=== PATIENT | male | born 1955 ===

== ENCOUNTER 2018-09-04 13:27 | Inpatient (IN) | payer BC ==
[~2018-09-04] VITALS: Ht 177.8 cm; Wt 99.2 kg
--- NOTE | 2018-09-04 14:15 | NUR ---
Silvio Nash admitted to room 222-1, with an admitting diagnosis of Debility status post CVA, on 09/04/18 from [facility] via wheelchair van, accompanied by staff. SILVIO NASH introduced to surroundings, call light, bed controls, phone, TV, temperature control, lights, meal times, smoking policy, visitor policy, side rail policy, bathrooms and showers. Patient Rights given to patient in the handbook.SILVIO NASH verbalizes understanding that [facility] is not responsible for the loss or damage to any personal effects or valuables that are kept in the patients possession during their hospitalization. The following Patient Care Plans were discussed with the Patient: Discharge Planning, Altered Cerebral Tissue Perfusion, Unilateral Neglect, Impaired Mobility, Self Care Deficit, and Knowledge deficit. SILVIO NASH verbalizes understanding of Interdisciplinary Patient Education. Patient received Patient Rights Booklet, which includes Privacy Act Statement and Data Collection Information Summary.
[2018-09-04 14:20] VITALS: BP 159/75
[2018-09-04] MEDS ORDERED: PYRI50TA10 PO (14:39)
[2018-09-04] MEDS ORDERED: METF500T8 PO (14:39)
[2018-09-04] MEDS ORDERED: CHOL10007 PO (14:39)
[2018-09-04] MEDS ORDERED: CARV25TA PO (14:39)
[2018-09-04] MEDS ORDERED: CYAN500T2 PO (14:39)
[2018-09-04] MEDS ORDERED: AMLO10TA7 PO (14:39)
[2018-09-04] MEDS ORDERED: ZINC220T PO (14:39)
[2018-09-04] MEDS ORDERED: FEXO180T84 PO (14:39)
[2018-09-04] MEDS ORDERED: INSU300I SQ (14:39)
--- NOTE | 2018-09-04 14:46 | NUR ---
UPDATED MED REC TO THE LIST OF MEDICATIONS THE PATIENT WAS TAKING UPON ADMISSION TO USING THE DISCHARGE ORDERS FROM . NOTE THE FOLLOWING CHANGES WERE MADE WHEN THE PATIENT DISCHARGED TO [facility] THAT ARE NOT CURRENTLY REFLECTED ON THE HOME MED REC. START TAKING: ASPIRIN 325MG DAILY LIPITOR 40MG DAILY PROZAC 20MG DAILY HYDROCODONE 5-325MG 1-2 TABS Q4H PRN XARELTO 20MG DAILY WITH LUNCH SENOKOT S BID PRN WHILE TAKING PAIN MEDICATION CHANGE HOW YOU TAKE: AMLODIPINE 10MG DAILY (DO NOT RESUME UNTIL SEEN BY PRIMARY CARE PHYSICIAN) COREG 25MG BID (DO NOT RESUME UNTIL SEEN BY PRIMARY CARE PHYSICIAN) THE FOLLOWING MEDICATIONS WERE REMOVED FROM THE PATIENTS LIST AT ; IT INCLUDES MEDICATION DISCONTINUED THIS STAY AND THOSE REMOVED FROM PRIOR MED LIST IN THEIR SYSTEM: CIPRO 500 (NOT INCLUDED ON MED REC) MAG 400 SAW PALMETTO 500MG SELENIUM 100MCG
[2018-09-04] MEDS ORDERED: MAGN400T39 PO (14:53)
[2018-09-04] MEDS ORDERED: SELE100T PO (14:53)
[2018-09-04] MEDS ORDERED: SAW500CA10 PO (14:53)
[2018-09-04] MEDS ORDERED: POLYETHYLENE GLYCOL 17 GM (MIRALAX) PACK PO NR (15:00)
[2018-09-04] MEDS ORDERED: SENNA W/DOCUSATE (SENOKOT S) TABLET PO NR (15:00)
[2018-09-04] MEDS ORDERED: LACTULOSE SYRUP 10GM/15ML (ENULOSE) 30ML UDC PO NR (15:00)
--- NOTE | 2018-09-04 16:01 | Physical Therapy Evaluation ---
PT Evaluation-General Medical Diagnosis Admission Date Sep 04, 2018 at 14:18 Medical Diagnosis: CVA Onset Date: Sep 04, 2018 Therapy Diagnosis Therapy Diagnosis: impaired mobility, strength, endurance Height/Weight Height (Feet): 5 Height (Inches): 10.00 Weight (Pounds): 211 Weight (Ounces): 8.0 Precautions Precautions/Isolations: Standard Precautions Referral Physician: Meron Meier DO Reason for Referral: Evaluation/Treatment Medical History Pertinent Medical History: CVA, DM, HTN Social History Home: Single Level Current Living Status: Spouse Entry Into Home: Level Entry Prior/Core FIM Prior Level of Function Therapy Code Descriptions/Definitions Functional Nicholas Measure: 0=Not Assessed/NA 4=Minimal Assistance 1=Total Assistance 5=Supervision or Setup 2=Maximal Assistance 6=Modified Nicholas 3=Moderate Assistance 7=Complete Nicholas Therapy Quality Codes: 6 Independent with activity with or without an assistive device 5 Patient requires set up or clean up by helper. Patient completes activity by themselves 4 Supervision or touching assist (CGA). [place] provide cues , steadying assist 3 The helper provides less than half the effort to complete the activity 2 The helper provides more than half the effort to complete the activity 1 Dependent. The helper does all the effort to complete an activity 7 Patient refused to complete or attempt activity 9 The patient did not perform the activity before the current illness or injury 88 Not attempted due to Medical conditions or safety concerns Functional Abilities and Goals: Independent: Patient completed the activities by him/herself, with or without an assistive device, with no assistance from a helper. Needed Some Help: Patient needed partial assistance from another person to complete activities. Dependent: A helper completed the activities for the patient. Unknown: Not Applicable: Bed Mobility: 7 Transfers (B,C,W/C) (FIM): 7 Gait: 7 Stairs: 7 Indoor Mobility (Ambulation): Independent Stairs: Independent PT Evaluation-Current Subjective Patient in bed pre tx, agrees to PT, will be co-treating with OT due to poor patient mobility, balance, and endurance. Pt/Family Goals to be independent at home Objective Patient Orientation: Person, Place ROM/Strength ROM Lower Extremities WNL Strenght Lower Extremities right lower extremity 5/5 gross, LLE (hip flexion 1/5, knee flexion 0/5, knee extension 1/5, dorsiflexion 1/5) Neuromuscular (Tone, Coordination, Reflexes) slightly increased extensor tone in the left leg, seemed to have slightly decreased peripheral vision on the left side, fair tracking on both sides, no complaints of hearing changes Sensory Hearing: Functional Sensation Right Lower Extremit: Intact Sensation Left Lower Extremity: Intact Transfers Therapy Code Descriptions/Definitions Functional Nicholas Measure: 0=Not Assessed/NA 4=Minimal Assistance 1=Total Assistance 5=Supervision or Setup 2=Maximal Assistance 6=Modified Nicholas 3=Moderate Assistance 7=Complete Nicholas Therapy Quality Codes: 6 Independent with activity with or without an assistive device 5 Patient requires set up or clean up by helper. Patient completes activity by themselves 4 Supervision or touching assist (CGA). [place] provide cues , steadying assist 3 The helper provides less than half the effort to complete the activity 2 The helper provides more than half the effort to complete the activity 1 Dependent. The helper does all the effort to complete an activity 7 Patient refused to complete or attempt activity 9 The patient did not perform the activity before the current illness or injury 88 Not attempted due to Medical conditions or safety concerns Transfers (B, C, W/C) (FIM): 2 Scootin Rollin Roll Left to Right (QC): 3 Supine to/from Sit: 3 Sit to/from Stand: 3 bed t/f WC(FIM only if WC use): 3 Sit to Lying (QC): 3 Lying to Sitting/Side of Bed(Q: 2 Sit to Stand (QC): 2 Chair/Ihn-uc-Vydoe Xfer(QC): 2 Car Transfer (QC): 2 Patient performs bed mobility with min assist, supine to sit with mod assist, sit to supine with min assist, sit to stand with mod assist, stand pivot transfer with mod assist, car transfer with max assist. Patient needs guarding of left leg, cues for positioning, leans heavily to the left. Gait Does the Patient Walk?: Yes Mode of Locomotion: Both Anticipated Mode of Locomotion: Walk Gait (FIM): 1 Distance: 8' Gait Level of Assist: 2 Gait Persons Needed: 1 Gait Assistive Device: Parallel Bars Comments/Gait Description Patient ambulated 8' in the parallel bars with max assist. He needs assist advancing his left leg and it tends to adduct, leans heavily to the left side, he can bear some weight through his left leg. Wheelchair Training Does the Pt Use a Wheelchair?: Yes Wheelchair (FIM): 1 Distance: 25' Wheelchair Level of Assist: 4 Type of Wheelchair: Manual Patient can propel a manual wheelchair 25' with min assist. He uses his right arm and leg to propel. Stairs If not tested on admit;explain Patient is not safe to perform stairs at this time, he is only ambulating in the parallel bars at this time. Balance Sitting Static: Fair Sitting Dynamic: Poor Standing Static: Poor Standing Dynamic: Poor Treatment sitting balance activities with cones and reaching and leaning in 4 directions, standing with mirror in front, dressing, grooming. PT worked on bed mobility, transfers, ambulation, balance activities, and positioning and balance during dressing and grooming. OT worked on dressing, grooming, UE exercises and balance activities. OT performed eval from [id number] for 20'. PT performed eval from [id number] for 10 min. Then co-treated for the next 75 min from 1440- 1555. Assessment/Needs Patient has impaired mobility, strength, endurance, balance. He is a high fall risk. He leans heavily to the left side. Rehab Potential: Fair PT Short Term Goals Short Term Goals Time Frame: Sep 11, 2018 Transfers (B,C,W/C) (FIM): 3 Gait (FIM): 1 Gait Distance Comment: 20' Gait Level of Assist: 3 Gait Assistive Device: Walker Ba PT Exterior Door Installer Goals Exterior Door Installer Goals PT Fdc Goals Time Frame: Sep 25, 2018 Transfers (B,C,W/C) (FIM): 4 Sit to Lying (QC): 4 Lying-Sitting on Side/Bed(QC): 4 Sit to Stand (QC): 4 Rollin Roll Left to Right (QC): 4 Chair/Uqa-wb-Lvdwe Xfer(QC): 4 Car Transfer (QC): 4 Gait (FIM): 2 Distance: 50' Walk 10 feet (QC): 3 Walk 10ft-Uneven Surface(QC): 3 Walk 50ft with 2 Turns (QC): 3 Gait Level of Assist: 4 Gait Assistive Device: Cane Large Base Quad Wheelchair (FIM): 5 Distance: 150' Wheelchair Level of Assist: 5 Wheel 50 feet with 2 turns (QC: 4 PT Plan Problem List Problem List: Activity Tolerance, Functional Strength, Safety, Balance, Gait, Transfer, Bed Mobility, ROM Treatment/Plan Treatment Plan: Continue Plan of Care Treatment Plan: Bed Mobility, Concurrent Therapy, Education, Functional Activity Reena, Functional Strength, Group Therapy, Gait, Safety, Therapeutic Exercise, Transfers Treatment Duration: Sep 25, 2018 Frequency: At least 5 of 7 days/Wk (IRF) Estimated Hrs Per Day: 1.5 hours per day Patient and/or Family Agrees t: Yes Safety Risks/Education Patient Education: Gait Training, Transfer Techniques, Correct Positioning, W/ C Management, Safety Issues Teaching Recipient: Patient Teaching Methods: Demonstration, Discussion Response to Teaching: Reinforcement Needed Discharge Recommendations Plan Patient will perform bed mobility and transfer training, balance and endurance training, functional strengthening, stair training, gait training, and education , to improve functional mobility and independence at home. Therapy D/C Recommendations: Home w/ Family Support Time/GCodes Time In: 1430 Time Out: 1555 Total Billed Treatment Time: 85 Total Billed Treatment 1 visit EVM 10' FA 45' NM 30' CASTILLO PHIPPS PT Sep 04, 2018 16:01
--- NOTE | 2018-09-04 16:09 | Occupational Therapy Eval ---
OT Evaluation-General/PLF Medical Diagnosis Admission Date Sep 04, 2018 at 14:18 Medical Diagnosis: CVA Onset Date: Sep 04, 2018 Therapy Diagnosis Therapy Diagnosis: WEAKNESS Height/Weight Height (Feet): 5 Height (Inches): 10.00 Weight (Pounds): 211 Weight (Ounces): 8.0 Precautions Precautions/Isolations: Fall Prevention, Standard Precautions Weight Bear Status Weight Bearing Restriction: Full Weight Bearing Location Restriction: LE Bilateral Medical History Pertinent Medical History: CVA, DM, HTN Additional Medical History PMHx HTN, HLD, DM, Chr. UTI Current History Pt lives at home with his & was Independent in all ADL's , IADL.s & mobility Reviewed History: Yes Social History Home: Single Level Current Living Status: Spouse Entry Into Home: Level Entry ADL-Prior Level of Function Therapy Code Descriptions/Definitions Functional [place] Measure: 0=Not Assessed/NA 4=Minimal Assistance 1=Total Assistance 5=Supervision or Setup 2=Maximal Assistance 6=Modified [place] 3=Moderate Assistance 7=Complete [place] Therapy Quality Codes: 6 Independent with activity with or without an assistive device 5 Patient requires set up or clean up by helper. Patient completes activity by themselves 4 Supervision or touching assist (CGA). [place]on provide cues , steadying assist 3 The helper provides less than half the effort to complete the activity 2 The helper provides more than half the effort to complete the activity 1 Dependent. The helper does all the effort to complete an activity 7 Patient refused to complete or attempt activity 9 The patient did not perform the activity before the current illness or injury 88 Not attempted due to Medical conditions or safety concerns Functional Abilities and Goals: Independent: Patient completed the activities by him/herself, with or without an assistive device, with no assistance from a helper. Needed Some Help: Patient needed partial assistance from another person to complete activities. Dependent: A helper completed the activities for the patient. Unknown: Not Applicable: OT Current Status Subjective Patient was in bed , Stated, " I am fine ." Agrees for Occupational Therapy due to marked weakness on Left side of body due to stroke & marked decline in all ADL's. Pain Location: No Pain Reported Mental Status/Objective Patient Orientation: Person, Place, Time, Eyes Open, Situation Current Glasses/Contacts: No Hearing Aids: No Dentures/Partials: No Upper Extremity ROM BUE ROM WFL Upper Extremity Coordination Intact Upper Extremity Sensation Intact Upper Extremity Strength MS in Rt UE 4+/5 & Lf UE 0/10 No Edema ADL-Treatment ADL-Current Pt dependent in UB , LB Dressing / Undressing , Bathing, bed mobility, transfers , Modified Indepedent in self feeding & Supervision with set up in grooming. Eating (FIM): 6 Eating (QC): 5 Grooming (FIM): 5 Oral Hygiene (QC): 5 Bathing (FIM): 2 Bathing Location: L Arm, L Upper Leg, L Lower Leg (including foot), Chest, Abdomen, Buttocks, Perineal Area Shower/Bathe Self (QC): 2 Upper Body Dressing (FIM): 2 Upper Body Dressing (QC): 2 Lower Body Dressing (FIM): 2 Lower Body Dressing (QC): 2 On/Off Footwear (QC): 2 Toileting (FIM): 2 Toileting Hygiene (QC): 2 Transfers (B, C, W/C) (FIM): 2 Toilet/Commode Transfer (FIM): 2 Toilet Transfer (QC): 2 Shower Transfer (FIM): 2 Education OT Patient Education: Correct positioning, Exercise program, Instructions to caregiver, Safety issues, Transfer techniques Teaching Recipient: Patient, Family Teaching Methods: Demonstration, Discussion Response to Teaching: Verbalize Understanding, Return Demonstration Pt has tendency to increase flexion contractures deformity in Left hand & thus planning to provide Resting Hand splint & Ba sling to prevent pulling & dislocation of Lf shoulder joint & ligaments . OT Short Term Goals Short Term Goals Time Frame: Sep 19, 2018 Eating(FIM): 7 Grooming(FIM): 7 Bathing(FIM): 3 Bathing Location: L Arm, L Lower Leg (including foot), Chest, Abdomen Upper Body Dressing(FIM): 3 Lower Body Dressing(FIM): 2 Toileting(FIM): 3 Transfers (B,C,W/C) (FIM): 3 Toilet/Commode Transfer(FIM): 3 Shower Transfer(FIM): 3 Additional Short Term Goals: 1-Demonstrate ADL Tasks, 2-Verbalize Understanding , 3-ImproveStrength/Reena 1=Demonstrate adherence to instructed precautions during ADL tasks. 2=Patient will verbalize/demonstrate understanding of assistive devices/ modifications for ADL. 3=Patient will improve strength/tolerance for activity to enable patient to perform ADL's. OT Manufacturing Engineering Director Goals Usp Goals Time Frame: Oct 03, 2018 Eating (FIM): 7 Eating (QC): 7 Groomin Oral Hygiene (QC): 7 Bathing(FIM): 3 Bathing Location: L Arm, R Arm, L Lower Leg (including foot), R Lower Leg ( including foot), Chest, Abdomen Shower/Bathe Self (QC): 3 Upper Body Dressing(FIM): 4 Upper Body Dressing (QC): 4 Lower Body Dressing(FIM): 3 Lower Body Dressing (QC): 3 On/Off Footwear (QC): 3 Toileting(FIM): 3 Toileting Hygiene (QC): 3 Transfers (B,C,W/C) (FIM): 3 Toilet/Commode Transfer(FIM): 3 Toilet/Commode Transfer (QC): 3 Shower Transfer(FIM): 3 Comprehension(FIM): 3 Additional Goals: 1-Demonstrate ADL Tasks, 2-Verbalize Understanding, 3- ImproveStrength/Reena 1=Demonstrate adherence to instructed precautions during ADL tasks. 2=Patient will verbalize/demonstrate understanding of assistive devices/ modifications for ADL. 3=Patient will improve strength/tolerance for activity to enable patient to perform ADL's. OT Education/Plan Problem List/Assessment Assessment: Decreased Activ Tolerance, Decreased Safety Aware, Decreased UE Strength, Dependent Transfers, Impaired Bed Mobility, Impaired Funct Balance, Impaired Self-Care Skills Discharge Recommendations Plan/Recommendations: Continue POC Therapy D/C Recommendations: Home w/ Family Support, Occupational Therapy Home Care Equpiment Recommendations-D/C: Extended Bath Bench, Rails on Tub/Shower, Toilet Riser with Rails, Extended Shower Sprayer, Box Sorter, Velcro Shoes, Sock Aide, Dressing Stick, Long Shoe Horn Barriers to Progress CVA with Left sided weakness in Lf UE & Lf LE & Pt will have to educate 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 Patient stated he has Fibromyelgia with exaggerated pain in Lf Shoulder. Patient/Family Goals To return home Independently with spouse . Treatment Plan/Plan of Care Treatment,Training & Education: Yes Patient would benefit from OT for education, treatment and training to promote independence in ADL's, mobility, safety and/or upper extremity function for ADL' s. Plan of Care: ADL Retraining, Caregiver Training, Functional Mobility, Group Exercise/Act as Ind, UE Funct Exercise/Act Treatment Duration: Oct 03, 2018 Frequency: At least 5 of 7 days/Wk (IRF) Estimated Hrs Per Day: 1.5 hours per day Agreement: Yes Rehab Potential: Fair Time/GCodes Start Time: 14:10 Stop Time: 15:55 Total Time Billed (hr/min): 90 Billed Treatment Time 1 Visit, EVH 20 min, ADL 45 Min, Ex 30 min Eval [id number] , CO-Tx with PT [id number] GUTIERREZ GOLDEN OT Sep 04, 2018 16:09
--- NOTE | 2018-09-04 16:49 | History & Physical ---
History of Present Illness History of Present Illness Reason for visit/HPI CC: CVA with left sided weakness HPI: This is a 63-year-old white male who presents to the inpatient rehab unit due to severe deficit on the left side following a stroke on 08/16/18. He presented to [facility] with facial droop was found to have evidence of thrombus in the right MCA region so he was sent to [facility] for interventional radiology thrombectomy but patient refused at that time so he was monitored in the neurosurgery ICU with close monitoring. Patient underwent right endarterectomy due to carotid ultrasound showing severe critical stenosis and he did undergo that procedure but that did not result in any improvement in the left-sided weakness. He has a history of chronic UTI of which he does not have any symptoms of but having severe constipation of which we will start an aggressive regimen to resolve that issue. He intends to return home with his and he is agreeable for intensive rehab sessions in order to improve upon deficit on the left arm and left leg in order to return home. Date of Admission Sep 04, 2018 at 14:18 Date Seen by a Provider: Sep 04, 2018 Time Seen by a Provider: 14:30 I consulted on this patient on 09/04/18 16:48 Attending Physician Meron Meier DO Admitting Physician No,Local Physician Consult Allergies and Home Medications Allergies Coded Allergies: No Known Drug Allergies (Unverified , 09/04/18) Home Medications Amlodipine Besylate 10 Mg Tablet, 10 MG PO DAILY, (Reported) Carvedilol 25 Mg Tablet, 25 MG PO BID, (Reported) Cholecalciferol (Vitamin D3) 1,000 Unit Capsule, 1,000 UNIT PO DAILY, (Reported) Cyanocobalamin (Vitamin B-12) 500 Mcg Tablet, 500 MCG PO DAILY, (Reported) Fexofenadine HCl 180 Mg Tablet, 180 MG PO DAILY, (Reported) Insulin Glargine,Hum.rec.anlog 300 Unit/1 Ml Insuln.pen, 42 UNIT SQ HS, ( Reported) Magnesium Oxide 400 Mg Tablet, 400 MG PO DAILY, (Reported) Metformin HCl 500 Mg Tab.er.24h, 1,000 MG PO BID, (Reported) Pyridoxine HCl 50 Mg Tablet, 50 MG PO DAILY, (Reported) Saw Anderson 500 Mg Capsule, 500 MG PO DAILY, (Reported) Selenium 100 Mcg Tablet, 100 MCG PO DAILY, (Reported) Zinc Sulfate 220 Mg Tablet, 220 MG PO DAILY, (Reported) Patient Home Medication List Home Medication List Reviewed: Yes Past Bikfyzz-Axapsm-Swconc Hx Past Med/Social Hx: Reviewed Nursing Past Med/Soc Hx, Reviewed and Corrections made Patient Social History Marrital Status: 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) Alcohol Use: Denies Use Recreational Drug Use: No Smoking Status: Former Smoker Type Used: Smokeless Tobacco Physical Abuse Screen: No Sexual Abuse: No Recent Foreign Travel: No Contact w/other who traveled: No Recent Hopitalizations: Yes (Transfer from [facility]) Recent Infectious Disease Expo: No Immunizations Up To Date Pediatric: No Seasonal Allergies Seasonal Allergies: Yes (Takes Alyssa for allergies) Past Medical History Surgeries: Vascular Surgery Cardiac: High Cholesterol, Hypertension Neurological: Stroke (08/16/18) Genitourinary: Prostate Problems Musculoskeletal: Fibromyalgia, Back Injury, Chronic Back Pain, Gout Are Your Blood Sugars Over 250: No History of Blood Disorders: No Adverse Reaction to Blood Jay: No Family History Abdominal aortic aneurysm 19 FATHER, Onset:60 years & older Alcoholism G8 BROTHER, Onset:20's - 25 Arthritis 19 MOTHER, Onset:50's - 60 G8 SISTER, Onset:50's - 60 Cardiovascular disease 19 FATHER, Onset:50's - 60 Cataracts 19 MOTHER, Onset:60 years & older Completed stroke 19 MOTHER, Onset:50's - 60 G8 SISTER, Onset:50's - 60 Drug abuse G8 BROTHER, Onset:30's - 40 G8 SISTER Hypertension 19 FATHER 19 MOTHER G8 BROTHER G8 SISTER Myocardial infarction 19 FATHER Review of Systems Constitutional: see HPI, weakness EENTM: no symptoms reported Respiratory: no symptoms reported Cardiovascular: no symptoms reported Gastrointestinal: constipation Genitourinary: no symptoms reported Musculoskeletal: back pain Skin: no symptoms reported Psychiatric/Neurological: Weakness All Other Systems Reviewed Negative Unless Noted: Yes Physical Exam Vital Signs Vital Signs - First Documented 09/04/18 14:20 Temp 96.3 Pulse 55 Resp 18 B/P (MAP) 159/75 (103) Pulse Ox 94 O2 Delivery Room Air Capillary Refill : Height, Weight, BMI Height: 5'10.00" Weight: 211lbs. 8.0oz. 95.366486ph; 30.4 BMI Method: General Appearance: No Apparent Distress, WD/WN, Chronically ill Eyes: Bilateral Eye Normal Inspection, Bilateral Eye PERRL, Bilateral Eye EOMI HEENT: PERRL/EOMI, Normal ENT Inspection, Pharynx Normal Neck: Full Range of Motion, Normal Inspection, Non Tender, Supple, Carotid Bruit Respiratory: Chest Non Tender, Lungs Clear, Normal Breath Sounds, No Accessory Muscle Use, No Respiratory Distress Cardiovascular: Regular Rate, Rhythm, No Edema, No Gallop, No JVD, No Murmur, Normal Peripheral Pulses Gastrointestinal: Normal Bowel Sounds, No Organomegaly, No Pulsatile Mass, Non Tender, Soft Back: Normal Inspection, No CVA Tenderness, No Vertebral Tenderness Extremity: Normal Capillary Refill, Normal Inspection, Non Tender, No Calf Tenderness, No Pedal Edema Neurologic/Psychiatric: Alert, Oriented x3, Abnormal Gait, Depressed Affect, Motor Weakness (left arm and left leg flaccid but appears to have spontaneous movement left foot the longer he was tested) Skin: Normal Color, Warm/Dry Lymphatic: No Adenopathy Assessment/Plan Assessment and Plan Assessment Subacute CVA 08/16/18 with left sided weakness Severe carotid stenosis right s/p endarterectomy but no resolution of deficit DM Chronic UTI HTN HLP Plan: Monitor BP Maintain all new meds per [facility] including asa and anticoagulation Therapies as ordered for intensive rehab Admission Diagnosis Admission Status: Inpatient Order (span 2 midnights) Reason for Inpatient Admission: CVA will require 14 days of intense rehab Clinical Quality Measures DVT/VTE Risk/Contraindication: Risk Factor Score Per Nursin RFS Level Per Nursing on Admit: 4+=Very High Diagnosis/Problems Diagnosis/Problems (1) Cerebrovascular accident (CVA) with left hemiparesis Status: Acute (2) Diabetes mellitus Status: Chronic (3) Hypertension Status: Chronic (4) Hyperlipidemia Status: Chronic (5) Chronic UTI Status: Chronic Problem Qualifiers (1) Diabetes mellitus: Diabetes mellitus type: type 2 Diabetes mellitus terminal superintendent insulin use: with jail use Diabetes mellitus complication status: with circulatory complication Diabetes mellitus complication detail: with other circulatory complications Qualified Codes: E11.59 - Type 2 diabetes mellitus with other circulatory complications; Z79.4 - 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 (current) use of insulin (2) Hypertension: Hypertension type: essential hypertension Qualified Codes: I10 - Essential ( primary) hypertension (3) Hyperlipidemia: Hyperlipidemia type: mixed hyperlipidemia Qualified Codes: E78.2 - Mixed hyperlipidemia MERON MEIER DO Sep 04, 2018 16:49
[2018-09-04] MEDS ORDERED: IBUPROFEN TABLET 200 MG TAB PO PRN (17:00)
[2018-09-04] MEDS ORDERED: diphenhydrAMINE 25 MG TAB (BENADRYL) PO PRN (17:00)
[2018-09-04] MEDS ORDERED: DOCUSATE SODIUM 100 MG (COLACE) CAP PO PRN (17:00)
[2018-09-04] MEDS ORDERED: CALCIUM CARBONATE 500 MG (TUMS) TAB.CHEW PO PRN (17:00)
[2018-09-04] MEDS ORDERED: HYDROcodone/APAP 5 MG/325 MG (LORTAB) TAB PO PRN (18:15)
[2018-09-04 18:25] VITALS: BP 146/79
[2018-09-04] MEDS: metFORMIN XR 500 MG (GLUCOPHAGE XR) TAB PO SCH (18:27)
--- NOTE | 2018-09-04 19:24 | NUR ---
bedside report received from ELSA MIX, assume care of pt
--- NOTE | 2018-09-04 20:29 | NUR ---
NIH stroke scale completed scored 10 has noted facial droop lt side lt arm flaccid lt leg severe weakness speech slightly garbled but understandable, fsbs 227 novalog 3 units & levemir 42 units given pt able to take meds without difficulty
[2018-09-04 20:30] VITALS: BP 171/92
[2018-09-04] MEDS: inSUlin ASPART (NovoLOG) 1 UNIT/0.01 ML (CHARGE PER UNIT) SC SCH (20:32)
[2018-09-04] MEDS: inSUlin DETERMIR 1 UNIT/0.01 ML (LEVEMIR) CHARGE PER UNIT SQ SCH (20:32)
[2018-09-04] MEDS: ATORVASTATIN 40 MG (LIPITOR) TABLET PO SCH (20:39)
[2018-09-04] MEDS: SENNA W/DOCUSATE (SENOKOT S) TABLET PO SCH (20:39)
[2018-09-04] MEDS: CARVEDILOL 12.5 MG (COREG) TABLET PO SCH (20:39)
[2018-09-04] MEDS: BISACODYL 10 MG SUPP (DULCOLAX) PR SCH (20:39)
[2018-09-04] MEDS: MELATONIN 3 MG TABLET PO PRN (20:45)
[2018-09-04] MEDS ORDERED: INSULIN GLARGINE HUM REC ANLOG 42 UNIT SQ SCH (21:00)
[2018-09-04] MEDS ORDERED: [UNRECOGNIZED DRUG - OTHER] SQ SCH (21:00)
[2018-09-04] MEDS ORDERED: NON-FORMULARY MEDICATION 1 EA EA (Carvedilol 25 MG) PO SCH (21:00)
--- NOTE | 2018-09-04 21:00 | NUR ---
assessments & interventions completed, see assessments & interventions
--- NOTE | 2018-09-04 22:05 | NUR ---
up to commode with 2 people assist to have BM
--- NOTE | 2018-09-04 22:20 | NUR ---
had medium soft reddish brown stool, states had red jello today
[2018-09-05 05:14] VITALS: BP 149/78
[2018-09-05] MEDS: inSUlin ASPART (NovoLOG) 1 UNIT/0.01 ML (CHARGE PER UNIT) SC SCH ×4 (06:00→21:00)
[2018-09-05 06:22] LABS: BASOPHILS % (AUTO) 0 % (0-10); EOSINOPHILS # (AUTO) 0.2 10^3/uL (0.0-0.3); EOSINOPHILS % (AUTO) 3 % (0-10); HEMATOCRIT 38 % (40-54); HEMOGLOBIN 12.7 G/DL (13.3-17.7); LYMPHOCYTES % (AUTO) 24 % (12-44); MEAN CORPUSCULAR HEMOGLOBIN 31 PG (25-34); MEAN CORPUSCULAR HGB CONC 33 G/DL (32-36); MEAN CORPUSCULAR VOLUME 94 FL (80-99); MEAN PLATELET VOLUME 10.5 FL (7.4-10.4); MONOCYTES # (AUTO) 0.7 X 10^3 (0.0-1.0); MONOCYTES % (AUTO) 8 % (0-12); NEUTROPHILS # (AUTO) 5.3 X 10^3 (1.8-7.8); NEUTROPHILS % (AUTO) 65 % (42-75); PLATELET COUNT 240 10^3/uL (130-400); RED CELL DISTRIBUTION WIDTH 13.2 % (10.0-14.5); WHITE BLOOD COUNT 8.2 10^3/uL (4.3-11.0)
[2018-09-05 06:43] LABS: ALANINE AMINOTRANSFERASE 79 U/L (0-55); ALBUMIN 3.4 GM/DL (3.2-4.5); ALKALINE PHOSPHATASE 95 U/L (40-136); BILIRUBIN,TOTAL 0.6 MG/DL (0.1-1.0); BUN/CREATININE RATIO 21; CARBON DIOXIDE 25 MMOL/L (21-32); CHLORIDE 106 MMOL/L (98-107); GFR ESTIMATED > 60; GLUCOSE 98 MG/DL (70-105); SODIUM 142 MMOL/L (135-145); TOTAL PROTEIN 6.4 GM/DL (6.4-8.2)
[2018-09-05] MEDS: metFORMIN XR 500 MG (GLUCOPHAGE XR) TAB PO SCH ×2 (06:46→17:38)
[2018-09-05] MEDS: CYANOCOBALAMIN 1,000 MCG (VITAMIN B-12) TABLET PO SCH (06:48)
--- NOTE | 2018-09-05 07:17 | NUR ---
bedside report given to RAJESH MIX
[2018-09-05] MEDS ORDERED: FLU QUADRIvalent (5+ YOA) 2018-2019 (AFLURIA) 0.5 ML IM ONE (07:30)
--- NOTE | 2018-09-05 08:30 | PM&R Post Admission Assessment ---
Post Admission Physician Asses Date seen by provider: Sep 05, 2018 Time seen by provider: 08:00 Admisison Dx: (1) Cerebrovascular accident (CVA) with left hemiparesis Status: Acute (2) Diabetes mellitus Status: Chronic (3) Hypertension Status: Chronic (4) Hyperlipidemia Status: Chronic (5) Chronic UTI Status: Chronic The preadmission screen agrees with the post admission assessment that the patient is a good candidate for inpatient rehabilitation. The patient will have a comprehensive program of inpatient rehabilitation with a goal of maximizing level of functional independence prior to discharge home with [family]. The patient will have PT/OT ninety minutes per day, each discipline, five days a week for gait, strengthening, conditioning, balance, ADLs, any patient/family/caregiver training as necessary. Speech therapy to do cognitive assessment and treat as indicated. Rehabilitation nursing to assist with bowel, bladder, skin, wound care, medication administration, pain management. Bullet Slugs Inspector to assist with discharge planning, community reentry. SCD's for DVT prophylaxis. He appears to be well motivated to participate in three hours of therapy a day. He should be able to tolerate three hours of therapy a day from a medical standpoint. He should benefit from the three hours of therapy a day. He has a reasonable discharge plan, reasonable discharge rehabilitation goals and a supportive family. He has various comorbidities that need to be closely monitored with medications and treatments adjusted on a daily basis as needed. These include: see above Barriers to discharge for this patient who had been independent prior to this are for him to be modified independent to supervision for ADLs and mobility skills prior to discharge home with [family], so as to lessen the burden of the caregivers. Risks for this patient include: 1. Fall 2. Fracture 3. DVT 4. Pulmonary embolism 5. Wound infection 6. Skin breakdown 7. Contractures 8. Poorly controlled pain 9. Urinary retention 10. UTI 11. Respiratory infection 12. Aspiration [] Estimated Length of Stay: [14]days Prognosis: Rehab prognosis appears good for goal of discharge home with family modified independent to supervision for ADLs and mobility skills. Date Identified: Sep 05, 2018 Time Identified: 07:00 Action Plan to Resolve CSMI: Hematochezia noted this morning after multiple BM regimen was given to resolve severe constipation prior to DC at [facility] but since he is on chronic anticaogulation we will check hemoccult stools and may need to consult surgery for scope since he has never had a colonoscopy General: Alert, Oriented X3, Cooperative, No Acute Distress HEENT: Atraumatic, PERRLA, EOMI, Mucous Memb Moist/[place] Neck: Supple, No JVD, No Thyromegaly, Other (right CEA jona in place) Lungs: Clear to Auscultation, Normal Air Movement Heart: Regular Rate, Normal S1, Normal S2 Abdomen: Normal Bowel Sounds, Soft, No Tenderness, No Hepatosplenomegaly, No Masses Extremities: No Clubbing, No Cyanosis Skin: No Rashes, No Breakdown Neuro: Normal Speech, Other (left sided HP 1/5 left foot flaccid left arm and hand) Psych/Mental Status: Mental Status NL, Mood NL DARELL CIFUENTES DO Sep 05, 2018 08:30
--- NOTE | 2018-09-05 08:34 | PM&R Progress Note ---
Subjective HPI/CC On Admission Date Seen by Provider: Sep 05, 2018 Time Seen by Provider: 08:00 Subjective/Events-last exam Patient had a pretty good night He reports he slept well Had a bowel movement this morning that may have been red with blood but the patient reports he was eating a lot of red Jell-O Did get severe constipation resolved because he was really forcing to have a bowel movement before he left [facility] since he had not had one for many days Due to the fact that he is on aspirin and anticoagulation we will go ahead and Hemoccult stools if that continues and may need EGD and colonoscopy if there is a concern for a GI bleed but hemoglobin is noted to be stable at 12.7. Working on transfers with physical therapy currently Monitoring blood sugar considering his levels are high at 200 so will need to maximize insulin regimen after noting trend for the next couple of days and adjust as necessary to facilitate better sugar control and better outcome No h/o colonoscopy before or GIB Review of Systems General: Fatigue Gastrointestinal: Constipation, Melena Neurological: Weakness Objective Exam Vital Signs Vital Signs Date Time Temp Pulse Resp B/P (MAP) Pulse Ox O2 Delivery O2 Flow Rate FiO2 09/05/18 18:29 97.2 52 18 151/74 (99) 96 Room Air Capillary Refill : General Appearance: No Apparent Distress, WD/WN, Chronically ill Respiratory: Chest Non Tender, Lungs Clear, Normal Breath Sounds, No Accessory Muscle Use, No Respiratory Distress Cardiovascular: Regular Rate, Rhythm, No Edema, No Gallop, No JVD, No Murmur, Normal Peripheral Pulses Neurologic/Psychiatric: Alert, Oriented x3, Depressed Affect, Motor Weakness ( left arm and leg) Skin: Normal Color, Warm/Dry Lymphatic: No Adenopathy Results/Procedures Lab Laboratory Tests 09/05/18 05:24 Patient resulted labs reviewed. Assessment/Plan Assessment and Plan Assess & Plan/Chief Complaint Assessment Subacute CVA 08/16/18 with left sided weakness Severe carotid stenosis right s/p endarterectomy but no resolution of deficit DM Chronic UTI HTN HLP Constipation but rapidly resolving Possible hematochezia episode Plan: Monitor for any GIB since on ASA and anticoagulation Monitor sugar control and adjust insulin prn Evaluate urinary issues since h/o chronic UTI. 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 insulin use: with machine rug cleaner use Diabetes mellitus complication status: with circulatory complication Diabetes mellitus complication detail: with other circulatory complications Qualified Codes: E11.59 - Type 2 diabetes mellitus with other circulatory complications; Z79.4 - sample paster (current) use of insulin (3) Hypertension Status: Chronic Qualifiers: Hypertension type: essential hypertension Qualified Codes: I10 - Essential (primary) hypertension (4) Hyperlipidemia Status: Chronic Qualifiers: Hyperlipidemia type: mixed hyperlipidemia Qualified Codes: E78.2 - Mixed hyperlipidemia (5) Chronic UTI Status: Chronic (6) Bright red blood per rectum Status: Acute (7) Constipation Status: Acute Qualifiers: Constipation type: slow transit constipation Qualified Codes: K59.01 - Slow transit constipation Clinical Quality Measures Admission Status Admission Dx Assessment Subacute CVA 08/16/18 with left sided weakness Severe carotid stenosis right s/p endarterectomy but no resolution of deficit DM Chronic UTI HTN HLP Plan: Monitor BP Maintain all new meds per [facility] including asa and anticoagulation Therapies as ordered for intensive rehab DVT/VTE Risk/Contraindication: Risk Factor Score Per Nursin RFS Level Per Nursing on Admit: 4+=Very High DARELL CIFUENTES DO Sep 05, 2018 08:34
[2018-09-05 08:58] VITALS: BP 128/75
--- NOTE | 2018-09-05 08:58 | Physical Therapy Daily Note ---
PT Daily Note-Current Subjective Patient in bed pre tx, agrees to PT, has no complaints of pain at rest. Appearance Patient in recliner post tx with nurse call, phone, tray, all needs met. in room. Mental Status Patient Orientation: Person, Place, Situation Transfers Therapy Code Descriptions/Definitions Functional [place] Measure: 0=Not Assessed/NA 4=Minimal Assistance 1=Total Assistance 5=Supervision or Setup 2=Maximal Assistance 6=Modified [place] 3=Moderate Assistance 7=Complete [place] Therapy Quality Codes: 6 Independent with activity with or without an assistive device 5 Patient requires set up or clean up by helper. Patient completes activity by themselves 4 Supervision or touching assist (CGA). [place] provide cues , steadying assist 3 The helper provides less than half the effort to complete the activity 2 The helper provides more than half the effort to complete the activity 1 Dependent. The helper does all the effort to complete an activity 7 Patient refused to complete or attempt activity 9 The patient did not perform the activity before the current illness or injury 88 Not attempted due to Medical conditions or safety concerns Transfers (B, C, W/C) (FIM): 3 Scootin Rollin Supine to/from Sit: 3 Sit to/from Stand: 3 Bed to/from Chair: 3 With proper positioning, patient can perform a stand pivot transfer with min assist to the right side but needs mod assist when going to the left. Also practiced stand pivot transfers 4 times to the right and 4 times to the left. Gait Training Gait (FIM): 1 Distance: 8'x3 Gait Level of Assist: 2 Gait Persons Needed: 1 Gait Assistive Device: Parallel Bars Patient ambulated forward and back in the parallel bars x3 with max assist. He leans heavily to the left side. Needs less assistance to advance his left leg than yesterday and less scissoring. Wheelchair Training Does the Pt Use a Wheelchair?: Yes Wheelchair (FIM): 2 Distance: 50' Wheelchair Level of Assist: 4 Type of Wheelchair: Manual Treatments bed mobility and transfer training, ambulation, wheelchair mobility, patient needed to have a BM during treatment, took him to his bathroom, performed the transfer and dependent for pants down, patient had a BM, dependent for cleaning (nurse did this and assisted getting pants up) Assessment Current Status: Fair Progress improved transfers, patient had some pain in left hip, states that this has been an issue previously PT Short Term Goals Short Term Goals Time Frame: Sep 11, 2018 Transfers (B,C,W/C) (FIM): 3 Gait (FIM): 1 Gait Distance Comment: 20' Gait Level of Assist: 3 Gait Assistive Device: Walker Ba Wheelchair Distance: 25' PT Ticket Speculator Goals Ticket Speculator Goals PT [facility] Goals Time Frame: Sep 25, 2018 Transfers (B,C,W/C) (FIM): 4 Sit to Lying (QC): 4 Lying-Sitting on Side/Bed(QC): 4 Sit to Stand (QC): 4 Rollin Roll Left to Right (QC): 4 Chair/Vca-rk-Visnq Xfer(QC): 4 Car Transfer (QC): 4 Gait (FIM): 2 Distance: 50' Walk 10 feet (QC): 3 Walk 10ft-Uneven Surface(QC): 3 Walk 50ft with 2 Turns (QC): 3 Gait Level of Assist: 4 Gait Assistive Device: Cane Large Base Quad Wheelchair (FIM): 5 Distance: 150' Wheelchair Level of Assist: 5 Wheel 50 feet with 2 turns (QC: 4 PT Plan Problem List Problem List: Activity Tolerance, Functional Strength, Safety, Balance, Gait, Transfer, Bed Mobility, ROM Treatment/Plan Treatment Plan: Continue Plan of Care Treatment Plan: Bed Mobility, Concurrent Therapy, Education, Functional Activity Reena, Functional Strength, Group Therapy, Gait, Safety, Therapeutic Exercise, Transfers Treatment Duration: Sep 25, 2018 Frequency: At least 5 of 7 days/Wk (IRF) Estimated Hrs Per Day: 1.5 hours per day Patient and/or Family Agrees t: Yes Safety Risks/Education Patient Education: Gait Training, Transfer Techniques, Correct Positioning, W/ C Management, Safety Issues Teaching Recipient: Patient Teaching Methods: Demonstration, Discussion Response to Teaching: Reinforcement Needed Time/GCodes Time In: 0800 Time Out: 0900 Total Billed Treatment Time: 60 Total Billed Treatment 1 visit GT 20' FA 40' CASTILLO PHIPPS PT Sep 05, 2018 08:58
[2018-09-05] MEDS ORDERED: NON-FORMULARY MEDICATION 1 EA EA (Cholecalciferol (Vitamin D3) (Vitamin D3) 1,000 UNIT) PO SCH (09:00)
[2018-09-05] MEDS: SENNA W/DOCUSATE (SENOKOT S) TABLET PO SCH ×2 (09:00→21:00)
[2018-09-05] MEDS ORDERED: NON-FORMULARY MEDICATION 1 EA EA (Fexofenadine HCl (Allegra Allergy) 180 MG) PO SCH (09:00)
[2018-09-05] MEDS: FLUoxetine HCL 20 MG (PROzac) CAP PO SCH (09:00)
[2018-09-05] MEDS ORDERED: NON-FORMULARY MEDICATION 1 EA EA (Magnesium Oxide (Magnesium) 400 MG) PO SCH (09:00)
[2018-09-05] MEDS ORDERED: SELENIUM 100 MCG PO SCH (09:00)
[2018-09-05] MEDS ORDERED: SAW PALMETTO 500 MG PO SCH (09:00)
[2018-09-05] MEDS ORDERED: ZINC SULFATE 220 MG PO SCH (09:00)
[2018-09-05] MEDS ORDERED: NON-FORMULARY MEDICATION 1 EA EA (Amlodipine Besylate 10 MG) PO SCH (09:00)
[2018-09-05] MEDS ORDERED: PYRIDOXINE HCL 50 MG PO SCH (09:00)
[2018-09-05] MEDS: VITAMIN D3 1,000 UNITS (CHOLECALCIFEROL) TABLET PO SCH (09:00)
[2018-09-05] MEDS ORDERED: NON-FORMULARY MEDICATION 1 EA EA (Cyanocobalamin (Vitamin B-12) (Vitamin B-12) 500 MCG) PO SCH (09:00)
[2018-09-05] MEDS: ZINC SULFATE 220 MG CAPSULE PO SCH (09:00)
[2018-09-05] MEDS: ASPIRIN 325 MG (5 GR) TABLET PO SCH (09:01)
[2018-09-05] MEDS: amLODIPine 10 MG (NORVASC) TAB PO SCH (09:01)
[2018-09-05] MEDS: LORATADINE (CLARITIN) 10 MG TAB PO SCH (09:01)
[2018-09-05] MEDS: MAGNESIUM OXIDE (MAG-OX)400 MG TAB PO SCH (09:01)
[2018-09-05] MEDS: CARVEDILOL 12.5 MG (COREG) TABLET PO SCH ×2 (09:01→21:14)
[2018-09-05] MEDS: PYRIDOXINE (VITAMIN B-6) 50 MG TABLET PO SCH (09:01)
[2018-09-05] MEDS: BISACODYL 10 MG SUPP (DULCOLAX) PR SCH ×2 (09:13→21:00)
--- NOTE | 2018-09-05 10:30 | ST Cognitive Linguistic Eval ---
Speech Evaluation-General Medical Diagnosis CVA Onset Date: Sep 04, 2018 Therapy Diagnosis Therapy Diagnosis: Aphasia, Dysarthria Precautions Precautions/Isolations: Fall Prevention, Standard Precautions Medical History Pertinent Medical History: CVA, DM, HTN Reviewed History: Yes Social History Current Living Status: Spouse Speech PLF-Current Status Prior Level of Function Patient lived with his and was independent for his daily needs prior to the CVA. Objective Cognitive Domain Attention: WNL Memory: Mild Problem Solving: Mild Executive Functions: Mild Objective Formal/Standardized Tests [facility] Cognitive/Communication Results Memory: Immediate; 3/3, Delayed with cues /3, Orientation: /5, Problem Solving : Simple; 5/5, Complex; 2/5, Auditory Processin/5 Oral Motor/Speech Production Patient has left sided weakness and facial droop. Patient's speech is intelligible at 75% with some mild slurring noted. Impression Patient is a pleasant 63 year old male who has been admitted to the ARU secondary to the CVA on 08/16/18. Patient was attentive during the evaluation process, however he was noted to depend on his for some of his answers. His would redirect him to answer questions without her assistance which he did. Patient has left sided weakness which affects his speech as well. Patient is not having any difficulty with swallowing at this time. Patient does have mild cognitive deficits as well as dysarthria. Communication/Social Cognition Comprehension: 5 Expression: 5 Social Interaction: 5 Problem Solvin Memory: 4 Speech Patient Assess Expression of Ideas/Wants: Exhibits (3) Understanding Verbal Content: Usually Understands (3) Brief Interview-Mental Status: Yes Repetition of Three Words: Three (3) Temporal Orientation: Year: Correct (3) Temporal Orientation: Month: Accurate within 5 days(2) Recall : Wear to say "Sock": Yes,after cueing (1) Recall : Color: Yes, after cueing (1) Recall : Bed: Yes,after cueing (1) Memory/Recall Ability: Current season, That he or she is in a hsp/hsp unit Speech Short Term Goals Short Term Goals Short Term Goals 1) Patient will increase speech intelligibility at the highest functional verbal expression level to 90% or greater. 2) Patient will complete memory tasks with 90% or greater. 3) Patient will complete problem solving tasks with 90% or greater. Speech Half-Way Goals Half-Way Goals Patient will improve memory, problem solving and speech skills to better communicate with familiar and unfamiliar listeners. Speech-Plan Patient/Family Goals Patient/Family Goals: Patient plans to return home with his post rehab. Treatment Plan Speech Therapy Treatment Plan: Continue Plan of Care Patient is recommended for skilled ST services. Treatment Duration: Sep 13, 2018 Frequency: 5 times per week Estimated Hrs Per Day: .5 hour per day Rehab Potential: Fair Barriers to Learning: Patient has mild cognitive deficits. Pt/Family Agrees to Plan: Yes Safety Risks/Education Teaching Recipient: Patient, Significant Other Teaching Methods: Discussion Response to Teaching: Verbalize Understanding Education Topics Provided: Safety within his room. Time Speech Therapy Time In: 10:00 Speech Therapy Time Out: 10:15 Total Billed Time: 15 Billed Treatment Time 1, LEIF Neri Sep 05, 2018 10:30
--- NOTE | 2018-09-05 11:05 | NUR ---
Pastoral Care Visit.
--- NOTE | 2018-09-05 11:57 | Occupational Ther Daily Note ---
OT Current Status-Daily Note Subjective Patient sitting with his in his room. Stated that I am fine. On asking do you need shower , pt says No , " I want sponge bath here in chair. " Pain Numeric Pain Scale: 4 Location: Left Location Body Site: Shoulder Pain Description: Sharp, Cramping Mental Status/Objective Patient Orientation: Person, Place, Time Therapy Code Descriptions/Definitions Functional [place] Measure: 0=Not Assessed/NA 4=Minimal Assistance 1=Total Assistance 5=Supervision or Setup 2=Maximal Assistance 6=Modified [place] 3=Moderate Assistance 7=Complete [place] Attachments: IV ADL-Treatment Therapist work on spongebath with Readybath bathing cloth in chair at bedside . Pt been educated on one handed compensatory technique to use Rt hand to wipe Left arm, chest, face , both legs & back with min A in trunk balancing . Pt has unstable trunk balance with sitting upright without support. Needs max A in UB & LB dressing / undressing cloths, supervision with set up in brushing hairs. Participated in strengthening Ex to Left UE & Rt UE using yellow theraband & 1 lb wts 30 reps each with Rt forearm & shoulder flexion / ext.. PNF tech to Left arm to facilitate stimulus to Right part of brain. Pt needs max A to pivot transfers from chair to bed . & mod A in supine to sit in bed. Eating (FIM): 6 Grooming (FIM): 6 Bathing (FIM): 2 (Bathing at bed side chair with sanitary bath- washrags with max A) Bathing Location: L Arm, R Arm, L Upper Leg, R Upper Leg, L Lower Leg ( including foot), R Lower Leg (including foot), Chest, Abdomen Upper Body (FIM): 2 Lower Body Dressing (FIM): 2 Toileting (FIM): 2 Transfers (B, C, W/C) (FIM): 2 Toilet/Commode Transfer (FIM): 2 Education OT Patient Education: Correct positioning, Instructions to caregiver, Safety issues, Transfer techniques Teaching Recipient: Patient, Family Teaching Methods: Demonstration, Discussion Response to Teaching: Verbalize Understanding, Return Demonstration OT Short Term Goals Short Term Goals Time Frame: Sep 19, 2018 Eating(FIM): 7 Grooming(FIM): 7 Bathing(FIM): 3 Bathing Location: L Arm, L Lower Leg (including foot), Chest, Abdomen Upper Body Dressing(FIM): 3 Lower Body Dressing(FIM): 2 Toileting(FIM): 3 Transfers (B,C,W/C) (FIM): 3 Toilet/Commode Transfer(FIM): 3 Shower Transfer(FIM): 3 Additional Short Term Goals: 1-Demonstrate ADL Tasks, 2-Verbalize Understanding , 3-ImproveStrength/Reena 1=Demonstrate adherence to instructed precautions during ADL tasks. 2=Patient will verbalize/demonstrate understanding of assistive devices/ modifications for ADL. 3=Patient will improve strength/tolerance for activity to enable patient to perform ADL's. OT Residential Goals Cardiovascular Operating Room Nurse Goals Time Frame: Oct 03, 2018 Eating (FIM): 7 Grooming(FIM): 7 Bathing(FIM): 3 Bathing Location: L Arm, R Arm, L Lower Leg (including foot), R Lower Leg ( including foot), Chest, Abdomen Upper Body Dressing(FIM): 4 Lower Body Dressing(FIM): 3 Toileting(FIM): 3 Transfers (B,C,W/C) (FIM): 3 Toilet/Commode Transfer(FIM): 3 Shower Transfer(FIM): 3 Comprehension(FIM): 3 1=Demonstrate adherence to instructed precautions during ADL tasks. 2=Patient will verbalize/demonstrate understanding of assistive devices/ modifications for ADL. 3=Patient will improve strength/tolerance for activity to enable patient to perform ADL's. OT Education/Plan Problem List/Assessment Assessment: Decreased Activ Tolerance, Decreased Safety Aware, Decreased UE Strength, Impaired Bed Mobility, Impaired Coordination, Impaired Funct Balance, Impaired Self-Care Skills Discharge Recommendations Plan/Recommendations: Continue POC Therapy D/C Recommendations: Home w/ Family Support, Occupational Therapy Home Care Equpiment Recommendations-D/C: Extended Bath Bench, Rails on Tub/Shower, Toilet Riser with Rails, Bath Chair, Extended Shower Sprayer, Automation Qa Tester, Sock Aide , Dressing Stick, [place] Barriers to Progress Motor perceptual disorder & 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 Patient/Family Goals To return home with Independently. Treatment Plan/Plan of Care Patient would benefit from OT for education, treatment and training to promote independence in ADL's, mobility, safety and/or upper extremity function for ADL' s. Plan of Care: ADL Retraining, Caregiver Training, Functional Mobility, Group Exercise/Act as Ind, UE Funct Exercise/Act Treatment Duration: Oct 03, 2018 Frequency: At least 5 of 7 days/Wk (IRF) Estimated Hrs Per Day: 1.5 hours per day Agreement: Yes Rehab Potential: Fair Time/GCodes Start Time: 10:15 Stop Time: 14:00 Total Time Billed (hr/min): 90 (1015-11:15= 60 min & 1330 - 14:00 = 30 min Total 90 minutes.) Billed Treatment Time 90 minutes 1015 am - 1115 am =60 min & 1330- 1400=30 min. Total 90 minutes GUTIERREZ GOLDEN OT Sep 05, 2018 11:56
[2018-09-05] MEDS: RIVAROXABAN 20 MG TABLET (XARELTO) PO SCH (12:27)
--- NOTE | 2018-09-05 14:14 | Physical Therapy Daily Note ---
PT Daily Note-Current Subjective Agreeable toPT. Reports he is tired this afternoon but wants to work. Transfers Therapy Code Descriptions/Definitions Functional [place] Measure: 0=Not Assessed/NA 4=Minimal Assistance 1=Total Assistance 5=Supervision or Setup 2=Maximal Assistance 6=Modified [place] 3=Moderate Assistance 7=Complete [place] Therapy Quality Codes: 6 Independent with activity with or without an assistive device 5 Patient requires set up or clean up by helper. Patient completes activity by themselves 4 Supervision or touching assist (CGA). [place] provide cues , steadying assist 3 The helper provides less than half the effort to complete the activity 2 The helper provides more than half the effort to complete the activity 1 Dependent. The helper does all the effort to complete an activity 7 Patient refused to complete or attempt activity 9 The patient did not perform the activity before the current illness or injury 88 Not attempted due to Medical conditions or safety concerns Treatments Sit to stand x 3 reps to observe buttock area. While standing, cleansed buttock and applied cream as he reported it was sore from sitting. Pt able to transisition to stand with mod assist withskilled cues and tactile cues for left foot and UE placement with mod assist to come to a stand; once standing, required CGA for balance as he held a FWW with his R UE for balance. SPT x 2 to the right with mod assist including verbal and tactile cues for left foot placement. Gait in // bars 3x8 ft with mod assist followed by wheelchair. Min to mod assist at the gait belt and assist to advance the left LE and knee extension support provided. Pt able to propel himself in the wheelchair 50 ft x 2 with min assist and using right U/LE. Pt in chair with needs met post treatmeht. Assessment Current Status: Good Progress PT Short Term Goals Short Term Goals Time Frame: Sep 11, 2018 Transfers (B,C,W/C) (FIM): 3 Gait (FIM): 1 Gait Distance Comment: 20' Gait Level of Assist: 3 Gait Assistive Device: Walker Ba Wheelchair Distance: 50' PT Long-Term Goals Long-Term Goals PT Long-Term Goals Time Frame: Sep 25, 2018 Transfers (B,C,W/C) (FIM): 4 Sit to Lying (QC): 4 Lying-Sitting on Side/Bed(QC): 4 Sit to Stand (QC): 4 Rollin Roll Left to Right (QC): 4 Chair/Gdn-ym-Gofui Xfer(QC): 4 Car Transfer (QC): 4 Gait (FIM): 2 Distance: 50' Walk 10 feet (QC): 3 Walk 10ft-Uneven Surface(QC): 3 Walk 50ft with 2 Turns (QC): 3 Gait Level of Assist: 4 Gait Assistive Device: Cane Large Base Quad Wheelchair (FIM): 5 Distance: 150' Wheelchair Level of Assist: 5 Wheel 50 feet with 2 turns (QC: 4 PT Plan Problem List Problem List: Activity Tolerance, Functional Strength, Safety, Balance, Gait, Transfer, Bed Mobility Treatment/Plan Treatment Plan: Continue Plan of Care Treatment Plan: Bed Mobility, Concurrent Therapy, Education, Functional Activity Reena, Functional Strength, Group Therapy, Gait, Safety, Therapeutic Exercise, Transfers Treatment Duration: Sep 25, 2018 Frequency: At least 5 of 7 days/Wk (IRF) Estimated Hrs Per Day: 1.5 hours per day Patient and/or Family Agrees t: Yes Safety Risks/Education Patient Education: Transfer Techniques, Safety Issues Teaching Recipient: Patient Teaching Methods: Discussion Response to Teaching: Reinforcement Needed Time/GCodes Time In: 1300 Time Out: 1330 Total Billed Treatment Time: 30 Total Billed Treatment vsiit FA 30 SHANNON ANTUNEZ PT Sep 05, 2018 14:14
[2018-09-05 18:29] VITALS: BP 151/74
[2018-09-05] MEDS: ATORVASTATIN 40 MG (LIPITOR) TABLET PO SCH (21:14)
[2018-09-05] MEDS: MELATONIN 3 MG TABLET PO PRN (21:14)
[2018-09-05] MEDS: inSUlin DETERMIR 1 UNIT/0.01 ML (LEVEMIR) CHARGE PER UNIT SQ SCH (21:15)
[2018-09-06 05:08] VITALS: BP 131/72
[2018-09-06] MEDS: inSUlin ASPART (NovoLOG) 1 UNIT/0.01 ML (CHARGE PER UNIT) SC SCH ×4 (06:39→21:30)
[2018-09-06] MEDS: metFORMIN XR 500 MG (GLUCOPHAGE XR) TAB PO SCH ×2 (06:39→17:56)
[2018-09-06] MEDS: CYANOCOBALAMIN 1,000 MCG (VITAMIN B-12) TABLET PO SCH (06:45)
[2018-09-06] MEDS: SENNA W/DOCUSATE (SENOKOT S) TABLET PO SCH ×2 (09:00→21:29)
[2018-09-06] MEDS: ASPIRIN 325 MG (5 GR) TABLET PO SCH (09:00)
[2018-09-06] MEDS: BISACODYL 10 MG SUPP (DULCOLAX) PR SCH ×2 (09:00→21:30)
--- NOTE | 2018-09-06 09:05 | Physical Therapy Daily Note ---
PT Daily Note-Current Subjective Patient in bed pre tx, agrees to PT, no complaints of pain. Appearance Patient in recliner post tx with nurse call, phone, tray, all needs met. in room. Mental Status Patient Orientation: Person, Place, Situation Transfers Therapy Code Descriptions/Definitions Functional [place] Measure: 0=Not Assessed/NA 4=Minimal Assistance 1=Total Assistance 5=Supervision or Setup 2=Maximal Assistance 6=Modified [place] 3=Moderate Assistance 7=Complete [place] Therapy Quality Codes: 6 Independent with activity with or without an assistive device 5 Patient requires set up or clean up by helper. Patient completes activity by themselves 4 Supervision or touching assist (CGA). [place] provide cues , steadying assist 3 The helper provides less than half the effort to complete the activity 2 The helper provides more than half the effort to complete the activity 1 Dependent. The helper does all the effort to complete an activity 7 Patient refused to complete or attempt activity 9 The patient did not perform the activity before the current illness or injury 88 Not attempted due to Medical conditions or safety concerns Transfers (B, C, W/C) (FIM): 3 Scootin Rollin Supine to/from Sit: 3 Sit to/from Stand: 3 Bed to/from Chair: 3 Gait Training Gait (FIM): 1 Distance: 20'x3 Gait Level of Assist: 3 Gait Persons Needed: 1 Gait Assistive Device: Walker Ba Wheelchair follow. Patient needs an AFO but he does not have tennis shoes yet. Patient needs assist with weight shifting, leans heavily to the left side, needs assist sometimes to advance his left leg. Wheelchair Training Does the Pt Use a Wheelchair?: Yes Wheelchair (FIM): 2 Distance: 100'x2 Wheelchair Level of Assist: 5 Type of Wheelchair: Manual Exercises NuStep Minutes: 10 NuStep Workload: 4 Treatments bed mobility and transfers, ambulation, functional strengthening, patient was also toileted once for BM and urination, needed mod assist for transfers Assessment Current Status: Fair Progress improvement with ambulation PT Short Term Goals Short Term Goals Time Frame: Sep 11, 2018 Transfers (B,C,W/C) (FIM): 3 Gait (FIM): 1 Gait Distance Comment: 20' Gait Level of Assist: 3 Gait Assistive Device: Walker Ba Wheelchair Distance: 50' PT Fpc Goals Fpc Goals PT Fpc Goals Time Frame: Sep 25, 2018 Transfers (B,C,W/C) (FIM): 4 Sit to Lying (QC): 4 Lying-Sitting on Side/Bed(QC): 4 Sit to Stand (QC): 4 Rollin Roll Left to Right (QC): 4 Chair/Rfn-da-Pgrfa Xfer(QC): 4 Car Transfer (QC): 4 Gait (FIM): 2 Distance: 50' Walk 10 feet (QC): 3 Walk 10ft-Uneven Surface(QC): 3 Walk 50ft with 2 Turns (QC): 3 Gait Level of Assist: 4 Gait Assistive Device: Cane Large Base Quad Wheelchair (FIM): 5 Distance: 150' Wheelchair Level of Assist: 5 Wheel 50 feet with 2 turns (QC: 4 PT Plan Problem List Problem List: Activity Tolerance, Functional Strength, Safety, Balance, Gait, Transfer, Bed Mobility, ROM Treatment/Plan Treatment Plan: Continue Plan of Care Treatment Plan: Bed Mobility, Concurrent Therapy, Education, Functional Activity Reena, Functional Strength, Group Therapy, Gait, Safety, Therapeutic Exercise, Transfers Treatment Duration: Sep 25, 2018 Frequency: At least 5 of 7 days/Wk (IRF) Estimated Hrs Per Day: 1.5 hours per day Patient and/or Family Agrees t: Yes Safety Risks/Education Patient Education: Gait Training, Transfer Techniques, Correct Positioning, W/ C Management, Safety Issues Teaching Recipient: Patient Teaching Methods: Demonstration, Discussion Response to Teaching: Reinforcement Needed Time/GCodes Time In: 0800 Time Out: 0900 Total Billed Treatment Time: 60 Total Billed Treatment 1 visit FA 20' GT 30' EX 10' CASTILLO PHIPPS PT Sep 06, 2018 09:05
[2018-09-06 09:42] VITALS: BP 155/72
[2018-09-06 09:42] LABS: BILIRUBIN,URINE NEGATIVE (NEGATIVE); CLARITY,URINE CLEAR; COLOR,URINE YELLOW; GLUCOSE, URINE (UA) NEGATIVE (NEGATIVE); KETONES,URINE NEGATIVE (NEGATIVE); LEUKOCYTE ESTERASE ,URINE 1+ (NEGATIVE); NITRITE,URINE NEGATIVE (NEGATIVE); PH,URINE 5 (5-9); PROTEIN,URINE 3+ (NEGATIVE); UROBILINOGEN,URINE NORMAL (NORMAL)
[2018-09-06] MEDS: PYRIDOXINE (VITAMIN B-6) 50 MG TABLET PO SCH (09:44)
[2018-09-06] MEDS: ZINC SULFATE 220 MG CAPSULE PO SCH (09:44)
[2018-09-06] MEDS: amLODIPine 10 MG (NORVASC) TAB PO SCH (09:44)
[2018-09-06] MEDS: LORATADINE (CLARITIN) 10 MG TAB PO SCH (09:44)
[2018-09-06] MEDS: FLUoxetine HCL 20 MG (PROzac) CAP PO SCH (09:44)
[2018-09-06] MEDS: MAGNESIUM OXIDE (MAG-OX)400 MG TAB PO SCH (09:44)
[2018-09-06] MEDS: CARVEDILOL 12.5 MG (COREG) TABLET PO SCH ×2 (09:44→21:37)
[2018-09-06] MEDS: VITAMIN D3 1,000 UNITS (CHOLECALCIFEROL) TABLET PO SCH (09:44)
--- NOTE | 2018-09-06 09:48 | Speech Therapy Daily Note ---
Speech Daily Progress Note Subjective Date Seen by Provider: Sep 06, 2018 Time Seen by Provider: 00:30 Patient was resting in his recliner following PT when I arrived. Objective Patient completed sequencing tasks with 75% accuracy given min to mod verbal cues. Assessment Assessment Current Status: Good Progress Treatment Plan Continue Plan of Care Communication Comprehension: 5 Expression: 5 Social Cognition Social Interaction: 5 Problem Solvin Memory: 4 Speech Short Term Goals Short Term Goals Short Term Goals 1) Patient will increase speech intelligibility at the highest functional verbal expression level to 90% or greater. 2) Patient will complete memory tasks with 90% or greater. 3) Patient will complete problem solving tasks with 90% or greater. Speech Rigging Up Worker Goals Rigging Up Worker Goals Patient will improve memory, problem solving and speech skills to better communicate with familiar and unfamiliar listeners. Comprehension: 3 Speech-Plan Patient/Family Goals Patient/Family Goals: Patient plans to return home with his post rehab. Treatment Plan Speech Therapy Treatment Plan: Continue Plan of Care Patient becomes emotional at times secondary to his CVA. Treatment Duration: Sep 13, 2018 Frequency: 5 times per week Estimated Hrs Per Day: .5 hour per day Rehab Potential: Fair Barriers to Learning: Patient is weak, left side Pt/Family Agrees to Plan: Yes Time Speech Therapy Time In: 09:00 Speech Therapy Time Out: 09:30 Total Billed Time: 30 Billed Treatment Time EILEEN Zhang [facility] Sep 06, 2018 09:48
[2018-09-06 09:59] LABS: BACTERIA,URINE NEGATIVE /HPF; HYALINE CASTS, URINE 0-2 /LPF; SQUAMOUS EPITHELIAL CELL,UR 0-2 /HPF; WBC,URINE 0-2 /HPF
--- NOTE | 2018-09-06 11:05 | PM&R Progress Note ---
Subjective This was a face to face visit with the patient. Date Seen by Provider: Sep 06, 2018 Time Seen by Provider: 08:15 Subjective/Events-last exam Patient was seen in the gym while he was using the recumbent bike Having more blood in the stools so Dr. Waggoner will perform EGD/colonoscopy tomorrow Tolerating bowel prep currently UA was obtained showing no evidence of any type of infection and he had never seen a urologist so urology was consulted post void residual was only 67 so cystoscopy was performed revealing no bladder lesion just BPH so placed on Flomax Appreciate urology consultation along with general surgery consultation Slept well Denies any pain Date Identified: Sep 06, 2018 Time Identified: 08:30 Medication Intervention: Blood in stool will have EGD and colonoscopy tomorrow Chronic UTI with no significant residual will consult urology Review of Systems General: Fatigue Gastrointestinal: Melena Neurological: Weakness Objective Physician Exam Last Set of Vital Signs Vital Signs Date Time Temp Pulse Resp B/P (MAP) Pulse Ox O2 Delivery O2 Flow Rate FiO2 09/06/18 09:42 52 18 155/72 (99) 94 09/06/18 05:08 97.0 Room Air Capillary Refill : I&O Intake and Output 09/06/18 00:00 Intake Total 1075 ml Balance 1075 ml Intake Oral 1075 ml # Voids 4 # Bowel Movements 2 General: Alert, Oriented X3, Cooperative, No Acute Distress HEENT: Atraumatic, PERRLA, EOMI, Mucous Memb Moist/[place] Neck: Supple, No JVD, No Thyromegaly, Other (right CEA jona in place) Lungs: Clear to Auscultation, Normal Air Movement Heart: Regular Rate, Normal S1, Normal S2 Abdomen: Normal Bowel Sounds, Soft, No Tenderness, No Hepatosplenomegaly, No Masses Extremities: No Clubbing, No Cyanosis Skin: No Rashes, No Breakdown Neuro: Normal Speech, Other (left sided HP 1/5 left foot flaccid left arm and hand) Psych/Mental Status: Mental Status NL, Mood NL Results Lab Data Laboratory Tests 09/04/18 16:44: Glucometer 207H 09/04/18 20:26: Glucometer 227H 09/05/18 05:23: Glucometer 101 09/05/18 05:24: White Blood Count 8.2, Red Blood Count 4.05L, Hemoglobin 12.7L, Hematocrit 38L, Mean Corpuscular Volume 94, Mean Corpuscular Hemoglobin 31, Mean Corpuscular Hemoglobin Concent 33, Red Cell Distribution Width 13.2, Platelet Count 240, Mean Platelet Volume 10.5H, Neutrophils (%) (Auto) 65, Lymphocytes (%) (Auto) 24 , Monocytes (%) (Auto) 8, Eosinophils (%) (Auto) 3, Basophils (%) (Auto) 0, Neutrophils # (Auto) 5.3, Lymphocytes # (Auto) 2.0, Monocytes # (Auto) 0.7, Eosinophils # (Auto) 0.2, Basophils # (Auto) 0.0, Sodium Level 142, Potassium Level 4.0, Chloride Level 106, Carbon Dioxide Level 25, Anion Gap 11, Blood Urea Nitrogen 21H, Creatinine 1.00, Estimat Glomerular Filtration Rate > 60, BUN /Creatinine Ratio 21, Glucose Level 98, Calcium Level 9.0, Corrected Calcium 9.5 , Total Bilirubin 0.6, Aspartate Amino Transf (AST/SGOT) 39H, Alanine Aminotransferase (ALT/SGPT) 79H, Alkaline Phosphatase 95, Total Protein 6.4, Albumin 3.4 09/05/18 11:09: Glucometer 135H 09/05/18 16:58: Glucometer 90 09/05/18 21:00: Stool Occult Blood Immunoassay POSITIVEH 09/05/18 21:03: Glucometer 137H 09/06/18 04:47: Glucometer 94 09/06/18 08:50: Urine Color YELLOW, Urine Clarity CLEAR, Urine pH 5, Urine Specific [place] 1.025H, Urine Protein 3+H, Urine Glucose (UA) NEGATIVE, Urine Ketones NEGATIVE, Urine Nitrite NEGATIVE, Urine Bilirubin NEGATIVE, Urine Urobilinogen NORMAL, Urine Leukocyte Esterase 1+H, Urine RBC (Auto) NEGATIVE, Urine RBC NONE, Urine WBC 0-2, Urine Squamous Epithelial Cells 0-2, Urine Crystals NONE, Urine Bacteria NEGATIVE, Urine Casts PRESENT, Urine Hyaline Casts 0-2H, Urine Mucus MODERATEH, Urine Culture Indicated NO Current Funtional Status Assessment: CVA with left-sided weakness Melena on anticoagulation for stroke prophylaxis receiving EGD and colonoscopy tomorrow Chronic UTI with cystoscopy normal placed on Flomax Plan: Flomax EGD and colonoscopy tomorrow Continue therapies Monitor closely Assessment/Plan Assessment and Plan Assessment: Stroke with left-sided hemiparesis BPH with history of chronic UTI status post normal cystoscopy by urology today Melena in stool maintain on anticoagulation for recurrent stroke prophylaxis in need of EGD and colonoscopy to identify for any type of bleeding source Hypertension Diabetes mellitus Hyperlipidemia Plan: EGD and colonoscopy Flomax (1) Cerebrovascular accident (CVA) with left hemiparesis Status: Acute (2) Diabetes mellitus Qualifiers: Qualified Codes: E11.59 - Type 2 diabetes mellitus with other circulatory complications; 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 Status: Chronic (3) Hypertension Qualifiers: Qualified Codes: I10 - Essential (primary) hypertension Status: Chronic (4) Hyperlipidemia Qualifiers: Qualified Codes: E78.2 - Mixed hyperlipidemia Status: Chronic (5) Chronic UTI Status: Chronic (6) Bright red blood per rectum Status: Acute (7) Constipation Qualifiers: Qualified Codes: K59.01 - Slow transit constipation Status: Acute (8) Anticoagulant long-term use Status: Chronic (9) BPH (benign prostatic hyperplasia) Qualifiers: Qualified Codes: N40.1 - Benign prostatic hyperplasia with lower urinary tract symptoms; R35.0 - Frequency of micturition Status: Chronic Co-Morbidities that are continuing to impact the rehab process: (include details ) DARELL CIFUENTES DO Sep 06, 2018 11:05
--- NOTE | 2018-09-06 11:25 | Occupational Ther Daily Note ---
OT Current Status-Daily Note Subjective Pt was seated in chair.Pt stated , " I am not feeling good today. " Pt's was sitting near him. she said he did'nt even eat breakfast , feeling depressed. Pain Numeric Pain Scale: 0-No Pain Mental Status/Objective Patient Orientation: Person, Place, Time, Situation Therapy Code Descriptions/Definitions Functional [place] Measure: 0=Not Assessed/NA 4=Minimal Assistance 1=Total Assistance 5=Supervision or Setup 2=Maximal Assistance 6=Modified [place] 3=Moderate Assistance 7=Complete [place] ADL-Treatment Eating (FIM): 6 Grooming (FIM): 5 Bathing (FIM): 4 (Pt had bedside sponge bath , needs min A in wiping back . Max A in wiping Rt arm & perineal part.) Bathing Location: L Arm, R Arm, L Upper Leg, R Upper Leg, L Lower Leg ( including foot), R Lower Leg (including foot), Chest, Abdomen, Buttocks, Perineal Area Upper Body (FIM): 2 Lower Body Dressing (FIM): 1 Transfers (B, C, W/C) (FIM): 4 Pt participated in bedside sponge bath, dressing / undressing UB & LB , grooming , & strengthening ex BUE . Pt needs min A in pivot func transfer from chair to bed using gait belt. Min A in bed mobility to push up in bed, MS in Rt UE 4/5 & Lf UE 0/5 Education OT Patient Education: Correct positioning, Exercise program, Instructions to caregiver, Safety issues Teaching Recipient: Patient, Family Teaching Methods: Demonstration, Discussion Response to Teaching: Verbalize Understanding, Return Demonstration OT Short Term Goals Short Term Goals Time Frame: Sep 19, 2018 Eating(FIM): 7 Grooming(FIM): 7 Bathing(FIM): 3 Bathing Location: L Arm, L Lower Leg (including foot), Chest, Abdomen Upper Body Dressing(FIM): 3 Lower Body Dressing(FIM): 2 Toileting(FIM): 3 Transfers (B,C,W/C) (FIM): 3 Toilet/Commode Transfer(FIM): 3 Shower Transfer(FIM): 3 Additional Short Term Goals: 1-Demonstrate ADL Tasks, 2-Verbalize Understanding , 3-ImproveStrength/Reena 1=Demonstrate adherence to instructed precautions during ADL tasks. 2=Patient will verbalize/demonstrate understanding of assistive devices/ modifications for ADL. 3=Patient will improve strength/tolerance for activity to enable patient to perform ADL's. OT Half-Way Goals Half-Way Goals Time Frame: Oct 03, 2018 Eating (FIM): 7 Grooming(FIM): 7 Bathing(FIM): 3 Bathing Location: L Arm, R Arm, L Lower Leg (including foot), R Lower Leg ( including foot), Chest, Abdomen Upper Body Dressing(FIM): 4 Lower Body Dressing(FIM): 3 Toileting(FIM): 3 Transfers (B,C,W/C) (FIM): 3 Toilet/Commode Transfer(FIM): 3 Shower Transfer(FIM): 3 Comprehension(FIM): 3 1=Demonstrate adherence to instructed precautions during ADL tasks. 2=Patient will verbalize/demonstrate understanding of assistive devices/ modifications for ADL. 3=Patient will improve strength/tolerance for activity to enable patient to perform ADL's. OT Education/Plan Problem List/Assessment Assessment: Decreased Activ Tolerance, Decreased Safety Aware, Decreased UE Strength, Dependent Transfers, Impaired Bed Mobility, Impaired Funct Balance, Impaired Self-Care Skills Discharge Recommendations Plan/Recommendations: Continue POC Therapy D/C Recommendations: Home w/ Family Support, Occupational Therapy Home Care Equpiment Recommendations-D/C: Extended Bath Bench, Rails on Tub/Shower, Extended Shower Sprayer, Bow Maker Production, Sock Aide, Dressing Stick, [place] Barriers to Progress Left Hemiplegia , poor trunk balance, high risk of fall. Patient/Family Goals To return home with Independently. Treatment Plan/Plan of Care Patient would benefit from OT for education, treatment and training to promote independence in ADL's, mobility, safety and/or upper extremity function for ADL' s. Plan of Care: ADL Retraining, Caregiver Training, Functional Mobility, Group Exercise/Act as Ind, UE Funct Exercise/Act Treatment Duration: Oct 03, 2018 Frequency: At least 5 of 7 days/Wk (IRF) Estimated Hrs Per Day: 1.5 hours per day Agreement: Yes Rehab Potential: Fair Time/GCodes Start Time: 10:15 Stop Time: 11:30 Total Time Billed (hr/min): 75 Billed Treatment Time 1 Visit, ADL's 45, Ex 30 GUTIERREZ GOLDEN OT Sep 06, 2018 11:25
[2018-09-06] MEDS ORDERED: LIDOCAINE UROJET 2% GEL 10 ML PKG ONE (12:00)
[2018-09-06] MEDS: RIVAROXABAN 20 MG TABLET (XARELTO) PO SCH (12:00)
--- NOTE | 2018-09-06 12:10 | CONSULTATION REPORT ---
DATE OF SERVICE: 09/06/2018 ATTENDING PHYSICIAN: Dr. Meier. SUMMARY: A 63-year-old white man, who sustained a left CVA around [place] time prior to a carotid endarterectomy on the right side. He has left hemiplegia. He is also known to have a history of UTIs and enlargement of the prostate with symptomatology. He was put by his physician on Cialis daily 5 mg, which he discontinued because of cost. He has not tried any other medication for his prostate. He does have problem with it. We did a bladder scan postvoid residual, it was only 67 mL. IMPRESSION: 1. History of UTIs. 2. BPH with prostatism. PLAN: Cystoscopy flexible with local this afternoon and examine him at the same time. This was fully explained to him and his . Job ID: [id number] DocumentID: [id number] Dictated Date: 09/06/2018 09:22:45 Wind Up Worker Date: 09/06/2018 12:09:50 Dictated By: NARENDRA BALDWIN MD
--- NOTE | 2018-09-06 12:13 | Consultation ---
History of Present Illness History of Present Illness Patient Consulted On(delvin/time) 09/06/18 12:08 Time Seen by Provider: 11:54 History of Present Illness Surgery asked to consult regarding GI bleed, pt on blood thinner and has never had a colonosocpy. HPI per IM: HPI: This is a 63-year-old white male who presents to the inpatient rehab unit due to severe deficit on the left side following a stroke on 08/16/18. He presented to [facility] with facial droop was found to have evidence of thrombus in the right MCA region so he was sent to [facility] for interventional radiology thrombectomy but patient refused at that time so he was monitored in the neurosurgery ICU with close monitoring. Patient underwent right endarterectomy due to carotid ultrasound showing severe critical stenosis and he did undergo that procedure but that did not result in any improvement in the left-sided weakness. He has a history of chronic UTI of which he does not have any symptoms of but having severe constipation of which we will start an aggressive regimen to resolve that issue. He intends to return home with his and he is agreeable for intensive rehab sessions in order to improve upon deficit on the left arm and left leg in order to return home. When I spoke to pt today he denies abdominal pain, nausea or vomiting. He states he has never had bleeding before; not sure if they saw any today, but apparently nurse saw some early yesterday morning. Hemoccult +. Pt denies any heartburn or GERD symptoms (although he has remote hx of "acid reflux"), but has been in hospital for basically 3 weeks without much movement because of the stroke. Hx of constipation but the nurse states he has been having liquid stools the past couple of days. Allergies and Home Medications Allergies Coded Allergies: No Known Drug Allergies (Unverified , 09/04/18) Home Medications Amlodipine Besylate 10 Mg Tablet, 10 MG PO DAILY, (Reported) Carvedilol 25 Mg Tablet, 25 MG PO BID, (Reported) Cholecalciferol (Vitamin D3) 1,000 Unit Capsule, 1,000 UNIT PO DAILY, (Reported) Cyanocobalamin (Vitamin B-12) 500 Mcg Tablet, 500 MCG PO DAILY, (Reported) Fexofenadine HCl 180 Mg Tablet, 180 MG PO DAILY, (Reported) Insulin Glargine,Hum.rec.anlog 300 Unit/1 Ml Insuln.pen, 42 UNIT SQ HS, ( Reported) Magnesium Oxide 400 Mg Tablet, 400 MG PO DAILY, (Reported) Metformin HCl 500 Mg Tab.er.24h, 1,000 MG PO BID, (Reported) Pyridoxine HCl 50 Mg Tablet, 50 MG PO DAILY, (Reported) Saw Valliant 500 Mg Capsule, 500 MG PO DAILY, (Reported) Selenium 100 Mcg Tablet, 100 MCG PO DAILY, (Reported) Zinc Sulfate 220 Mg Tablet, 220 MG PO DAILY, (Reported) Patient Home Medication List Home Medication List Reviewed: Yes Past Qhctopx-Caseft-Tmhecf Hx Patient Social History Alcohol Use: Denies Use Recreational Drug Use: No Smoking Status: Former Smoker Type Used: Smokeless Tobacco Recent Foreign Travel: No Contact w/Someone Who Travel: No Recent Infectious Disease Expo: No Recent Hopitalizations: Yes (Transfer from [facility]) Physical Abuse Screen: No Sexual Abuse: No Immunizations Up To Date PED Vaccines UTD: No Seasonal Allergies Seasonal Allergies: Yes (Takes Alyssa for allergies) Surgeries History of Surgeries: Yes Surgeries: Vascular Surgery Respiratory History of Respiratory Disorde: No Cardiovascular History of Cardiac Disorders: Yes Cardiac Disorders: High Cholesterol, Hypertension Neurological History of Neurological Disord: Yes Neurological Disorders: Stroke (08/16/18) Genitourinary History of Genitourinary Disor: Yes Genitourinary Disorders: Prostate Problems Gastrointestinal History of Gastrointestinal Di: Yes (Acid Reflux) Musculoskeletal History of Musculoskeletal Dis: Yes Musculoskeletal Disorders: Fibromyalgia, Back Injury, Chronic Back Pain, Gout Endocrine History of Endocrine Disorders: Yes HEENT History of HEENT Disorders: No Cancer History of Cancer: No Psychosocial History of Psychiatric Problem: No Integumentary History of Skin or Integumenta: No Blood Transfusions History of Blood Disorders: No Adverse Reaction to a Blood Tr: No Family Medical History Significant Family History: CAD Under 55 Years Old, Hypertension, Stroke, Vascular Disease Family Medial History: Abdominal aortic aneurysm 19 FATHER, Onset:60 years & older Alcoholism G8 BROTHER, Onset:20's - 25 Arthritis 19 MOTHER, Onset:50's - 60 G8 SISTER, Onset:50's - 60 Cardiovascular disease 19 FATHER, Onset:50's - 60 Cataracts 19 MOTHER, Onset:60 years & older Completed stroke 19 MOTHER, Onset:50's - 60 G8 SISTER, Onset:50's - 60 Drug abuse G8 BROTHER, Onset:30's - 40 G8 SISTER Hypertension 19 FATHER 19 MOTHER G8 BROTHER G8 SISTER Myocardial infarction 19 FATHER Review of Systems-General Constitutional: No chills, No diaphoresis EENTM: No blurred vision, No double vision, No mouth pain, No mouth swelling, No epistaxis Respiratory: No cough, No dyspnea on exertion, No hemoptysis Cardiovascular: No chest pain, No edema; Hx of Intervention; No palpitations Gastrointestinal: No abdominal pain; constipation, diarrhea, melena; No nausea , No vomiting Genitourinary: No dysuria; frequency; No hematuria; hesitancy Musculoskeletal: back pain, gout, joint pain, joint swelling, muscle pain, muscle stiffness, muscle weakness Skin: No change in color, No change in hair/nails Psychiatric/Neurological: Denies Anxiety, Denies Depressed; Pre-Existing Deficit, Weakness Other pt denies history of abnormal bleeding or bruising, but is on Xarelto. No hx of heat or cold intolerance Physical Exam-General Problems Physical Exam Vital Signs Vital Signs - First Documented 09/04/18 14:20 Temp 96.3 Pulse 55 Resp 18 B/P (MAP) 159/75 (103) Pulse Ox 94 O2 Delivery Room Air Capillary Refill : General Appearance: WD/WN, no apparent distress Eyes: Bilateral Eye PERRL HEENT: pharynx normal; No scleral icterus (R), No scleral icterus (L), No pale conjunctivae (R), No pale conjunctivae (L) Neck: carotid bruit, other (incision over right carotid, with scab, no signs of infection) Respiratory: chest non-tender, lungs clear, normal breath sounds, no respiratory distress, no accessory muscle use Cardiovascular: regular rate, rhythm, no edema, no murmur Gastrointestinal: normal bowel sounds, non tender, soft, no organomegaly, no pulsatile mass Back: no CVA tenderness, no vertebral tenderness Extremities: no pedal edema, no calf tenderness, normal capillary refill, other (unable to move left side of his body) Neurologic/Psychiatric: alert, normal mood/affect, oriented x 3 Skin: normal color, warm/dry Lymphatic: no adenopathy (neck, axilla or groin) Data Review Labs Laboratory Tests 09/05/18 16:58: Glucometer 90 09/05/18 21:00: Stool Occult Blood Immunoassay POSITIVEH 09/05/18 21:03: Glucometer 137H 09/06/18 04:47: Glucometer 94 09/06/18 08:50: Urine Color YELLOW, Urine Clarity CLEAR, Urine pH 5, Urine Specific [place] 1.025H, Urine Protein 3+H, Urine Glucose (UA) NEGATIVE, Urine Ketones NEGATIVE, Urine Nitrite NEGATIVE, Urine Bilirubin NEGATIVE, Urine Urobilinogen NORMAL, Urine Leukocyte Esterase 1+H, Urine RBC (Auto) NEGATIVE, Urine RBC NONE, Urine WBC 0-2, Urine Squamous Epithelial Cells 0-2, Urine Crystals NONE, Urine Bacteria NEGATIVE, Urine Casts PRESENT, Urine Hyaline Casts 0-2H, Urine Mucus MODERATEH, Urine Culture Indicated NO 09/06/18 11:46: Glucometer 102 Assessment/Plan Assessment/Plan Assessment/Plan GI Bleed CVA with left sided paralysis HTN Arthritis Hx of Prostate problems and Chronic UTI Pt has some GI bleed (blood seen in stool and hemoccult +) and needs to be on Xarelto for his recent CVA. Will do an EGD and colonoscopy to try and find cause for the recent bleeding and positive test. Discussed the risks and complications with pt and his ; including but not limited to pain, bleeding, infection and even intestinal or esophageal perforation. My main concern is bleeding since he already has blood thinner in his system. All questions answered to his satisfaction. Clinical Quality Measures DVT/VTE Risk/Contraindication: Risk Factor Score Per Nursin RFS Level Per Nursing on Admit: 4+=Very High RANGEL DICKERSON DO Sep 06, 2018 12:13
--- NOTE | 2018-09-06 12:28 | Progress Note-Pre Operative ---
Pre-Operative Progress Note H&P Reviewed The H&P was reviewed, patient examined and no changes noted. Date Seen by Provider: Sep 06, 2018 Time Seen by Provider: 12:28 Date H&P Reviewed: Sep 06, 2018 Time H&P Reviewed: 12:28 Pre-Operative Diagnosis: BOH AND UTIS NARENDRA BALDWIN MD Sep 06, 2018 12:28
--- NOTE | 2018-09-06 12:29 | Progress Note-Post Operative ---
Post-Operative Progess Note Surgeon (s)/Math Tutor (s) Surgeon NARENDRA BALDWIN MD Math Tutor: NONE Pre-Operative Diagnosis BPH AND UTIS Post-Operative Diagnosis SAME Procedure & Operative Findings Date of Procedure 09/06/18 Procedure Performed/Findings CYSTOSCOPY Anesthesia Type LOCAL Estimated Blood Loss Estimated blood loss (mL): NONE Specimens/Packing Specimens Removed NONE Packing: NONE NARENDRA BALDWIN MD Sep 06, 2018 12:29
--- NOTE | 2018-09-06 13:25 | Physical Therapy Daily Note ---
PT Daily Note-Current Subjective Patient in bed pre tx, agrees to PT but would like to do bed exercises because he is tired and irritated from some procedures done today. Patient has no complaints of pain. Appearance Patient in bed post tx with nurse call, phone, tray, all needs met. in room. Mental Status Patient Orientation: Person, Place, Situation Transfers Therapy Code Descriptions/Definitions Functional [place] Measure: 0=Not Assessed/NA 4=Minimal Assistance 1=Total Assistance 5=Supervision or Setup 2=Maximal Assistance 6=Modified [place] 3=Moderate Assistance 7=Complete [place] Therapy Quality Codes: 6 Independent with activity with or without an assistive device 5 Patient requires set up or clean up by helper. Patient completes activity by themselves 4 Supervision or touching assist (CGA). [place] provide cues , steadying assist 3 The helper provides less than half the effort to complete the activity 2 The helper provides more than half the effort to complete the activity 1 Dependent. The helper does all the effort to complete an activity 7 Patient refused to complete or attempt activity 9 The patient did not perform the activity before the current illness or injury 88 Not attempted due to Medical conditions or safety concerns Exercises Supine Ex: Ankle pumps, Quad Set, Glut sets, Heel Slides, Short Arc Quads, Straight leg raise, Hip abd/add Supine Reps: 15 AAROM on the left side. Treatments LE exercises Assessment Current Status: Fair Progress Patient was able to assist with hip and knee exercises but didn't have AROM at all with hamstrings and dorsiflexion PT Short Term Goals Short Term Goals Time Frame: Sep 11, 2018 Transfers (B,C,W/C) (FIM): 3 Gait (FIM): 1 Gait Distance Comment: 20' Gait Level of Assist: 3 Gait Assistive Device: Walker Ba Wheelchair Distance: 100'x2 PT Registered Nurse Midwife Goals Registered Nurse Midwife Goals PT Residential Goals Time Frame: Sep 25, 2018 Transfers (B,C,W/C) (FIM): 4 Sit to Lying (QC): 4 Lying-Sitting on Side/Bed(QC): 4 Sit to Stand (QC): 4 Rollin Roll Left to Right (QC): 4 Chair/Icx-zk-Awaaf Xfer(QC): 4 Car Transfer (QC): 4 Gait (FIM): 2 Distance: 50' Walk 10 feet (QC): 3 Walk 10ft-Uneven Surface(QC): 3 Walk 50ft with 2 Turns (QC): 3 Gait Level of Assist: 4 Gait Assistive Device: Cane Large Base Quad Wheelchair (FIM): 5 Distance: 150' Wheelchair Level of Assist: 5 Wheel 50 feet with 2 turns (QC: 4 PT Plan Problem List Problem List: Activity Tolerance, Functional Strength, Safety, Balance, Gait, Transfer, Bed Mobility, ROM Treatment/Plan Treatment Plan: Continue Plan of Care Treatment Plan: Bed Mobility, Concurrent Therapy, Education, Functional Activity Reena, Functional Strength, Group Therapy, Gait, Safety, Therapeutic Exercise, Transfers Treatment Duration: Sep 25, 2018 Frequency: At least 5 of 7 days/Wk (IRF) Estimated Hrs Per Day: 1.5 hours per day Patient and/or Family Agrees t: Yes Safety Risks/Education Patient Education: Correct Positioning, Safety Issues Teaching Recipient: Patient Teaching Methods: Demonstration, Discussion Response to Teaching: Reinforcement Needed Time/GCodes Time In: 1300 Time Out: 1320 Total Billed Treatment Time: 20 Total Billed Treatment 1 visit EX 20' CASTILLO PHIPPS PT Sep 06, 2018 13:25
--- NOTE | 2018-09-06 14:32 | NUR ---
Dr. Waggoner to see patient today. Will be perfoming EGD and Colonoscopy on patient on 09/07/18. Bowel Prep instructions given and sent to pharmacy for entry. Addendum: 09/06/18 at 1439 by RAJESH MILLS RN Dr. Waggoner gave order to hold Natali and Miguel.
[2018-09-06] MEDS ORDERED: BISACODYL 5 MG (DULCOLAX) TABLET PO SCH ×2 (14:45→15:45)
[2018-09-06 16:09] VITALS: BP 138/77
[2018-09-06] MEDS: TAMSULOSIN 0.4 MG (FLOMAX) CAP PO SCH (17:55)
[2018-09-06] MEDS ORDERED: POLYETHYLENE GLYCOL 17 GM (MIRALAX) PACK PO SCH (18:00)
[2018-09-06] MEDS: ATORVASTATIN 40 MG (LIPITOR) TABLET PO SCH (21:30)
[2018-09-06] MEDS: inSUlin DETERMIR 1 UNIT/0.01 ML (LEVEMIR) CHARGE PER UNIT SQ SCH (21:30)
[2018-09-06 21:36] VITALS: BP 131/70
[2018-09-07] MEDS: inSUlin ASPART (NovoLOG) 1 UNIT/0.01 ML (CHARGE PER UNIT) SC SCH ×4 (05:06→21:11)
[2018-09-07 05:27] VITALS: BP 91/57
[2018-09-07] MEDS: CYANOCOBALAMIN 1,000 MCG (VITAMIN B-12) TABLET PO SCH (05:58)
[2018-09-07] MEDS: metFORMIN XR 500 MG (GLUCOPHAGE XR) TAB PO SCH ×2 (05:58→17:06)
--- NOTE | 2018-09-07 08:45 | OPERATIVE REPORT ---
DATE OF SERVICE: 09/06/2018 PREOPERATIVE DIAGNOSIS: Benign prostatic hypertrophy and history of urinary tract infections. POSTOPERATIVE DIAGNOSES: Benign prostatic hypertrophy and history of urinary tract infections. OPERATION PERFORMED: Cystoscopy. SURGEON: Steven Baldwin MD ANESTHESIA: Local. COMPLICATIONS: None. DESCRIPTION OF PROCEDURE: With the patient supine in his bed, the genitalia were prepped and draped in usual sterile fashion. The urethra was infiltrated with 2% lidocaine jelly. Penile clamp was applied. This was then removed and a flexible cystoscope was introduced under vision. The anterior urethra was normal. The prostate was somewhat enlarged with bladder neck obstruction and some trabeculations. No foreign body, bladder tumor or stones visualized. Ureteral orifices normal. Cystoscopy was confirmed in antegrade fashion and the cystoscope was removed. The patient tolerated the procedure and anesthesia well, remained in his bed in stable condition. Phallus was circumcised with adequate meatus. Testes down the scrotum. Rectal exam; flat, benign, nontender, elastic prostate. PLAN: 1. Start Flomax 0.4 mg daily. 2. Plain Bactrim tablet 1 each day at bedtime. Job ID: [id number] DocumentID: [id number] Dictated Date: 09/06/2018 12:33:30 Radio Division Lieutenant Date: 09/06/2018 22:03:34 Dictated By: STEVEN BALDWIN MD
--- NOTE | 2018-09-07 10:23 | NUR ---
PATIENT LEFT FLOOR VIA BED WITH PATRICK MCINTOSH RN FOR PROCEDURE.
[2018-09-07] MEDS ORDERED: PROPOFOL INJECTION 50 ML IV ONE (10:24)
[2018-09-07] MEDS ORDERED: MIDAZOLAM 2 MG/2 ML (VERSED) VIAL ONE (10:24)
--- NOTE | 2018-09-07 10:35 | Physical Therapy Progress Note ---
Therapy Progress Note Pt refused treatment today as he is waiting to go have a scope. DARRIAN SCHERER PT Sep 07, 2018 10:35
[2018-09-07] MEDS ORDERED: HURRICAINE EXT TUBE (BENZOCAINE) XX ONE (11:00)
[2018-09-07] MEDS ORDERED: LACTATED RINGERS 1,000 ML IV ONE (11:00)
--- NOTE | 2018-09-07 11:05 | NUR ---
HYGIENE CARE TO BE COMPLETED AFTER PATIENT'S PROCEDURE.
--- NOTE | 2018-09-07 11:25 | Progress Note-Post Operative ---
Post-Operative Progess Note Surgeon (s)/Cash Analyst (s) Surgeon RANGEL DICKERSON DO Cash Analyst: NONE Pre-Operative Diagnosis GI bleed Post-Operative Diagnosis Gastritis and Gastric Ulcers Small Hiatal Hernia Colon Polyps Int hemorrhoids Procedure & Operative Findings Date of Procedure 09/07/18 Procedure Performed/Findings EGD with bx Colon with snare Anesthesia Type IV sedation by DISPLAY DESIGNER OUTSIDE Estimated Blood Loss Estimated blood loss (mL): scant Specimens/Packing Specimens Removed antral bx Colon polyps - Transverse, Descending and Sigmoid RANGEL DICKERSON DO Sep 07, 2018 11:25
--- NOTE | 2018-09-07 11:43 | NUR ---
back from EGD/COLONOSCOPY awake & alert
--- NOTE | 2018-09-07 11:55 | NUR ---
bedside report vreceived from BRYAN MIX, assume care of pt
[2018-09-07 12:15] VITALS: BP 133/73
--- NOTE | 2018-09-07 12:15 | NUR ---
V/S 96.4-51-18-94%-133/73 pt has active gag reflux & able to follow simple commands, at bedside
--- NOTE | 2018-09-07 12:22 | NUR ---
called to see if pt free to order & eat lunch, orders received for 60 cho heart healthy diet
--- NOTE | 2018-09-07 12:38 | NUR ---
called regarding meds aspirin & Xarelto to be given, orders received to hold x 2h hours
[2018-09-07] MEDS: BISACODYL 10 MG SUPP (DULCOLAX) PR SCH ×2 (12:43→21:12)
[2018-09-07] MEDS: PYRIDOXINE (VITAMIN B-6) 50 MG TABLET PO SCH (12:43)
[2018-09-07] MEDS: SENNA W/DOCUSATE (SENOKOT S) TABLET PO SCH ×2 (12:43→21:12)
[2018-09-07] MEDS: amLODIPine 10 MG (NORVASC) TAB PO SCH (12:52)
[2018-09-07] MEDS: FLUoxetine HCL 20 MG (PROzac) CAP PO SCH (12:52)
[2018-09-07] MEDS: CARVEDILOL 12.5 MG (COREG) TABLET PO SCH ×2 (12:52→21:11)
[2018-09-07] MEDS: ZINC SULFATE 220 MG CAPSULE PO SCH (12:52)
--- NOTE | 2018-09-07 12:52 | NUR ---
pt refused Senokot & Dulcolax supp
--- NOTE | 2018-09-07 12:52 | Individualized Plan of Care ---
Individualized Plan of Care Rehab Nursing IPOC Order Admission Date Sep 04, 2018 at 14:18 Current Orders Orders Admission Arrival Bed Request (09/04/18 14:13) Lactulose Oral Solution (Enulose Oral So (09/04/18 15:00) Polyethylene Glycol Powder Pkt (Miralax (09/04/18 15:00) Senna S Tablet (Senokot S Tablet) (09/04/18 15:00) Lifting Restrictions (09/04/18 14:58) Nursing Communication (Order) (09/04/18 14:58) Follow-Up Appointment (09/04/18 14:58) Metformin Xr Tablet (Glucophage Xr Table (09/04/18 17:00) (Nf) Amlodipine Besylate (09/05/18 09:00) (Nf) Carvedilol (09/04/18 21:00) (Nf) Cholecalciferol (Vitamin D3) (Vitam (09/05/18 09:00) (Nf) Cyanocobalamin (Vitamin B-12) (Leonora (09/05/18 09:00) (Nf) Fexofenadine Hcl (Alyssa Allergy) (09/05/18 09:00) (Nf) Insulin Glargine,Hum.Rec.Anlog (Tyler (09/04/18 21:00) (Nf) Magnesium Oxide (Magnesium) (09/05/18 09:00) (Nf) Pyridoxine Hcl (Vitamin B-6) (09/05/18 09:00) (Nf) [place] (09/05/18 09:00) (Nf) Selenium (09/05/18 09:00) (Nf) Zinc Sulfate (09/05/18 09:00) Cbc With Automated Diff (09/05/18 06:00) Comprehensive Metabolic Panel (09/05/18 06:00) Admission-Acute Rehab Unit (09/04/18 16:50) Acetaminophen Tablet (Tylenol Tablet) (09/04/18 17:00) Ibuprofen Tablet (Motrin Tablet) (09/04/18 17:00) Alprazolam Tablet (Xanax Tablet) (09/04/18 17:00) Calcium Carbonate Chew Tablet (Antacid C (09/04/18 17:00) Diphenhydramine Tablet (Benadryl Tablet) (09/04/18 17:00) Bisacodyl Suppository (Dulcolax Supposit (09/04/18 21:00) Docusate Sodium Capsule (Colace Capsule) (09/04/18 17:00) Hydrocodone/Apap 5/325 Tablet (Lortab 5 (09/04/18 17:00) Ondansetron Oral Dissolve Tab (Zofran (09/04/18 17:00) Senna S Tablet (Senokot S Tablet) (09/04/18 21:00) Melatonin Tablet (Melatonin Tablet) (09/04/18 17:00) Lactulose Oral Solution (Enulose Oral So (09/04/18 17:00) Accucheck Achs ACHS (09/04/18 16:56) Insulin Aspart (Novolog) (Novolog (Charg (09/04/18 21:00) Amlodipine Tablet (Norvasc Tablet) (09/05/18 09:00) Carvedilol Tablet (Coreg Tablet) (09/04/18 21:00) Cholecalciferol Capsule/Tablet (Vitamin (09/05/18 09:00) Cyanocobalamin Tablet (Vitamin B-12 Tabl (09/05/18 07:00) Loratadine Tablet (Claritin Tablet) (09/05/18 09:00) Insulin Determir (Per Unit) (Levemir (Pe (09/04/18 21:00) Pyridoxine Tablet (Vitamin B-6 Tablet) (09/05/18 09:00) Magnesium Oxide Tablet (Mag Ox Tablet) (09/05/18 08:00) Cho 60g/M 3snack (16-2000 Nas) (09/04/18 Dinner) Zinc Sulfate Capsule (Zinc 50 Mg Capsule (09/05/18 09:00) Aspirin Tablet (Aspirin Tablet) (09/05/18 09:00) Atorvastatin Tablet (Lipitor) (09/04/18 21:00) Fluoxetine Capsule (Prozac Capsule) (09/05/18 09:00) Rivaroxaban Tablet (Xarelto Tablet) (09/05/18 12:00) Hydrocodone/Apap 5/325 Tablet (Lortab 5 (09/04/18 18:15) Influenza Quad (5+Yoa) 2017- (Afluria (09/05/18 07:30) Patient Visit (09/04/18 ) Pt Eval Moderate Complexity (09/04/18 ) Functional Activities, Ea 15 (09/04/18 ) Ex Neuromuscular, Ea 15 Min (09/04/18 ) Patient Visit (09/05/18 ) Functional Activities, Ea 15 (09/05/18 ) Gait Training, Ea 15 Min (09/05/18 ) Pt Evaluate/Treat Request (09/05/18 11:53) Request Ot Evaluate & Treat (09/05/18 11:53) Request For Cognitive Services (09/05/18 11:53) Patient Visit (09/05/18 ) Speech Sound Lang Comp (09/05/18 ) Patient Visit (09/05/18 ) Functional Activities, Ea 15 (09/05/18 ) Exercise Therap, Ea 15 Min (09/05/18 ) Occult Blood Stool (09/05/18 21:00) Consult Physician (09/06/18 07:17) Consult Physician (09/06/18 07:17) Ua Culture If Indicated (09/06/18 08:50) Consent-Obtain Consent For (09/06/18 09:17) Preop Checklist (09/06/18 09:17) Mrsa Screen (Icu,Preop,Cath) (09/06/18 09:17) Patient Visit (09/06/18 ) Treat. Speech/Lang/Voice (09/06/18 ) Lidocaine 2% (Urojet) (Xylocaine Urojet) (09/06/18 12:00) Consent-Obtain Consent For (09/06/18 12:06) Preop Checklist (09/06/18 12:06) Npo After Midnight (Nursing Or (09/06/18 12:06) Nothing By Mouth (09/07/18 Breakfast) Tamsulosin Capsule (Flomax Capsule) (09/06/18 18:00) Nursing Communication (Order) (09/06/18 12:30) Polyethylene Glycol Powder Pkt (Miralax (09/06/18 18:00) Bisacodyl Tablet (Dulcolax Tablet) (09/06/18 14:45) Bisacodyl Tablet (Dulcolax Tablet) (09/06/18 15:45) Patient Visit (09/06/18 ) Functional Activities, Ea 15 (09/06/18 ) Exercise Therap, Ea 15 Min (09/06/18 ) Gait Training, Ea 15 Min (09/06/18 ) Propofol Injection (Diprivan Injection) (09/07/18 10:24) Midazolam Injection (Versed Injection) (09/07/18 10:24) Benzocaine Extension Tube (Hurricaine Ex (09/07/18 11:00) Lactated Ringers (Lr 1000 Ml Iv Solution (09/07/18 11:00) Iv Heplock-Insert (Order) (09/07/18 10:51) Cho 60g/M 1snack (16-2000 Nas) (09/07/18 Lunch) Iv Discontinue (Order) (09/07/18 12:36) Rehab Nursing Orders: Ongoing Assess. of Function Status, Bladder Management, Bowel Management, Disease Management & Educaiton, Fall Prevention, Fluid/ Electrolyte/Nutrition Mgmt, Management of Skin Intergrity, Nutrition Management , Patient/Family Support Intensity of Therapy to be met Patient to be seen: Min.3h per day/5 of 7d PT IPOC Problem List: Activity Tolerance, Functional Strength, Safety, Balance, Gait, Transfer, Bed Mobility, ROM Treatment Plan: Continue Plan of Care Bed Mobility, Concurrent Therapy, Education, Functional Activity Reena, Functional Strength, Group Therapy, Gait, Safety, Therapeutic Exercise, Transfers Treatment Duration: Sep 25, 2018 Frequency: At least 5 of 7 days/Wk (IRF) Estimated Hrs Per Day: 1.5 hours per day OT IPOC Problems: Decreased Activ Tolerance, Decreased Safety Aware, Decreased UE Strength, Dependent Transfers, Impaired Bed Mobility, Impaired Funct Balance, Impaired Self-Care Skills OT Treatment, Training and Edu: Yes Plan of Care: ADL Retraining, Caregiver Training, Functional Mobility, Group Exercise/Act as Ind, UE Funct Exercise/Act Treatment Duration: Oct 03, 2018 Frequency: At least 5 of 7 days/Wk (IRF) Estimated Hrs Per Day: 1.[address] IPOC Speech Therapy Treatment Plan: Continue Plan of Care Treatment Duration: Sep 13, 2018 Frequency: 5 times per week Estimated Hrs Per Day: .5 hour per day Dietitian/Azure Developer Dietitian/Azure Developer to monitor nutritional status and make changes and/or recommendations as needed and work with speech pathology on dietary upgrades as the occur. Physician IPOC Medical Issues being managed closely and that require the 24 hour availability of a physician: History of melena requiring EGD and colonoscopy but will be placed back on anticoagulation along with proton pump inhibitor for gastritis and close monitoring Diabetes mellitus insulin requiring requires close monitoring of hyperglycemia to facilitate stroke recovery History of chronic UTI with evidence of BPH on cystoscopy placed on Flomax will monitor closely for any urinary retention following stroke Appears to be high risk for severe situational depression Monitor blood pressure closely following severe stroke with left-sided weakness Medical Issues: Bowel/Bladder Function, Falls Precautions, Fluid/Electrolyte/ Nutrition Balance Brief Synthesis of Preadmission Screen, Post-Admission Evaluation, and Therapy Evaluations: Physical therapy will work on left-sided weakness and work on transfers OT will work on ADL participation with assistive devices Medical Prognosis: Good Anticipated Length of Stay: 14 days DARELL CIFUENTES DO Sep 07, 2018 12:51
[2018-09-07] MEDS: VITAMIN D3 1,000 UNITS (CHOLECALCIFEROL) TABLET PO SCH (12:53)
[2018-09-07] MEDS: MAGNESIUM OXIDE (MAG-OX)400 MG TAB PO SCH (12:53)
--- NOTE | 2018-09-07 12:53 | PM&R Progress Note ---
Subjective HPI/CC On Admission Date Seen by Provider: Sep 07, 2018 Time Seen by Provider: 12:30 Subjective/Events-last exam Patient had EGD and colonoscopy completed by Dr. Waggoner so I saw him after he returned back to his room I introduced myself to his Patient wants to go home as soon as possible Dr. Waggoner told me he saw gastritis and some polyps nothing that appeared to be pathological and no active bleeding to explain the Hemoccult positive stools and melena Protonix was placed on medication profile and he will restart his aspirin and anticoagulation tomorrow Patient denies any pain NIH score had no changes Blood sugar noted within satisfactory results suspicious since he was n.p.o. and I held his long-term insulin last night Participating in physical therapy and occupational therapy as required Review of Systems Neurological: Weakness, Incoordination Objective Exam Vital Signs Vital Signs Date Time Temp Pulse Resp B/P (MAP) Pulse Ox O2 Delivery O2 Flow Rate FiO2 09/07/18 12:15 96.4 51 18 133/73 (93) 94 Room Air Capillary Refill : General Appearance: No Apparent Distress, WD/WN, Chronically ill Respiratory: Chest Non Tender, Lungs Clear, Normal Breath Sounds, No Accessory Muscle Use, No Respiratory Distress Cardiovascular: Regular Rate, Rhythm, No Edema, No Gallop, No JVD, No Murmur, Normal Peripheral Pulses Neurologic/Psychiatric: Alert, Oriented x3, Normal Mood/Affect, Motor Weakness (left sided hemiparesis) Skin: Normal Color, Warm/Dry, Other (resolving CEA incision right) Results/Procedures Lab Patient resulted labs reviewed. Assessment/Plan Assessment and Plan Assess & Plan/Chief Complaint Assessment Subacute CVA 08/16/18 with left sided weakness Severe carotid stenosis right s/p endarterectomy but no resolution of deficit DM on insulin Chronic UTI but normal cystoscopy 09/06/18 but BPH noted and placed on Flomax from Urology HTN HLP Constipation resolved since admit Hematochezia episode with Heme + stools but gastritis and colon polyps noted on EGD/Colonoscopy today 09/07/[address] Waggoner Plan: Restart ASA and anticoagulation tomorrow since polyps removed Monitor sugar control and adjust insulin prn Evaluate urinary issues since h/o chronic UTI and maintain on Flomax per Urology PPI Diagnosis/Problems Diagnosis/Problems (1) Cerebrovascular accident (CVA) with left hemiparesis Status: Acute (2) Diabetes mellitus Status: Chronic Qualifiers: Diabetes mellitus type: type 2 Diabetes mellitus usp insulin use: with termite helper use Diabetes mellitus complication status: with circulatory complication Diabetes mellitus complication detail: with other circulatory complications Qualified Codes: E11.59 - Type 2 diabetes mellitus with other circulatory complications; Z79.4 - watermaster (current) use of insulin (3) Hypertension Status: Chronic Qualifiers: Hypertension type: essential hypertension Qualified Codes: I10 - Essential (primary) hypertension (4) Hyperlipidemia Status: Chronic Qualifiers: Hyperlipidemia type: mixed hyperlipidemia Qualified Codes: E78.2 - Mixed hyperlipidemia (5) Chronic UTI Status: Chronic (6) Bright red blood per rectum Status: Resolved Resolution Date/Time: 09/07/18 @ 15:48 (7) Constipation Status: Resolved Qualifiers: Constipation type: slow transit constipation Qualified Codes: K59.01 - Slow transit constipation Resolution Date/Time: 09/07/18 @ 15:48 (8) Anticoagulant long-term use Status: Chronic (9) BPH (benign prostatic hyperplasia) Status: Chronic Qualifiers: Lower urinary tract symptom presence: symptoms present Lower urinary tract symptom detail: urinary frequency Qualified Codes: N40.1 - Benign prostatic hyperplasia with lower urinary tract symptoms; R35.0 - Frequency of micturition (10) Abnormal findings on esophagogastroduodenoscopy (EGD) Status: Acute (11) Abnormal colonoscopy Status: Acute (12) Gastritis Qualifiers: Gastritis type: unspecified gastritis Chronicity: acute Gastritis bleeding: without bleeding Qualified Codes: K29.00 - Acute gastritis without bleeding (13) Colon polyps Status: Acute Qualifiers: Colon polyp type: unspecified Colon location: unspecified part of colon Qualified Codes: K63.5 - Polyp of colon Clinical Quality Measures Admission Status Admission Dx Assessment Subacute CVA 08/16/18 with left sided weakness Severe carotid stenosis right s/p endarterectomy but no resolution of deficit DM Chronic UTI HTN HLP Plan: Monitor BP Maintain all new meds per [facility] including asa and anticoagulation Therapies as ordered for intensive rehab DVT/VTE Risk/Contraindication: Risk Factor Score Per Nursin RFS Level Per Nursing on Admit: 4+=Very High DARELL CIFUENTES DO Sep 07, 2018 12:53
[2018-09-07] MEDS: LORATADINE (CLARITIN) 10 MG TAB PO SCH (12:58)
[2018-09-07 16:00] VITALS: BP 152/78
[2018-09-07 17:53] VITALS: BP 152/78
[2018-09-07] MEDS: TAMSULOSIN 0.4 MG (FLOMAX) CAP PO SCH (17:58)
--- NOTE | 2018-09-07 19:05 | NUR ---
bedside report given to MOLLY jones
[2018-09-07] MEDS: inSUlin DETERMIR 1 UNIT/0.01 ML (LEVEMIR) CHARGE PER UNIT SQ SCH (21:11)
[2018-09-07] MEDS: ATORVASTATIN 40 MG (LIPITOR) TABLET PO SCH (21:11)
[2018-09-08 05:00] VITALS: BP 113/71
[2018-09-08] MEDS: inSUlin ASPART (NovoLOG) 1 UNIT/0.01 ML (CHARGE PER UNIT) SC SCH ×4 (05:10→21:00)
[2018-09-08] MEDS: metFORMIN XR 500 MG (GLUCOPHAGE XR) TAB PO SCH ×2 (06:04→17:06)
[2018-09-08] MEDS: CYANOCOBALAMIN 1,000 MCG (VITAMIN B-12) TABLET PO SCH (06:07)
--- NOTE | 2018-09-08 06:10 | PM&R Progress Note ---
Subjective HPI/CC On Admission Date Seen by Provider: Sep 08, 2018 Time Seen by Provider: 06:00 Subjective/Events-last exam Patient doing well Still having difficulty with transfers He denies any pain Maintained on meds for EGD findings yesterday No more melena is reported Awaiting colon polyps pathology Back on anticoagulation and aspirin therapy due to prior stroke stayed the night and slept in the temporary bed next to him Review of Systems General: Fatigue Neurological: Weakness Objective Exam Vital Signs Vital Signs Date Time Temp Pulse Resp B/P (MAP) Pulse Ox O2 Delivery O2 Flow Rate FiO2 09/08/18 09:00 Room Air 09/08/18 05:00 98.1 53 16 113/71 (85) 95 Capillary Refill : General Appearance: No Apparent Distress, WD/WN Respiratory: Chest Non Tender, Lungs Clear, Normal Breath Sounds, No Accessory Muscle Use, No Respiratory Distress Cardiovascular: Regular Rate, Rhythm, No Edema, No Gallop, No JVD, No Murmur, Normal Peripheral Pulses Neurologic/Psychiatric: Alert, Oriented x3, Normal Mood/Affect, Motor Weakness (left sided weakness) Skin: Normal Color, Warm/Dry Results/Procedures Lab Patient resulted labs reviewed. Assessment/Plan Assessment and Plan Assess & Plan/Chief Complaint Assessment Subacute CVA 08/16/18 with left sided weakness Severe carotid stenosis right s/p endarterectomy but no resolution of deficit DM on insulin Chronic UTI but normal cystoscopy 09/06/18 but BPH noted and placed on Flomax from Urology HTN HLP Constipation resolved since admit Hematochezia episode with Heme + stools but gastritis and colon polyps noted on EGD/Colonoscopy today 09/07/[address] Waggoner Plan: Restart ASA and anticoagulation today Follow up on polyp pathology Monitor sugar control and adjust insulin prn Evaluate urinary issues since h/o chronic UTI and maintain on Flomax per Urology PPI Diagnosis/Problems Diagnosis/Problems (1) Cerebrovascular accident (CVA) with left hemiparesis Status: Acute (2) Diabetes mellitus Status: Chronic Qualifiers: Diabetes mellitus type: type 2 Diabetes mellitus detention insulin use: with detention use Diabetes mellitus complication status: with circulatory complication Diabetes mellitus complication detail: with other circulatory complications Qualified Codes: E11.59 - Type 2 diabetes mellitus with other circulatory complications; Z79.4 - snf (current) use of insulin (3) Hypertension Status: Chronic Qualifiers: Hypertension type: essential hypertension Qualified Codes: I10 - Essential (primary) hypertension (4) Hyperlipidemia Status: Chronic Qualifiers: Hyperlipidemia type: mixed hyperlipidemia Qualified Codes: E78.2 - Mixed hyperlipidemia (5) Chronic UTI Status: Chronic (6) Bright red blood per rectum Status: Resolved Resolution Date/Time: 09/07/18 @ 15:48 (7) Constipation Status: Resolved Qualifiers: Constipation type: slow transit constipation Qualified Codes: K59.01 - Slow transit constipation Resolution Date/Time: 09/07/18 @ 15:48 (8) Anticoagulant long-term use Status: Chronic (9) BPH (benign prostatic hyperplasia) Status: Chronic Qualifiers: Lower urinary tract symptom presence: symptoms present Lower urinary tract symptom detail: urinary frequency Qualified Codes: N40.1 - Benign prostatic hyperplasia with lower urinary tract symptoms; R35.0 - Frequency of micturition (10) Abnormal findings on esophagogastroduodenoscopy (EGD) Status: Acute (11) Abnormal colonoscopy Status: Acute (12) Gastritis Qualifiers: Gastritis type: unspecified gastritis Chronicity: acute Gastritis bleeding: without bleeding Qualified Codes: K29.00 - Acute gastritis without bleeding (13) Colon polyps Status: Acute Qualifiers: Colon polyp type: unspecified Colon location: unspecified part of colon Qualified Codes: K63.5 - Polyp of colon Clinical Quality Measures Admission Status Admission Dx Assessment Subacute CVA 08/16/18 with left sided weakness Severe carotid stenosis right s/p endarterectomy but no resolution of deficit DM Chronic UTI HTN HLP Plan: Monitor BP Maintain all new meds per [facility] including asa and anticoagulation Therapies as ordered for intensive rehab DVT/VTE Risk/Contraindication: Risk Factor Score Per Nursin RFS Level Per Nursing on Admit: 4+=Very High DARELL CIFUENTES DO Sep 08, 2018 06:10
[2018-09-08 08:30] VITALS: BP 138/76
[2018-09-08] MEDS: FLUoxetine HCL 20 MG (PROzac) CAP PO SCH (08:32)
[2018-09-08] MEDS: ZINC SULFATE 220 MG CAPSULE PO SCH (08:32)
[2018-09-08] MEDS: PYRIDOXINE (VITAMIN B-6) 50 MG TABLET PO SCH (08:32)
[2018-09-08] MEDS: MAGNESIUM OXIDE (MAG-OX)400 MG TAB PO SCH (08:32)
[2018-09-08] MEDS: VITAMIN D3 1,000 UNITS (CHOLECALCIFEROL) TABLET PO SCH (08:32)
[2018-09-08] MEDS: LORATADINE (CLARITIN) 10 MG TAB PO SCH (08:33)
[2018-09-08] MEDS: SENNA W/DOCUSATE (SENOKOT S) TABLET PO SCH ×2 (08:36→21:00)
[2018-09-08] MEDS: BISACODYL 10 MG SUPP (DULCOLAX) PR SCH ×2 (08:37→21:00)
[2018-09-08] MEDS: amLODIPine 10 MG (NORVASC) TAB PO SCH (08:38)
[2018-09-08] MEDS: ASPIRIN 325 MG (5 GR) TABLET PO SCH (09:00)
--- NOTE | 2018-09-08 09:00 | NUR ---
NONADMINISTERED ASA FROM YESTERDAY. ORDER TO HOLD IT, BUT WAS NOT DOCUMENTED ON OCT.
[2018-09-08 10:00] VITALS: BP 122/74
--- NOTE | 2018-09-08 10:39 | Progress Note-Urology ---
Progress Note-Urology Progress Notes/Assess & Plan Progress/Assessment & Plan VOIDING WELL ON OWN. TOLERATES FLOMAX AND BACTRIM WELL. NO A.E Final Diagnosis RECURRENT UTIS AND RETENTION NARENDRA BALDWIN MD Sep 08, 2018 10:39
--- NOTE | 2018-09-08 11:00 | NUR ---
EATING POORLY TODAY. STATES HE IS DEPRESSED.
[2018-09-08] MEDS: CARVEDILOL 12.5 MG (COREG) TABLET PO SCH ×2 (11:10→21:12)
[2018-09-08] MEDS: RIVAROXABAN 20 MG TABLET (XARELTO) PO SCH ×2 (12:05→12:07)
--- NOTE | 2018-09-08 12:05 | NUR ---
NONADMINISTERED XARELTO FROM 1200 YESTERDAY. ORDER TO HOLD IT, BUT WAS NOT DOCUMENTED ON OCT.
--- NOTE | 2018-09-08 14:50 | Progress Note ---
Subjective Time Seen by a Provider: 14:32 Subjective/Events-last exam Pt seen and examined, denies abdominal pain and no new complaints. Review of Systems General: No Chills, No Night Sweats Pulmonary: No Dyspnea, No Cough Cardiovascular: No: Chest Pain, Palpitations Gastrointestinal: No: Nausea, Vomiting Objective Exam Vital Signs Date Time Temp Pulse Resp B/P (MAP) Pulse Ox O2 Delivery O2 Flow Rate FiO2 09/08/18 09:00 Room Air 09/08/18 05:00 98.1 53 16 113/71 (85) 95 Room Air 09/07/18 21:17 Room Air 09/07/18 17:53 96.9 54 16 152/78 (102) 95 Room Air I & O 09/08/18 07:00 Intake Total 1110 ml Output Total 800 ml Balance 310 ml Capillary Refill : General Appearance: No Apparent Distress, WD/WN HEENT: PERRL/EOMI, Pharynx Normal Respiratory: Chest Non Tender, Lungs Clear, Normal Breath Sounds, No Accessory Muscle Use, No Respiratory Distress Cardiovascular: Regular Rate, Rhythm, No Edema, No Gallop, No JVD, No Murmur, Normal Peripheral Pulses Gastrointestinal: normal bowel sounds, non tender, soft, no organomegaly, no pulsatile mass Extremity: Normal Capillary Refill, Normal Inspection, Non Tender, No Calf Tenderness, No Pedal Edema Neurologic/Psychiatric: Alert, Oriented x3, Normal Mood/Affect, Motor Weakness (left sided hemiparesis) Skin: Normal Color, Warm/Dry, Other (resolving CEA incision right) Results Lab Laboratory Tests 09/07/18 16:06: Glucometer 139H 09/07/18 20:13: Glucometer 127H 09/08/18 04:24: Glucometer 118H 09/08/18 11:33: Glucometer 142H Assessment/Plan Assessment/Plan Assessment/Plan GI Bleed CVA with left sided paralysis HTN Arthritis Hx of Prostate problems and Chronic UTI EGD and Colonoscopy done yesterday; pt had some Gastritis and questionable ulcers in stomach and had polyps in Colon. Would hold off on ASA, but he has to be on Xarelto so he can start that. Pt can follow up in my office to go over results of pathology. He and his had no questions. Clinical Quality Measures DVT/VTE Risk/Contraindication: Risk Factor Score Per Nursin RFS Level Per Nursing on Admit: 4+=Very High RANGEL DICKERSON DO Sep 08, 2018 14:50
[2018-09-08] MEDS: TAMSULOSIN 0.4 MG (FLOMAX) CAP PO SCH (17:06)
[2018-09-08 17:52] VITALS: BP 129/70
--- NOTE | 2018-09-08 18:00 | NUR ---
APPEARS HAPPIER THIS AFTERNOON AND EATING BETTER.
--- NOTE | 2018-09-08 19:00 | NUR ---
ENCOURAGED TO TRY TO VOID. HAS ONLY VOIDED X 1 TODAY WITH 350 CC. TRIED TO USE URINAL, BUT STATED DID NOT NEED TO VOID. BLADDER SCAN SHOWS 202 CC.
--- NOTE | 2018-09-08 19:10 | NUR ---
bedside report received from MERRICK MIX, assume care of pt
--- NOTE | 2018-09-08 21:00 | NUR ---
assessments & interventions completed, see assessments & interventions, refused Senokot 2 tabs & Dulcolax supp, scored 9 on NIH STROKE SCALE
[2018-09-08 21:08] VITALS: BP 142/72
[2018-09-08] MEDS: MELATONIN 3 MG TABLET PO PRN (21:12)
[2018-09-08] MEDS: ATORVASTATIN 40 MG (LIPITOR) TABLET PO SCH (21:12)
[2018-09-08] MEDS: inSUlin DETERMIR 1 UNIT/0.01 ML (LEVEMIR) CHARGE PER UNIT SQ SCH (21:14)
--- NOTE | 2018-09-09 02:20 | NUR ---
had voided 300ml at 2230 last night, pt tried to void but could not, bladder scan showed 0000 in bladder
[2018-09-09 05:20] VITALS: BP 136/69
[2018-09-09] MEDS: inSUlin ASPART (NovoLOG) 1 UNIT/0.01 ML (CHARGE PER UNIT) SC SCH ×4 (06:00→20:55)
[2018-09-09] MEDS: CYANOCOBALAMIN 1,000 MCG (VITAMIN B-12) TABLET PO SCH (07:01)
[2018-09-09] MEDS: metFORMIN XR 500 MG (GLUCOPHAGE XR) TAB PO SCH ×2 (07:01→17:57)
--- NOTE | 2018-09-09 07:12 | NUR ---
bedside report given to MERRICK MIX
[2018-09-09] MEDS: ONDANSETRON 4 MG (ZOFRAN) ORAL DISSOLVE TAB PO PRN (07:16)
--- NOTE | 2018-09-09 07:16 | NUR ---
c/o nausea zofran 4mg po given
--- NOTE | 2018-09-09 08:30 | PM&R Progress Note ---
Subjective This was a face to face visit with the patient. Date Seen by Provider: Sep 09, 2018 Time Seen by Provider: 08:00 Subjective/Events-last exam Patient was seen in his room. at bedside. Blood sugars reviewed. Nauseated at times. Zofran ordered. Patient does have chronic nausea at home. No more bloody bowel movements. Urinary retention continues In and out catheters performed as needed Flomax given Depression is an issue. Date Identified: Sep 09, 2018 Time Identified: 08:00 Medication Intervention: UTI symptoms placed on in/out catheter Review of Systems Genitourinary: Retention Neurological: Weakness (left side), Other (depression) Objective Physician Exam Last Set of Vital Signs Vital Signs Date Time Temp Pulse Resp B/P (MAP) Pulse Ox O2 Delivery O2 Flow Rate FiO2 09/09/18 05:20 96.8 53 18 136/69 (91) 93 Room Air Capillary Refill : I&O Intake and Output 09/09/18 00:00 Intake Total 970 ml Output Total 1150 ml Balance -180 ml Intake Oral 970 ml Output Urine Total 1150 ml Bladder Scan Volume Amount 0 ml General: Alert, Oriented X3, Cooperative, No Acute Distress HEENT: Atraumatic, PERRLA, EOMI, Mucous Memb Moist/[place] Neck: Supple, No JVD, No Thyromegaly, Other (right CEA jona in place) Lungs: Clear to Auscultation, Normal Air Movement Heart: Regular Rate, Normal S1, Normal S2 Abdomen: Normal Bowel Sounds, Soft, No Tenderness, No Hepatosplenomegaly, No Masses Extremities: No Clubbing, No Cyanosis Skin: No Rashes, No Breakdown Neuro: Normal Speech, Other (left sided HP 1/5 left foot flaccid left arm and hand) Psych/Mental Status: Mental Status NL, Other (depressed) Results Lab Data Laboratory Tests 09/06/18 08:50: Urine Color YELLOW, Urine Clarity CLEAR, Urine pH 5, Urine Specific [place] 1.025H, Urine Protein 3+H, Urine Glucose (UA) NEGATIVE, Urine Ketones NEGATIVE, Urine Nitrite NEGATIVE, Urine Bilirubin NEGATIVE, Urine Urobilinogen NORMAL, Urine Leukocyte Esterase 1+H, Urine RBC (Auto) NEGATIVE, Urine RBC NONE, Urine WBC 0-2, Urine Squamous Epithelial Cells 0-2, Urine Crystals NONE, Urine Bacteria NEGATIVE, Urine Casts PRESENT, Urine Hyaline Casts 0-2H, Urine Mucus MODERATEH, Urine Culture Indicated NO 09/06/18 11:46: Glucometer 102 09/06/18 16:07: Glucometer 143H 09/06/18 20:37: Glucometer 119H 09/07/18 04:39: Glucometer 138H 09/07/18 12:04: Glucometer 117H 09/07/18 16:06: Glucometer 139H 09/07/18 20:13: Glucometer 127H 09/08/18 04:24: Glucometer 118H 09/08/18 11:33: Glucometer 142H 09/08/18 15:47: Glucometer 115H 09/08/18 21:06: Glucometer 139H 09/09/18 05:45: Glucometer 133H Current Funtional Status Continue urinary management per Dr Conway his help is appreciated In/Out catheter prn Bactrim on board Nausea treatment but this is chronic he states Assessment/Plan Assessment and Plan (1) Cerebrovascular accident (CVA) with left hemiparesis Status: Acute (2) Diabetes mellitus Qualifiers: Qualified Codes: E11.59 - Type 2 diabetes mellitus with other circulatory complications; Z79.4 - ocean transportation intermediary (current) use of insulin Status: Chronic (3) Hypertension Qualifiers: Qualified Codes: I10 - Essential (primary) hypertension Status: Chronic (4) Hyperlipidemia Qualifiers: Qualified Codes: E78.2 - Mixed hyperlipidemia Status: Chronic (5) Chronic UTI Status: Chronic (6) Bright red blood per rectum Status: Resolved (7) Constipation Qualifiers: Qualified Codes: K59.01 - Slow transit constipation Status: Resolved (8) Anticoagulant long-term use Status: Chronic (9) BPH (benign prostatic hyperplasia) Qualifiers: Qualified Codes: N40.1 - Benign prostatic hyperplasia with lower urinary tract symptoms; R35.0 - Frequency of micturition Status: Chronic (10) Abnormal findings on esophagogastroduodenoscopy (EGD) Status: Acute (11) Abnormal colonoscopy Status: Acute (12) Gastritis Qualifiers: Qualified Codes: K29.00 - Acute gastritis without bleeding (13) Colon polyps Qualifiers: Qualified Codes: K63.5 - Polyp of colon Status: Acute (14) Nausea Status: Chronic Co-Morbidities that are continuing to impact the rehab process: (include details ) DARELL CIFUENTES DO Sep 09, 2018 08:30
--- NOTE | 2018-09-09 08:30 | NUR ---
NAUSEA GONE NOW, BUT REFUSES BREAKFAST. HAS NOT VOIDED SINCE 2229 LAST NIGHT. STATES "JUST DOES NOT NEED TO GO". ATTEMPTED TO USE URINAL, BUT NO SUCCESS. BLADDER SCAN SHOWS 253 CC.
--- NOTE | 2018-09-09 09:01 | Physical Therapy Daily Note ---
PT Daily Note-Current Subjective Patient in bed pre tx, agrees to PT reluctantly, no complaints of pain. Patient seems depressed. Appearance Patient in wheelchair at bedside post tx, has nurse call, phone, tray, all needs met. Has ST right after PT. Mental Status Patient Orientation: Person, Place, Situation Transfers Therapy Code Descriptions/Definitions Functional [place] Measure: 0=Not Assessed/NA 4=Minimal Assistance 1=Total Assistance 5=Supervision or Setup 2=Maximal Assistance 6=Modified [place] 3=Moderate Assistance 7=Complete [place] Therapy Quality Codes: 6 Independent with activity with or without an assistive device 5 Patient requires set up or clean up by helper. Patient completes activity by themselves 4 Supervision or touching assist (CGA). [place] provide cues , steadying assist 3 The helper provides less than half the effort to complete the activity 2 The helper provides more than half the effort to complete the activity 1 Dependent. The helper does all the effort to complete an activity 7 Patient refused to complete or attempt activity 9 The patient did not perform the activity before the current illness or injury 88 Not attempted due to Medical conditions or safety concerns Transfers (B, C, W/C) (FIM): 3 Scootin Rollin Supine to/from Sit: 4 Bed to/from Chair: 3 Patient needs cues for hand placement and positioning. Leans heavily to the left side. Gait Training Gait (FIM): 1 Distance: 10'x2 Gait Level of Assist: 3 Gait Persons Needed: 1 Gait Assistive Device: Walker Ba Needs assist with weight shifting, is barely able to advance his left leg with weight shifting, he tends to resist the weight shift, leans heavily to the left side. Wheelchair Training Does the Pt Use a Wheelchair?: Yes Wheelchair (FIM): 2 Distance: 50'x2 Wheelchair Level of Assist: 4 Type of Wheelchair: Manual Exercises Supine Ex: Quad Set, Glut sets, Heel Slides, Short Arc Quads, Straight leg raise, Hip abd/add Supine Reps: 15 sit to stand 2 sets of 5 Neuromuscular Practiced standing and weight shifting from side to side. Treatments bed mobility and transfers, ambulation, functional strengthening, balance training Assessment Current Status: Poor Progress Patient seemed depressed today, leaned more heavily to the left side, worse ambulation. PT Short Term Goals Short Term Goals Time Frame: Sep 11, 2018 Transfers (B,C,W/C) (FIM): 3 Gait (FIM): 1 Gait Distance Comment: 20' Gait Level of Assist: 3 Gait Assistive Device: Walker Ba Wheelchair Distance: 100'x2 PT Sap Bw Developer Goals Chcf Goals PT Sap Bw Developer Goals Time Frame: Sep 25, 2018 Transfers (B,C,W/C) (FIM): 4 Sit to Lying (QC): 4 Lying-Sitting on Side/Bed(QC): 4 Sit to Stand (QC): 4 Rollin Roll Left to Right (QC): 4 Chair/[id number]-Zsbsq Xfer(QC): 4 Car Transfer (QC): 4 Gait (FIM): 2 Distance: 50' Walk 10 feet (QC): 3 Walk 10ft-Uneven Surface(QC): 3 Walk 50ft with 2 Turns (QC): 3 Gait Level of Assist: 4 Gait Assistive Device: Cane Large Base Quad Wheelchair (FIM): 5 Distance: 150' Wheelchair Level of Assist: 5 Wheel 50 feet with 2 turns (QC: 4 PT Plan Problem List Problem List: Activity Tolerance, Functional Strength, Safety, Balance, Gait, Transfer, Bed Mobility, ROM Treatment/Plan Treatment Plan: Continue Plan of Care Treatment Plan: Bed Mobility, Concurrent Therapy, Education, Functional Activity Reena, Functional Strength, Group Therapy, Gait, Safety, Therapeutic Exercise, Transfers Treatment Duration: Sep 25, 2018 Frequency: At least 5 of 7 days/Wk (IRF) Estimated Hrs Per Day: 1.5 hours per day Patient and/or Family Agrees t: Yes Safety Risks/Education Patient Education: Gait Training, Transfer Techniques, Correct Positioning, W/ C Management, Safety Issues Teaching Recipient: Patient Teaching Methods: Demonstration, Discussion Response to Teaching: Reinforcement Needed Time/GCodes Time In: 0810 Time Out: 0900 Total Billed Treatment Time: 50 Total Billed Treatment 1 visit GT 15' EX 15' NM 20' CASTILLO PHIPPS PT Sep 09, 2018 09:01
[2018-09-09 09:30] VITALS: BP 125/68
[2018-09-09] MEDS: MAGNESIUM OXIDE (MAG-OX)400 MG TAB PO SCH (09:32)
[2018-09-09] MEDS: VITAMIN D3 1,000 UNITS (CHOLECALCIFEROL) TABLET PO SCH (09:32)
[2018-09-09] MEDS: amLODIPine 10 MG (NORVASC) TAB PO SCH (09:33)
[2018-09-09] MEDS: PYRIDOXINE (VITAMIN B-6) 50 MG TABLET PO SCH (09:33)
[2018-09-09] MEDS: FLUoxetine HCL 20 MG (PROzac) CAP PO SCH (09:33)
[2018-09-09] MEDS: LORATADINE (CLARITIN) 10 MG TAB PO SCH (09:33)
[2018-09-09] MEDS: SENNA W/DOCUSATE (SENOKOT S) TABLET PO SCH ×2 (09:37→20:55)
[2018-09-09] MEDS: BISACODYL 10 MG SUPP (DULCOLAX) PR SCH ×2 (09:37→20:55)
[2018-09-09] MEDS: ZINC SULFATE 220 MG CAPSULE PO SCH (09:39)
[2018-09-09 11:00] VITALS: BP 124/64
--- NOTE | 2018-09-09 11:00 | NUR ---
INFORMED DR. CIFUENTES THAT HR IS STAYING 47-48 THIS AM AND UNSURE WHETHER TO GIVE COREG. DR. CHAMORRO CONSULTED.
--- NOTE | 2018-09-09 11:06 | NUR ---
BOILERMAKER'S ASSISTANT met with patient to complete initial assessment. Patient appeared alert and oriented and agreeable to assessment. Patient admitted to ARU with debility and rectal bleeding. Prior to hospitalization patient resided with spouse, Fartun in [place], [place]. Patient reports the home as one level with no steps at the entrance. 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 Patient and spouse recently moved to the area and identifies no local support. Patient identifies spouse, Fartun as primary contact at [phone]. Fartun is retired and available to physically assist, as needed. Patient identifies Dr. Sheets of [place] as PCP. Insurance verified as [employer] [facility] with prescription coverage and preferred pharmacy as medicine [facility]. BOILERMAKER'S ASSISTANT sent clinical updates to insurance provider today requesting continued stay. BOILERMAKER'S ASSISTANT reviewed insurance authorization process as well as ARU typical length of stay; however patient repeatedly request discharge plans as soon as possible. BOILERMAKER'S ASSISTANT reviewed current therapy progress and patient continues to require mod assist for most activities. BOILERMAKER'S ASSISTANT will discuss patient's progress in team conference on Sunday to determine recommendations.
--- NOTE | 2018-09-09 11:15 | NUR ---
COREG BEING HELD UNTIL DR. CHAMORRO SEES PATIENT.
--- NOTE | 2018-09-09 11:22 | Occupational Ther Daily Note ---
OT Current Status-Daily Note Subjective Pt stated that , " I am fine today & I am going home today. " Pain Numeric Pain Scale: 3 Location: Left Location Body Site: Shoulder Pain Description: Ache Mental Status/Objective Patient Orientation: Person, Place, Time, Eyes Open Therapy Code Descriptions/Definitions Functional [place] Measure: 0=Not Assessed/NA 4=Minimal Assistance 1=Total Assistance 5=Supervision or Setup 2=Maximal Assistance 6=Modified [place] 3=Moderate Assistance 7=Complete [place] ADL-Treatment Therapist today worked on Shower, func transfers from bed to w/c with mod A,, bed mobility supine to sit in bed with mod-min A, Dressing , undressing UB & LB in shower. Pt aware of holding grab bar in shower to pivot transfer on shower bench, Needs mod A in putting on soap & rinsing Left part of body . Needs min A in holding trunk to prevent fall. Pt wash hairs, chest , Rt LE , perineal part with Min A , Needs max A in UB & LB dressing & donning socks. Pt dry his body with min A . [place] his hairs with Set up.. Pt very cooperative. Eating (FIM): 7 Grooming (FIM): 5 Bathing (FIM): 3 Upper Body (FIM): 2 Lower Body Dressing (FIM): 2 Toileting (FIM): 2 Transfers (B, C, W/C) (FIM): 3 Shower Transfer(FIM): 3 Education OT Patient Education: Correct positioning, Safety issues, Transfer techniques Teaching Recipient: Patient Teaching Methods: Demonstration, Discussion Response to Teaching: Verbalize Understanding, Return Demonstration OT Short Term Goals Short Term Goals Time Frame: Sep 19, 2018 Eating(FIM): 7 Grooming(FIM): 7 Bathing(FIM): 3 Bathing Location: L Arm, L Lower Leg (including foot), Chest, Abdomen Upper Body Dressing(FIM): 3 Lower Body Dressing(FIM): 2 Toileting(FIM): 3 Transfers (B,C,W/C) (FIM): 3 Toilet/Commode Transfer(FIM): 3 Shower Transfer(FIM): 3 Additional Short Term Goals: 1-Demonstrate ADL Tasks, 2-Verbalize Understanding , 3-ImproveStrength/Reena 1=Demonstrate adherence to instructed precautions during ADL tasks. 2=Patient will verbalize/demonstrate understanding of assistive devices/ modifications for ADL. 3=Patient will improve strength/tolerance for activity to enable patient to perform ADL's. OT Detention Goals Crime Victim Specialist Goals Time Frame: Oct 03, 2018 Eating (FIM): 7 Grooming(FIM): 7 Bathing(FIM): 3 Bathing Location: L Arm, R Arm, L Lower Leg (including foot), R Lower Leg ( including foot), Chest, Abdomen Upper Body Dressing(FIM): 4 Lower Body Dressing(FIM): 3 Toileting(FIM): 3 Transfers (B,C,W/C) (FIM): 3 Toilet/Commode Transfer(FIM): 3 Shower Transfer(FIM): 3 Comprehension(FIM): 3 Additional Goals: 1-Demonstrate ADL Tasks, 2-Verbalize Understanding, 3- ImproveStrength/Reena 1=Demonstrate adherence to instructed precautions during ADL tasks. 2=Patient will verbalize/demonstrate understanding of assistive devices/ modifications for ADL. 3=Patient will improve strength/tolerance for activity to enable patient to perform ADL's. OT Education/Plan Problem List/Assessment Assessment: Decreased Activ Tolerance, Decreased Safety Aware, Decreased UE Strength, Dependent Transfers, Impaired Bed Mobility, Impaired Funct Balance, Impaired Self-Care Skills Discharge Recommendations Plan/Recommendations: Continue POC Therapy D/C Recommendations: Home w/ Family Support, Occupational Therapy Home Care Equpiment Recommendations-D/C: Extended Shower Sprayer, Candy Vendor, Sock Aide, Dressing Stick Barriers to Progress Left Hemiplegia, -fair sitting trunk balance , MS in Lf UE & LE 0/5 Patient/Family Goals To return home with Independently. Treatment Plan/Plan of Care Treatment,Training & Education: Yes Patient would benefit from OT for education, treatment and training to promote independence in ADL's, mobility, safety and/or upper extremity function for ADL' s. Plan of Care: ADL Retraining, Caregiver Training, Functional Mobility, Group Exercise/Act as Ind, UE Funct Exercise/Act Treatment Duration: Oct 03, 2018 Frequency: At least 5 of 7 days/Wk (IRF) Estimated Hrs Per Day: 1.5 hours per day Agreement: Yes Rehab Potential: Fair Time/GCodes Start Time: 10:00 Stop Time: 11:00 Total Time Billed (hr/min): 60 Billed Treatment Time 1, ADL 45, Ex 15 total time 60 . GUTIERREZ GOLDEN OT Sep 09, 2018 11:22
[2018-09-09] MEDS: RIVAROXABAN 20 MG TABLET (XARELTO) PO SCH (11:40)
--- NOTE | 2018-09-09 13:51 | Speech Therapy Daily Note ---
Speech Daily Progress Note Subjective Date Seen by Provider: Sep 09, 2018 Time Seen by Provider: 00:30 Patient was sitting up in his wheelchair resting. He stated he just finished his exercises. (PT) Objective Patient completed speech production tasks with 60% accuracy given moderate verbal and/or visual cues. Communication Comprehension: 5 Expression: 5 Social Cognition Social Interaction: 5 Problem Solvin Memory: 4 Speech Short Term Goals Short Term Goals Short Term Goals 1) Patient will increase speech intelligibility at the highest functional verbal expression level to 90% or greater. 2) Patient will complete memory tasks with 90% or greater. 3) Patient will complete problem solving tasks with 90% or greater. Speech Gaming Surveillance Observer Goals Gaming Surveillance Observer Goals Patient will improve memory, problem solving and speech skills to better communicate with familiar and unfamiliar listeners. Comprehension: 3 Speech-Plan Patient/Family Goals Patient/Family Goals: Patient will be returning home with his post rehab. Treatment Plan Speech Therapy Treatment Plan: Continue Plan of Care Patient's speech has slightly improved with decreased right side droop noted. Treatment Duration: Sep 13, 2018 Frequency: 5 times per week Estimated Hrs Per Day: .5 hour per day Rehab Potential: Fair Barriers to Learning: Patient gets emotional at times during his therapy sessions. Pt/Family Agrees to Plan: Yes Safety Risks/Education Teaching Recipient: Patient Teaching Methods: Discussion Response to Teaching: Verbalize Understanding Education Topics Provided: Oral motor exercises for daily use. Time Speech Therapy Time In: 09:00 Speech Therapy Time Out: 09:30 Total Billed Time: 30 Billed Treatment Time 1[address] Sep 09, 2018 13:51
--- NOTE | 2018-09-09 15:12 | Therapy Group Daily Note ---
Therapy Daily Group Note Patient Education Topic Exercises, Other List Below Exercises LE Seated Exercise, UE Exercise Other/Notes Pt participated in group therapy with 4:1 ratio. Goals of therapy are understanding ARU description/expectations and understanding the benefits of sleep. Pt transported to group via w/c. Group consisted of introductions (name , place living, why are you here), socialization, UE/LE seated exercises, education for ARU description/expectations and understanding the benefits of sleep. Pt was able to introduce self appropriately and accurately state reason for being at ARU. Pt actively listened to peers throughout session. Pt was able to acknowledge understanding of goals by giving verbal example and raise hand for acknowledgement. Pt tolerated UE/LE seated exercises and completed with min assist and instruction to assist LUE with RUE.. Pt will benefit from topics discussed by increasing time slept and being able to fully engage in therapies. Pt transported back to room via w/c and was assisted bed. Call light/phone in reach. Safety measures in place. Start Time: 13:00 Stop Time: 14:30 Total Billed Treatment Time: 90 Total Billed Treatment GRP 1 PRATIBHA MILLIGAN GUNSTOCK REPAIRER Sep 09, 2018 15:12
[2018-09-09 15:39] VITALS: BP 129/73
--- NOTE | 2018-09-09 15:39 | Consultation-Cardiology ---
HPI-Cardiology Cardiology Consultation: Date of Consultation 09/09/18 Time Seen by a Provider: 15:30 Date of Admission 09-04-18 Attending Physician Meron Meier DO Admitting Physician Michelle,Local Physician Consulting Physician Sarkis Acuna MD HPI: Chief Complaint: Bradycardia Mr. Kuhn is a 69 year old male IRU 222 who was admitted on 09-04-18 from [facility] after being treated for ischemic CVA. He was found to have severe stenosis of the right carotid and underwent R CEA on 08-23-18. We have been consulted for medication management d/t sinus bradycardia. He denies any c/o dizziness, syncope or near syncope. He denies any c/o CP, palpitations. No c/o LE edema. His spouse is at the bedside. Review of Systems-Cardiology Review of Systems Constitutional: No chills, No fever Eyes: No vision change Ears/Nose/Throat: No epistaxis, No recent hearing loss Respiratory: As described under HPI Cardiovascular: As described under HPI Gastrointestinal: No constipation, No diarrhea, No nausea, No vomiting Genitourinary: No hematuria; other (urinary retention; frequent UTI's) Musculoskeletal: no symptoms reported Skin: No rash, No ulcerations Psychiatric/Neurological: other (left side hemiparesis; left side facial droop) Hematologic: No bleeding abnormalities All Other Systems Reviewed Negative Unless Noted: Yes CXW-Jcghor-Thujen Hx Patient Social History Marrital Status: 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 Family Medical History Family Medical History: Reports father, mother and sister have had strokes. Reports father had CAD with CABG and AAA. Brother, mother, father, sister with HTN. Family History: Abdominal aortic aneurysm 19 FATHER, Onset:60 years & older Alcoholism G8 BROTHER, Onset:20's - 25 Arthritis 19 MOTHER, Onset:50's - 60 G8 SISTER, Onset:50's - 60 Cardiovascular disease 19 FATHER, Onset:50's - 60 Cataracts 19 MOTHER, Onset:60 years & older Completed stroke 19 MOTHER, Onset:50's - 60 G8 SISTER, Onset:50's - 60 Drug abuse G8 BROTHER, Onset:30's - 40 G8 SISTER Hypertension 19 FATHER 19 MOTHER G8 BROTHER G8 SISTER Myocardial infarction 19 FATHER Allergies and Home Medications Allergies Coded Allergies: No Known Drug Allergies (Unverified , 09/04/18) Home Medications Amlodipine Besylate 10 Mg Tablet, 10 MG PO DAILY, (Reported) Carvedilol 25 Mg Tablet, 25 MG PO BID, (Reported) Cholecalciferol (Vitamin D3) 1,000 Unit Capsule, 1,000 UNIT PO DAILY, (Reported) Cyanocobalamin (Vitamin B-12) 500 Mcg Tablet, 500 MCG PO DAILY, (Reported) Fexofenadine HCl 180 Mg Tablet, 180 MG PO DAILY, (Reported) Insulin Glargine,Hum.rec.anlog 300 Unit/1 Ml Insuln.pen, 42 UNIT SQ HS, ( Reported) Magnesium Oxide 400 Mg Tablet, 400 MG PO DAILY, (Reported) Metformin HCl 500 Mg Tab.er.24h, 1,000 MG PO BID, (Reported) Pyridoxine HCl 50 Mg Tablet, 50 MG PO DAILY, (Reported) Saw [place] 500 Mg Capsule, 500 MG PO DAILY, (Reported) Selenium 100 Mcg Tablet, 100 MCG PO DAILY, (Reported) Zinc Sulfate 220 Mg Tablet, 220 MG PO DAILY, (Reported) Patient Home Medication List Home Medication List Reviewed: Yes Physical Exam-Cardiology Physical Exam Vital Signs/I&O 09/12/18 09/13/18 20:10 05:05 Temp 98.6 Pulse 50 Resp 20 B/P (MAP) 105/55 (72) Pulse Ox 92 O2 Delivery Room Air Room Air 09/13/18 00:00 Intake Total 600 ml Output Total 925 ml Balance -325 ml Capillary Refill : Constitutional: AAO x 3, well-developed, well-nourished HEENT: PERRL, hearing is well preserved, oral hygience is good Neck: carotid bruit (left), other (healing surgical site to right neck (post R CEA); no s/s of infection, inflammation or drainage) Respiratory: No accessory muscle use, No respiratory distress; chest expansion is symmetric, chest is bilaterally symmetric, lungs clear to auscultation Cardiovascular: regular rate-rhythm; No JVD; S1 and S2 Gastrointestinal: No tender; soft, round Rectal: deferred Extremities: no lower extremity edema bilateral Neurologic/Psychiatric: oriented x 3, other (left side facial droop, left side hemiparesis) Skin: No rash, No ulcerations Lymphatic: no adenopathy (neck, axilla or groin) Data Review Labs Laboratory Tests 09/12/18 10:36: Glucometer 115H 09/12/18 15:28: Glucometer 137H 09/12/18 20:05: Glucometer 174H 09/13/18 06:43: Glucometer 113H A/P-Cardiology Assessment/Admission Diagnosis Sinus bradycardia - asymptomatic H/O ischemic CVA - R MCA stroke with left sided hemiparesis - tx at [facility] S/P mechanical thrombectomy for acute stroke right M1 with Penumbra aspiration and solitaire stent retriever x [address] Valente at [facility] ( 7 days after initial CVA) OAC with Xarelto Echocardiogram of 08-17-18 at [facility] showed LVEF 65%. No significant valvular abnormalities. PASP approx 30 mmHg HTN DM HLD S/P R CEA on 08-23-18 at [facility] by Dr. Arriola CTA of the neck at [facility] showed on 08-20-18 showed severe stenosis of the right internal carotid (subsequent R CEA on 08-23-18) approx 60% stenosis of the prox left internal carotid artery with superimposed penetrating ulcer. Mod stenosis at the left vertebral artery origin. GI bleed - Gastritis with gastric ulcers; small hiatal hernia; colon polyps; Int hemorrhoids per EGD/colo on 09-07-[address] Waggoner (ASA dc'd) BPH with urinary retention - management per Dr. Conway Discussion and Recomendations Records from [facility] reviewed Sinus bradycardia - albeit asymptomatic - nevertheless we will reduce Coreg to 12.5mg BID and monitor Management of stroke is with medical services We would like to thank medical services for this consult Clinical Quality Measures DVT/VTE Risk/Contraindication: Risk Factor Score Per Nursin RFS Level Per Nursing on Admit: 4+=Very High TESS FREITAS Sep 09, 2018 15:39
--- NOTE | 2018-09-09 16:00 | NUR ---
Queenie FREITAS HERE TO SEE PATIENT. COREG DOSE DECREASED.
--- NOTE | 2018-09-09 17:34 | Progress Note-Urology ---
Progress Note-Urology Progress Notes/Assess & Plan Progress/Assessment & Plan CONTINUES WELL MCCLOUD. PVR 225CC. KEEP SAME PLAN Final Diagnosis RECURRENT UTIS NARENDRA BALDWIN MD Sep 09, 2018 17:34
--- NOTE | 2018-09-09 17:38 | Consultation-Cardiology ---
HPI-Cardiology Cardiology Consultation: Date of Consultation 09/09/18 Time Seen by a Provider: 17:15 Date of Admission Attending Physician Meron Meier DO Admitting Physician No,Local Physician Consulting Physician ABDOUL CHAMORRO MD, MA, FACP, FAC, [facility], [facility] Physician requesting consult: Dr Meier HPI: Chief Complaint: Reason for consultation: Bradycardia HPI: Mr. Kuhn is a 69 year old male IRU 222 who was admitted on 09-04-18 from [facility] after being treated for ischemic CVA. He was found to have severe stenosis of the right carotid and underwent R CEA on 08-23-18. We have been consulted for medication management d/t sinus bradycardia. He denies any c/o dizziness, syncope or near syncope. He denies any c/o CP, palpitations. No c/o LE edema. His spouse is at the bedside. Review of Systems-Cardiology Review of Systems Constitutional: No chills, No fever Eyes: No vision change Ears/Nose/Throat: No epistaxis, No recent hearing loss Respiratory: As described under HPI Cardiovascular: As described under HPI Gastrointestinal: No constipation, No diarrhea, No nausea, No vomiting Genitourinary: No hematuria; other (urinary retention; frequent UTI's) Musculoskeletal: no symptoms reported Skin: No rash, No ulcerations Psychiatric/Neurological: other (left side hemiparesis; left side facial droop) Hematologic: No bleeding abnormalities All Other Systems Reviewed Negative Unless Noted: Yes [id number]-Crvsma Hx Patient Social History Marrital Status: 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 Family Medical History Family Medical History: Reports father, mother and sister have had strokes. Reports father had CAD with CABG and AAA. Brother, mother, father, sister with HTN. Family History: Abdominal aortic aneurysm 19 FATHER, Onset:60 years & older Alcoholism G8 BROTHER, Onset:20's - 25 Arthritis 19 MOTHER, Onset:50's - 60 G8 SISTER, Onset:50's - 60 Cardiovascular disease 19 FATHER, Onset:50's - 60 Cataracts 19 MOTHER, Onset:60 years & older Completed stroke 19 MOTHER, Onset:50's - 60 G8 SISTER, Onset:50's - 60 Drug abuse G8 BROTHER, Onset:30's - 40 G8 SISTER Hypertension 19 FATHER 19 MOTHER G8 BROTHER G8 SISTER Myocardial infarction 19 FATHER Allergies and Home Medications Allergies Coded Allergies: No Known Drug Allergies (Unverified , 09/04/18) Home Medications Amlodipine Besylate 10 Mg Tablet, 10 MG PO DAILY, (Reported) Carvedilol 25 Mg Tablet, 25 MG PO BID, (Reported) Cholecalciferol (Vitamin D3) 1,000 Unit Capsule, 1,000 UNIT PO DAILY, (Reported) Cyanocobalamin (Vitamin B-12) 500 Mcg Tablet, 500 MCG PO DAILY, (Reported) Fexofenadine HCl 180 Mg Tablet, 180 MG PO DAILY, (Reported) Insulin Glargine,Hum.rec.anlog 300 Unit/1 Ml Insuln.pen, 42 UNIT SQ HS, ( Reported) Magnesium Oxide 400 Mg Tablet, 400 MG PO DAILY, (Reported) Metformin HCl 500 Mg Tab.er.24h, 1,000 MG PO BID, (Reported) Pyridoxine HCl 50 Mg Tablet, 50 MG PO DAILY, (Reported) Saw [place] 500 Mg Capsule, 500 MG PO DAILY, (Reported) Selenium 100 Mcg Tablet, 100 MCG PO DAILY, (Reported) Zinc Sulfate 220 Mg Tablet, 220 MG PO DAILY, (Reported) Patient Home Medication List Home Medication List Reviewed: Yes Physical Exam-Cardiology Physical Exam Vital Signs/I&O 09/09/18 09/09/18 09/09/18 09/09/18 09:00 09:30 11:00 15:39 Temp 96.5 Pulse 48 47 50 Resp 14 B/P (MAP) 125/68 (87) 124/64 (84) 129/73 (91) Pulse Ox 92 O2 Delivery Room Air Room Air 09/09/18 00:00 Intake Total 450 ml Output Total 350 ml Balance 100 ml Capillary Refill : Constitutional: AAO x 3, well-developed, well-nourished HEENT: PERRL, hearing is well preserved, oral hygience is good Neck: carotid bruit (left), other (healing surgical site to right neck (post R CEA); no s/s of infection, inflammation or drainage) Respiratory: No accessory muscle use, No respiratory distress; chest expansion is symmetric, chest is bilaterally symmetric, lungs clear to auscultation Cardiovascular: regular rate-rhythm; No JVD; S1 and S2 Gastrointestinal: No tender; soft, round Rectal: deferred Extremities: no lower extremity edema bilateral Neurologic/Psychiatric: oriented x 3, other (left side facial droop, left side hemiparesis) Skin: No rash, No ulcerations Lymphatic: no adenopathy (neck, axilla or groin) Data Review Labs Laboratory Tests 09/08/18 21:06: Glucometer 139H 09/09/18 05:45: Glucometer 133H 09/09/18 10:53: Glucometer 126H 09/09/18 15:35: Glucometer 140H A/P-Cardiology Assessment/Admission Diagnosis Sinus bradycardia - asymptomatic H/O ischemic CVA - R MCA stroke with left sided hemiparesis - tx at [facility] S/P mechanical thrombectomy for acute stroke right M1 with penumbra aspiration and solitaire stent retriever x [address] Valente at [facility] ( 7 days after initial CVA) OAC with Xarelto Echocardiogram of 08-17-18 at [facility] showed LVEF 65%. No significant valvular abnormalities. PASP approx 30 mmHg HTN DM HLD S/P R CEA on 08-23-18 at [facility] by Dr. Arriola CTA of the neck at [facility] showed on 08-20-18 showed severe stenosis of the right internal carotid (subsequent R CEA on 08-23-18) approx 60% stenosis of the prox left internal carotid artery with superimposed penetrating ulcer. Mod stenosis at the left vertebral artery origin. GI bleed - Gastritis with gastric ulcers; small hiatal hernia; colon polyps; Int hemorrhoids per EGD/colo on 09-07-[address] Waggoner (ASA dc'd) BPH with urinary retention - management per Dr. Conway Discussion and Recomendations Records from [facility] reviewed Sinus bradycardia - albeit asymptomatic - nevertheless we will reduce Coreg to 12.5mg BID and monitor Management of stroke is with the Med Svce We would like to thank the Med [facility] for this consult Clinical Quality Measures DVT/VTE Risk/Contraindication: Risk Factor Score Per Nursin RFS Level Per Nursing on Admit: 4+=Very High ABDOUL CHAMORRO MD FACP FAC CCDS Sep 09, 2018 17:37
[2018-09-09] MEDS: TAMSULOSIN 0.4 MG (FLOMAX) CAP PO SCH (17:57)
--- NOTE | 2018-09-09 19:06 | NUR ---
bedside report received from MERRICK MIX, assume care of pt
[2018-09-09 20:40] VITALS: BP 142/72
[2018-09-09 20:42] VITALS: BP 142/75
[2018-09-09] MEDS: ATORVASTATIN 40 MG (LIPITOR) TABLET PO SCH (20:46)
[2018-09-09] MEDS: MELATONIN 3 MG TABLET PO PRN (20:46)
[2018-09-09] MEDS: CARVEDILOL 12.5 MG (COREG) TABLET PO SCH (20:47)
--- NOTE | 2018-09-09 20:47 | NUR ---
refused Senokot s 2 tabs & Dulcolax supp, fsbs 156
[2018-09-09] MEDS: inSUlin DETERMIR 1 UNIT/0.01 ML (LEVEMIR) CHARGE PER UNIT SQ SCH (20:50)
--- NOTE | 2018-09-09 21:00 | NUR ---
assessments & interventions completed, see assessments & interventions, at bedside
--- NOTE | 2018-09-09 22:30 | NUR ---
bladder scan showed 74ml
--- NOTE | 2018-09-10 03:35 | NUR ---
bladder scan shows 361 ml
--- NOTE | 2018-09-10 03:50 | NUR ---
straight cath & received 325ml deandra colored urine
[2018-09-10] MEDS: inSUlin ASPART (NovoLOG) 1 UNIT/0.01 ML (CHARGE PER UNIT) SC SCH ×4 (06:00→20:47)
[2018-09-10 06:10] VITALS: BP 133/73
[2018-09-10] MEDS: CYANOCOBALAMIN 1,000 MCG (VITAMIN B-12) TABLET PO SCH (06:55)
[2018-09-10] MEDS: metFORMIN XR 500 MG (GLUCOPHAGE XR) TAB PO SCH ×2 (06:55→17:41)
--- NOTE | 2018-09-10 07:08 | NUR ---
bedside report given to RAJESH MIX
--- NOTE | 2018-09-10 08:39 | Progress Note-Urology ---
Progress Note-Urology Progress Notes/Assess & Plan Progress/Assessment & Plan WILLING TO LEARN STRAIGHT CATH TO DO AT HOME ONCE A DAY AND PRN. WE CAN ALSO HAVE [facility] NURSE VISIT ONCE A DAY TO SUPERVISE. KEEP ON FLOMAX 0.4 DAILY AND PLAIN BACTRIM 1/2 TAB Q HS WHEN DISMISSED. FOLLOW UP WITH ME 2 WEEKS LATER Final Diagnosis URINE RETENTION AND RECURRENT UTIS NARENDRA BALDWIN MD Sep 10, 2018 08:39
--- NOTE | 2018-09-10 08:57 | Physical Therapy Daily Note ---
PT Daily Note-Current Subjective Patient in bed pre tx, agrees to PT, has pain in right shoulder, patient's states he is going to get his right shoulder xrayed Appearance Patient in wheelchair at bedside post tx with nurse call, phone, tray, all needs met. Mental Status Patient Orientation: Person, Place, Situation Transfers Therapy Code Descriptions/Definitions Functional [place] Measure: 0=Not Assessed/NA 4=Minimal Assistance 1=Total Assistance 5=Supervision or Setup 2=Maximal Assistance 6=Modified [place] 3=Moderate Assistance 7=Complete [place] Therapy Quality Codes: 6 Independent with activity with or without an assistive device 5 Patient requires set up or clean up by helper. Patient completes activity by themselves 4 Supervision or touching assist (CGA). [place] provide cues , steadying assist 3 The helper provides less than half the effort to complete the activity 2 The helper provides more than half the effort to complete the activity 1 Dependent. The helper does all the effort to complete an activity 7 Patient refused to complete or attempt activity 9 The patient did not perform the activity before the current illness or injury 88 Not attempted due to Medical conditions or safety concerns Transfers (B, C, W/C) (FIM): 3 Scootin Rollin Supine to/from Sit: 3 Sit to/from Stand: 4 Bed to/from Chair: 3 Patient needs mod assist to roll to the right side, transfer to the left side, supine to sit from the left side. Practiced bed mobility, rolling, and supine to sit from both sides. Gait Training Gait (FIM): 1 Distance: 20'x3 Gait Level of Assist: 3 Gait Persons Needed: 1 Gait Assistive Device: Walker Ba Patient was perhaps leaning a little less to the left side during ambulation, better step-through on the left leg, still needs significant assist with weight shifting during ambulation Wheelchair Training Does the Pt Use a Wheelchair?: Yes Wheelchair (FIM): 2 Distance: 50' Wheelchair Level of Assist: 5 Type of Wheelchair: Manual Exercises standing in parallel barsx2 and practicing keeping balance Treatments worked on sitting limits of stability Assessment Current Status: Fair Progress slight improvement in general mobility, patient seemed to be in slightly better spirits PT Short Term Goals Short Term Goals Time Frame: Sep 11, 2018 Transfers (B,C,W/C) (FIM): 3 Gait (FIM): 1 Gait Distance Comment: 20' Gait Level of Assist: 3 Gait Assistive Device: Walker Ba Wheelchair Distance: 50'x2 PT Driller'S Offsider Goals Driller'S Offsider Goals PT Driller'S Offsider Goals Time Frame: Sep 25, 2018 Transfers (B,C,W/C) (FIM): 4 Sit to Lying (QC): 4 Lying-Sitting on Side/Bed(QC): 4 Sit to Stand (QC): 4 Rollin Roll Left to Right (QC): 4 Chair/Ayt-xq-Zsakv Xfer(QC): 4 Car Transfer (QC): 4 Gait (FIM): 2 Distance: 50' Walk 10 feet (QC): 3 Walk 10ft-Uneven Surface(QC): 3 Walk 50ft with 2 Turns (QC): 3 Gait Level of Assist: 4 Gait Assistive Device: Cane Large Base Quad Wheelchair (FIM): 5 Distance: 150' Wheelchair Level of Assist: 5 Wheel 50 feet with 2 turns (QC: 4 PT Plan Problem List Problem List: Activity Tolerance, Functional Strength, Safety, Balance, Gait, Transfer, Bed Mobility, ROM Treatment/Plan Treatment Plan: Continue Plan of Care Treatment Plan: Bed Mobility, Concurrent Therapy, Education, Functional Activity Reena, Functional Strength, Group Therapy, Gait, Safety, Therapeutic Exercise, Transfers Treatment Duration: Sep 25, 2018 Frequency: At least 5 of 7 days/Wk (IRF) Estimated Hrs Per Day: 1.5 hours per day Patient and/or Family Agrees t: Yes Safety Risks/Education Patient Education: Gait Training, Transfer Techniques, Correct Positioning, W/ C Management, Safety Issues Teaching Recipient: Patient Teaching Methods: Demonstration, Discussion Response to Teaching: Reinforcement Needed Time/GCodes Time In: 800 Time Out: 900 Total Billed Treatment Time: 60 Total Billed Treatment 1 visit GT 30' WCH 10' FA 20' CASTILLO PHIPPS PT Sep 10, 2018 08:56
[2018-09-10] MEDS: BISACODYL 10 MG SUPP (DULCOLAX) PR SCH ×2 (09:00→20:47)
--- NOTE | 2018-09-10 09:00 | PM&R Progress Note ---
Subjective HPI/CC On Admission Date Seen by Provider: Sep 10, 2018 Time Seen by Provider: 08:00 Subjective/Events-last exam Patient doing well overall Acute on chronic nausea Zofran does help Will self catheterize at DC to home Having periodic straight caths as instructed by urology if bladder scan shows greater than 300 cc Needs bowel movement since colonoscopy prep was last time he had a bowel movement Flomax as tolerated Taking a half a tab of Bactrim at night to prevent UTIs and frequent cath procedures Having some issues with right shoulder pain so will place consult for Orth O to evaluate since that could alter his therapy and improvement capabilities since he is flaccid on the left side Appreciate all consultants help Will check labs in am Review of Systems General: Fatigue Gastrointestinal: Constipation Genitourinary: Retention Neurological: Weakness, Numbness, Incoordination Objective Exam Vital Signs Vital Signs Date Time Temp Pulse Resp B/P (MAP) Pulse Ox O2 Delivery O2 Flow Rate FiO2 09/10/18 16:32 96.9 54 16 138/74 (95) 96 Room Air Capillary Refill : General Appearance: No Apparent Distress, WD/WN, Chronically ill Respiratory: Chest Non Tender, Lungs Clear, Normal Breath Sounds, No Accessory Muscle Use, No Respiratory Distress Cardiovascular: Regular Rate, Rhythm, No Edema, No Gallop, No JVD, No Murmur, Normal Peripheral Pulses Neurologic/Psychiatric: Alert, Oriented x3, Normal Mood/Affect, Motor Weakness (left side) Results/Procedures Lab Patient resulted labs reviewed. Assessment/Plan Assessment and Plan Assess & Plan/Chief Complaint Assessment Subacute CVA 08/16/18 with left sided weakness Severe carotid stenosis right s/p endarterectomy but no resolution of deficit DM on insulin Chronic UTI but normal cystoscopy 09/06/18 but BPH noted and placed on Flomax from Urology now receiving straight caths if retention on bladder scan and patient agrees for self cath at DC per Urology placed on Bactrim 1/2 tablet at night to prevent UTI due to catheters HTN HLP Constipation recurrent issue Hematochezia episode with Heme + stools but gastritis and colon polyps noted on EGD/Colonoscopy on 09/07/[address] Waggoner Plan: Maintain ASA and anticoagulation Follow up on polyp pathology Monitor sugar control and adjust insulin prn Maintain urinary management since h/o chronic UTI and maintain on Flomax per Urology in addition to self caths to prevent retention PPI Zofran Constipation treatment Diagnosis/Problems Diagnosis/Problems (1) Cerebrovascular accident (CVA) with left hemiparesis Status: Acute (2) Diabetes mellitus Status: Chronic Qualifiers: Diabetes mellitus type: type 2 Diabetes mellitus oysterman insulin use: with snf use Diabetes mellitus complication status: with circulatory complication Diabetes mellitus complication detail: with other circulatory complications Qualified Codes: E11.59 - Type 2 diabetes mellitus with other circulatory complications; Z79.4 - long-term (current) use of insulin (3) Hypertension Status: Chronic Qualifiers: Hypertension type: essential hypertension Qualified Codes: I10 - Essential (primary) hypertension (4) Hyperlipidemia Status: Chronic Qualifiers: Hyperlipidemia type: mixed hyperlipidemia Qualified Codes: E78.2 - Mixed hyperlipidemia (5) Chronic UTI Status: Chronic (6) Bright red blood per rectum Status: Resolved Resolution Date/Time: 09/07/18 @ 15:48 (7) Constipation Status: Acute Qualifiers: Constipation type: slow transit constipation Qualified Codes: K59.01 - Slow transit constipation (8) Anticoagulant long-term use Status: Chronic (9) BPH (benign prostatic hyperplasia) Status: Chronic Qualifiers: Lower urinary tract symptom presence: symptoms present Lower urinary tract symptom detail: urinary frequency Qualified Codes: N40.1 - Benign prostatic hyperplasia with lower urinary tract symptoms; R35.0 - Frequency of micturition (10) Abnormal findings on esophagogastroduodenoscopy (EGD) Status: Acute (11) Abnormal colonoscopy Status: Acute (12) Gastritis Qualifiers: Gastritis type: unspecified gastritis Chronicity: acute Gastritis bleeding: without bleeding Qualified Codes: K29.00 - Acute gastritis without bleeding (13) Colon polyps Status: Acute Qualifiers: Colon polyp type: unspecified Colon location: unspecified part of colon Qualified Codes: K63.5 - Polyp of colon (14) Nausea Status: Chronic (15) Urinary retention Status: Acute (16) Shoulder pain, right Status: Acute Clinical Quality Measures Admission Status Admission Dx Assessment Subacute CVA 08/16/18 with left sided weakness Severe carotid stenosis right s/p endarterectomy but no resolution of deficit DM Chronic UTI HTN HLP Plan: Monitor BP Maintain all new meds per [facility] including asa and anticoagulation Therapies as ordered for intensive rehab DVT/VTE Risk/Contraindication: Risk Factor Score Per Nursin RFS Level Per Nursing on Admit: 4+=Very High DARELL CIFUENTES DO Sep 10, 2018 09:00
[2018-09-10 09:19] VITALS: BP 120/74
[2018-09-10] MEDS: VITAMIN D3 1,000 UNITS (CHOLECALCIFEROL) TABLET PO SCH (09:21)
[2018-09-10] MEDS: CARVEDILOL 12.5 MG (COREG) TABLET PO SCH ×2 (09:21→20:42)
[2018-09-10] MEDS: LORATADINE (CLARITIN) 10 MG TAB PO SCH (09:21)
[2018-09-10] MEDS: amLODIPine 10 MG (NORVASC) TAB PO SCH (09:21)
[2018-09-10] MEDS: FLUoxetine HCL 20 MG (PROzac) CAP PO SCH (09:21)
[2018-09-10] MEDS: MAGNESIUM OXIDE (MAG-OX)400 MG TAB PO SCH (09:21)
[2018-09-10] MEDS: ZINC SULFATE 220 MG CAPSULE PO SCH (09:21)
[2018-09-10] MEDS: PYRIDOXINE (VITAMIN B-6) 50 MG TABLET PO SCH (09:21)
[2018-09-10] MEDS: SENNA W/DOCUSATE (SENOKOT S) TABLET PO SCH ×2 (09:21→20:47)
--- NOTE | 2018-09-10 09:37 | Speech Therapy Daily Note ---
Speech Daily Progress Note Subjective Date Seen by Provider: Sep 10, 2018 Time Seen by Provider: 00:30 Patient was sitting up in his recliner. He stated he feels like he is getting stronger. Objective Patient completed 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 level of memory tasks with 80% accuracy given minimal cues. Assessment Assessment Current Status: Good Progress Treatment Plan Continue Plan of Care Communication Comprehension: 5 Expression: 5 Social Cognition Social Interaction: 5 Problem Solvin Memory: 4 Speech Short Term Goals Short Term Goals Short Term Goals 1) Patient will increase speech intelligibility at the highest functional verbal expression level to 90% or greater. 2) Patient will complete memory tasks with 90% or greater. 3) Patient will complete problem solving tasks with 90% or greater. Speech Interior Decorator Painting Goals Fpc Goals Patient will improve memory, problem solving and speech skills to better communicate with familiar and unfamiliar listeners. Comprehension: 3 Speech-Plan Patient/Family Goals Patient/Family Goals: Patient plans to return home with his post rehab. Treatment Plan Speech Therapy Treatment Plan: Continue Plan of Care Facial droop is noted to be decreasing. Treatment Duration: Sep 13, 2018 Frequency: 5 times per week Estimated Hrs Per Day: .5 hour per day Rehab Potential: Fair Barriers to Learning: Patient has residual effects from his recent CVA. Pt/Family Agrees to Plan: Yes Safety Risks/Education Teaching Recipient: Patient, Significant Other Teaching Methods: Discussion Response to Teaching: Verbalize Understanding Education Topics Provided: Safety with trying to be independent due to left sided weakness. Time Speech Therapy Time In: 09:00 Speech Therapy Time Out: 09:30 Total Billed Time: 30 Billed Treatment Time 1EILEEN [address] Sep 10, 2018 09:37
--- NOTE | 2018-09-10 12:10 | Occupational Ther Daily Note ---
OT Current Status-Daily Note Subjective Pt stated I am doing good. Pts said, he is in a good mood today. Pain Numeric Pain Scale: 0-No Pain Mental Status/Objective Patient Orientation: Person, Place, Time Therapy Code Descriptions/Definitions Functional [place] Measure: 0=Not Assessed/NA 4=Minimal Assistance 1=Total Assistance 5=Supervision or Setup 2=Maximal Assistance 6=Modified [place] 3=Moderate Assistance 7=Complete [place] ADL-Treatment Pt seen in his room for ADL retraining, func bed mobility, func transfer training < trunk balancing ex, pt/family education & safety education. Pt like spongue bath today, his said he dont want shower today. Pt wipes his left UB , Chest, face front/back of neck, face , therapist help in wiping Rt side of body , pt balanced sitting upright in bed side, undress shirt with min A . Educated one handed compensatory tech . Pt shaved his [place] with treamer at the sink, wash his face & brush hairs . Needs min A in grooming. Gentle Passive ROM & Strengthening Ex to Left UE Therapy Code Descriptions/Definitions Functional [place] Measure: 0=Not Assessed/NA 4=Minimal Assistance 1=Total Assistance 5=Supervision or Setup 2=Maximal Assistance 6=Modified [place] 3=Moderate Assistance 7=Complete [place] Therapy Quality Codes: 6 Independent with activity with or without an assistive device 5 Patient requires set up or clean up by helper. Patient completes activity by themselves 4 Supervision or touching assist (CGA). [place] provide cues , steadying assist 3 The helper provides less than half the effort to complete the activity 2 The helper provides more than half the effort to complete the activity 1 Dependent. The helper does all the effort to complete an activity 7 Patient refused to complete or attempt activity 9 The patient did not perform the activity before the current illness or injury 88 Not attempted due to Medical conditions or safety concerns Eating (FIM): 6 Eating (QC): 5 Grooming (FIM): 4 Oral Hygiene (QC): 4 Shower/Bathe Self (QC): 0 Upper Body (FIM): 4 Upper Body Dressing (QC): 4 Lower Body Dressing (FIM): 1 Lower Body Dressing (QC): 1 On/Off Footwear (QC): 0 Toileting (FIM): 0 Toileting Hygiene (QC): 0 Transfers (B, C, W/C) (FIM): 4 Toilet/Commode Transfer (FIM): 4 Toilet Transfer (QC): 4 Tub Transfer(FIM): 0 Shower Transfer(FIM): 0 Education OT Patient Education: Correct positioning, Instructions to caregiver, Safety issues Teaching Recipient: Patient, Family Teaching Methods: Demonstration, Discussion Response to Teaching: Verbalize Understanding, Return Demonstration OT Short Term Goals Short Term Goals Time Frame: Sep 19, 2018 Eating(FIM): 7 Grooming(FIM): 7 Bathing(FIM): 3 Bathing Location: L Arm, L Lower Leg (including foot), Chest, Abdomen Upper Body Dressing(FIM): 3 Lower Body Dressing(FIM): 2 Toileting(FIM): 3 Transfers (B,C,W/C) (FIM): 3 Toilet/Commode Transfer(FIM): 3 Shower Transfer(FIM): 3 Additional Short Term Goals: 1-Demonstrate ADL Tasks, 2-Verbalize Understanding , 3-ImproveStrength/Reena 1=Demonstrate adherence to instructed precautions during ADL tasks. 2=Patient will verbalize/demonstrate understanding of assistive devices/ modifications for ADL. 3=Patient will improve strength/tolerance for activity to enable patient to perform ADL's. OT Group Home Goals Principal Technical Writer Goals Time Frame: Oct 03, 2018 Eating (FIM): 7 Eating (QC): 7 Groomin Oral Hygiene (QC): 7 Bathing(FIM): 3 Bathing Location: L Arm, R Arm, L Lower Leg (including foot), R Lower Leg ( including foot), Chest, Abdomen Shower/Bathe Self (QC): 3 Upper Body Dressing(FIM): 4 Upper Body Dressing (QC): 4 Lower Body Dressing(FIM): 3 Lower Body Dressing (QC): 3 On/Off Footwear (QC): 3 Toileting(FIM): 3 Toileting Hygiene (QC): 3 Transfers (B,C,W/C) (FIM): 3 Toilet/Commode Transfer(FIM): 3 Toilet/Commode Transfer (QC): 3 Shower Transfer(FIM): 3 Comprehension(FIM): 3 Additional Goals: 1-Demonstrate ADL Tasks, 2-Verbalize Understanding, 3- ImproveStrength/Reena 1=Demonstrate adherence to instructed precautions during ADL tasks. 2=Patient will verbalize/demonstrate understanding of assistive devices/ modifications for ADL. 3=Patient will improve strength/tolerance for activity to enable patient to perform ADL's. OT Education/Plan Problem List/Assessment Assessment: Decreased Activ Tolerance, Decreased Safety Aware, Decreased UE Strength, Dependent Transfers, Impaired Bed Mobility, Impaired Funct Balance, Impaired Self-Care Skills Discharge Recommendations Plan/Recommendations: Continue POC Therapy D/C Recommendations: Home w/ Family Support Equpiment Recommendations-D/C: Extended Bath Bench, Kinesiology Professor, Sock Aide, Dressing Stick, [place] Barriers to Progress Left sided Hemiplegia & thus weakness in UE & LE, Patient/Family Goals To return home Independently with . Treatment Plan/Plan of Care Treatment,Training & Education: Yes Patient would benefit from OT for education, treatment and training to promote independence in ADL's, mobility, safety and/or upper extremity function for ADL' s. Plan of Care: ADL Retraining, Caregiver Training, Functional Mobility, Group Exercise/Act as Ind, UE Funct Exercise/Act Treatment Duration: Oct 03, 2018 Frequency: At least 5 of 7 days/Wk (IRF) Estimated Hrs Per Day: 1.5 hours per day Agreement: Yes Rehab Potential: Fair Time/GCodes Start Time: 10:00 Stop Time: 14:15 Total Time Billed (hr/min): 75 Billed Treatment Time 1, ADL x 60 MIN Ex x 15 min . total 75 min. GUTIERREZ GOLDEN OT Sep 10, 2018 12:09
--- NOTE | 2018-09-10 12:19 | Progress Note-Cardiology ---
Cardiology SOAP Progress Note Subjective: Sitting up in bed. Denies any c/o CP, palpitations, syncope, near syncope or dyspnea. Objective: I&O/Vital Signs 09/10/18 09/10/18 09/10/18 09/10/18 06:10 09:00 09:19 15:35 Temp 97.8 Pulse 50 51 Resp 18 B/P (MAP) 133/73 (93) 120/74 (89) Pulse Ox 95 O2 Delivery Room Air Room Air Room Air 09/10/18 16:32 Temp 96.9 Pulse 54 Resp 16 B/P (MAP) 138/74 (95) Pulse Ox 96 O2 Delivery Room Air 09/09/18 23:59 Intake Total 640 ml Output Total 225 ml Balance 415 ml Weight (Pounds): 211 Weight (Ounces): 8.0 Weight (Calculated Kilograms): 95.643913 Constitutional: AAO x 3, well-developed, well-nourished Respiratory: No accessory muscle use, No respiratory distress; chest expansion is symmetric, chest is bilaterally symmetric, lungs clear to auscultation Cardiovascular: regular rate-rhythm; No JVD; S1 and S2 Gastrointestional: No tender; soft, round Extremities: no lower extremity edema bilateral Neurologic/Psychiatric: oriented x 3, other (left side facial droop, left side hemiparesis) Skin: No rash, No ulcerations Results/Procedures: Labs Laboratory Tests 09/09/18 20:08: Glucometer 156H 09/10/18 05:18: Glucometer 122H 09/10/18 10:49: Glucometer 142H 09/10/18 15:39: Glucometer 123H A/P: Assessment: Sinus bradycardia - asymptomatic H/O ischemic CVA - R MCA stroke with left sided hemiparesis - tx at [facility] S/P mechanical thrombectomy for acute stroke right M1 with penumbra aspiration and solitaire stent retriever x [address] Valente at [facility] ( 7 days after initial CVA) OAC with Xarelto Echocardiogram of 08-17-18 at [facility] showed LVEF 65%. No significant valvular abnormalities. PASP approx 30 mmHg HTN DM HLD S/P R CEA on 08-23-18 at [facility] by Dr. Arriola CTA of the neck at [facility] showed on 08-20-18 showed severe stenosis of the right internal carotid (subsequent R CEA on 08-23-18) approx 60% stenosis of the prox left internal carotid artery with superimposed penetrating ulcer. Mod stenosis at the left vertebral artery origin. GI bleed - Gastritis with gastric ulcers; small hiatal hernia; colon polyps; Int hemorrhoids per EGD/colo on 09-07-[address] Waggoner (ASA dc'd) BPH with urinary retention - management per Dr. Conway Plan: Continue current regimen Management of stroke is with the [facility] Physician Assessment Physician Assessment No cp or palp or syncope or shortness of breath Lungs: good bilat air entry Cor: reg Ext: no c/c/e A&R * As documented in our note above that I updated (italics) and as noted below * I discussed his CV issues with him and his and answered questions * Monitor labs from time to time TESS FREITAS Sep 10, 2018 12:19 ABDOUL CHAMORRO MD FACP FAC CCDS Sep 10, 2018 18:08
--- NOTE | 2018-09-10 12:25 | NUR ---
Visited with pt about doing straight catheterization procedure for urinary retention. Gave handout with explanation of procedure with step by step on how to do a self cath. Also gave information on how to clean catheters after use. discussed s/sx of UTI, ways to prevent, and when to call Gave supplies needed for home use. Pt verbalized understanding with no question at this time due to she will be performing catheterization. Addendum: 09/10/18 at 1254 by GERSON JIMENEZ RN Amended: Links added.
[2018-09-10] MEDS: RIVAROXABAN 20 MG TABLET (XARELTO) PO SCH (12:29)
--- NOTE | 2018-09-10 13:20 | Physical Therapy Daily Note ---
PT Daily Note-Current Subjective Patient in bed pre tx, agrees to PT, no complaints of pain at rest. Appearance Patient in bed post tx with nurse call, phone, tray, in room. Mental Status Patient Orientation: Person, Place, Situation Transfers Therapy Code Descriptions/Definitions Functional [place] Measure: 0=Not Assessed/NA 4=Minimal Assistance 1=Total Assistance 5=Supervision or Setup 2=Maximal Assistance 6=Modified [place] 3=Moderate Assistance 7=Complete [place] Therapy Quality Codes: 6 Independent with activity with or without an assistive device 5 Patient requires set up or clean up by helper. Patient completes activity by themselves 4 Supervision or touching assist (CGA). [place] provide cues , steadying assist 3 The helper provides less than half the effort to complete the activity 2 The helper provides more than half the effort to complete the activity 1 Dependent. The helper does all the effort to complete an activity 7 Patient refused to complete or attempt activity 9 The patient did not perform the activity before the current illness or injury 88 Not attempted due to Medical conditions or safety concerns Exercises Supine Ex: Bridging, Ankle pumps, Heel Slides, Short Arc Quads, Straight leg raise, Hip abd/add Supine Reps: 15 AAROM on the left side, left gastroc manual stretching Treatments LE strengthening/stretching Assessment Current Status: Fair Progress PT Short Term Goals Short Term Goals Time Frame: Sep 11, 2018 Transfers (B,C,W/C) (FIM): 3 Gait (FIM): 1 Gait Distance Comment: 20' Gait Level of Assist: 3 Gait Assistive Device: Walker Ba Wheelchair Distance: 50' PT Investigative Shopper Goals Investigative Shopper Goals PT Investigative Shopper Goals Time Frame: Sep 25, 2018 Transfers (B,C,W/C) (FIM): 4 Sit to Lying (QC): 4 Lying-Sitting on Side/Bed(QC): 4 Sit to Stand (QC): 4 Rollin Roll Left to Right (QC): 4 Chair/[id number] Xfer(QC): 4 Car Transfer (QC): 4 Gait (FIM): 2 Distance: 50' Walk 10 feet (QC): 3 Walk 10ft-Uneven Surface(QC): 3 Walk 50ft with 2 Turns (QC): 3 Gait Level of Assist: 4 Gait Assistive Device: Cane Large Base Quad Wheelchair (FIM): 5 Distance: 150' Wheelchair Level of Assist: 5 Wheel 50 feet with 2 turns (QC: 4 PT Plan Problem List Problem List: Activity Tolerance, Functional Strength, Safety, Balance, Gait, Transfer, Bed Mobility, ROM Treatment/Plan Treatment Plan: Continue Plan of Care Treatment Plan: Bed Mobility, Concurrent Therapy, Education, Functional Activity Reena, Functional Strength, Group Therapy, Gait, Safety, Therapeutic Exercise, Transfers Treatment Duration: Sep 25, 2018 Frequency: At least 5 of 7 days/Wk (IRF) Estimated Hrs Per Day: 1.5 hours per day Patient and/or Family Agrees t: Yes Safety Risks/Education Patient Education: Correct Positioning, Safety Issues Teaching Recipient: Patient Teaching Methods: Demonstration, Discussion Response to Teaching: Reinforcement Needed Time/GCodes Time In: 1300 Time Out: 1315 Total Billed Treatment Time: 15 Total Billed Treatment 1 visit EX CASTILLO EEDN PT Sep 10, 2018 13:20
--- NOTE | 2018-09-10 13:58 | Diagnostic Imaging Report ---
EXAMINATION: Right shoulder at 1005h. INDICATION: Shoulder pain 3 views were obtained. There are no prior studies available for comparison. There is no fracture, dislocation or acute bony abnormality evident. There is mild degenerative disease of the glenohumeral joint and at least moderate degenerative disease of the acromioclavicular joint. The soft tissues are unremarkable. IMPRESSION: 1. There is no evidence for an acute bony abnormality. 2. There is degenerative disease involving the shoulder joint. 3. If there is clinical concern regarding an injury to the rotator cuff or labrum and further imaging is desired, then MRI would be recommended. Dictated by: Dictated on workstation # [id number]
--- NOTE | 2018-09-10 14:40 | NUR ---
Patient urinated 300 mL of Tea colored urine. Bladder scan performed. No residual found. Patient encouraged to push fluids. No straight cath performed at this time. Will continue to monitor.
[2018-09-10 16:32] VITALS: BP 138/74
[2018-09-10] MEDS: TAMSULOSIN 0.4 MG (FLOMAX) CAP PO SCH (17:40)
--- NOTE | 2018-09-10 19:06 | NUR ---
bedside report received from RAJESH MIX, assume care of pt
--- NOTE | 2018-09-10 19:30 | NUR ---
got pt up to toilet per w/c & 2 people assist & walker, voided 150 ml
--- NOTE | 2018-09-10 19:40 | NUR ---
bladder scan showed 0, encouraged to get up to toilet to void with our help to fully empty bladder
[2018-09-10] MEDS: ACETAMINOPHEN 500 MG TAB (TYLENOL) PO PRN (20:36)
--- NOTE | 2018-09-10 20:36 | NUR ---
c/o headache level 4/10 on numeric scale, Tylenol 500mg po given, pt refused Senokot 2 tabs & Dulcolax supp 10mg, fsbs 142 no ss insulin req, Levemir 42 units given
[2018-09-10] MEDS: TRIM/SULFAMETH 160/800 (SEPTRA DS) TAB PO SCH (20:37)
[2018-09-10 20:38] VITALS: BP 162/77
[2018-09-10] MEDS: ATORVASTATIN 40 MG (LIPITOR) TABLET PO SCH (20:42)
[2018-09-10] MEDS: MELATONIN 3 MG TABLET PO PRN (20:42)
[2018-09-10] MEDS: inSUlin DETERMIR 1 UNIT/0.01 ML (LEVEMIR) CHARGE PER UNIT SQ SCH (20:45)
--- NOTE | 2018-09-10 21:00 | NUR ---
assessments & interventions completed, see assessments & interventions
--- NOTE | 2018-09-10 21:20 | NUR ---
resting quietly in bed, pain level 0/10 on flacc scale
--- NOTE | 2018-09-11 03:30 | NUR ---
up to bathroom with 2 people assist & w/c
--- NOTE | 2018-09-11 03:40 | NUR ---
voided 225, back to bed
--- NOTE | 2018-09-11 03:45 | NUR ---
bladder scan shows 0 ml in bladder
[2018-09-11 05:19] LABS: BASOPHILS % (AUTO) 0 % (0-10); EOSINOPHILS # (AUTO) 0.2 10^3/uL (0.0-0.3); EOSINOPHILS % (AUTO) 3 % (0-10); HEMATOCRIT 36 % (40-54); HEMOGLOBIN 12.6 G/DL (13.3-17.7); LYMPHOCYTES # (AUTO) 1.7 X 10^3 (1.0-4.0); LYMPHOCYTES % (AUTO) 24 % (12-44); MEAN CORPUSCULAR HEMOGLOBIN 32 PG (25-34); MEAN CORPUSCULAR HGB CONC 35 G/DL (32-36); MEAN CORPUSCULAR VOLUME 91 FL (80-99); MEAN PLATELET VOLUME 10.7 FL (7.4-10.4); MONOCYTES # (AUTO) 0.7 X 10^3 (0.0-1.0); MONOCYTES % (AUTO) 11 % (0-12); NEUTROPHILS # (AUTO) 4.3 X 10^3 (1.8-7.8); NEUTROPHILS % (AUTO) 63 % (42-75); PLATELET COUNT 189 10^3/uL (130-400); RED CELL DISTRIBUTION WIDTH 12.7 % (10.0-14.5); WHITE BLOOD COUNT 6.9 10^3/uL (4.3-11.0)
[2018-09-11 05:34] LABS: ALANINE AMINOTRANSFERASE 34 U/L (0-55); ALBUMIN 3.3 GM/DL (3.2-4.5); ALKALINE PHOSPHATASE 100 U/L (40-136); BILIRUBIN,TOTAL 0.7 MG/DL (0.1-1.0); BUN/CREATININE RATIO 19; CALCIUM 8.6 MG/DL (8.5-10.1); CARBON DIOXIDE 23 MMOL/L (21-32); CHLORIDE 105 MMOL/L (98-107); CREATININE SERUM 0.85 MG/DL (0.60-1.30); GFR ESTIMATED > 60; GLUCOSE 93 MG/DL (70-105); POTASSIUM 3.9 MMOL/L (3.6-5.0); SODIUM 138 MMOL/L (135-145); TOTAL PROTEIN 6.5 GM/DL (6.4-8.2)
[2018-09-11 06:00] VITALS: BP 116/64
[2018-09-11] MEDS: inSUlin ASPART (NovoLOG) 1 UNIT/0.01 ML (CHARGE PER UNIT) SC SCH ×4 (06:00→20:45)
[2018-09-11] MEDS: metFORMIN XR 500 MG (GLUCOPHAGE XR) TAB PO SCH ×2 (06:56→17:25)
[2018-09-11] MEDS: CYANOCOBALAMIN 1,000 MCG (VITAMIN B-12) TABLET PO SCH (06:57)
--- NOTE | 2018-09-11 07:12 | NUR ---
bedside report given to RAJESH MIX
[2018-09-11 07:30] VITALS: BP 136/77
--- NOTE | 2018-09-11 08:40 | PM&R Progress Note ---
Subjective This was a face to face visit with the patient. Date Seen by Provider: Sep 11, 2018 Time Seen by Provider: 08:30 Subjective/Events-last exam Patient was seen in the gym participating with therapy. Minimal bladder residual if able to get out of bed and go to toilet and there will be bladder training today every 4 hours per nursing. Sugars reviewed No pain is reported Large BM Wants to go home Checked meds and labs Date Identified: Sep 11, 2018 Time Identified: 08:00 Medication Intervention: Minimal bladder post void residual if able to get up to the toilet will start bladder training Q 4hours Review of Systems Neurological: Weakness Objective Physician Exam Last Set of Vital Signs Vital Signs Date Time Temp Pulse Resp B/P (MAP) Pulse Ox O2 Delivery O2 Flow Rate FiO2 09/11/18 06:00 97.9 50 20 116/64 (81) 92 Room Air Capillary Refill : I&O Intake and Output 09/11/18 00:00 Intake Total 1040 ml Output Total 775 ml Balance 265 ml Intake Oral 1040 ml Output Urine Total 775 ml Bladder Scan Volume Amount 361 ml 0 ml General: Alert, Oriented X3, Cooperative, No Acute Distress HEENT: Atraumatic, PERRLA, EOMI, Mucous Memb Moist/[place] Neck: Supple, No JVD, No Thyromegaly, Other (right CEA jona in place) Lungs: Clear to Auscultation, Normal Air Movement Heart: Regular Rate, Normal S1, Normal S2 Abdomen: Normal Bowel Sounds, Soft, No Tenderness, No Hepatosplenomegaly, No Masses Extremities: No Clubbing, No Cyanosis Skin: No Rashes, No Breakdown Neuro: Normal Speech, Other (left sided HP 1/5 left foot flaccid left arm and hand) Psych/Mental Status: Mental Status NL, Other (depressed) Results Lab Data Laboratory Tests 09/08/18 11:33: Glucometer 142H 09/08/18 15:47: Glucometer 115H 09/08/18 21:06: Glucometer 139H 09/09/18 05:45: Glucometer 133H 09/09/18 10:53: Glucometer 126H 09/09/18 15:35: Glucometer 140H 09/09/18 20:08: Glucometer 156H 09/10/18 05:18: Glucometer 122H 09/10/18 10:49: Glucometer 142H 09/10/18 15:39: Glucometer 123H 09/10/18 20:18: Glucometer 142H 09/11/18 05:05: White Blood Count 6.9, Red Blood Count 4.00L, Hemoglobin 12.6L, Hematocrit 36L, Mean Corpuscular Volume 91, Mean Corpuscular Hemoglobin 32, Mean Corpuscular Hemoglobin Concent 35, Red Cell Distribution Width 12.7, Platelet Count 189, Mean Platelet Volume 10.7H, Neutrophils (%) (Auto) 63, Lymphocytes (%) (Auto) 24 , Monocytes (%) (Auto) 11, Eosinophils (%) (Auto) 3, Basophils (%) (Auto) 0, Neutrophils # (Auto) 4.3, Lymphocytes # (Auto) 1.7, Monocytes # (Auto) 0.7, Eosinophils # (Auto) 0.2, Basophils # (Auto) 0.0, Sodium Level 138, Potassium Level 3.9, Chloride Level 105, Carbon Dioxide Level 23, Anion Gap 10, Blood Urea Nitrogen 16, Creatinine 0.85, Estimat Glomerular Filtration Rate > 60, BUN/ Creatinine Ratio 19, Glucose Level 93, Calcium Level 8.6, Corrected Calcium 9.2 , Total Bilirubin 0.7, Aspartate Amino Transf (AST/SGOT) 26, Alanine Aminotransferase (ALT/SGPT) 34, Alkaline Phosphatase 100, Total Protein 6.5, Albumin 3.3 09/11/18 06:17: Glucometer 104 Current Funtional Status Improved status Wants to go home Await team meeting today Up to toilet for bladder training Q 4 hours Maintain Flomax Appreciate Dr Man davis Assessment/Plan Assessment and Plan (1) Cerebrovascular accident (CVA) with left hemiparesis Status: Acute (2) Diabetes mellitus Qualifiers: Qualified Codes: E11.59 - Type 2 diabetes mellitus with other circulatory complications; Z79.4 - FPC (current) use of insulin Status: Chronic (3) Hypertension Qualifiers: Qualified Codes: I10 - Essential (primary) hypertension Status: Chronic (4) Hyperlipidemia Qualifiers: Qualified Codes: E78.2 - Mixed hyperlipidemia Status: Chronic (5) Chronic UTI Status: Chronic (6) Bright red blood per rectum Status: Resolved (7) Constipation Qualifiers: Qualified Codes: K59.01 - Slow transit constipation Status: Resolved (8) Anticoagulant long-term use Status: Chronic (9) BPH (benign prostatic hyperplasia) Qualifiers: Qualified Codes: N40.1 - Benign prostatic hyperplasia with lower urinary tract symptoms; R35.0 - Frequency of micturition Status: Chronic (10) Abnormal findings on esophagogastroduodenoscopy (EGD) Status: Acute (11) Abnormal colonoscopy Status: Acute (12) Gastritis Qualifiers: Qualified Codes: K29.00 - Acute gastritis without bleeding (13) Colon polyps Qualifiers: Qualified Codes: K63.5 - Polyp of colon Status: Acute (14) Nausea Status: Chronic (15) Urinary retention Status: Acute (16) Shoulder pain, right Status: Acute Co-Morbidities that are continuing to impact the rehab process: (include details ) DARELL CIFUENTES DO Sep 11, 2018 08:40
--- NOTE | 2018-09-11 08:47 | Physical Therapy Daily Note ---
PT Daily Note-Current Subjective Patient in bed pre tx, agrees to PT, no complaints of pain. Appearance Patient sitting in wheelchair at bedside post tx with nurse call, phone, tray, all needs met. in room. Mental Status Patient Orientation: Person, Place, Situation Transfers Therapy Code Descriptions/Definitions Functional [place] Measure: 0=Not Assessed/NA 4=Minimal Assistance 1=Total Assistance 5=Supervision or Setup 2=Maximal Assistance 6=Modified [place] 3=Moderate Assistance 7=Complete [place] Therapy Quality Codes: 6 Independent with activity with or without an assistive device 5 Patient requires set up or clean up by helper. Patient completes activity by themselves 4 Supervision or touching assist (CGA). [place] provide cues , steadying assist 3 The helper provides less than half the effort to complete the activity 2 The helper provides more than half the effort to complete the activity 1 Dependent. The helper does all the effort to complete an activity 7 Patient refused to complete or attempt activity 9 The patient did not perform the activity before the current illness or injury 88 Not attempted due to Medical conditions or safety concerns Transfers (B, C, W/C) (FIM): 3 Scootin Rollin Supine to/from Sit: 4 Sit to/from Stand: 4 Bed to/from Chair: 4 Cues for hand placement and positioning. Gait Training Gait (FIM): 1 Distance: 20'x3 Gait Level of Assist: 3 Gait Persons Needed: 1 Gait Assistive Device: Walker Ba Patient needs assist with weight shifting, is able to advance his left leg, cues for step-through gait Wheelchair Training Wheelchair (FIM): 2 Distance: 50'x2 Wheelchair Level of Assist: 5 Type of Wheelchair: Manual Exercises Supine Ex: Heel Slides, Short Arc Quads, Straight leg raise, Hip abd/add Supine Reps: 20 Treatments bed mobility, transfers, ambulation, AAROM on LLE and AROM on right, patient was toileted once for a BM, his was able to wipe him and he needs max assist to get pants up and down Assessment Current Status: Fair Progress improving bed mobility and transfers PT Short Term Goals Short Term Goals Time Frame: Sep 11, 2018 Transfers (B,C,W/C) (FIM): 3 Gait (FIM): 1 Gait Distance Comment: 20' Gait Level of Assist: 3 Gait Assistive Device: Walker Ba Wheelchair Distance: 50' PT Long-Term Goals Research Chief Engineer Goals PT Long-Term Goals Time Frame: Sep 25, 2018 Transfers (B,C,W/C) (FIM): 4 Sit to Lying (QC): 4 Lying-Sitting on Side/Bed(QC): 4 Sit to Stand (QC): 4 Rollin Roll Left to Right (QC): 4 Chair/[id number] Xfer(QC): 4 Car Transfer (QC): 4 Gait (FIM): 2 Distance: 50' Walk 10 feet (QC): 3 Walk 10ft-Uneven Surface(QC): 3 Walk 50ft with 2 Turns (QC): 3 Gait Level of Assist: 4 Gait Assistive Device: Cane Large Base Quad Wheelchair (FIM): 5 Distance: 150' Wheelchair Level of Assist: 5 Wheel 50 feet with 2 turns (QC: 4 PT Plan Problem List Problem List: Activity Tolerance, Functional Strength, Safety, Balance, Gait, Transfer, Bed Mobility, ROM Treatment/Plan Treatment Plan: Continue Plan of Care Treatment Plan: Bed Mobility, Concurrent Therapy, Education, Functional Activity Reena, Functional Strength, Group Therapy, Gait, Safety, Therapeutic Exercise, Transfers Treatment Duration: Sep 25, 2018 Frequency: At least 5 of 7 days/Wk (IRF) Estimated Hrs Per Day: 1.5 hours per day Patient and/or Family Agrees t: Yes Safety Risks/Education Patient Education: Gait Training, Transfer Techniques, Correct Positioning, W/ C Management, Safety Issues Teaching Recipient: Patient Teaching Methods: Demonstration, Discussion Response to Teaching: Reinforcement Needed Time/GCodes Time In: 0800 Time Out: 0845 Total Billed Treatment Time: 45 Total Billed Treatment 1 visit GT 20' FA 15' EX 10' CASTILLO PHIPPS PT Sep 11, 2018 08:47
[2018-09-11] MEDS: FLUoxetine HCL 20 MG (PROzac) CAP PO SCH (08:50)
[2018-09-11] MEDS: ZINC SULFATE 220 MG CAPSULE PO SCH (08:50)
[2018-09-11] MEDS: PYRIDOXINE (VITAMIN B-6) 50 MG TABLET PO SCH (08:50)
[2018-09-11] MEDS: LORATADINE (CLARITIN) 10 MG TAB PO SCH (08:50)
[2018-09-11] MEDS: VITAMIN D3 1,000 UNITS (CHOLECALCIFEROL) TABLET PO SCH (08:50)
[2018-09-11] MEDS: CARVEDILOL 12.5 MG (COREG) TABLET PO SCH ×2 (08:50→20:45)
[2018-09-11] MEDS: amLODIPine 10 MG (NORVASC) TAB PO SCH (08:50)
[2018-09-11] MEDS: MAGNESIUM OXIDE (MAG-OX)400 MG TAB PO SCH (08:50)
[2018-09-11] MEDS: ACETAMINOPHEN 500 MG TAB (TYLENOL) PO PRN ×2 (08:51→20:52)
[2018-09-11] MEDS: SENNA W/DOCUSATE (SENOKOT S) TABLET PO SCH ×2 (09:00→20:45)
[2018-09-11] MEDS: BISACODYL 10 MG SUPP (DULCOLAX) PR SCH ×2 (09:00→20:45)
--- NOTE | 2018-09-11 10:02 | Speech Therapy Daily Note ---
Speech Daily Progress Note Subjective Date Seen by Provider: Sep 11, 2018 Time Seen by Provider: 00:30 Patient was resting in bed for our session today due to having a headache. Objective Patient completed conversational tasks related to himself and his daily needs with 90% accuracy given minimal verbal cues. Assessment Assessment Current Status: Good Progress Treatment Plan Continue Plan of Care Communication Comprehension: 5 Expression: 5 Social Cognition Social Interaction: 5 Problem Solvin Memory: 4 Speech Short Term Goals Short Term Goals Short Term Goals 1) Patient will increase speech intelligibility at the highest functional verbal expression level to 90% or greater. 2) Patient will complete memory tasks with 90% or greater. 3) Patient will complete problem solving tasks with 90% or greater. Speech Senior Care Goals Senior Care Goals Patient will improve memory, problem solving and speech skills to better communicate with familiar and unfamiliar listeners. Comprehension: 3 Speech-Plan Patient/Family Goals Patient/Family Goals: Patient plans on returning home with his and other family close by for support post rehab. Treatment Plan Speech Therapy Treatment Plan: Continue Plan of Care Patient is progressing as a result of skilled ST services. Treatment Duration: Sep 13, 2018 Frequency: 5 times per week Estimated Hrs Per Day: .5 hour per day Rehab Potential: Fair Barriers to Learning: Patient gets emotional at times. Pt/Family Agrees to Plan: Yes Safety Risks/Education Teaching Recipient: Patient, Significant Other Teaching Methods: Discussion Response to Teaching: Verbalize Understanding Education Topics Provided: Safety and oral exercise program for daily use. Time Speech Therapy Time In: 09:00 Speech Therapy Time Out: 09:30 Total Billed Time: 30 Billed Treatment Time 1, LEIF Wong Sep 11, 2018 10:02
--- NOTE | 2018-09-11 11:05 | Occupational Ther Daily Note ---
OT Current Status-Daily Note Subjective Pts stated, " He is not happy today." Pt stated that , " I wants to go home ." Pain Numeric Pain Scale: 4 Location: Left Location Body Site: Shoulder Pain Description: Ache, Sharp Mental Status/Objective Patient Orientation: Person, Place, Time Therapy Code Descriptions/Definitions Functional [place] Measure: 0=Not Assessed/NA 4=Minimal Assistance 1=Total Assistance 5=Supervision or Setup 2=Maximal Assistance 6=Modified [place] 3=Moderate Assistance 7=Complete [place] ADL-Treatment Pt seen todat for strengthening ex to BUE , Passive ROM to Lf UE, spongue bath in bed , wipe his Face, chest, Lf UE , neck. Need max A in wiping Rt UE & lower body . Need min A in supine to sit in bed & at bed side, mod-min A in func transfers from bed to w/c using gait belt. Therapy Code Descriptions/Definitions Functional [place] Measure: 0=Not Assessed/NA 4=Minimal Assistance 1=Total Assistance 5=Supervision or Setup 2=Maximal Assistance 6=Modified [place] 3=Moderate Assistance 7=Complete [place] Therapy Quality Codes: 6 Independent with activity with or without an assistive device 5 Patient requires set up or clean up by helper. Patient completes activity by themselves 4 Supervision or touching assist (CGA). [place] provide cues , steadying assist 3 The helper provides less than half the effort to complete the activity 2 The helper provides more than half the effort to complete the activity 1 Dependent. The helper does all the effort to complete an activity 7 Patient refused to complete or attempt activity 9 The patient did not perform the activity before the current illness or injury 88 Not attempted due to Medical conditions or safety concerns Eating (FIM): 7 Eating (QC): 6 Grooming (FIM): 5 Oral Hygiene (QC): 6 Bathing (FIM): 0 Shower/Bathe Self (QC): 0 Upper Body (FIM): 2 Upper Body Dressing (QC): 2 Lower Body Dressing (FIM): 1 Lower Body Dressing (QC): 1 On/Off Footwear (QC): 2 Toileting (FIM): 2 Toileting Hygiene (QC): 2 Transfers (B, C, W/C) (FIM): 4 Toilet/Commode Transfer (FIM): 4 Toilet Transfer (QC): 4 Tub Transfer(FIM): 0 Shower Transfer(FIM): 4 Education OT Patient Education: Correct positioning, Instructions to caregiver, Safety issues, Transfer techniques Teaching Recipient: Patient, Family Teaching Methods: Demonstration Response to Teaching: Verbalize Understanding, Return Demonstration OT Short Term Goals Short Term Goals Time Frame: Sep 19, 2018 Eating(FIM): 7 Grooming(FIM): 7 Bathing(FIM): 3 Bathing Location: L Arm, L Lower Leg (including foot), Chest, Abdomen Upper Body Dressing(FIM): 3 Lower Body Dressing(FIM): 2 Toileting(FIM): 3 Transfers (B,C,W/C) (FIM): 3 Toilet/Commode Transfer(FIM): 3 Shower Transfer(FIM): 3 Additional Short Term Goals: 1-Demonstrate ADL Tasks, 2-Verbalize Understanding , 3-ImproveStrength/Reean 1=Demonstrate adherence to instructed precautions during ADL tasks. 2=Patient will verbalize/demonstrate understanding of assistive devices/ modifications for ADL. 3=Patient will improve strength/tolerance for activity to enable patient to perform ADL's. OT Mcc Goals Dog Licenser Goals Time Frame: Oct 03, 2018 Eating (FIM): 7 Eating (QC): 7 Groomin Oral Hygiene (QC): 7 Bathing(FIM): 3 Bathing Location: L Arm, R Arm, L Lower Leg (including foot), R Lower Leg ( including foot), Chest, Abdomen Shower/Bathe Self (QC): 3 Upper Body Dressing(FIM): 4 Upper Body Dressing (QC): 4 Lower Body Dressing(FIM): 3 Lower Body Dressing (QC): 3 On/Off Footwear (QC): 3 Toileting(FIM): 3 Toileting Hygiene (QC): 3 Transfers (B,C,W/C) (FIM): 3 Toilet/Commode Transfer(FIM): 3 Toilet/Commode Transfer (QC): 3 Shower Transfer(FIM): 3 Comprehension(FIM): 3 Additional Goals: 1-Demonstrate ADL Tasks, 2-Verbalize Understanding, 3- ImproveStrength/Reena 1=Demonstrate adherence to instructed precautions during ADL tasks. 2=Patient will verbalize/demonstrate understanding of assistive devices/ modifications for ADL. 3=Patient will improve strength/tolerance for activity to enable patient to perform ADL's. OT Education/Plan Problem List/Assessment Assessment: Decreased Activ Tolerance, Decreased Safety Aware, Impaired Bed Mobility, Impaired Funct Balance, Impaired Self-Care Skills Discharge Recommendations Plan/Recommendations: Continue POC Therapy D/C Recommendations: Home w/ Family Support, Occupational Therapy Home Care Equpiment Recommendations-D/C: Bath Chair, Extended Shower Sprayer, Brush Holder Inspector, Sock Aide, Dressing Stick, Long Shoe Horn, Toilet Riser Barriers to Progress Unsteady standing balance due to Left Hemiplegia . Patient/Family Goals To return home with AD with HH Services. Treatment Plan/Plan of Care Patient would benefit from OT for education, treatment and training to promote independence in ADL's, mobility, safety and/or upper extremity function for ADL' s. Plan of Care: ADL Retraining, Caregiver Training, Functional Mobility, Group Exercise/Act as Ind, UE Funct Exercise/Act Treatment Duration: Oct 03, 2018 Frequency: At least 5 of 7 days/Wk (IRF) Estimated Hrs Per Day: 1.5 hours per day Agreement: Yes Rehab Potential: Fair Time/GCodes Start Time: 10:15 Stop Time: 11:00 Total Time Billed (hr/min): 45 Billed Treatment Time 1, ADLs 30, Ex 15 Total 45 Min. GUTIERREZ GOLDEN OT Sep 11, 2018 11:05
--- NOTE | 2018-09-11 11:39 | Progress Note-Cardiology ---
Cardiology SOAP Progress Note Subjective: In bed. C/O CHENG this morning. No c/o CP, palpitations, syncope, near syncope or dyspnea. Objective: I&O/Vital Signs 09/11/18 06:00 Temp 97.9 Pulse 50 Resp 20 B/P (MAP) 116/64 (81) Pulse Ox 92 O2 Delivery Room Air 09/11/18 00:00 Intake Total 440 ml Output Total 300 ml Balance 140 ml Weight (Pounds): 211 Weight (Ounces): 8.0 Weight (Calculated Kilograms): 95.821493 Constitutional: AAO x 3, well-developed, well-nourished Respiratory: No accessory muscle use, No respiratory distress; chest expansion is symmetric, chest is bilaterally symmetric, lungs clear to auscultation Cardiovascular: regular rate-rhythm; No JVD; S1 and S2 Gastrointestional: No tender; soft, round Extremities: no lower extremity edema bilateral Neurologic/Psychiatric: oriented x 3, other (left side facial droop, left side hemiparesis) Skin: No rash, No ulcerations Results/Procedures: Labs Laboratory Tests 09/10/18 15:39: Glucometer 123H 09/10/18 20:18: Glucometer 142H 09/11/18 05:05: White Blood Count 6.9, Red Blood Count 4.00L, Hemoglobin 12.6L, Hematocrit 36L, Mean Corpuscular Volume 91, Mean Corpuscular Hemoglobin 32, Mean Corpuscular Hemoglobin Concent 35, Red Cell Distribution Width 12.7, Platelet Count 189, Mean Platelet Volume 10.7H, Neutrophils (%) (Auto) 63, Lymphocytes (%) (Auto) 24 , Monocytes (%) (Auto) 11, Eosinophils (%) (Auto) 3, Basophils (%) (Auto) 0, Neutrophils # (Auto) 4.3, Lymphocytes # (Auto) 1.7, Monocytes # (Auto) 0.7, Eosinophils # (Auto) 0.2, Basophils # (Auto) 0.0, Sodium Level 138, Potassium Level 3.9, Chloride Level 105, Carbon Dioxide Level 23, Anion Gap 10, Blood Urea Nitrogen 16, Creatinine 0.85, Estimat Glomerular Filtration Rate > 60, BUN/ Creatinine Ratio 19, Glucose Level 93, Calcium Level 8.6, Corrected Calcium 9.2 , Total Bilirubin 0.7, Aspartate Amino Transf (AST/SGOT) 26, Alanine Aminotransferase (ALT/SGPT) 34, Alkaline Phosphatase 100, Total Protein 6.5, Albumin 3.3 09/11/18 06:17: Glucometer 104 Laboratory Tests 09/11/18 05:05 A/P: Assessment: Sinus bradycardia - asymptomatic H/O ischemic CVA - R MCA stroke with left sided hemiparesis - tx at [facility] S/P mechanical thrombectomy for acute stroke right M1 with penumbra aspiration and solitaire stent retriever x [address] Valente at [facility] ( 7 days after initial CVA) OAC with Xarelto Echocardiogram of 08-17-18 at [facility] showed LVEF 65%. No significant valvular abnormalities. PASP approx 30 mmHg HTN DM HLD S/P R CEA on 08-23-18 at [facility] by Dr. Arriola CTA of the neck at [facility] showed on 08-20-18 showed severe stenosis of the right internal carotid (subsequent R CEA on 08-23-18) approx 60% stenosis of the prox left internal carotid artery with superimposed penetrating ulcer. Mod stenosis at the left vertebral artery origin. GI bleed - Gastritis with gastric ulcers; small hiatal hernia; colon polyps; Int hemorrhoids per EGD/colo on 09-07-[address] Waggoner (ASA dc'd) BPH with urinary retention - management per Dr. Conway Plan: Continue current regimen Management of stroke is with the Med TESS Rod Sep 11, 2018 11:39
[2018-09-11] MEDS: RIVAROXABAN 20 MG TABLET (XARELTO) PO SCH (11:53)
--- NOTE | 2018-09-11 13:17 | Progress Note-Urology ---
Progress Note-Urology Progress Notes/Assess & Plan Progress/Assessment & Plan VOIDING ON OWN WELL. NE NEED FOR STRAIGHT CATH. Final Diagnosis URINE RETENTION NARENDRA BALDWIN MD Sep 11, 2018 13:17
--- NOTE | 2018-09-11 13:58 | NUR ---
Received approval from [facility] [place], for 7 additional days, with clinical updates due on 09/17/17.
--- NOTE | 2018-09-11 14:45 | Therapy Group Daily Note ---
Therapy Daily Group Note Patient Education Topic Home Safety Exercises LE Seated Exercise, UE Exercise Other/Notes Pt participated in group therapy with 4 to 1 ratio. Goals of session are understanding home safety and leading UE/LE seated exercises. Pt was transported to group in Counts include [facility] beds at the [facility] via w/c. Group consisted of introductions (name, place born, favorite food). Pt introduced self appropriately and actively listened to peers. Pt was able to read and attempted to complete exercise. Assist needed for UE exercises due to decreased AROM. Dice were rolled for UE AROM/strengthening for amount of reps to complete for exercises. Pt then nodded head in affirmation and attended to handout given for home safety education. Memory activity initiated for next group-marissa, cathryn, charleen, bebeto trujillo. Pt met goals of session by participation and acknowledgement of topics. Pt is able to benefit from group by using exercises throughout therapy stay and at discharge. Make effective decisions for home safety when discharged. After therapy, pt lying in bed with call light/phone in reach. All needs met. Start Time: 13:00 Stop Time: 14:15 Total Billed Treatment Time: 75 Total Billed Treatment 1-GRP SHANNON DOTSON Sep 11, 2018 14:45
--- NOTE | 2018-09-11 16:18 | NUR ---
Weekly team conference Discussed weekly team conference with patient and his . Both are agreeable to re-checking progress next week. Team did recommend a day pass for this weekend, discussed this with the patient and his and they are interested in a day pass, perhaps on Sunday. I told them I would follow up with them tomorrow or Sunday regarding the day pass.
[2018-09-11] MEDS: TAMSULOSIN 0.4 MG (FLOMAX) CAP PO SCH (17:25)
[2018-09-11 20:28] VITALS: BP 136/77
[2018-09-11] MEDS: inSUlin DETERMIR 1 UNIT/0.01 ML (LEVEMIR) CHARGE PER UNIT SQ SCH (20:44)
[2018-09-11] MEDS: TRIM/SULFAMETH 160/800 (SEPTRA DS) TAB PO SCH (20:45)
[2018-09-11] MEDS: ATORVASTATIN 40 MG (LIPITOR) TABLET PO SCH (20:45)
[2018-09-11] MEDS: MELATONIN 3 MG TABLET PO PRN (20:52)
[2018-09-12 05:06] VITALS: BP 141/56
[2018-09-12] MEDS: inSUlin ASPART (NovoLOG) 1 UNIT/0.01 ML (CHARGE PER UNIT) SC SCH ×4 (05:13→20:42)
[2018-09-12] MEDS: metFORMIN XR 500 MG (GLUCOPHAGE XR) TAB PO SCH ×2 (07:01→17:28)
[2018-09-12] MEDS: CYANOCOBALAMIN 1,000 MCG (VITAMIN B-12) TABLET PO SCH (07:03)
[2018-09-12] MEDS: ONDANSETRON 4 MG (ZOFRAN) ORAL DISSOLVE TAB PO PRN (07:55)
--- NOTE | 2018-09-12 08:00 | NUR ---
DR. CIFUENTES INFORMED OF PERSISTENT INTERMITTENT NAUSEA. REGLAN ADDED TO REGIMEN.
--- NOTE | 2018-09-12 08:50 | Physical Therapy Daily Note ---
PT Daily Note-Current Subjective Patient in wheelchair at bedside pre tx, agrees to PT, has no complaints of pain at rest. Patient states he is very tired because he didn't sleep much last night. Appearance Patient in bed post tx with nurse call,phone, tray, all needs met. in room. Mental Status Patient Orientation: Person, Place, Situation Transfers Therapy Code Descriptions/Definitions Functional [place] Measure: 0=Not Assessed/NA 4=Minimal Assistance 1=Total Assistance 5=Supervision or Setup 2=Maximal Assistance 6=Modified [place] 3=Moderate Assistance 7=Complete [place] Therapy Quality Codes: 6 Independent with activity with or without an assistive device 5 Patient requires set up or clean up by helper. Patient completes activity by themselves 4 Supervision or touching assist (CGA). [place] provide cues , steadying assist 3 The helper provides less than half the effort to complete the activity 2 The helper provides more than half the effort to complete the activity 1 Dependent. The helper does all the effort to complete an activity 7 Patient refused to complete or attempt activity 9 The patient did not perform the activity before the current illness or injury 88 Not attempted due to Medical conditions or safety concerns Transfers (B, C, W/C) (FIM): 3 Scootin Rollin Supine to/from Sit: 4 Sit to/from Stand: 4 Bed to/from Chair: 3 Stand pivot transfer min assist to the right and mod assist to the left. Gait Training Gait (FIM): 1 Distance: 40'x2, 20' Gait Level of Assist: 3 Gait Persons Needed: 1 Gait Assistive Device: Walker Ba Patient had improved weight shifting and stepping with left leg. Less assist from therapist, almost min assist but not quite. Wheelchair Training Does the Pt Use a Wheelchair?: Yes Wheelchair (FIM): 5 Distance: 50'x2 Wheelchair Level of Assist: 5 Type of Wheelchair: Manual Exercises NuStep Minutes: 10 NuStep Workload: 4 Treatments bed mobility and transfers, ambulation, functional strengthening Assessment Current Status: Fair Progress improved balance and ambulation. Patient had to stop therapy while on the NuStep due to nausea. PT Short Term Goals Short Term Goals Time Frame: Sep 11, 2018 Transfers (B,C,W/C) (FIM): 3 Gait (FIM): 1 Gait Distance Comment: 20' Gait Level of Assist: 3 Gait Assistive Device: Walker Ba Wheelchair Distance: 50'x2 PT Long-Term Goals Long-Term Goals PT Long-Term Goals Time Frame: Sep 25, 2018 Transfers (B,C,W/C) (FIM): 4 Sit to Lying (QC): 4 Lying-Sitting on Side/Bed(QC): 4 Sit to Stand (QC): 4 Rollin Roll Left to Right (QC): 4 Chair/Fca-jq-Zzpku Xfer(QC): 4 Car Transfer (QC): 4 Gait (FIM): 2 Distance: 50' Walk 10 feet (QC): 3 Walk 10ft-Uneven Surface(QC): 3 Walk 50ft with 2 Turns (QC): 3 Gait Level of Assist: 4 Gait Assistive Device: Cane Large Base Quad Wheelchair (FIM): 5 Distance: 150' Wheelchair Level of Assist: 5 Wheel 50 feet with 2 turns (QC: 4 PT Plan Problem List Problem List: Activity Tolerance, Functional Strength, Safety, Balance, Gait, Transfer, Bed Mobility, ROM Treatment/Plan Treatment Plan: Continue Plan of Care Treatment Plan: Bed Mobility, Concurrent Therapy, Education, Functional Activity Reena, Functional Strength, Group Therapy, Gait, Safety, Therapeutic Exercise, Transfers Treatment Duration: Sep 25, 2018 Frequency: At least 5 of 7 days/Wk (IRF) Estimated Hrs Per Day: 1.5 hours per day Patient and/or Family Agrees t: Yes Safety Risks/Education Patient Education: Gait Training, Transfer Techniques, Correct Positioning, Safety Issues Teaching Recipient: Patient Teaching Methods: Demonstration, Discussion Response to Teaching: Reinforcement Needed Time/GCodes Time In: 0800 Time Out: 0850 Total Billed Treatment Time: 50 Total Billed Treatment 1 visit EX 10' GT 35' CASTILLO PHIPPS PT Sep 12, 2018 08:50
[2018-09-12] MEDS: METOCLOPRAMIDE 10 MG (REGLAN) TAB PO SCH ×4 (09:00→20:47)
--- NOTE | 2018-09-12 09:01 | PM&R Progress Note ---
Subjective HPI/CC On Admission Date Seen by Provider: Sep 12, 2018 Time Seen by Provider: 08:00 Subjective/Events-last exam Voiding very well No sterile in and out catheter is needed Behavioral health consult will be performed Nausea persists so will start Reglan 10mg AC/HS since it appears to be gastroparesis since EGD did reveal gastritis. Participating in therapy well at bedside is retired and can help at home Left foot improved Day pass this weekend Goal DC 09/27/18 Face is less droopy and speech improved Review of Systems Gastrointestinal: Nausea Neurological: Weakness Objective Exam Vital Signs Vital Signs Date Time Temp Pulse Resp B/P (MAP) Pulse Ox O2 Delivery O2 Flow Rate FiO2 09/12/18 05:06 98.8 54 16 141/56 (84) 95 Room Air Capillary Refill : General Appearance: No Apparent Distress, WD/WN, Chronically ill Respiratory: Chest Non Tender, Lungs Clear, Normal Breath Sounds, No Accessory Muscle Use, No Respiratory Distress Cardiovascular: Regular Rate, Rhythm, No Edema, No Gallop, No JVD, No Murmur, Normal Peripheral Pulses Neurologic/Psychiatric: Alert, Oriented x3, Normal Mood/Affect, Motor Weakness (left side weakness) Skin: Normal Color, Warm/Dry Results/Procedures Lab Patient resulted labs reviewed. Assessment/Plan Assessment and Plan Assess & Plan/Chief Complaint Assessment Subacute CVA 08/16/18 with left sided weakness Severe carotid stenosis right s/p endarterectomy but no resolution of deficit DM on insulin Chronic UTI but normal cystoscopy 09/06/18 but BPH noted and placed on Flomax from Urology now receiving straight caths if retention on bladder scan and patient agrees for self cath at NH per Urology placed on Bactrim 1/2 tablet at night to prevent UTI due to catheters but now voiding well when up to toilet and no longer needs catheters since no residual HTN HLP Constipation recurrent issue resolved now Hematochezia episode with Heme + stools but gastritis and colon polyps noted on EGD/Colonoscopy on 09/07/[address] Waggoner Chronic nausea will try Reglan Plan: Maintain ASA and anticoagulation Follow up on polyp pathology Monitor sugar control and adjust insulin prn Maintain urinary management since h/o chronic UTI and maintain on Flomax per Urology in addition to self caths to prevent retention but now voiding well and no caths needed as long as upright to toilet PPI Zofran Constipation treatment maintained Reglan trial Diagnosis/Problems Diagnosis/Problems (1) Cerebrovascular accident (CVA) with left hemiparesis Status: Acute (2) Diabetes mellitus Status: Chronic Qualifiers: Diabetes mellitus type: type 2 Diabetes mellitus manager terminal insulin use: with care home use Diabetes mellitus complication status: with circulatory complication Diabetes mellitus complication detail: with other circulatory complications Qualified Codes: E11.59 - Type 2 diabetes mellitus with other circulatory complications; Z79.4 - residential (current) use of insulin (3) Hypertension Status: Chronic Qualifiers: Hypertension type: essential hypertension Qualified Codes: I10 - Essential (primary) hypertension (4) Hyperlipidemia Status: Chronic Qualifiers: Hyperlipidemia type: mixed hyperlipidemia Qualified Codes: E78.2 - Mixed hyperlipidemia (5) Chronic UTI Status: Chronic (6) Bright red blood per rectum Status: Resolved Resolution Date/Time: 09/07/18 @ 15:48 (7) Constipation Status: Resolved Qualifiers: Constipation type: slow transit constipation Qualified Codes: K59.01 - Slow transit constipation Resolution Date/Time: 09/11/18 @ 11:41 (8) Anticoagulant long-term use Status: Chronic (9) BPH (benign prostatic hyperplasia) Status: Chronic Qualifiers: Lower urinary tract symptom presence: symptoms present Lower urinary tract symptom detail: urinary frequency Qualified Codes: N40.1 - Benign prostatic hyperplasia with lower urinary tract symptoms; R35.0 - Frequency of micturition (10) Abnormal findings on esophagogastroduodenoscopy (EGD) Status: Acute (11) Abnormal colonoscopy Status: Acute (12) Gastritis Status: Acute Qualifiers: Gastritis type: unspecified gastritis Chronicity: acute Gastritis bleeding: without bleeding Qualified Codes: K29.00 - Acute gastritis without bleeding (13) Colon polyps Status: Acute Qualifiers: Colon polyp type: unspecified Colon location: unspecified part of colon Qualified Codes: K63.5 - Polyp of colon (14) Nausea Status: Chronic (15) Urinary retention Status: Resolved Resolution Date/Time: 09/12/18 @ 10:40 (16) Shoulder pain, right Status: Acute (17) Gastroparesis Status: Chronic Assessment & Plan: Trial of Reglan today 09/12/18 Clinical Quality Measures Admission Status Admission Dx Assessment Subacute CVA 08/16/18 with left sided weakness Severe carotid stenosis right s/p endarterectomy but no resolution of deficit DM Chronic UTI HTN HLP Plan: Monitor BP Maintain all new meds per [facility] including asa and anticoagulation Therapies as ordered for intensive rehab DVT/VTE Risk/Contraindication: Risk Factor Score Per Nursin RFS Level Per Nursing on Admit: 4+=Very High DARELL CIFUENTES DO Sep 12, 2018 09:01
[2018-09-12] MEDS: BISACODYL 10 MG SUPP (DULCOLAX) PR SCH ×2 (10:00→21:29)
[2018-09-12] MEDS: SENNA W/DOCUSATE (SENOKOT S) TABLET PO SCH ×2 (10:00→21:29)
--- NOTE | 2018-09-12 10:00 | NUR ---
BEHAVIORAL HEALTH NOTIFIED OF CONSULT. THEY WILL BE HERE AT 1300 TODAY.
[2018-09-12] MEDS: MAGNESIUM OXIDE (MAG-OX)400 MG TAB PO SCH (10:01)
[2018-09-12] MEDS: PYRIDOXINE (VITAMIN B-6) 50 MG TABLET PO SCH (10:01)
[2018-09-12] MEDS: ZINC SULFATE 220 MG CAPSULE PO SCH (10:01)
[2018-09-12] MEDS: LORATADINE (CLARITIN) 10 MG TAB PO SCH (10:01)
[2018-09-12] MEDS: FLUoxetine HCL 20 MG (PROzac) CAP PO SCH (10:01)
[2018-09-12] MEDS: VITAMIN D3 1,000 UNITS (CHOLECALCIFEROL) TABLET PO SCH (10:01)
[2018-09-12] MEDS: CARVEDILOL 12.5 MG (COREG) TABLET PO SCH ×2 (10:03→20:47)
[2018-09-12] MEDS: amLODIPine 10 MG (NORVASC) TAB PO SCH (10:03)
--- NOTE | 2018-09-12 10:14 | Speech Therapy Daily Note ---
Speech Daily Progress Note Subjective Date Seen by Provider: Sep 12, 2018 Time Seen by Provider: 00:30 Patient resting in bed, c/o headache. Patient able to participate with therapy. Objective Patient completed memory tasks with 80% accuracy given minimal cues. Assessment Assessment Current Status: Excellent Progress Treatment Plan Continue Plan of Care Communication Comprehension: 5 Expression: 5 Social Cognition Social Interaction: 5 Problem Solvin Memory: 4 Speech Short Term Goals Short Term Goals Short Term Goals 1) Patient will increase speech intelligibility at the highest functional verbal expression level to 90% or greater. 2) Patient will complete memory tasks with 90% or greater. 3) Patient will complete problem solving tasks with 90% or greater. Speech Long-Term Goals Disc Pad Knockout Worker Goals Patient will improve memory, problem solving and speech skills to better communicate with familiar and unfamiliar listeners. Comprehension: 3 Speech-Plan Patient/Family Goals Patient/Family Goals: Patient is planning to return home with his post rehab. Treatment Plan Speech Therapy Treatment Plan: Continue Plan of Care Patient is progressing well as a result of skilled ST services. Treatment Duration: Sep 16, 2018 Frequency: 5 times per week Estimated Hrs Per Day: .5 hour per day Rehab Potential: Fair Barriers to Learning: Patient has been having headaches, c/o of not feeling well. Pt/Family Agrees to Plan: Yes Safety Risks/Education Teaching Recipient: Patient, Significant Other Teaching Methods: Discussion Response to Teaching: Verbalize Understanding Education Topics Provided: Safety within his room. Time Speech Therapy Time In: 09:00 Speech Therapy Time Out: 09:30 Total Billed Time: 30 Billed Treatment Time 1EILEEN BETH[address] ST Sep 12, 2018 10:13
--- NOTE | 2018-09-12 10:14 | Progress Note-Cardiology ---
Cardiology SOAP Progress Note Subjective: Sitting up in bed. CHENG better today. No c/o dizziness, syncope, near syncope, CP, dyspnea or palpitations. Objective: I&O/Vital Signs 09/12/18 09/12/18 09:00 15:29 Temp 97.0 Pulse 58 Resp 14 B/P (MAP) 130/76 (94) Pulse Ox 93 O2 Delivery Room Air Room Air 09/12/18 00:00 Intake Total 600 ml Output Total 325 ml Balance 275 ml Weight (Pounds): 211 Weight (Ounces): 8.0 Weight (Calculated Kilograms): 95.009195 Constitutional: AAO x 3, well-developed, well-nourished Respiratory: No accessory muscle use, No respiratory distress; chest expansion is symmetric, chest is bilaterally symmetric, lungs clear to auscultation Cardiovascular: regular rate-rhythm; No JVD; S1 and S2 Gastrointestional: No tender; soft, round Extremities: no lower extremity edema bilateral Neurologic/Psychiatric: oriented x 3, other (left side facial droop, left side hemiparesis) Skin: No rash, No ulcerations Results/Procedures: Labs Laboratory Tests 09/11/18 20:19: Glucometer 137H 09/12/18 04:32: Glucometer 87 09/12/18 10:36: Glucometer 115H 09/12/18 15:28: Glucometer 137H A/P: Assessment: Sinus bradycardia - asymptomatic H/O ischemic CVA - R MCA stroke with left sided hemiparesis - tx at [facility] S/P mechanical thrombectomy for acute stroke right M1 with penumbra aspiration and solitaire stent retriever x [address] Valente at [facility] ( 7 days after initial CVA) OAC with Xarelto Echocardiogram of 08-17-18 at [facility] showed LVEF 65%. No significant valvular abnormalities. PASP approx 30 mmHg HTN DM HLD S/P R CEA on 08-23-18 at [facility] by Dr. Arriola CTA of the neck at [facility] showed on 08-20-18 showed severe stenosis of the right internal carotid (subsequent R CEA on 08-23-18) approx 60% stenosis of the prox left internal carotid artery with superimposed penetrating ulcer. Mod stenosis at the left vertebral artery origin. GI bleed - Gastritis with gastric ulcers; small hiatal hernia; colon polyps; Int hemorrhoids per EGD/colo on 09-07-[address] Waggoner (ASA dc'd) BPH with urinary retention - management per Dr. Conway Plan: Continue current regimen Management of stroke is with the [facility] [place] Physician Assessment Physician Assessment No cp or palp or syncope or shortness of breath Lungs: good bilat air entry Cor: reg Ext: no c/c/e A&R * As documented in our note above that I updated (italics) and as noted below * Continue current regimen * Monitor labs from time to time TESS FREITAS Sep 12, 2018 10:14 ABDOUL CHAMORRO MD FACP FAC CCDS Sep 12, 2018 17:08
--- NOTE | 2018-09-12 10:48 | NUR ---
PT EATING FAIRLY WELL, 75% MEALS. NO NEW WEIGHT SINCE ADMISSION. RECOMMEND WEEKLY WEIGHTS TO BETTER ASSESS ADEQUACY OF PO INTAKE. CONT TO FOLLOW.
[2018-09-12] MEDS: RIVAROXABAN 20 MG TABLET (XARELTO) PO SCH (11:12)
--- NOTE | 2018-09-12 11:20 | Progress Note-Urology ---
Progress Note-Urology Progress Notes/Assess & Plan Progress/Assessment & Plan CONTINUES VOIDING WELL ON HIS OWN. WE WILL SEE PRN Final Diagnosis URINE RETENTION AND RECURRENT UTI'S NARENDRA BALDWIN MD Sep 12, 2018 11:20
--- NOTE | 2018-09-12 13:19 | Occupational Ther Daily Note ---
OT Current Status-Daily Note Subjective Pt stated , " I am fine. Going home very soon. " Pain Numeric Pain Scale: 5-Moderate Pain Location: Left Location Body Site: Shoulder Pain Description: Stabbing, Acute Mental Status/Objective Patient Orientation: Person, Place, Time, Situation Therapy Code Descriptions/Definitions Functional [place] Measure: 0=Not Assessed/NA 4=Minimal Assistance 1=Total Assistance 5=Supervision or Setup 2=Maximal Assistance 6=Modified [place] 3=Moderate Assistance 7=Complete [place] ADL-Treatment Pt seen today in OT fot ADL retraining , Thera-acts, trunk balancing ex, safety education & strengthening ex to BUE. Pt needs min A in supine to sit in bed & bedside , func transfers from bed to w/c with min A , max A in shower to wash front ,back, perineal parts, abdomen , UB & LB .Proper positioning of left arm with positioning pillow. Pt shaved infront of mirror in bathroom with Modified Indpendence . Place a call to his & also called kitchen to order Sandwitch .Cognition getting better . Therapy Code Descriptions/Definitions Functional [place] Measure: 0=Not Assessed/NA 4=Minimal Assistance 1=Total Assistance 5=Supervision or Setup 2=Maximal Assistance 6=Modified [place] 3=Moderate Assistance 7=Complete [place] Therapy Quality Codes: 6 Independent with activity with or without an assistive device 5 Patient requires set up or clean up by helper. Patient completes activity by themselves 4 Supervision or touching assist (CGA). [place] provide cues , steadying assist 3 The helper provides less than half the effort to complete the activity 2 The helper provides more than half the effort to complete the activity 1 Dependent. The helper does all the effort to complete an activity 7 Patient refused to complete or attempt activity 9 The patient did not perform the activity before the current illness or injury 88 Not attempted due to Medical conditions or safety concerns Eating (FIM): 7 Eating (QC): 6 Grooming (FIM): 5 Oral Hygiene (QC): 5 Bathing (FIM): 0 Bathing Location: R Arm, L Upper Leg, R Upper Leg, L Lower Leg (including foot) , R Lower Leg (including foot), Chest, Abdomen, Buttocks Shower/Bathe Self (QC): 2 Upper Body (FIM): 2 Upper Body Dressing (QC): 4 Lower Body Dressing (FIM): 2 Lower Body Dressing (QC): 2 On/Off Footwear (QC): 2 Toileting (FIM): 2 Toileting Hygiene (QC): 4 Transfers (B, C, W/C) (FIM): 2 Toilet/Commode Transfer (FIM): 3 Toilet Transfer (QC): 4 Tub Transfer(FIM): 2 Shower Transfer(FIM): 5 Education OT Patient Education: Correct positioning, Energy conservation, Safety issues, Transfer techniques, Use of adapted equipment Teaching Recipient: Patient Teaching Methods: Demonstration, Discussion Response to Teaching: Unable to Return Demonstration, Return Demonstration OT Short Term Goals Short Term Goals Time Frame: Sep 19, 2018 Eating(FIM): 7 Grooming(FIM): 7 Bathing(FIM): 3 Bathing Location: L Arm, L Lower Leg (including foot), Chest, Abdomen Upper Body Dressing(FIM): 3 Lower Body Dressing(FIM): 2 Toileting(FIM): 3 Transfers (B,C,W/C) (FIM): 3 Toilet/Commode Transfer(FIM): 3 Shower Transfer(FIM): 3 Additional Short Term Goals: 1-Demonstrate ADL Tasks, 2-Verbalize Understanding , 3-ImproveStrength/Reena 1=Demonstrate adherence to instructed precautions during ADL tasks. 2=Patient will verbalize/demonstrate understanding of assistive devices/ modifications for ADL. 3=Patient will improve strength/tolerance for activity to enable patient to perform ADL's. OT Correction Goals Correction Goals Time Frame: Oct 03, 2018 Eating (FIM): 7 Eating (QC): 7 Groomin Oral Hygiene (QC): 7 Bathing(FIM): 3 Bathing Location: L Arm, R Arm, L Lower Leg (including foot), R Lower Leg ( including foot), Chest, Abdomen Shower/Bathe Self (QC): 3 Upper Body Dressing(FIM): 4 Upper Body Dressing (QC): 4 Lower Body Dressing(FIM): 3 Lower Body Dressing (QC): 3 On/Off Footwear (QC): 3 Toileting(FIM): 3 Toileting Hygiene (QC): 3 Transfers (B,C,W/C) (FIM): 3 Toilet/Commode Transfer(FIM): 3 Toilet/Commode Transfer (QC): 3 Shower Transfer(FIM): 3 Comprehension(FIM): 3 Additional Goals: 1-Demonstrate ADL Tasks, 2-Verbalize Understanding, 3- ImproveStrength/Reena 1=Demonstrate adherence to instructed precautions during ADL tasks. 2=Patient will verbalize/demonstrate understanding of assistive devices/ modifications for ADL. 3=Patient will improve strength/tolerance for activity to enable patient to perform ADL's. OT Education/Plan Problem List/Assessment Assessment: Decreased Activ Tolerance, Decreased Safety Aware, Decreased UE Strength, Dependent Transfers, Impaired Bed Mobility, Impaired Cognition, Impaired Coordination, Impaired Self-Care Skills Discharge Recommendations Plan/Recommendations: Continue POC Therapy D/C Recommendations: Home w/ Family Support, Home Independently Equpiment Recommendations-D/C: Extended Bath Bench, Bath Chair, Extended Shower Sprayer, Beer Brewer Barriers to Progress Left hemiplegia & marked weakness in Lf UE & BLE Patient/Family Goals To return home Independently with with AD. Treatment Plan/Plan of Care Treatment,Training & Education: Yes Patient would benefit from OT for education, treatment and training to promote independence in ADL's, mobility, safety and/or upper extremity function for ADL' s. Plan of Care: ADL Retraining, Caregiver Training, Functional Mobility, Group Exercise/Act as Ind, UE Funct Exercise/Act Treatment Duration: Oct 03, 2018 Frequency: At least 5 of 7 days/Wk (IRF) Estimated Hrs Per Day: 1.5 hours per day Agreement: Yes Rehab Potential: Fair Time/GCodes Start Time: 11:15 Stop Time: 12:30 (75 MINS.) Total Time Billed (hr/min): 75 Billed Treatment Time 1, ADLs x60 min & Ex 15 Total 75 min GUTIERREZ GOLDEN OT Sep 12, 2018 13:19
--- NOTE | 2018-09-12 13:26 | Physical Therapy Daily Note ---
PT Daily Note-Current Subjective Agrees to PT. Transfers Therapy Code Descriptions/Definitions Functional [place] Measure: 0=Not Assessed/NA 4=Minimal Assistance 1=Total Assistance 5=Supervision or Setup 2=Maximal Assistance 6=Modified [place] 3=Moderate Assistance 7=Complete [place] Therapy Quality Codes: 6 Independent with activity with or without an assistive device 5 Patient requires set up or clean up by helper. Patient completes activity by themselves 4 Supervision or touching assist (CGA). [place] provide cues , steadying assist 3 The helper provides less than half the effort to complete the activity 2 The helper provides more than half the effort to complete the activity 1 Dependent. The helper does all the effort to complete an activity 7 Patient refused to complete or attempt activity 9 The patient did not perform the activity before the current illness or injury 88 Not attempted due to Medical conditions or safety concerns Treatments Gait training 50 ft x 3 with hemiwalker. CGA to stand up with skilleed cues for hand and foot placement and safe sequencing. Pt required min to mod assist for balance during gait. Pt propelled himself in his wheelchair 50 ft x 2 with min assist. Pt then stood from to move to the recliner in his room, requiring him to sidestep, turn, walk backwards and maneuver in a small space, completed all with CGA. Pt up in chair with lunch post treatment. Assessment Current Status: Good Progress Progressing with functional mobility and gait. Balance progressing as well. Follows cues well and is aware of safety issues. PT Short Term Goals Short Term Goals Time Frame: Sep 11, 2018 Transfers (B,C,W/C) (FIM): 3 Gait (FIM): 1 Gait Distance Comment: 20' Gait Level of Assist: 3 Gait Assistive Device: Walker Ba Wheelchair Distance: 50'x2 PT Halfway Goals Halfway Goals PT Halfway Goals Time Frame: Sep 25, 2018 Transfers (B,C,W/C) (FIM): 4 Sit to Lying (QC): 4 Lying-Sitting on Side/Bed(QC): 4 Sit to Stand (QC): 4 Rollin Roll Left to Right (QC): 4 Chair/Osz-ym-Zyatm Xfer(QC): 4 Car Transfer (QC): 4 Gait (FIM): 2 Distance: 50' Walk 10 feet (QC): 3 Walk 10ft-Uneven Surface(QC): 3 Walk 50ft with 2 Turns (QC): 3 Gait Level of Assist: 4 Gait Assistive Device: Cane Large Base Quad Wheelchair (FIM): 5 Distance: 150' Wheelchair Level of Assist: 5 Wheel 50 feet with 2 turns (QC: 4 PT Plan Problem List Problem List: Activity Tolerance, Functional Strength, Safety, Balance, Gait, Transfer, Bed Mobility Treatment/Plan Treatment Plan: Continue Plan of Care Treatment Plan: Bed Mobility, Concurrent Therapy, Education, Functional Activity Reena, Functional Strength, Group Therapy, Gait, Safety, Therapeutic Exercise, Transfers Treatment Duration: Sep 25, 2018 Frequency: At least 5 of 7 days/Wk (IRF) Estimated Hrs Per Day: 1.5 hours per day Patient and/or Family Agrees t: Yes Safety Risks/Education Patient Education: Transfer Techniques, Safety Issues Teaching Recipient: Patient Teaching Methods: Demonstration, Discussion Response to Teaching: Return Demonstration, Reinforcement Needed Time/GCodes Time In: 1230 Time Out: 1300 Total Billed Treatment Time: 30 Total Billed Treatment visit GT 30 SHANNON ANTUNEZ PT Sep 12, 2018 13:26
[2018-09-12 15:29] VITALS: BP 130/76
--- NOTE | 2018-09-12 15:56 | Behavioral Health Consult ---
Consult- Consult Date Seen by Provider: Sep 12, 2018 Time Seen by Provider: 13:10 CPT Code: 28878 Psychodiagnostic Examination, 85416 +Interactive Complexity, 1 unit(s) Chief Complaint: depression Referral: Barney Kuhn is a 63-year-old, , male referred by Dr. Meier for a clinical diagnostic assessment. Information for this evaluation was gathered from self-report and medical records. Presenting Problem: The presenting clinical problem is depression. Barney reported he has been feelings depressed. He denied any improvement with his depression, but his feels he has improved. He and his agreed that his negative thinking has improved. His stated when he starts talking negative she will redirect him, and he responds well to this. He reported his physical therapy is going well and he feels he is improving. He denied any cognitive changes; however, his noted some forgetfulness but feels it is improving. He reported trouble sleeping at night. He stated he was started on melatonin and it helped for a few nights but is no longer helping. He reported he gets about four hours of sleep at night and takes naps during the day. She reported he does get irritable at times and attributes this to him wanting to see more rapid improvements. He stated he knows it will take time and he is trying to focus on one day at a time. He at first stated his appetite is good but then agreed with his when she said it varies. His noted his appetite seems to decrease on days when he is more depressed. He reported he does worry about finances and health. His reported she is on SSI, so his income is their main financial support. She reported their kids and their holiness will make sure they are okay. Overall symptoms observed or reported requiring current level of care include anergia, appetite disturbance, depressed mood, medical problems, sleep disturbance (onset delay/easily awakened), and worry. Observations/Mental Status: Barney was lying in the hospital bed when therapist arrived and was accompanied by spouse. Overall appearance was unremarkable clinically. Barney appeared to be an adequate historian. Observed gait and gross motor movements were not observed as he just lied in the bed. Raffi general approach to the evaluation was cooperative. Orientation was intact for person, place, time, and situation. Barney evidenced good understanding of the reason for the appointment. Raffi in-session behavior was cooperative. The predominant mood was depressed with flat affect. Immediate attention and concentration was grossly intact. Memory functioning appeared to be intact. Level of intellectual functioning compared to same age peers was estimated to be in the average range. Thought processes were found to be generally logical, coherent and goal directed. Thought content appeared normal. There was no report or evidence of hallucinations or delusions. Psychomotor retardation was observed. Tone of voice was normal and controlled. Expressive speech was marked by occasional delayed speech, but mostly was fluent speech and language. Eye contact was minimal. Insight was average. Overall, style of interacting during the appointment was appropriate. Current/Previous Mental Health Treatment: Past psychiatric history was reported as antidepressant medication in 1992 following a work-related injury. He denied any outpatient psychotherapy services or inpatient psychiatric hospitalizations. History of self or other harm: none reported. Medical History: Medical conditions were reported as Cerebrovascular accident with left hemiparesis, Diabetes mellitus Type 2, Hypertension, and Hyperlipidemia. Drug allergies: none reported. Current physician is Educational and Vocational Histories: Barney reported he works in a [employer] shop and has been doing this type of work for 30 years. He reported he enjoys his job. Family and Social Histories: Barney currently lives with his in [place], [place]. He reported he has been with his for five years and for three years. He moved to [place] in October 2017 and previously lived in [place]. His reported Barney had three kids, but two are . His daughter resides in [place]. His reported she has three kids and two reside in [place]. Strengths/Weaknesses: Strengths/Resources: motivated for change and supportive family Liabilities/Barriers: health problems Summary of Assessment Information/Recommendations: Barney is a 63-year-old male with history of CVA. He did have depression once before following a work- related accident and took antidepressants at that time. He denied any other history of depression. He does appear to have depression currently and is aware of this. Following current assessment, presenting problem and symptoms appear consistent with a preliminary diagnosis of F43.21 Adjustment Disorder with Depressed Mood. Current emotional symptoms are of moderate intensity. Overall, prognosis is estimated to be good. Therapist talked with Barney and his about outpatient psychotherapy services and they agreed to schedule services at a local facility if his depression does not improve or he is struggling to adjust to the decrease in his physical functioning. 1. It is recommended that Raffi Prozac being evaluated to determine if it is medically appropriate to increase as he is on the starting dosage. 2. Raffi sleep difficulties may be affecting his mood and motivation. If his sleep does not improve it may be beneficial to evaluate the need for medication to help with sleep. ICD-10 Diagnostic Impressions: F43.21 Adjustment Disorder with Depressed Mood ANNIE MONGE Sep 12, 2018 15:56
[2018-09-12] MEDS: TAMSULOSIN 0.4 MG (FLOMAX) CAP PO SCH (17:28)
--- NOTE | 2018-09-12 19:00 | NUR ---
VOIDED 525 CC IN ONE VOIDING. OUTPUT IMPROVED
[2018-09-12] MEDS: TRIM/SULFAMETH 160/800 (SEPTRA DS) TAB PO SCH (20:46)
[2018-09-12] MEDS: ATORVASTATIN 40 MG (LIPITOR) TABLET PO SCH (20:47)
[2018-09-12] MEDS: inSUlin DETERMIR 1 UNIT/0.01 ML (LEVEMIR) CHARGE PER UNIT SQ SCH (20:48)
[2018-09-13 05:05] VITALS: BP 105/55
[2018-09-13] MEDS: CYANOCOBALAMIN 1,000 MCG (VITAMIN B-12) TABLET PO SCH (06:44)
[2018-09-13] MEDS: METOCLOPRAMIDE 10 MG (REGLAN) TAB PO SCH ×4 (06:44→20:28)
[2018-09-13] MEDS: metFORMIN XR 500 MG (GLUCOPHAGE XR) TAB PO SCH ×2 (06:44→17:04)
[2018-09-13] MEDS: inSUlin ASPART (NovoLOG) 1 UNIT/0.01 ML (CHARGE PER UNIT) SC SCH ×4 (06:46→20:41)
[2018-09-13 08:10] VITALS: BP 111/62
[2018-09-13] MEDS: MAGNESIUM OXIDE (MAG-OX)400 MG TAB PO SCH (08:11)
[2018-09-13] MEDS: LORATADINE (CLARITIN) 10 MG TAB PO SCH (08:11)
[2018-09-13] MEDS: VITAMIN D3 1,000 UNITS (CHOLECALCIFEROL) TABLET PO SCH (08:11)
[2018-09-13] MEDS: PYRIDOXINE (VITAMIN B-6) 50 MG TABLET PO SCH (08:11)
[2018-09-13] MEDS: ZINC SULFATE 220 MG CAPSULE PO SCH (08:11)
[2018-09-13] MEDS: FLUoxetine HCL 20 MG (PROzac) CAP PO SCH (08:11)
[2018-09-13] MEDS: amLODIPine 10 MG (NORVASC) TAB PO SCH (08:13)
[2018-09-13] MEDS: CARVEDILOL 12.5 MG (COREG) TABLET PO SCH ×2 (08:13→20:27)
[2018-09-13] MEDS: SENNA W/DOCUSATE (SENOKOT S) TABLET PO SCH ×2 (08:16→20:35)
[2018-09-13] MEDS: BISACODYL 10 MG SUPP (DULCOLAX) PR SCH ×2 (08:16→20:35)
--- NOTE | 2018-09-13 08:53 | Physical Therapy Daily Note ---
PT Daily Note-Current Subjective Patient in bed pre tx, agrees to PT, no complaints of pain. Appearance Patient in wheelchair at bedside post tx with nurse call, phone, tray, all needs met. Mental Status Patient Orientation: Person, Place, Situation, Normal For Age Transfers Therapy Code Descriptions/Definitions Functional [place] Measure: 0=Not Assessed/NA 4=Minimal Assistance 1=Total Assistance 5=Supervision or Setup 2=Maximal Assistance 6=Modified [place] 3=Moderate Assistance 7=Complete [place] Therapy Quality Codes: 6 Independent with activity with or without an assistive device 5 Patient requires set up or clean up by helper. Patient completes activity by themselves 4 Supervision or touching assist (CGA). [place] provide cues , steadying assist 3 The helper provides less than half the effort to complete the activity 2 The helper provides more than half the effort to complete the activity 1 Dependent. The helper does all the effort to complete an activity 7 Patient refused to complete or attempt activity 9 The patient did not perform the activity before the current illness or injury 88 Not attempted due to Medical conditions or safety concerns Transfers (B, C, W/C) (FIM): 3 Scootin Rollin Supine to/from Sit: 4 Sit to/from Stand: 4 Bed to/from Chair: 3 Mod assist stand pivot to the left side, min assist to the right (almost CGA with cues for positioning). Practiced bed mobility and rolling, transfers to the left and right. Gait Training Gait (FIM): 2 Distance: 50', 40' Gait Level of Assist: 3 Gait Persons Needed: 1 Gait Assistive Device: Walker Ba Patient is able to advance his left leg better with cues, also needs cues for step-through gait, needs assist still with weight shifting but is slowly getting better Wheelchair Training Does the Pt Use a Wheelchair?: Yes Wheelchair (FIM): 5 Distance: 100' Wheelchair Level of Assist: 5 Type of Wheelchair: Manual Exercises sit to stand at parallel bars 2 sets of 5, standing on left leg SLS for about 30 sec each time x2 Treatments bed mobility and transfers, ambulation, functional strengthening, patient was toileted once for a BM but he only was able to urinate Assessment Current Status: Fair Progress improving ambulation PT Short Term Goals Short Term Goals Time Frame: Sep 11, 2018 Transfers (B,C,W/C) (FIM): 3 Gait (FIM): 1 Gait Distance Comment: 20' Gait Level of Assist: 3 Gait Assistive Device: Walker Ba Wheelchair Distance: 50'x2 PT Snf Goals Welding Equipment Repairer Supervisor Goals PT Welding Equipment Repairer Supervisor Goals Time Frame: Sep 25, 2018 Transfers (B,C,W/C) (FIM): 4 Sit to Lying (QC): 4 Lying-Sitting on Side/Bed(QC): 4 Sit to Stand (QC): 4 Rollin Roll Left to Right (QC): 4 Chair/Nsj-ic-Dsdvk Xfer(QC): 4 Car Transfer (QC): 4 Gait (FIM): 2 Distance: 50' Walk 10 feet (QC): 3 Walk 10ft-Uneven Surface(QC): 3 Walk 50ft with 2 Turns (QC): 3 Gait Level of Assist: 4 Gait Assistive Device: Cane Large Base Quad Wheelchair (FIM): 5 Distance: 150' Wheelchair Level of Assist: 5 Wheel 50 feet with 2 turns (QC: 4 PT Plan Problem List Problem List: Activity Tolerance, Functional Strength, Safety, Balance, Gait, Transfer, Bed Mobility, ROM Treatment/Plan Treatment Plan: Continue Plan of Care Treatment Plan: Bed Mobility, Concurrent Therapy, Education, Functional Activity Reena, Functional Strength, Group Therapy, Gait, Safety, Therapeutic Exercise, Transfers Treatment Duration: Sep 25, 2018 Frequency: At least 5 of 7 days/Wk (IRF) Estimated Hrs Per Day: 1.5 hours per day Patient and/or Family Agrees t: Yes Safety Risks/Education Patient Education: Gait Training, Transfer Techniques, Correct Positioning, W/ C Management, Safety Issues Teaching Recipient: Patient Teaching Methods: Demonstration, Discussion Response to Teaching: Reinforcement Needed Time/GCodes Time In: 0800 Time Out: 0950 Total Billed Treatment Time: 50 Total Billed Treatment 1 visit GT 20' FA 20' EX 10' CASTILLO PHIPPS PT Sep 13, 2018 08:53
[2018-09-13] MEDS: HYDROcodone/APAP 5 MG/325 MG (LORTAB) TAB PO PRN (09:38)
--- NOTE | 2018-09-13 10:58 | PM&R Progress Note ---
Subjective This was a face to face visit with the patient. Date Seen by Provider: Sep 13, 2018 Time Seen by Provider: 09:00 Subjective/Events-last exam Patient was seen in his room when he was sitting in chair. Patient is actually walking with assistance and walker now so very dramatic improvement in the left sided weakness from the stroke and able to compensate with aggressive physical therapy Reglan is really helping with the chronic nausea and that confirms the fact it is a gastroparesis problem especially since EGD just showed gastritis No voiding problems Review of Systems Neurological: Weakness, Numbness, Incoordination Objective Physician Exam Last Set of Vital Signs Vital Signs Date Time Temp Pulse Resp B/P (MAP) Pulse Ox O2 Delivery O2 Flow Rate FiO2 09/13/18 05:05 98.6 50 20 105/55 (72) 92 Room Air Capillary Refill : I&O Intake and Output 09/13/18 00:00 Intake Total 1100 ml Output Total 1425 ml Balance -325 ml Intake Oral 1100 ml Output Urine Total 1425 ml General: Alert, Oriented X3, Cooperative, No Acute Distress HEENT: Atraumatic, PERRLA, EOMI, Mucous Memb Moist/[place] Neck: Supple, No JVD, No Thyromegaly, Other (right CEA jona in place) Lungs: Clear to Auscultation, Normal Air Movement Heart: Regular Rate, Normal S1, Normal S2 Abdomen: Normal Bowel Sounds, Soft, No Tenderness, No Hepatosplenomegaly, No Masses Extremities: No Clubbing, No Cyanosis Skin: No Rashes, No Breakdown Neuro: Normal Speech, Other (left sided HP 1/5 left foot flaccid left arm and hand) Psych/Mental Status: Mental Status NL, Other (depressed) Results Lab Data Laboratory Tests 09/10/18 15:39: Glucometer 123H 09/10/18 20:18: Glucometer 142H 09/11/18 05:05: White Blood Count 6.9, Red Blood Count 4.00L, Hemoglobin 12.6L, Hematocrit 36L, Mean Corpuscular Volume 91, Mean Corpuscular Hemoglobin 32, Mean Corpuscular Hemoglobin Concent 35, Red Cell Distribution Width 12.7, Platelet Count 189, Mean Platelet Volume 10.7H, Neutrophils (%) (Auto) 63, Lymphocytes (%) (Auto) 24 , Monocytes (%) (Auto) 11, Eosinophils (%) (Auto) 3, Basophils (%) (Auto) 0, Neutrophils # (Auto) 4.3, Lymphocytes # (Auto) 1.7, Monocytes # (Auto) 0.7, Eosinophils # (Auto) 0.2, Basophils # (Auto) 0.0, Sodium Level 138, Potassium Level 3.9, Chloride Level 105, Carbon Dioxide Level 23, Anion Gap 10, Blood Urea Nitrogen 16, Creatinine 0.85, Estimat Glomerular Filtration Rate > 60, BUN/ Creatinine Ratio 19, Glucose Level 93, Calcium Level 8.6, Corrected Calcium 9.2 , Total Bilirubin 0.7, Aspartate Amino Transf (AST/SGOT) 26, Alanine Aminotransferase (ALT/SGPT) 34, Alkaline Phosphatase 100, Total Protein 6.5, Albumin 3.3 09/11/18 06:17: Glucometer 104 09/11/18 11:31: Glucometer 153H 09/11/18 16:24: Glucometer 94 09/11/18 20:19: Glucometer 137H 09/12/18 04:32: Glucometer 87 09/12/18 10:36: Glucometer 115H 09/12/18 15:28: Glucometer 137H 09/12/18 20:05: Glucometer 174H 09/13/18 06:43: Glucometer 113H Current Funtional Status Gastroparesis much improved with Reglan before meals and at bedtime Maintain voiding schedule when upright emptying bladder into toilet and having no need for catheter Maintain one half of the Bactrim to prevent UTIs and if patient does not require catheter anymore will likely be able to DC but will confer with urology We will go on a day pass this weekend to his home Assessment/Plan Assessment and Plan (1) Cerebrovascular accident (CVA) with left hemiparesis Status: Acute (2) Diabetes mellitus Qualifiers: Qualified Codes: E11.59 - Type 2 diabetes mellitus with other circulatory complications; Z79.4 - medical terminologist (current) use of insulin Status: Chronic (3) Hypertension Qualifiers: Qualified Codes: I10 - Essential (primary) hypertension Status: Chronic (4) Hyperlipidemia Qualifiers: Qualified Codes: E78.2 - Mixed hyperlipidemia Status: Chronic (5) Chronic UTI Status: Chronic (6) Bright red blood per rectum Status: Resolved (7) Constipation Qualifiers: Qualified Codes: K59.01 - Slow transit constipation Status: Resolved (8) Anticoagulant long-term use Status: Chronic (9) BPH (benign prostatic hyperplasia) Qualifiers: Qualified Codes: N40.1 - Benign prostatic hyperplasia with lower urinary tract symptoms; R35.0 - Frequency of micturition Status: Chronic (10) Abnormal findings on esophagogastroduodenoscopy (EGD) Status: Acute (11) Abnormal colonoscopy Status: Acute (12) Gastritis Qualifiers: Qualified Codes: K29.00 - Acute gastritis without bleeding Status: Acute (13) Colon polyps Qualifiers: Qualified Codes: K63.5 - Polyp of colon Status: Acute (14) Nausea Status: Chronic (15) Urinary retention Status: Resolved (16) Shoulder pain, right Qualifiers: Qualified Codes: M25.511 - Pain in right shoulder Status: Acute (17) Gastroparesis Status: Acute Co-Morbidities that are continuing to impact the rehab process: (include details ) DARELL CIFUENTES DO Sep 13, 2018 10:58
[2018-09-13] MEDS: RIVAROXABAN 20 MG TABLET (XARELTO) PO SCH (11:36)
--- NOTE | 2018-09-13 12:49 | Occupational Ther Daily Note ---
OT Current Status-Daily Note Subjective Pt stated, " I am fine today ." Pt's said he is getting grouchy. Pain Numeric Pain Scale: 5-Moderate Pain Location: Left Location Body Site: Shoulder Pain Description: Ache, Sharp Mental Status/Objective Patient Orientation: Person, Place, Time Therapy Code Descriptions/Definitions Functional [place] Measure: 0=Not Assessed/NA 4=Minimal Assistance 1=Total Assistance 5=Supervision or Setup 2=Maximal Assistance 6=Modified [place] 3=Moderate Assistance 7=Complete [place] ADL-Treatment Pt does'nt want to take shower today as he had yesterday, Pt wiped his left side of body with warm wipes & need max A to wipe his right side of body. , brush hairs with SBA supine to sit in bed with min A , sit to stand with min A Pt completed 35 reps x 2sets x 2 lb wts with Rt UE , 35 reps x 2 sets with hand gripper withRt hand, Passive ROM to Left UE, Pt c/o severe pain in Left shoulder. Therapy Code Descriptions/Definitions Functional [place] Measure: 0=Not Assessed/NA 4=Minimal Assistance 1=Total Assistance 5=Supervision or Setup 2=Maximal Assistance 6=Modified [place] 3=Moderate Assistance 7=Complete [place] Therapy Quality Codes: 6 Independent with activity with or without an assistive device 5 Patient requires set up or clean up by helper. Patient completes activity by themselves 4 Supervision or touching assist (CGA). [place] provide cues , steadying assist 3 The helper provides less than half the effort to complete the activity 2 The helper provides more than half the effort to complete the activity 1 Dependent. The helper does all the effort to complete an activity 7 Patient refused to complete or attempt activity 9 The patient did not perform the activity before the current illness or injury 88 Not attempted due to Medical conditions or safety concerns Eating (FIM): 7 Eating (QC): 6 Grooming (FIM): 5 Oral Hygiene (QC): 5 Transfers (B, C, W/C) (FIM): 4 Education OT Patient Education: Correct positioning, Instructions to caregiver, Safety issues Teaching Recipient: Patient, Family Teaching Methods: Demonstration, Discussion Response to Teaching: Verbalize Understanding, Return Demonstration OT Short Term Goals Short Term Goals Time Frame: Sep 19, 2018 Eating(FIM): 7 Grooming(FIM): 7 Bathing(FIM): 3 Bathing Location: L Arm, L Lower Leg (including foot), Chest, Abdomen Upper Body Dressing(FIM): 3 Lower Body Dressing(FIM): 2 Toileting(FIM): 3 Transfers (B,C,W/C) (FIM): 3 Toilet/Commode Transfer(FIM): 3 Shower Transfer(FIM): 3 Additional Short Term Goals: 1-Demonstrate ADL Tasks, 2-Verbalize Understanding , 3-ImproveStrength/Reena 1=Demonstrate adherence to instructed precautions during ADL tasks. 2=Patient will verbalize/demonstrate understanding of assistive devices/ modifications for ADL. 3=Patient will improve strength/tolerance for activity to enable patient to perform ADL's. OT Tape Control Skin Or [place] Operator Goals Assisted Goals Time Frame: Oct 03, 2018 Eating (FIM): 7 Eating (QC): 7 Groomin Oral Hygiene (QC): 7 Bathing(FIM): 3 Bathing Location: L Arm, R Arm, L Lower Leg (including foot), R Lower Leg ( including foot), Chest, Abdomen Shower/Bathe Self (QC): 3 Upper Body Dressing(FIM): 4 Upper Body Dressing (QC): 4 Lower Body Dressing(FIM): 3 Lower Body Dressing (QC): 3 On/Off Footwear (QC): 3 Toileting(FIM): 3 Toileting Hygiene (QC): 3 Transfers (B,C,W/C) (FIM): 3 Toilet/Commode Transfer(FIM): 3 Toilet/Commode Transfer (QC): 3 Shower Transfer(FIM): 3 Comprehension(FIM): 3 Additional Goals: 1-Demonstrate ADL Tasks, 2-Verbalize Understanding, 3- ImproveStrength/Reena 1=Demonstrate adherence to instructed precautions during ADL tasks. 2=Patient will verbalize/demonstrate understanding of assistive devices/ modifications for ADL. 3=Patient will improve strength/tolerance for activity to enable patient to perform ADL's. OT Education/Plan Problem List/Assessment Assessment: Decreased Activ Tolerance, Decreased Safety Aware, Decreased UE Strength, Dependent Transfers, Impaired Bed Mobility, Impaired Cognition, Impaired Coordination, Impaired Funct Balance, Impaired Self-Care Skills Discharge Recommendations Plan/Recommendations: Continue POC Therapy D/C Recommendations: Home w/ Family Support, Occupational Therapy Home Care Equpiment Recommendations-D/C: Extended Shower Sprayer, Assistant Gm Of Content & Delivery Treatment Plan/Plan of Care Treatment,Training & Education: Yes Patient would benefit from OT for education, treatment and training to promote independence in ADL's, mobility, safety and/or upper extremity function for ADL' s. Plan of Care: ADL Retraining, Caregiver Training, Functional Mobility, Group Exercise/Act as Ind, UE Funct Exercise/Act Treatment Duration: Oct 03, 2018 Frequency: At least 5 of 7 days/Wk (IRF) Estimated Hrs Per Day: 1.5 hours per day Agreement: Yes Rehab Potential: Fair Time/GCodes Start Time: 09:45 Stop Time: 10:30 Total Time Billed (hr/min): 45 Billed Treatment Time 1, ADL x 30 min & Ex x 15 min Total 45 min GUTIERREZ GOLDEN OT Sep 13, 2018 12:49
--- NOTE | 2018-09-13 13:14 | Cardiology Progress Note ---
Cardiology SOAP Progress Note Subjective: No cardiac complaints. Objective: I&O/Vital Signs 09/14/18 09/14/18 06:36 09:00 Temp 98.6 Pulse 54 Resp 20 B/P (MAP) 118/62 (80) Pulse Ox 93 O2 Delivery Room Air Room Air 09/14/18 00:00 Intake Total 340 ml Output Total 810 ml Balance -470 ml Weight (Pounds): 211 Weight (Ounces): 8.0 Weight (Calculated Kilograms): 95.665804 Constitutional: No appears stated age; AAO x 3; No apparent distress, No PERRL ; well-developed, well-nourished; No other Respiratory: No accessory muscle use, No respiratory distress, No chest tender ; chest expansion is symmetric, chest is bilaterally symmetric; No lungs clear to percussion; lungs clear to auscultation; No crackles, No rhonchi, No rales, No stridor, No wheezing, No pleural rub, No other Cardiovascular: regular rate-rhythm; No irregularly irregular, No extra beats, No parasternal heave is noted, No JVD, No edema, No bradycardia, No tachycardia , No point of maximal impulse, No cardiac thrills are palpable; S1 and S2; No gallop/S3, No gallop/S4, No diastolic murmur, No systolic murmur, No friction rub, No click, No other Gastrointestional: No tender; soft, round; No distended, No pulsatile mass, No organomegaly, No guarding, No rebound, No tenderness, No hernia, No mass, No audible bowel sounds, No abnormal bowel sounds, No abdominal bruits, No spleenomegaly, No other Extremities: No normal range of motion, No non-tender, No normal inspection, No pedal edema, No calf tenderness, No normal capillary refill, No pelvis stable , No calf tenderness, No inflammation, No pedal edema, No slow capillary refill , No swelling, No other, No abrasion, No clubbing, No cyanosis, No ecchymosis, No laceration; no lower extremity edema bilateral; No significant edema, No tenderness, No wound Neurologic/Psychiatric: alert, normal mood/affect, oriented x 3, other (left side facial droop, left side hemiparesis) Skin: No rash, No ulcerations Results/Procedures: Labs Laboratory Tests 1/18/19 15:38: Glucometer 105 09/13/18 20:20: Glucometer 110 09/14/18 06:28: Glucometer 93 A/P: Assessment/Dx: Assessment: Sinus bradycardia - asymptomatic H/O ischemic CVA - R MCA stroke with left sided hemiparesis - tx at [facility] S/P mechanical thrombectomy for acute stroke right M1 with penumbra aspiration and solitaire thrombus retriever x [address] Valente at [facility] ( 7 days after initial CVA) OAC with Xarelto Echocardiogram of 08-17-18 at [facility] showed LVEF 65%. No significant valvular abnormalities. PASP approx 30 mmHg HTN DM HLD S/P R CEA on 08-23-18 at [facility] by Dr. Arriola CTA of the neck at [facility] showed on 08-20-18 showed severe stenosis of the right internal carotid (subsequent R CEA on 08-23-18) approx 60% stenosis of the prox left internal carotid artery with superimposed penetrating ulcer. Mod stenosis at the left vertebral artery origin. GI bleed - Gastritis with gastric ulcers; small hiatal hernia; colon polyps; Int hemorrhoids per EGD/colo on 09-07-[address] Waggoner (ASA dc'd) BPH with urinary retention - management per Dr. Conawy Plan: Continue current regimen Management of stroke is with the Med Svce Thank you for your consultation. Please call me if you have any questions. Ancelmo Peck MD, FACP, FACC, FSCAI, FHRS, CCDS Interventional Cardiology Cardiac Electrophysiology Vascular Medicine and Endovascular Interventions Donita PECK MD Sep 13, 2018 1:14 pm
--- NOTE | 2018-09-13 13:17 | NUR ---
Discussed the option for a day pass this weekend with patient's . She reports they are interested in going out on pass, but due to pending weather, are not sure if they will go on pass Sunday or Sunday. Nursing and Dr. Meier notified.
--- NOTE | 2018-09-13 13:36 | Speech Therapy Daily Note ---
Speech Daily Progress Note Subjective Date Seen by Provider: Sep 13, 2018 Time Seen by Provider: 00:30 Patient was sitting up in his wheelchair resting. He stated he was tired after PT. Objective Patient completed a series of safety scenarios with 90% accuracy given minimal cues. Assessment Assessment Current Status: Good Progress Treatment Plan Continue Plan of Care Communication Comprehension: 5 Expression: 5 Social Cognition Social Interaction: 5 Problem Solvin Memory: 4 Speech Short Term Goals Short Term Goals Short Term Goals 1) Patient will increase speech intelligibility at the highest functional verbal expression level to 90% or greater. 2) Patient will complete memory tasks with 90% or greater. 3) Patient will complete problem solving tasks with 90% or greater. Speech Warm In Worker Goals Residential Goals Patient will improve memory, problem solving and speech skills to better communicate with familiar and unfamiliar listeners. Comprehension: 3 Speech-Plan Patient/Family Goals Patient/Family Goals: Patient plans to return home with his post rehab with extended family near by for support. Treatment Plan Speech Therapy Treatment Plan: Continue Plan of Care Patient is going home on a day pass this weekend to trial run how it will be when he returns home. Treatment Duration: Sep 16, 2018 Frequency: 5 times per week Estimated Hrs Per Day: .5 hour per day Rehab Potential: Fair Pt/Family Agrees to Plan: Yes Safety Risks/Education Teaching Recipient: Patient, Significant Other Teaching Methods: Discussion Response to Teaching: Verbalize Understanding Education Topics Provided: Safety when he returns home. Time Speech Therapy Time In: 09:00 Speech Therapy Time Out: 09:30 Total Billed Time: 30 Billed Treatment Time 1EILEEN BETHANIA ST Sep 13, 2018 13:35
--- NOTE | 2018-09-13 15:35 | Therapy Group Daily Note ---
Therapy Daily Group Note Patient Education Topic Other List Below (Memory) Exercises LE Seated Exercise, UE Exercise Other/Notes Pt participated in group therapy with 4 to 1 ratio. Goals of session: Pt will verbalize understanding of memory strategies (met). Lead one UE or LE seated exercise during group therapy (met). Pt was propelled using W/C to [facility] for OT/PT group. Group consisted on introductions (name, place living, what would you name a cheetah), socialization, pt led UE/LE seated exercises, memory education/strategies and memory activity. Pt introduced self appropriately and actively listened to peers. Pt acknowledged understanding of memory strategies/education by verbalizing personal strategies. Pt was able to lead one exercise then complete rest of exercises with assistance from EGG SEPARATOR for LLE. During memory activity pt was able to match pictures on turn. Pt will benefit from group by increasing short term memory and use strategies during daily functional tasks. Pt will be able to complete UE/LE seated exercises after discharge. After group , pt was propelled back to room and laid in bed. Call light/phone in reach. All needs met in room. Start Time: 13:00 Stop Time: 14:15 Total Billed Treatment Time: 75 Total Billed Treatment 1, GRP (75m) AARTI POSADA PTA Sep 13, 2018 15:35
[2018-09-13] MEDS: TAMSULOSIN 0.4 MG (FLOMAX) CAP PO SCH (17:04)
[2018-09-13 18:19] VITALS: BP 124/64
[2018-09-13] MEDS: ALPRAZolam 0.25 MG (XANAX) TAB PO PRN (20:28)
[2018-09-13] MEDS: TRIM/SULFAMETH 160/800 (SEPTRA DS) TAB PO SCH (20:28)
[2018-09-13] MEDS: ATORVASTATIN 40 MG (LIPITOR) TABLET PO SCH (20:28)
[2018-09-13] MEDS: inSUlin DETERMIR 1 UNIT/0.01 ML (LEVEMIR) CHARGE PER UNIT SQ SCH (20:28)
[2018-09-14] MEDS: CYANOCOBALAMIN 1,000 MCG (VITAMIN B-12) TABLET PO SCH (06:30)
[2018-09-14] MEDS: METOCLOPRAMIDE 10 MG (REGLAN) TAB PO SCH ×3 (06:30→20:01)
[2018-09-14] MEDS: metFORMIN XR 500 MG (GLUCOPHAGE XR) TAB PO SCH ×2 (06:30→20:02)
[2018-09-14] MEDS: inSUlin ASPART (NovoLOG) 1 UNIT/0.01 ML (CHARGE PER UNIT) SC SCH ×4 (06:35→21:15)
[2018-09-14 06:36] VITALS: BP 118/62
[2018-09-14] MEDS: PYRIDOXINE (VITAMIN B-6) 50 MG TABLET PO SCH (08:35)
[2018-09-14] MEDS: amLODIPine 10 MG (NORVASC) TAB PO SCH (08:35)
[2018-09-14] MEDS: FLUoxetine HCL 20 MG (PROzac) CAP PO SCH (08:35)
[2018-09-14] MEDS: MAGNESIUM OXIDE (MAG-OX)400 MG TAB PO SCH (08:35)
[2018-09-14] MEDS: CARVEDILOL 12.5 MG (COREG) TABLET PO SCH ×2 (08:35→20:01)
[2018-09-14] MEDS: ZINC SULFATE 220 MG CAPSULE PO SCH (08:35)
[2018-09-14] MEDS: VITAMIN D3 1,000 UNITS (CHOLECALCIFEROL) TABLET PO SCH (08:35)
[2018-09-14] MEDS: SENNA W/DOCUSATE (SENOKOT S) TABLET PO SCH ×2 (09:00→20:01)
[2018-09-14] MEDS: BISACODYL 10 MG SUPP (DULCOLAX) PR SCH ×2 (09:00→21:15)
[2018-09-14] MEDS: LORATADINE (CLARITIN) 10 MG TAB PO SCH (11:07)
[2018-09-14] MEDS: RIVAROXABAN 20 MG TABLET (XARELTO) PO SCH (11:07)
--- NOTE | 2018-09-14 11:15 | NUR ---
Patient left facility in Wheelchair for Day Pass. This nurse assisted patient into private vehicle. Wheelchair, pedals, gait belt, and urinal sent with patient.
--- NOTE | 2018-09-14 11:26 | Physical Therapy Daily Note ---
PT Daily Note-Current Subjective Pt preparing to leave for a family visit to home as soon as therapy is finished. Transfers Therapy Code Descriptions/Definitions Functional [place] Measure: 0=Not Assessed/NA 4=Minimal Assistance 1=Total Assistance 5=Supervision or Setup 2=Maximal Assistance 6=Modified [place] 3=Moderate Assistance 7=Complete [place] Therapy Quality Codes: 6 Independent with activity with or without an assistive device 5 Patient requires set up or clean up by helper. Patient completes activity by themselves 4 Supervision or touching assist (CGA). [place] provide cues , steadying assist 3 The helper provides less than half the effort to complete the activity 2 The helper provides more than half the effort to complete the activity 1 Dependent. The helper does all the effort to complete an activity 7 Patient refused to complete or attempt activity 9 The patient did not perform the activity before the current illness or injury 88 Not attempted due to Medical conditions or safety concerns Transfers (B, C, W/C) (FIM): 3 Bed to/from Chair: 3 Gait Training Gait (FIM): 1 Distance: 20 Gait Persons Needed: 1 Gait Assistive Device: Walker Ba Ambulate 20ft x 3 trials with hemiwalker. Requires Mod A to sift wt to right LE in order to advance the left LE. PT Short Term Goals Short Term Goals Time Frame: Sep 11, 2018 Transfers (B,C,W/C) (FIM): 3 Gait (FIM): 1 Gait Distance Comment: 20' Gait Level of Assist: 3 Gait Assistive Device: Walker Ba Wheelchair Distance: 100' PT Retirement Goals Retirement Goals PT Sterile Preparation Technician Goals Time Frame: Sep 25, 2018 Transfers (B,C,W/C) (FIM): 4 Sit to Lying (QC): 4 Lying-Sitting on Side/Bed(QC): 4 Sit to Stand (QC): 4 Rollin Roll Left to Right (QC): 4 Chair/Hxp-di-Dinld Xfer(QC): 4 Car Transfer (QC): 4 Gait (FIM): 2 Distance: 50' Walk 10 feet (QC): 3 Walk 10ft-Uneven Surface(QC): 3 Walk 50ft with 2 Turns (QC): 3 Gait Level of Assist: 4 Gait Assistive Device: Cane Large Base Quad Wheelchair (FIM): 5 Distance: 150' Wheelchair Level of Assist: 5 Wheel 50 feet with 2 turns (QC: 4 PT Plan Treatment/Plan Treatment Plan: Continue Plan of Care Treatment Plan: Bed Mobility, Concurrent Therapy, Education, Functional Activity Reena, Functional Strength, Group Therapy, Gait, Safety, Therapeutic Exercise, Transfers Treatment Duration: Sep 25, 2018 Frequency: At least 5 of 7 days/Wk (IRF) Estimated Hrs Per Day: 1.5 hours per day Patient and/or Family Agrees t: Yes Time/GCodes Time In: 1100 Time Out: 1115 Total Billed Treatment Time: 15 Total Billed Treatment visit, gait 15min SANTI MARROQUIN PT Sep 14, 2018 11:26
--- NOTE | 2018-09-14 13:51 | Cardiology Progress Note ---
Cardiology SOAP Progress Note Subjective: No cardiac complaints. Objective: I&O/Vital Signs 09/14/18 09/14/18 06:36 09:00 Temp 98.6 Pulse 54 Resp 20 B/P (MAP) 118/62 (80) Pulse Ox 93 O2 Delivery Room Air Room Air 09/14/18 00:00 Intake Total 340 ml Output Total 810 ml Balance -470 ml Weight (Pounds): 211 Weight (Ounces): 8.0 Weight (Calculated Kilograms): 95.635281 Constitutional: No appears stated age; AAO x 3; No apparent distress, No PERRL ; well-developed, well-nourished; No other Respiratory: No accessory muscle use, No respiratory distress, No chest tender ; chest expansion is symmetric, chest is bilaterally symmetric; No lungs clear to percussion; lungs clear to auscultation; No crackles, No rhonchi, No rales, No stridor, No wheezing, No pleural rub, No other Cardiovascular: regular rate-rhythm; No irregularly irregular, No extra beats, No parasternal heave is noted, No JVD, No edema, No bradycardia, No tachycardia , No point of maximal impulse, No cardiac thrills are palpable; S1 and S2; No gallop/S3, No gallop/S4, No diastolic murmur, No systolic murmur, No friction rub, No click, No other Gastrointestional: No tender; soft, round; No distended, No pulsatile mass, No organomegaly, No guarding, No rebound, No tenderness, No hernia, No mass, No audible bowel sounds, No abnormal bowel sounds, No abdominal bruits, No spleenomegaly, No other Extremities: No normal range of motion, No non-tender, No normal inspection, No pedal edema, No calf tenderness, No normal capillary refill, No pelvis stable , No calf tenderness, No inflammation, No pedal edema, No slow capillary refill , No swelling, No other, No abrasion, No clubbing, No cyanosis, No ecchymosis, No laceration; no lower extremity edema bilateral; No significant edema, No tenderness, No wound Neurologic/Psychiatric: alert, normal mood/affect, oriented x 3, other (left side facial droop, left side hemiparesis) Skin: No rash, No ulcerations Results/Procedures: Labs Laboratory Tests 1/18/19 15:38: Glucometer 105 09/13/18 20:20: Glucometer 110 09/14/18 06:28: Glucometer 93 A/P: Assessment/Dx: Assessment: Sinus bradycardia - asymptomatic H/O ischemic CVA - R MCA stroke with left sided hemiparesis - tx at [facility] S/P mechanical thrombectomy for acute stroke right M1 with penumbra aspiration and solitaire thrombus retriever x [address] Valente at [facility] ( 7 days after initial CVA) OAC with Xarelto Echocardiogram of 08-17-18 at [facility] showed LVEF 65%. No significant valvular abnormalities. PASP approx 30 mmHg HTN DM HLD S/P R CEA on 08-23-18 at [facility] by Dr. Arriola CTA of the neck at [facility] showed on 08-20-18 showed severe stenosis of the right internal carotid (subsequent R CEA on 08-23-18) approx 60% stenosis of the prox left internal carotid artery with superimposed penetrating ulcer. Mod stenosis at the left vertebral artery origin. GI bleed - Gastritis with gastric ulcers; small hiatal hernia; colon polyps; Int hemorrhoids per EGD/colo on 09-07-[address] Waggoner (ASA dc'd) BPH with urinary retention - management per Dr. Conway Plan: Continue current regimen Management of stroke is with the Med Svce Thank you for your consultation. Please call me if you have any questions. Ancelmo Peck MD, FACP, FACC, FSCAI, FHRS, CCDS Interventional Cardiology Cardiac Electrophysiology Vascular Medicine and Endovascular Interventions Donita PECK MD Sep 14, 2018 1:51 pm
--- NOTE | 2018-09-14 19:30 | NUR ---
Patient back from . Staff assisted patient from car to wheelchair and helped patient to bed. stated that patient ate 100% of his supper and voided urine two times. Addendum: 09/14/18 at 2226 by YURY NORIEGA RN stated that they didn't have any problems while on the pass.
[2018-09-14] MEDS: ALPRAZolam 0.25 MG (XANAX) TAB PO PRN (20:00)
[2018-09-14] MEDS: TRIM/SULFAMETH 160/800 (SEPTRA DS) TAB PO SCH (20:01)
[2018-09-14] MEDS: TAMSULOSIN 0.4 MG (FLOMAX) CAP PO SCH (20:02)
[2018-09-14] MEDS: ATORVASTATIN 40 MG (LIPITOR) TABLET PO SCH (20:02)
[2018-09-14] MEDS: inSUlin DETERMIR 1 UNIT/0.01 ML (LEVEMIR) CHARGE PER UNIT SQ SCH (20:03)
[2018-09-15] MEDS: CYANOCOBALAMIN 1,000 MCG (VITAMIN B-12) TABLET PO SCH (06:01)
[2018-09-15] MEDS: METOCLOPRAMIDE 10 MG (REGLAN) TAB PO SCH ×4 (06:02→20:27)
[2018-09-15] MEDS: metFORMIN XR 500 MG (GLUCOPHAGE XR) TAB PO SCH ×2 (06:02→17:43)
[2018-09-15] MEDS: inSUlin ASPART (NovoLOG) 1 UNIT/0.01 ML (CHARGE PER UNIT) SC SCH ×4 (06:04→20:32)
[2018-09-15 06:16] VITALS: BP 148/71
[2018-09-15 08:41] VITALS: BP 135/76
[2018-09-15] MEDS: MAGNESIUM OXIDE (MAG-OX)400 MG TAB PO SCH (08:41)
[2018-09-15] MEDS: LORATADINE (CLARITIN) 10 MG TAB PO SCH (08:41)
[2018-09-15] MEDS: amLODIPine 10 MG (NORVASC) TAB PO SCH (08:42)
[2018-09-15] MEDS: FLUoxetine HCL 20 MG (PROzac) CAP PO SCH (08:42)
[2018-09-15] MEDS: CARVEDILOL 12.5 MG (COREG) TABLET PO SCH ×2 (08:42→20:27)
[2018-09-15] MEDS: PYRIDOXINE (VITAMIN B-6) 50 MG TABLET PO SCH (08:42)
[2018-09-15] MEDS: VITAMIN D3 1,000 UNITS (CHOLECALCIFEROL) TABLET PO SCH (08:42)
[2018-09-15] MEDS: ZINC SULFATE 220 MG CAPSULE PO SCH (08:42)
[2018-09-15] MEDS: SENNA W/DOCUSATE (SENOKOT S) TABLET PO SCH ×2 (09:00→20:27)
[2018-09-15] MEDS: BISACODYL 10 MG SUPP (DULCOLAX) PR SCH ×2 (09:00→20:32)
[2018-09-15] MEDS: RIVAROXABAN 20 MG TABLET (XARELTO) PO SCH (11:41)
--- NOTE | 2018-09-15 12:50 | PM&R Progress Note ---
Subjective HPI/CC On Admission Date Seen by Provider: Sep 15, 2018 Time Seen by Provider: 11:00 Subjective/Events-last exam Day pass went very well yesterday Has a lot of confidence now at bedside Able to push with left foot Has an appointment at Sunday for right endarterectomy Left hand is tingling which is a good sign No urinary retention on Flomax Chronic nausea from gastroparesis resolved with Reglan Review of Systems Neurological: Weakness, Numbness, Incoordination Objective Exam Vital Signs Vital Signs Date Time Temp Pulse Resp B/P (MAP) Pulse Ox O2 Delivery O2 Flow Rate FiO2 09/15/18 09:00 Room Air 09/15/18 08:41 56 135/76 (95) 09/15/18 06:16 97.4 18 96 Capillary Refill : General Appearance: No Apparent Distress, WD/WN Respiratory: Chest Non Tender, Lungs Clear, Normal Breath Sounds, No Accessory Muscle Use, No Respiratory Distress Cardiovascular: Regular Rate, Rhythm, No Edema, No Gallop, No JVD, No Murmur, Normal Peripheral Pulses Gastrointestinal: Normal Bowel Sounds, No Organomegaly, No Pulsatile Mass, Non Tender, Soft Neurologic/Psychiatric: Alert, Oriented x3, Normal Mood/Affect, Motor Weakness (left lower leg 2/5, left hand 1/5) Results/Procedures Lab Patient resulted labs reviewed. Assessment/Plan Assessment and Plan Assess & Plan/Chief Complaint Assessment Subacute CVA 08/16/18 with left sided weakness Severe carotid stenosis right s/p endarterectomy but no resolution of deficit has appt at [facility] Sunday DM on insulin Chronic UTI but normal cystoscopy 09/06/18 but BPH noted and placed on Flomax from Urology now receiving straight caths if retention on bladder scan and patient agrees for self cath at [place] per Urology placed on Bactrim 1/2 tablet at night to prevent UTI due to catheters but now voiding well when up to toilet and no longer needs catheters since no residual HTN HLP Constipation recurrent issue resolved now Hematochezia episode with Heme + stools but gastritis and colon polyps noted on EGD/Colonoscopy on 09/07/[address] Waggoner Chronic nausea improved on Reglan confirming gastroparesis as the source Plan: Maintain ASA and anticoagulation Follow up on polyp pathology Monitor sugar control and adjust insulin prn Maintain urinary management since h/o chronic UTI and maintain on Flomax per Urology in addition to self caths to prevent retention but now voiding well and no caths needed as long as upright to toilet PPI and maintain on Flomax at DC Zofran Constipation treatment maintained Reglan at [place] Diagnosis/Problems Diagnosis/Problems (1) Cerebrovascular accident (CVA) with left hemiparesis Status: Acute (2) Diabetes mellitus Status: Chronic Qualifiers: Diabetes mellitus type: type 2 Diabetes mellitus shelter insulin use: with shelter use Diabetes mellitus complication status: with circulatory complication Diabetes mellitus complication detail: with other circulatory complications Qualified Codes: E11.59 - Type 2 diabetes mellitus with other circulatory complications; 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 (3) Hypertension Status: Chronic Qualifiers: Hypertension type: essential hypertension Qualified Codes: I10 - Essential (primary) hypertension (4) Hyperlipidemia Status: Chronic Qualifiers: Hyperlipidemia type: mixed hyperlipidemia Qualified Codes: E78.2 - Mixed hyperlipidemia (5) Chronic UTI Status: Chronic (6) Bright red blood per rectum Status: Resolved Resolution Date/Time: 09/07/18 @ 15:48 (7) Constipation Status: Resolved Qualifiers: Constipation type: slow transit constipation Qualified Codes: K59.01 - Slow transit constipation Resolution Date/Time: 09/11/18 @ 11:41 (8) Anticoagulant long-term use Status: Chronic (9) BPH (benign prostatic hyperplasia) Status: Chronic Qualifiers: Lower urinary tract symptom presence: symptoms present Lower urinary tract symptom detail: urinary frequency Qualified Codes: N40.1 - Benign prostatic hyperplasia with lower urinary tract symptoms; R35.0 - Frequency of micturition (10) Abnormal findings on esophagogastroduodenoscopy (EGD) Status: Acute (11) Abnormal colonoscopy Status: Acute (12) Gastritis Status: Acute Qualifiers: Gastritis type: unspecified gastritis Chronicity: acute Gastritis bleeding: without bleeding Qualified Codes: K29.00 - Acute gastritis without bleeding (13) Colon polyps Status: Acute Qualifiers: Colon polyp type: unspecified Colon location: unspecified part of colon Qualified Codes: K63.5 - Polyp of colon (14) Nausea Status: Chronic (15) Urinary retention Status: Resolved Resolution Date/Time: 09/12/18 @ 10:40 (16) Shoulder pain, right Status: Acute Qualifiers: Chronicity: acute Qualified Codes: M25.511 - Pain in right shoulder (17) Gastroparesis Status: Acute Clinical Quality Measures Admission Status Admission Dx Assessment Subacute CVA 08/16/18 with left sided weakness Severe carotid stenosis right s/p endarterectomy but no resolution of deficit DM Chronic UTI HTN HLP Plan: Monitor BP Maintain all new meds per [facility] including asa and anticoagulation Therapies as ordered for intensive rehab DVT/VTE Risk/Contraindication: Risk Factor Score Per Nursin RFS Level Per Nursing on Admit: 4+=Very High DARELL CIFUENTES DO Sep 15, 2018 12:50
--- NOTE | 2018-09-15 15:02 | Cardiology Progress Note ---
Cardiology SOAP Progress Note Subjective: No cardiac complaints. Objective: I&O/Vital Signs 09/15/18 09/15/18 09/15/18 06:16 08:41 09:00 Temp 97.4 Pulse 56 56 Resp 18 B/P (MAP) 148/71 (96) 135/76 (95) Pulse Ox 96 O2 Delivery Room Air Room Air Weight (Pounds): 211 Weight (Ounces): 8.0 Weight (Calculated Kilograms): 95.543867 Constitutional: No appears stated age; AAO x 3; No apparent distress, No PERRL ; well-developed, well-nourished; No other Respiratory: No accessory muscle use, No respiratory distress, No chest tender ; chest expansion is symmetric, chest is bilaterally symmetric; No lungs clear to percussion; lungs clear to auscultation; No crackles, No rhonchi, No rales, No stridor, No wheezing, No pleural rub, No other Cardiovascular: regular rate-rhythm; No irregularly irregular, No extra beats, No parasternal heave is noted, No JVD, No edema, No bradycardia, No tachycardia , No point of maximal impulse, No cardiac thrills are palpable; S1 and S2; No gallop/S3, No gallop/S4, No diastolic murmur, No systolic murmur, No friction rub, No click, No other Gastrointestional: No tender; soft, round; No distended, No pulsatile mass, No organomegaly, No guarding, No rebound, No tenderness, No hernia, No mass, No audible bowel sounds, No abnormal bowel sounds, No abdominal bruits, No spleenomegaly, No other Extremities: No normal range of motion, No non-tender, No normal inspection, No pedal edema, No calf tenderness, No normal capillary refill, No pelvis stable , No calf tenderness, No inflammation, No pedal edema, No slow capillary refill , No swelling, No other, No abrasion, No clubbing, No cyanosis, No ecchymosis, No laceration; no lower extremity edema bilateral; No significant edema, No tenderness, No wound Neurologic/Psychiatric: alert, normal mood/affect, oriented x 3, other (left side facial droop, left side hemiparesis) Skin: No rash, No ulcerations Results/Procedures: Labs Laboratory Tests 09/14/18 19:58: Glucometer 150H 09/15/18 06:04: Glucometer 140H 09/15/18 11:40: Glucometer 158H A/P: Assessment/Dx: Assessment: Sinus bradycardia - asymptomatic H/O ischemic CVA - R MCA stroke with left sided hemiparesis - tx at [facility] S/P mechanical thrombectomy for acute stroke right M1 with penumbra aspiration and solitaire thrombus retriever x [address] Valente at [facility] ( 7 days after initial CVA) OAC with Xarelto Echocardiogram of 08-17-18 at [facility] showed LVEF 65%. No significant valvular abnormalities. PASP approx 30 mmHg HTN DM HLD S/P R CEA on 08-23-18 at [facility] by Dr. Arriola CTA of the neck at [facility] showed on 08-20-18 showed severe stenosis of the right internal carotid (subsequent R CEA on 08-23-18) approx 60% stenosis of the prox left internal carotid artery with superimposed penetrating ulcer. Mod stenosis at the left vertebral artery origin. GI bleed - Gastritis with gastric ulcers; small hiatal hernia; colon polyps; Int hemorrhoids per EGD/colo on 09-07-[address] Waggoner (ASA dc'd) BPH with urinary retention - management per Dr. Conway Plan: Continue current regimen Management of stroke is with the Med Svce Thank you for your consultation. Please call me if you have any questions. Ancelmo Peck MD, FACP, FACC, FSCAI, FHRS, CCDS Interventional Cardiology Cardiac Electrophysiology Vascular Medicine and Endovascular Interventions Donita PECK MD Sep 15, 2018 3:02 pm
[2018-09-15] MEDS: ALPRAZolam 0.25 MG (XANAX) TAB PO PRN (15:41)
--- NOTE | 2018-09-15 16:17 | NUR ---
Weekly Summary: Patient is alert and oriented x4, continuing to participate in all therapy disciplines. Goal is to return home with family support. Patient experienced difficulty with urination this past week. Dr. Conway consulted, cysto performed at bedside. Teaching for straight cath given. Patient was to be straight cathed if residual volume of bladder was > 300 cc. After multiple scans over the week, there was not need of straight cath. Patient was started on Flomax and is now urinating more frequently at greater volumes. Urine has gone from a dark deandra/tea colored to yellow. Patient was out on a day pass on 09/14/18 to home. Visit went well with no issues. Patient is very motivated to return home. Transfers are requiring less contribution of physical strength from staff. Patient is still unable to squeeze with left hand or hold up left arm. He is able to move his left leg some and is able to push against resistance with left foot. Patient began walking with therapy with aid of ada-walker and gait-belt this week. Patient has experienced stomach upset and was started on Reglan. Patient's is very involved in care and will be main support of care upon returning home.
[2018-09-15] MEDS: TAMSULOSIN 0.4 MG (FLOMAX) CAP PO SCH (17:43)
[2018-09-15 18:00] VITALS: BP 145/68
[2018-09-15 18:02] VITALS: BP 128/72
[2018-09-15] MEDS: inSUlin DETERMIR 1 UNIT/0.01 ML (LEVEMIR) CHARGE PER UNIT SQ SCH (20:27)
[2018-09-15] MEDS: ATORVASTATIN 40 MG (LIPITOR) TABLET PO SCH (20:27)
[2018-09-15] MEDS: TRIM/SULFAMETH 160/800 (SEPTRA DS) TAB PO SCH (20:27)
[2018-09-15] MEDS: HYDROcodone/APAP 5 MG/325 MG (LORTAB) TAB PO PRN (22:56)
[2018-09-16] MEDS: METOCLOPRAMIDE 10 MG (REGLAN) TAB PO SCH ×4 (06:34→20:36)
[2018-09-16] MEDS: CYANOCOBALAMIN 1,000 MCG (VITAMIN B-12) TABLET PO SCH (06:34)
[2018-09-16] MEDS: metFORMIN XR 500 MG (GLUCOPHAGE XR) TAB PO SCH ×2 (06:35→16:50)
[2018-09-16 06:39] VITALS: BP 147/78
[2018-09-16] MEDS: inSUlin ASPART (NovoLOG) 1 UNIT/0.01 ML (CHARGE PER UNIT) SC SCH ×4 (06:39→20:40)
--- NOTE | 2018-09-16 08:41 | Physical Therapy Daily Note ---
PT Daily Note-Current Subjective Patient in bed pre tx, agrees to PT, has no complaints of pain. Appearance Patient in bed post tx with nurse call, phone, tray, in room. Mental Status Patient Orientation: Person, Place, Situation Transfers Therapy Code Descriptions/Definitions Functional [place] Measure: 0=Not Assessed/NA 4=Minimal Assistance 1=Total Assistance 5=Supervision or Setup 2=Maximal Assistance 6=Modified [place] 3=Moderate Assistance 7=Complete [place] Therapy Quality Codes: 6 Independent with activity with or without an assistive device 5 Patient requires set up or clean up by helper. Patient completes activity by themselves 4 Supervision or touching assist (CGA). Shock provide cues , steadying assist 3 The helper provides less than half the effort to complete the activity 2 The helper provides more than half the effort to complete the activity 1 Dependent. The helper does all the effort to complete an activity 7 Patient refused to complete or attempt activity 9 The patient did not perform the activity before the current illness or injury 88 Not attempted due to Medical conditions or safety concerns Transfers (B, C, W/C) (FIM): 4 Scootin Rollin Supine to/from Sit: 5 Sit to/from Stand: 4 Bed to/from Chair: 4 Gait Training Gait (FIM): 2 Distance: 50'x2 Gait Level of Assist: 4 Gait Persons Needed: 1 Gait Assistive Device: Walker Ba Min assist for weight shifting and balance. Exercises NuStep Minutes: 15 NuStep Workload: 5 Treatments bed mobility and transfers, ambulation, functional strengthening Assessment Current Status: Fair Progress slowly improving balance and ambulation PT Short Term Goals Short Term Goals Time Frame: Sep 11, 2018 Transfers (B,C,W/C) (FIM): 3 Gait (FIM): 1 Gait Distance Comment: 20' Gait Level of Assist: 3 Gait Assistive Device: Walker Ba Wheelchair Distance: 100' PT Custodial Goals Custodial Goals PT Custodial Goals Time Frame: Sep 25, 2018 Transfers (B,C,W/C) (FIM): 4 Sit to Lying (QC): 4 Lying-Sitting on Side/Bed(QC): 4 Sit to Stand (QC): 4 Rollin Roll Left to Right (QC): 4 Chair/Syk-jv-Yqwio Xfer(QC): 4 Car Transfer (QC): 4 Gait (FIM): 2 Distance: 50' Walk 10 feet (QC): 3 Walk 10ft-Uneven Surface(QC): 3 Walk 50ft with 2 Turns (QC): 3 Gait Level of Assist: 4 Gait Assistive Device: Cane Large Base Quad Wheelchair (FIM): 5 Distance: 150' Wheelchair Level of Assist: 5 Wheel 50 feet with 2 turns (QC: 4 PT Plan Problem List Problem List: Activity Tolerance, Functional Strength, Safety, Balance, Gait, Transfer, Bed Mobility, ROM Treatment/Plan Treatment Plan: Continue Plan of Care Treatment Plan: Bed Mobility, Concurrent Therapy, Education, Functional Activity Reena, Functional Strength, Group Therapy, Gait, Safety, Therapeutic Exercise, Transfers Treatment Duration: Sep 25, 2018 Frequency: At least 5 of 7 days/Wk (IRF) Estimated Hrs Per Day: 1.5 hours per day Patient and/or Family Agrees t: Yes Safety Risks/Education Patient Education: Gait Training, Transfer Techniques, Correct Positioning, Safety Issues Teaching Recipient: Patient Teaching Methods: Demonstration, Discussion Response to Teaching: Reinforcement Needed Time/GCodes Time In: 0800 Time Out: 0845 Total Billed Treatment Time: 45 Total Billed Treatment 1 visit EX 15' GT 30' CASTILLO PHIPPS PT Sep 16, 2018 08:41
--- NOTE | 2018-09-16 08:46 | PM&R Progress Note ---
Subjective This was a face to face visit with the patient. Date Seen by Provider: Sep 16, 2018 Time Seen by Provider: 08:15 Subjective/Events-last exam Patient was seen in his room while in bed Bowels are moving well Joselito gland really helping the gastroparesis that has caused chronic nausea No urinary issues since maintained on Flomax and has not required any catheter No pain is reported I witnessed him walking with a walker cane Review of Systems Neurological: Weakness Objective Physician Exam Last Set of Vital Signs Vital Signs Date Time Temp Pulse Resp B/P (MAP) Pulse Ox O2 Delivery O2 Flow Rate FiO2 09/16/18 06:39 96.9 50 20 147/78 (101) 95 Room Air Capillary Refill : I&O Intake and Output 09/16/18 00:00 Intake Total 900 ml Output Total 1375 ml Balance -475 ml Intake Oral 900 ml Output Urine Total 1375 ml # Voids 2 # Bowel Movements 2 General: Alert, Oriented X3, Cooperative, No Acute Distress HEENT: Atraumatic, PERRLA, EOMI, Mucous Memb Moist/[place] Neck: Supple, No JVD, No Thyromegaly, Other (right CEA jona in place) Lungs: Clear to Auscultation, Normal Air Movement Heart: Regular Rate, Normal S1, Normal S2 Abdomen: Normal Bowel Sounds, Soft, No Tenderness, No Hepatosplenomegaly, No Masses Extremities: No Clubbing, No Cyanosis Skin: No Rashes, No Breakdown Neuro: Normal Speech, Other (left sided HP 1/5 left foot flaccid left arm and hand) Psych/Mental Status: Mental Status NL, Other (depressed) Results Lab Data Laboratory Tests 09/13/18 10:59: Glucometer 171H 09/13/18 15:38: Glucometer 105 09/13/18 20:20: Glucometer 110 09/14/18 06:28: Glucometer 93 09/14/18 19:58: Glucometer 150H 09/15/18 06:04: Glucometer 140H 09/15/18 11:40: Glucometer 158H 09/15/18 17:42: Glucometer 153H 09/15/18 20:21: Glucometer 120H 09/16/18 06:32: Glucometer 98 Current Funtional Status Continue therapies Patient has improved immensely Able to walk Monitor blood sugars Monitor blood pressure Assessment/Plan Assessment and Plan (1) Cerebrovascular accident (CVA) with left hemiparesis Status: Acute (2) Diabetes mellitus Qualifiers: Qualified Codes: E11.59 - Type 2 diabetes mellitus with other circulatory complications; 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 Status: Chronic (3) Hypertension Qualifiers: Qualified Codes: I10 - Essential (primary) hypertension Status: Chronic (4) Hyperlipidemia Qualifiers: Qualified Codes: E78.2 - Mixed hyperlipidemia Status: Chronic (5) Chronic UTI Status: Chronic (6) Bright red blood per rectum Status: Resolved (7) Constipation Qualifiers: Qualified Codes: K59.01 - Slow transit constipation Status: Resolved (8) Anticoagulant long-term use Status: Chronic (9) BPH (benign prostatic hyperplasia) Qualifiers: Qualified Codes: N40.1 - Benign prostatic hyperplasia with lower urinary tract symptoms; R35.0 - Frequency of micturition Status: Chronic (10) Abnormal findings on esophagogastroduodenoscopy (EGD) Status: Acute (11) Abnormal colonoscopy Status: Acute (12) Gastritis Qualifiers: Qualified Codes: K29.00 - Acute gastritis without bleeding Status: Acute (13) Colon polyps Qualifiers: Qualified Codes: K63.5 - Polyp of colon Status: Acute (14) Nausea Status: Chronic (15) Urinary retention Status: Resolved (16) Shoulder pain, right Qualifiers: Qualified Codes: M25.511 - Pain in right shoulder Status: Acute (17) Gastroparesis Status: Acute Co-Morbidities that are continuing to impact the rehab process: (include details ) DARELL CIFUENTES DO Sep 16, 2018 08:46
[2018-09-16] MEDS: PYRIDOXINE (VITAMIN B-6) 50 MG TABLET PO SCH (08:58)
[2018-09-16] MEDS: VITAMIN D3 1,000 UNITS (CHOLECALCIFEROL) TABLET PO SCH (08:59)
[2018-09-16] MEDS: FLUoxetine HCL 20 MG (PROzac) CAP PO SCH (08:59)
[2018-09-16] MEDS: MAGNESIUM OXIDE (MAG-OX)400 MG TAB PO SCH (09:00)
[2018-09-16] MEDS: ZINC SULFATE 220 MG CAPSULE PO SCH (09:00)
[2018-09-16] MEDS: LORATADINE (CLARITIN) 10 MG TAB PO SCH (09:00)
[2018-09-16] MEDS: CARVEDILOL 12.5 MG (COREG) TABLET PO SCH ×2 (09:01→20:35)
[2018-09-16] MEDS: amLODIPine 10 MG (NORVASC) TAB PO SCH (09:04)
[2018-09-16] MEDS: SENNA W/DOCUSATE (SENOKOT S) TABLET PO SCH ×2 (09:04→20:39)
[2018-09-16] MEDS: BISACODYL 10 MG SUPP (DULCOLAX) PR SCH ×2 (09:06→20:40)
--- NOTE | 2018-09-16 11:00 | Speech Therapy Daily Note ---
Speech Daily Progress Note Subjective Date Seen by Provider: Sep 16, 2018 Time Seen by Provider: 00:30 Patient was very happy today after his day pass on Sunday and seeing his family. He is much more motivated toward recovery. Objective Patient completed speech therapy drills for strengthening the left side of the face with 90% accuracy given min to mod visual and verbal cues. Assessment Assessment Current Status: Good Progress Treatment Plan Continue Plan of Care Communication Comprehension: 5 Expression: 5 Social Cognition Social Interaction: 5 Problem Solvin Memory: 4 Speech Short Term Goals Short Term Goals Short Term Goals 1) Patient will increase speech intelligibility at the highest functional verbal expression level to 90% or greater. 2) Patient will complete memory tasks with 90% or greater. 3) Patient will complete problem solving tasks with 90% or greater. Speech Canvas Cutter Goals Canvas Cutter Goals Patient will improve memory, problem solving and speech skills to better communicate with familiar and unfamiliar listeners. Comprehension: 3 Speech-Plan Patient/Family Goals Patient/Family Goals: Patient plans to return home with his post rehab. Treatment Plan Speech Therapy Treatment Plan: Continue Plan of Care Patient is making good progress as a result of skilled ST services. Treatment Duration: Sep 20, 2018 Frequency: 5 times per week Estimated Hrs Per Day: .5 hour per day Rehab Potential: Fair Barriers to Learning: Patient tires easily at times. Pt/Family Agrees to Plan: Yes Safety Risks/Education Teaching Recipient: Patient, Significant Other Teaching Methods: Discussion Response to Teaching: Verbalize Understanding Education Topics Provided: Oral motor exercises to continue at home. Time Speech Therapy Time In: 09:00 Speech Therapy Time Out: 09:30 Total Billed Time: 30 Billed Treatment Time 1EILEEN BETHANIA ST Sep 16, 2018 11:00
--- NOTE | 2018-09-16 11:09 | Occupational Ther Daily Note ---
OT Current Status-Daily Note Subjective Pt stated that " I am doing good . I am hungry. Pain Numeric Pain Scale: 5-Moderate Pain Location: Left Location Body Site: Shoulder Pain Description: Ache, Dull Mental Status/Objective Patient Orientation: Person, Place, Time Therapy Code Descriptions/Definitions Functional [place] Measure: 0=Not Assessed/NA 4=Minimal Assistance 1=Total Assistance 5=Supervision or Setup 2=Maximal Assistance 6=Modified [place] 3=Moderate Assistance 7=Complete [place] ADL-Treatment Pt seen today for spongue bath , UB dressing /undressing garments, grooming activity, bed mobility & func transfers & strengthening ex to BUE Therapy Code Descriptions/Definitions Functional [place] Measure: 0=Not Assessed/NA 4=Minimal Assistance 1=Total Assistance 5=Supervision or Setup 2=Maximal Assistance 6=Modified [place] 3=Moderate Assistance 7=Complete [place] Therapy Quality Codes: 6 Independent with activity with or without an assistive device 5 Patient requires set up or clean up by helper. Patient completes activity by themselves 4 Supervision or touching assist (CGA). [place] provide cues , steadying assist 3 The helper provides less than half the effort to complete the activity 2 The helper provides more than half the effort to complete the activity 1 Dependent. The helper does all the effort to complete an activity 7 Patient refused to complete or attempt activity 9 The patient did not perform the activity before the current illness or injury 88 Not attempted due to Medical conditions or safety concerns Eating (FIM): 7 Eating (QC): 6 Grooming (FIM): 5 Oral Hygiene (QC): 5 Bathing (FIM): 0 Shower/Bathe Self (QC): 0 Upper Body (FIM): 4 Upper Body Dressing (QC): 4 Lower Body Dressing (FIM): 2 Lower Body Dressing (QC): 2 On/Off Footwear (QC): 2 Toileting (FIM): 2 (Poor sitting balance) Toileting Hygiene (QC): 2 Transfers (B, C, W/C) (FIM): 4 Toilet/Commode Transfer (FIM): 4 Toilet Transfer (QC): 4 Tub Transfer(FIM): 0 Shower Transfer(FIM): 4 Education OT Patient Education: Correct positioning, Instructions to caregiver, Modified ADL techniques, Safety issues, Transfer techniques Teaching Recipient: Patient, Family Teaching Methods: Demonstration, Discussion Response to Teaching: Verbalize Understanding, Return Demonstration OT Short Term Goals Short Term Goals Time Frame: Sep 19, 2018 Eating(FIM): 7 Grooming(FIM): 7 Bathing(FIM): 3 Bathing Location: L Arm, L Lower Leg (including foot), Chest, Abdomen Upper Body Dressing(FIM): 3 Lower Body Dressing(FIM): 2 Toileting(FIM): 3 Transfers (B,C,W/C) (FIM): 3 Toilet/Commode Transfer(FIM): 3 Shower Transfer(FIM): 3 Additional Short Term Goals: 1-Demonstrate ADL Tasks, 2-Verbalize Understanding , 3-ImproveStrength/Reena 1=Demonstrate adherence to instructed precautions during ADL tasks. 2=Patient will verbalize/demonstrate understanding of assistive devices/ modifications for ADL. 3=Patient will improve strength/tolerance for activity to enable patient to perform ADL's. OT Group Home Goals Fire Operations Forester Goals Time Frame: Oct 03, 2018 Eating (FIM): 7 Eating (QC): 7 Groomin Oral Hygiene (QC): 7 Bathing(FIM): 3 Bathing Location: L Arm, R Arm, L Lower Leg (including foot), R Lower Leg ( including foot), Chest, Abdomen Shower/Bathe Self (QC): 3 Upper Body Dressing(FIM): 4 Upper Body Dressing (QC): 4 Lower Body Dressing(FIM): 3 Lower Body Dressing (QC): 3 On/Off Footwear (QC): 3 Toileting(FIM): 3 Toileting Hygiene (QC): 3 Transfers (B,C,W/C) (FIM): 3 Toilet/Commode Transfer(FIM): 3 Toilet/Commode Transfer (QC): 3 Shower Transfer(FIM): 3 Comprehension(FIM): 3 Additional Goals: 1-Demonstrate ADL Tasks, 2-Verbalize Understanding, 3- ImproveStrength/Reena 1=Demonstrate adherence to instructed precautions during ADL tasks. 2=Patient will verbalize/demonstrate understanding of assistive devices/ modifications for ADL. 3=Patient will improve strength/tolerance for activity to enable patient to perform ADL's. OT Education/Plan Problem List/Assessment Assessment: Decreased Activ Tolerance, Decreased Safety Aware, Decreased UE Strength, Dependent Transfers, Impaired Bed Mobility, Impaired Funct Balance, Impaired Self-Care Skills Discharge Recommendations Plan/Recommendations: Continue POC Therapy D/C Recommendations: Home w/ Family Support Equpiment Recommendations-D/C: Extended Shower Sprayer, Lap Hand Tool Treatment Plan/Plan of Care Treatment,Training & Education: Yes Patient would benefit from OT for education, treatment and training to promote independence in ADL's, mobility, safety and/or upper extremity function for ADL' s. Plan of Care: ADL Retraining, Caregiver Training, Functional Mobility, Group Exercise/Act as Ind, UE Funct Exercise/Act Treatment Duration: Oct 03, 2018 Frequency: At least 5 of 7 days/Wk (IRF) Estimated Hrs Per Day: 1.5 hours per day Agreement: Yes Rehab Potential: Fair Time/GCodes Start Time: 10:15 Stop Time: 11:00 Total Time Billed (hr/min): 45 Billed Treatment Time 1, ADL x30 , Ex x 15 Min . Total 45 minutes GUTIERREZ GOLDEN OT Sep 16, 2018 11:09
[2018-09-16] MEDS: RIVAROXABAN 20 MG TABLET (XARELTO) PO SCH (11:42)
--- NOTE | 2018-09-16 14:00 | NUR ---
DEPRESSION IMPROVED. JOKING AROUND. HAVING MORE MOVEMENT IN LEFT LEG. DENIES DIFFICULTY IN VOIDING NOW.
--- NOTE | 2018-09-16 14:42 | Therapy Group Daily Note ---
Therapy Daily Group Note Patient Education Topic Other List Below Exercises LE Seated Exercise, UE Exercise Other/Notes Pt participated in group therapy with 3 to 1 ratio. Goals of session: Understanding of safe transfers (car, bed, chair, tub/shower) .(met) Remember one seated exercise UE or LE to lead group.(met) Complete UE/ LE seated exercises.(met) Pt was transported via w/c to [facility] for OT/PT group. Group consisted of introductions (name, place, favorite place to visit*[place]*) , socialization, seated UE/LE exercises, education on safe transfers and 5 memory words (ron, VW, 1, dog, cinnamon candy). Pt introduced self appropriately and actively listened to peers. Pt able to complete UE/LE seated exercise with modified one arm technique. Pt lead elbow flexion exercise, 10x' s. Pt acknowledged understanding of transfers by nodding head in acknowledgement. After group, pt lying in bed with call light/phone in reach. present in room. All needs met in room. Start Time: 13:00 Stop Time: 14:15 Total Billed Treatment Time: 75 Total Billed Treatment 1-GRP SHANNON DOTSON Sep 16, 2018 14:42
[2018-09-16] MEDS: HYDROcodone/APAP 5 MG/325 MG (LORTAB) TAB PO PRN (14:58)
--- NOTE | 2018-09-16 15:30 | NUR ---
ATTEMPTED TO CALL DR. GALICIA IN TO RESCHEDULE SUNDAY APPOINTMENT. MESSAGE LEFT FOR THEM TO CALL BACK. NO RETURN CALL. PHONE NUMBER FOR DR. GALICIA: [phone].
[2018-09-16 17:20] VITALS: BP 146/78
[2018-09-16] MEDS: TAMSULOSIN 0.4 MG (FLOMAX) CAP PO SCH (18:10)
--- NOTE | 2018-09-16 19:06 | NUR ---
bedside report received from MERRICK MIX, assume care of pt
[2018-09-16 20:30] VITALS: BP 150/76
[2018-09-16] MEDS: TRIM/SULFAMETH 160/800 (SEPTRA DS) TAB PO SCH (20:31)
[2018-09-16] MEDS: ATORVASTATIN 40 MG (LIPITOR) TABLET PO SCH (20:35)
[2018-09-16] MEDS: ALPRAZolam 0.25 MG (XANAX) TAB PO PRN (20:36)
[2018-09-16] MEDS: inSUlin DETERMIR 1 UNIT/0.01 ML (LEVEMIR) CHARGE PER UNIT SQ SCH (20:36)
--- NOTE | 2018-09-16 20:36 | NUR ---
c/o anxiety, Xanax 0.25mg po given, fsbs 110, no ss insulin req
--- NOTE | 2018-09-16 21:00 | NUR ---
assessments & interventions completed, see assessments & interventions, refused Dulcolax supp & Senokot s 2 tabs
[2018-09-17 05:38] VITALS: BP 125/69
[2018-09-17] MEDS: inSUlin ASPART (NovoLOG) 1 UNIT/0.01 ML (CHARGE PER UNIT) SC SCH ×4 (06:00→21:23)
[2018-09-17] MEDS: METOCLOPRAMIDE 10 MG (REGLAN) TAB PO SCH ×4 (06:18→20:24)
[2018-09-17] MEDS: metFORMIN XR 500 MG (GLUCOPHAGE XR) TAB PO SCH ×2 (06:18→16:22)
[2018-09-17] MEDS: CYANOCOBALAMIN 1,000 MCG (VITAMIN B-12) TABLET PO SCH (06:18)
--- NOTE | 2018-09-17 07:08 | NUR ---
bedside report given to ELSA MIX
--- NOTE | 2018-09-17 08:40 | PM&R Progress Note ---
Subjective HPI/CC On Admission Date Seen by Provider: Sep 17, 2018 Time Seen by Provider: 08:15 Subjective/Events-last exam Patient doing very well today Has no concerns No urinary retention issues Discharge planning likely Able to walk with walker Checked meds and labs Blood sugar checks reviewed Blood pressure satisfactory No bleeding issues Review of Systems General: Fatigue Neurological: Weakness, Incoordination, Change in speech Objective Exam Vital Signs Vital Signs Date Time Temp Pulse Resp B/P (MAP) Pulse Ox O2 Delivery O2 Flow Rate FiO2 09/17/18 09:48 Room Air 09/17/18 05:38 98.7 56 18 125/69 (87) 98 Capillary Refill : General Appearance: No Apparent Distress, WD/WN, Chronically ill Respiratory: Chest Non Tender, Lungs Clear, Normal Breath Sounds, No Accessory Muscle Use, No Respiratory Distress Cardiovascular: Regular Rate, Rhythm, No Edema, No Gallop, No JVD, No Murmur, Normal Peripheral Pulses Neurologic/Psychiatric: Alert, Oriented x3, Normal Mood/Affect, Motor Weakness (Left side still weak but much improved) Results/Procedures Lab Patient resulted labs reviewed. Assessment/Plan Assessment and Plan Assess & Plan/Chief Complaint Assessment Subacute CVA 08/16/18 with left sided weakness Severe carotid stenosis right s/p endarterectomy but no resolution of deficit has appt at [facility] Sunday but rescheduling DM on insulin Chronic UTI but normal cystoscopy 09/06/18 but BPH noted and placed on Flomax from Urology now receiving straight caths if retention on bladder scan and patient agrees for self cath at [facility] per Urology placed on Bactrim 1/2 tablet at night to prevent UTI due to catheters but now voiding well when up to toilet and no longer needs catheters since no residual HTN HLP Constipation recurrent issue resolved now Hematochezia episode with Heme + stools but gastritis and colon polyps noted on EGD/Colonoscopy on 09/07/[address] Waggoner Chronic nausea improved on Reglan confirming gastroparesis as the source Plan: Maintain ASA and anticoagulation Follow up on polyp pathology Monitor sugar control and adjust insulin prn Maintain urinary management since h/o chronic UTI and maintain on Flomax per Urology in addition to self caths to prevent retention but now voiding well and no caths needed as long as upright to toilet PPI and maintain on Flomax at NH Zofran Constipation treatment maintained Reglan at DC Diagnosis/Problems Diagnosis/Problems (1) Cerebrovascular accident (CVA) with left hemiparesis Status: Acute (2) Diabetes mellitus Status: Chronic Qualifiers: Diabetes mellitus type: 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 2 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: with 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 use Diabetes mellitus complication status: with circulatory complication Diabetes mellitus complication detail: with other circulatory complications Qualified Codes: E11.59 - Type 2 diabetes mellitus with other circulatory complications; Z79.4 - [facility] (current) use of insulin (3) Hypertension Status: Chronic Qualifiers: Hypertension type: essential hypertension Qualified Codes: I10 - Essential (primary) hypertension (4) Hyperlipidemia Status: Chronic Qualifiers: Hyperlipidemia type: mixed hyperlipidemia Qualified Codes: E78.2 - Mixed hyperlipidemia (5) Chronic UTI Status: Chronic (6) Bright red blood per rectum Status: Resolved Resolution Date/Time: 09/07/18 @ 15:48 (7) Constipation Status: Resolved Qualifiers: Constipation type: slow transit constipation Qualified Codes: K59.01 - Slow transit constipation Resolution Date/Time: 09/11/18 @ 11:41 (8) Anticoagulant long-term use Status: Chronic (9) BPH (benign prostatic hyperplasia) Status: Chronic Qualifiers: Lower urinary tract symptom presence: symptoms present Lower urinary tract symptom detail: urinary frequency Qualified Codes: N40.1 - Benign prostatic hyperplasia with lower urinary tract symptoms; R35.0 - Frequency of micturition (10) Abnormal findings on esophagogastroduodenoscopy (EGD) Status: Acute (11) Abnormal colonoscopy Status: Acute (12) Gastritis Status: Acute Qualifiers: Gastritis type: unspecified gastritis Chronicity: acute Gastritis bleeding: without bleeding Qualified Codes: K29.00 - Acute gastritis without bleeding (13) Colon polyps Status: Acute Qualifiers: Colon polyp type: unspecified Colon location: unspecified part of colon Qualified Codes: K63.5 - Polyp of colon (14) Nausea Status: Chronic (15) Urinary retention Status: Resolved Resolution Date/Time: 09/12/18 @ 10:40 (16) Shoulder pain, right Status: Acute Qualifiers: Chronicity: acute Qualified Codes: M25.511 - Pain in right shoulder (17) Gastroparesis Status: Acute Clinical Quality Measures Admission Status Admission Dx Assessment Subacute CVA 08/16/18 with left sided weakness Severe carotid stenosis right s/p endarterectomy but no resolution of deficit DM Chronic UTI HTN HLP Plan: Monitor BP Maintain all new meds per [facility] including asa and anticoagulation Therapies as ordered for intensive rehab DVT/VTE Risk/Contraindication: Risk Factor Score Per Nursin RFS Level Per Nursing on Admit: 4+=Very High DARELL CIFUENTES DO Sep 17, 2018 08:40
[2018-09-17] MEDS: MAGNESIUM OXIDE (MAG-OX)400 MG TAB PO SCH (08:52)
[2018-09-17] MEDS: HYDROcodone/APAP 5 MG/325 MG (LORTAB) TAB PO PRN (08:52)
[2018-09-17] MEDS: ZINC SULFATE 220 MG CAPSULE PO SCH (08:52)
[2018-09-17] MEDS: CARVEDILOL 12.5 MG (COREG) TABLET PO SCH ×2 (08:52→20:24)
[2018-09-17] MEDS: LORATADINE (CLARITIN) 10 MG TAB PO SCH (08:52)
[2018-09-17] MEDS: FLUoxetine HCL 20 MG (PROzac) CAP PO SCH (08:53)
[2018-09-17] MEDS: VITAMIN D3 1,000 UNITS (CHOLECALCIFEROL) TABLET PO SCH (08:53)
[2018-09-17] MEDS: BISACODYL 10 MG SUPP (DULCOLAX) PR SCH ×2 (08:53→21:23)
[2018-09-17] MEDS: SENNA W/DOCUSATE (SENOKOT S) TABLET PO SCH ×2 (08:53→21:23)
[2018-09-17] MEDS: PYRIDOXINE (VITAMIN B-6) 50 MG TABLET PO SCH (08:53)
[2018-09-17] MEDS: amLODIPine 10 MG (NORVASC) TAB PO SCH (08:53)
--- NOTE | 2018-09-17 08:56 | Physical Therapy Daily Note ---
PT Daily Note-Current Subjective Patient in bed pre tx, agrees to PT, has some pain in right shoulder, doctor notified. Appearance Patient in wheelchair at bedside post tx, has nurse call, phone, tray, in room. Mental Status Patient Orientation: Person, Place, Situation, Normal For Age Transfers Therapy Code Descriptions/Definitions Functional [place] Measure: 0=Not Assessed/NA 4=Minimal Assistance 1=Total Assistance 5=Supervision or Setup 2=Maximal Assistance 6=Modified [place] 3=Moderate Assistance 7=Complete [place] Therapy Quality Codes: 6 Independent with activity with or without an assistive device 5 Patient requires set up or clean up by helper. Patient completes activity by themselves 4 Supervision or touching assist (CGA). [place] provide cues , steadying assist 3 The helper provides less than half the effort to complete the activity 2 The helper provides more than half the effort to complete the activity 1 Dependent. The helper does all the effort to complete an activity 7 Patient refused to complete or attempt activity 9 The patient did not perform the activity before the current illness or injury 88 Not attempted due to Medical conditions or safety concerns Transfers (B, C, W/C) (FIM): 3 Scootin Rollin Supine to/from Sit: 3 Sit to/from Stand: 4 Bed to/from Chair: 4 Patient needed mod assist for supine <-> sit today due to right shoulder pain. Patient practiced bed mobility, rolling, supine <-> sit on the therapy mat. Needs cues to get his left arm and bring it around when he rolls. Gait Training Gait (FIM): 2 Distance: 70'x2 Gait Level of Assist: 3 Gait Persons Needed: 1 Gait Assistive Device: Walker Ba Mod assist, patient leaned more heavily to the left side today, needed more assist with weight shifting. Wheelchair Training Does the Pt Use a Wheelchair?: Yes Exercises Supine Ex: Bridging, Ankle pumps, Quad Set, Glut sets, Heel Slides, Straight leg raise, Hip abd/add Supine Reps: 20 (AAROM on the left leg) LAQ alternating for 5 min with 2# ankle weight on right leg Treatments bed mobility and transfers, ambulation, functional strengthening Assessment Current Status: Fair Progress improved gait distance PT Short Term Goals Short Term Goals Time Frame: Sep 11, 2018 Transfers (B,C,W/C) (FIM): 3 Gait (FIM): 1 Gait Distance Comment: 20' Gait Level of Assist: 3 Gait Assistive Device: Walker Ba Wheelchair Distance: 100' PT Shelter Goals Shelter Goals PT Paste Up Copy Camera Operator Goals Time Frame: Sep 25, 2018 Transfers (B,C,W/C) (FIM): 4 Sit to Lying (QC): 4 Lying-Sitting on Side/Bed(QC): 4 Sit to Stand (QC): 4 Rollin Roll Left to Right (QC): 4 Chair/[id number]-Ysmgu Xfer(QC): 4 Car Transfer (QC): 4 Gait (FIM): 2 Distance: 50' Walk 10 feet (QC): 3 Walk 10ft-Uneven Surface(QC): 3 Walk 50ft with 2 Turns (QC): 3 Gait Level of Assist: 4 Gait Assistive Device: Cane Large Base Quad Wheelchair (FIM): 5 Distance: 150' Wheelchair Level of Assist: 5 Wheel 50 feet with 2 turns (QC: 4 PT Plan Problem List Problem List: Activity Tolerance, Functional Strength, Safety, Balance, Gait, Transfer, Bed Mobility, ROM Treatment/Plan Treatment Plan: Continue Plan of Care Treatment Plan: Bed Mobility, Concurrent Therapy, Education, Functional Activity Reena, Functional Strength, Group Therapy, Gait, Safety, Therapeutic Exercise, Transfers Treatment Duration: Sep 25, 2018 Frequency: At least 5 of 7 days/Wk (IRF) Estimated Hrs Per Day: 1.5 hours per day Patient and/or Family Agrees t: Yes Safety Risks/Education Patient Education: Gait Training, Transfer Techniques, Correct Positioning, Safety Issues Teaching Recipient: Patient Teaching Methods: Demonstration, Discussion Response to Teaching: Reinforcement Needed Time/GCodes Time In: 0800 Time Out: 0900 Total Billed Treatment Time: 60 Total Billed Treatment 1 visit GT 30' FA 15' EX 15' CASTILLO PHIPPS PT Sep 17, 2018 08:56
--- NOTE | 2018-09-17 10:17 | Speech Therapy Daily Note ---
Speech Daily Progress Note Subjective Date Seen by Provider: Sep 17, 2018 Time Seen by Provider: 00:30 Patient was laying in bed resting when I entered the room. Objective Patient completed 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 level of memory tasks with 80% accuracy given minimal verbal cues. Assessment Assessment Current Status: Good Progress Treatment Plan Continue Plan of Care Communication Comprehension: 5 Expression: 5 Social Cognition Social Interaction: 5 Problem Solvin Memory: 4 Speech Short Term Goals Short Term Goals Short Term Goals 1) Patient will increase speech intelligibility at the highest functional verbal expression level to 90% or greater. 2) Patient will complete memory tasks with 90% or greater. 3) Patient will complete problem solving tasks with 90% or greater. Speech Mcfp Goals Stripper Black And White Goals Patient will improve memory, problem solving and speech skills to better communicate with familiar and unfamiliar listeners. Comprehension: 3 Speech-Plan Patient/Family Goals Patient/Family Goals: Patient plans to return home with his post rehab. Treatment Plan Speech Therapy Treatment Plan: Continue Plan of Care Patient has made good progress as a result of skilled ST services. Treatment Duration: Sep 20, 2018 Frequency: 5 times per week Estimated Hrs Per Day: .5 hour per day Rehab Potential: Fair Barriers to Learning: Patient has left side weakness. Pt/Family Agrees to Plan: Yes Safety Risks/Education Teaching Recipient: Patient, Significant Other Teaching Methods: Discussion Response to Teaching: Verbalize Understanding Education Topics Provided: Safety when he returns home. Time Speech Therapy Time In: 09:30 Speech Therapy Time Out: 10:00 Total Billed Time: 30 Billed Treatment Time 1EILEEN B[address] ST Sep 17, 2018 10:17
[2018-09-17] MEDS: RIVAROXABAN 20 MG TABLET (XARELTO) PO SCH (11:36)
--- NOTE | 2018-09-17 12:40 | NUR ---
Dr. Mcgarry here to see patient. Addendum: 09/17/18 at 2 by ELSA SOTOMAYOR RN Wrong patient.
--- NOTE | 2018-09-17 13:10 | Occupational Ther Daily Note ---
OT Current Status-Daily Note Subjective Pt says that, " I am fine & I am going home tomorrow. " Pain Numeric Pain Scale: 5-Moderate Pain Location: Left Location Body Site: Shoulder Pain Description: Ache, Sharp Mental Status/Objective Patient Orientation: Person, Place, Time Therapy Code Descriptions/Definitions Functional [place] Measure: 0=Not Assessed/NA 4=Minimal Assistance 1=Total Assistance 5=Supervision or Setup 2=Maximal Assistance 6=Modified [place] 3=Moderate Assistance 7=Complete [place] ADL-Treatment Pt participated in spongue bath in bed , SBA in wiping with warm Ready Bath wipes to Left arm , face , front ^ back of neck, chest & abdomen, Max A to wipes Rt arm & back of Trunk.. Pt brush his hairs with set up. Participated in Passive ROM & strengthening Ex to Left UE . MS in Left UE 0/5 . No movements in Left hand fingers , wrist, elbow & shoulder. C/O pain in Lf shoulder . Pain level graded 5/10 .Positioned Lf shoulder from hyperextension. Therapy Code Descriptions/Definitions Functional [place] Measure: 0=Not Assessed/NA 4=Minimal Assistance 1=Total Assistance 5=Supervision or Setup 2=Maximal Assistance 6=Modified [place] 3=Moderate Assistance 7=Complete [place] Therapy Quality Codes: 6 Independent with activity with or without an assistive device 5 Patient requires set up or clean up by helper. Patient completes activity by themselves 4 Supervision or touching assist (CGA). [place] provide cues , steadying assist 3 The helper provides less than half the effort to complete the activity 2 The helper provides more than half the effort to complete the activity 1 Dependent. The helper does all the effort to complete an activity 7 Patient refused to complete or attempt activity 9 The patient did not perform the activity before the current illness or injury 88 Not attempted due to Medical conditions or safety concerns Eating (QC): 6 Grooming (FIM): 5 Oral Hygiene (QC): 5 Bathing (FIM): 2 Bathing Location: L Arm, R Arm, R Upper Leg, L Lower Leg (including foot), R Lower Leg (including foot), Chest, Abdomen, Buttocks, Perineal Area Shower/Bathe Self (QC): 2 Upper Body (FIM): 3 Upper Body Dressing (QC): 3 Lower Body Dressing (FIM): 2 Lower Body Dressing (QC): 2 Toileting (FIM): 2 Toileting Hygiene (QC): 2 Transfers (B, C, W/C) (FIM): 4 Education OT Patient Education: Correct positioning, Instructions to caregiver, Safety issues Teaching Recipient: Patient, Family Teaching Methods: Demonstration, Discussion Response to Teaching: Verbalize Understanding, Return Demonstration OT Short Term Goals Short Term Goals Time Frame: Sep 19, 2018 Eating(FIM): 7 Grooming(FIM): 7 Bathing(FIM): 3 Bathing Location: L Arm, L Lower Leg (including foot), Chest, Abdomen Upper Body Dressing(FIM): 3 Lower Body Dressing(FIM): 2 Toileting(FIM): 3 Transfers (B,C,W/C) (FIM): 3 Toilet/Commode Transfer(FIM): 3 Shower Transfer(FIM): 3 Additional Short Term Goals: 1-Demonstrate ADL Tasks, 2-Verbalize Understanding , 3-ImproveStrength/Reena 1=Demonstrate adherence to instructed precautions during ADL tasks. 2=Patient will verbalize/demonstrate understanding of assistive devices/ modifications for ADL. 3=Patient will improve strength/tolerance for activity to enable patient to perform ADL's. OT Payroll Lead Goals Payroll Lead Goals Time Frame: Oct 03, 2018 Eating (FIM): 7 Eating (QC): 7 Groomin Oral Hygiene (QC): 7 Bathing(FIM): 3 Bathing Location: L Arm, R Arm, L Lower Leg (including foot), R Lower Leg ( including foot), Chest, Abdomen Shower/Bathe Self (QC): 3 Upper Body Dressing(FIM): 4 Upper Body Dressing (QC): 4 Lower Body Dressing(FIM): 3 Lower Body Dressing (QC): 3 On/Off Footwear (QC): 3 Toileting(FIM): 3 Toileting Hygiene (QC): 3 Transfers (B,C,W/C) (FIM): 3 Toilet/Commode Transfer(FIM): 3 Toilet/Commode Transfer (QC): 3 Shower Transfer(FIM): 3 Comprehension(FIM): 3 Additional Goals: 1-Demonstrate ADL Tasks, 2-Verbalize Understanding, 3- ImproveStrength/Reena 1=Demonstrate adherence to instructed precautions during ADL tasks. 2=Patient will verbalize/demonstrate understanding of assistive devices/ modifications for ADL. 3=Patient will improve strength/tolerance for activity to enable patient to perform ADL's. OT Education/Plan Problem List/Assessment Assessment: Decreased Activ Tolerance, Decreased Safety Aware, Decreased UE Strength, Dependent Transfers, Impaired Bed Mobility, Impaired Cognition, Impaired Funct Balance, Impaired Self-Care Skills Discharge Recommendations Plan/Recommendations: Continue POC Therapy D/C Recommendations: Home w/ Family Support, Occupational Therapy Home Care Equpiment Recommendations-D/C: Bath Chair, Extended Shower Sprayer, Elastic Attacher Zigzag Patient/Family Goals To return home Independently. with AD. Treatment Plan/Plan of Care Treatment,Training & Education: Yes Patient would benefit from OT for education, treatment and training to promote independence in ADL's, mobility, safety and/or upper extremity function for ADL' s. Plan of Care: ADL Retraining, Caregiver Training, Functional Mobility, Group Exercise/Act as Ind, UE Funct Exercise/Act Treatment Duration: Oct 03, 2018 Frequency: At least 5 of 7 days/Wk (IRF) Estimated Hrs Per Day: 1.5 hours per day Agreement: Yes Rehab Potential: Fair Time/GCodes Start Time: 11:30 Stop Time: 12:15 Total Time Billed (hr/min): 45 Billed Treatment Time 1, ADLs x30 min , Ex x 15 min. Total 45 minutes GUTIERREZ GOLDEN OT Sep 17, 2018 13:10
--- NOTE | 2018-09-17 13:27 | Physical Therapy Daily Note ---
PT Daily Note-Current Subjective Patient in bed pre tx, agrees to PT, no complaints of pain. Appearance Patient in bed post tx with nurse call, phone, tray, in room. Mental Status Patient Orientation: Person, Place, Situation, Normal For Age Transfers Therapy Code Descriptions/Definitions Functional [place] Measure: 0=Not Assessed/NA 4=Minimal Assistance 1=Total Assistance 5=Supervision or Setup 2=Maximal Assistance 6=Modified [place] 3=Moderate Assistance 7=Complete [place] Therapy Quality Codes: 6 Independent with activity with or without an assistive device 5 Patient requires set up or clean up by helper. Patient completes activity by themselves 4 Supervision or touching assist (CGA). [place] provide cues , steadying assist 3 The helper provides less than half the effort to complete the activity 2 The helper provides more than half the effort to complete the activity 1 Dependent. The helper does all the effort to complete an activity 7 Patient refused to complete or attempt activity 9 The patient did not perform the activity before the current illness or injury 88 Not attempted due to Medical conditions or safety concerns Exercises Supine Ex: Bridging, Ankle pumps, Quad Set, Glut sets, Heel Slides, Short Arc Quads, Straight leg raise, Hip abd/add Supine Reps: 20 (AAROM on the left side) Treatments ROM/functional strengthening Assessment Current Status: Fair Progress PT Short Term Goals Short Term Goals Time Frame: Sep 11, 2018 Transfers (B,C,W/C) (FIM): 3 Gait (FIM): 1 Gait Distance Comment: 20' Gait Level of Assist: 3 Gait Assistive Device: Walker Ba Wheelchair Distance: 100' PT Shingler Goals Custodial Goals PT Custodial Goals Time Frame: Sep 25, 2018 Transfers (B,C,W/C) (FIM): 4 Sit to Lying (QC): 4 Lying-Sitting on Side/Bed(QC): 4 Sit to Stand (QC): 4 Rollin Roll Left to Right (QC): 4 Chair/Rxs-sg-Wsmxj Xfer(QC): 4 Car Transfer (QC): 4 Gait (FIM): 2 Distance: 50' Walk 10 feet (QC): 3 Walk 10ft-Uneven Surface(QC): 3 Walk 50ft with 2 Turns (QC): 3 Gait Level of Assist: 4 Gait Assistive Device: Cane Large Base Quad Wheelchair (FIM): 5 Distance: 150' Wheelchair Level of Assist: 5 Wheel 50 feet with 2 turns (QC: 4 PT Plan Problem List Problem List: Activity Tolerance, Functional Strength, Safety, Balance, Gait, Transfer, Bed Mobility, ROM Treatment/Plan Treatment Plan: Continue Plan of Care Treatment Plan: Bed Mobility, Concurrent Therapy, Education, Functional Activity Reena, Functional Strength, Group Therapy, Gait, Safety, Therapeutic Exercise, Transfers Treatment Duration: Sep 25, 2018 Frequency: At least 5 of 7 days/Wk (IRF) Estimated Hrs Per Day: 1.5 hours per day Patient and/or Family Agrees t: Yes Safety Risks/Education Patient Education: Correct Positioning, Safety Issues Teaching Recipient: Patient Teaching Methods: Demonstration, Discussion Response to Teaching: Reinforcement Needed Time/GCodes Time In: 1300 Time Out: 1320 Total Billed Treatment Time: 20 Total Billed Treatment 1 visit EX 20' CASTILLO PHIPPS PT Sep 17, 2018 13:27
--- NOTE | 2018-09-17 15:11 | CONSULTATION REPORT ---
DATE OF SERVICE: 09/10/2018 ORTHOPEDIC CONSULTATION CONSULTING PHYSICIAN: Meron Meier DO. IMPRESSION: 1. Right shoulder pain. 2. Primary osteoarthritis, acromioclavicular joint, right shoulder. 3. Status post cerebrovascular accident. RECOMMENDATIONS: 1. Progressive for strengthening exercises, right shoulder, right upper extremity. 2. Subacromial steroid injection if pain continues. HISTORY OF PRESENT ILLNESS: The patient is a 63-year-old right hand dominant male who was admitted to [facility] after sustaining CVA with left-sided weakness. The patient was admitted on 09/04/2018. The patient has been receiving occupational therapy on his left upper extremity. He has been progressing. He began having increased pain in his right shoulder and a consultation was obtained. On exam, the patient's right shoulder demonstrates full range of motion. There is no evidence of erythema. There is no evidence of swelling. He has palpable tenderness over the acromioclavicular joint. X-rays of the right shoulder were reviewed revealing moderate to severe degenerative changes of the acromioclavicular joint of the right shoulder with no evidence of subacromial or subclavicular spur formation. Mild sclerosis of the greater tuberosity is noted. No degenerative changes of the glenohumeral joint are noted. There is no abnormal subluxation of the humeral head in reference to the glenoid. The patient has been using his right upper extremity including his right shoulder a great deal since his left-sided stroke with left-sided weakness. I had asked that the patient has been receiving physical therapy on his right shoulder. He indicated he has not. I have recommended the patient received this physical therapy on his right shoulder, right upper extremity for strengthening exercises. If his symptoms persist, then I would recommend a subacromial steroid injection in his right shoulder if this is allowed by Dr. Meier. He was admitted with rectal bleeding. He has had surgery since this admission. Thank you for allowing me to participate in this patient's care. Job ID: [id number] DocumentID: [id number] Dictated Date: 09/10/2018 12:40:33 Client Account Assistant Date: 09/10/2018 19:12:42 Dictated By: PATO ABDI DO <Dictated by PATO ABDI DO> <Electronically signed by PATO ABDI DO> 09/12/18 1009
[2018-09-17 15:53] VITALS: BP 133/71
[2018-09-17] MEDS: TAMSULOSIN 0.4 MG (FLOMAX) CAP PO SCH (17:17)
[2018-09-17] MEDS: TRIM/SULFAMETH 160/800 (SEPTRA DS) TAB PO SCH (20:24)
[2018-09-17] MEDS: ATORVASTATIN 40 MG (LIPITOR) TABLET PO SCH (20:24)
[2018-09-17] MEDS: inSUlin DETERMIR 1 UNIT/0.01 ML (LEVEMIR) CHARGE PER UNIT SQ SCH (20:25)
[2018-09-17] MEDS: ALPRAZolam 0.25 MG (XANAX) TAB PO PRN (20:26)
[2018-09-18 04:52] LABS: BASOPHILS % (AUTO) 1 % (0-10); EOSINOPHILS # (AUTO) 0.2 10^3/uL (0.0-0.3); EOSINOPHILS % (AUTO) 3 % (0-10); HEMATOCRIT 37 % (40-54); HEMOGLOBIN 12.4 G/DL (13.3-17.7); LYMPHOCYTES # (AUTO) 1.7 X 10^3 (1.0-4.0); LYMPHOCYTES % (AUTO) 27 % (12-44); MEAN CORPUSCULAR HEMOGLOBIN 31 PG (25-34); MEAN CORPUSCULAR HGB CONC 34 G/DL (32-36); MEAN CORPUSCULAR VOLUME 92 FL (80-99); MEAN PLATELET VOLUME 10.7 FL (7.4-10.4); MONOCYTES # (AUTO) 0.5 X 10^3 (0.0-1.0); MONOCYTES % (AUTO) 9 % (0-12); NEUTROPHILS # (AUTO) 3.8 X 10^3 (1.8-7.8); NEUTROPHILS % (AUTO) 61 % (42-75); PLATELET COUNT 153 10^3/uL (130-400); RED CELL DISTRIBUTION WIDTH 12.7 % (10.0-14.5); WHITE BLOOD COUNT 6.2 10^3/uL (4.3-11.0)
[2018-09-18 05:22] LABS: ALANINE AMINOTRANSFERASE 30 U/L (0-55); ALBUMIN 3.3 GM/DL (3.2-4.5); ALKALINE PHOSPHATASE 86 U/L (40-136); BILIRUBIN,TOTAL 0.7 MG/DL (0.1-1.0); BUN/CREATININE RATIO 11; CALCIUM 8.6 MG/DL (8.5-10.1); CARBON DIOXIDE 24 MMOL/L (21-32); CHLORIDE 106 MMOL/L (98-107); CREATININE SERUM 0.88 MG/DL (0.60-1.30); GFR ESTIMATED > 60; GLUCOSE 73 MG/DL (70-105); SODIUM 138 MMOL/L (135-145); TOTAL PROTEIN 6.4 GM/DL (6.4-8.2)
[2018-09-18 05:26] VITALS: BP 132/74
[2018-09-18] MEDS: metFORMIN XR 500 MG (GLUCOPHAGE XR) TAB PO SCH ×2 (06:17→17:10)
[2018-09-18] MEDS: CYANOCOBALAMIN 1,000 MCG (VITAMIN B-12) TABLET PO SCH (06:17)
[2018-09-18] MEDS: METOCLOPRAMIDE 10 MG (REGLAN) TAB PO SCH ×4 (06:17→20:43)
[2018-09-18] MEDS: inSUlin ASPART (NovoLOG) 1 UNIT/0.01 ML (CHARGE PER UNIT) SC SCH ×4 (06:17→20:50)
--- NOTE | 2018-09-18 08:57 | PM&R Progress Note ---
Subjective This was a face to face visit with the patient. Date Seen by Provider: Sep 18, 2018 Time Seen by Provider: 08:15 Subjective/Events-last exam Patient was seen in the [facility] while working with therapy. Labs were checked today and they were all within normal limits RN has no issues Team meeting revealed the following reports: Nursing reports right shoulder pain Dr. Mcgarry may need to do an injection. He is voiding well and there is no catheter needed. Blood sugars are stable. Day pass went well and is very happy and motivated now. Physical therapy reports minimal assist with ada walker which he will need at discharge along with rental wheelchair Occupational therapist reports max assist with toileting and hygiene so we need to let the do it to see if she can manage this at home Speech reports facial drooping is much improved tolerating ADA regular diet Using his sling for his left arm that can help alignment during walking. Using glove on left hand due to edema Needs 7 more days of intensive therapy to optimize and set up for success at discharge. Review of Systems Neurological: Weakness, Incoordination Objective Physician Exam Last Set of Vital Signs Vital Signs Date Time Temp Pulse Resp B/P (MAP) Pulse Ox O2 Delivery O2 Flow Rate FiO2 09/18/18 05:26 97.6 51 20 132/74 (93) 94 Room Air Capillary Refill : I&O Intake and Output 09/18/18 00:00 Intake Total 1260 ml Output Total 750 ml Balance 510 ml Intake Oral 1260 ml Output Urine Total 750 ml # Voids 3 General: Alert, Oriented X3, Cooperative, No Acute Distress HEENT: Atraumatic, PERRLA, EOMI, Mucous Memb Moist/[place] Neck: Supple, No JVD, No Thyromegaly, Other (right CEA jona in place) Lungs: Clear to Auscultation, Normal Air Movement Heart: Regular Rate, Normal S1, Normal S2 Abdomen: Normal Bowel Sounds, Soft, No Tenderness, No Hepatosplenomegaly, No Masses Extremities: No Clubbing, No Cyanosis Skin: No Rashes, No Breakdown Neuro: Normal Speech, Other (left sided HP 1/5 left foot flaccid left arm and hand) Psych/Mental Status: Mental Status NL, Other (depressed) Results Lab Data Laboratory Tests 09/15/18 11:40: Glucometer 158H 09/15/18 17:42: Glucometer 153H 09/15/18 20:21: Glucometer 120H 09/16/18 06:32: Glucometer 98 09/16/18 10:45: Glucometer 127H 09/16/18 16:06: Glucometer 110 09/16/18 20:23: Glucometer 110 09/17/18 05:34: Glucometer 106 09/17/18 10:48: Glucometer 159H 09/17/18 15:51: Glucometer 122H 09/17/18 20:09: Glucometer 145H 09/18/18 04:43: White Blood Count 6.2, Red Blood Count 4.00L, Hemoglobin 12.4L, Hematocrit 37L, Mean Corpuscular Volume 92, Mean Corpuscular Hemoglobin 31, Mean Corpuscular Hemoglobin Concent 34, Red Cell Distribution Width 12.7, Platelet Count 153, Mean Platelet Volume 10.7H, Neutrophils (%) (Auto) 61, Lymphocytes (%) (Auto) 27 , Monocytes (%) (Auto) 9, Eosinophils (%) (Auto) 3, Basophils (%) (Auto) 1, Neutrophils # (Auto) 3.8, Lymphocytes # (Auto) 1.7, Monocytes # (Auto) 0.5, Eosinophils # (Auto) 0.2, Basophils # (Auto) 0.0, Sodium Level 138, Potassium Level 4.0, Chloride Level 106, Carbon Dioxide Level 24, Anion Gap 8, Blood Urea Nitrogen 10, Creatinine 0.88, Estimat Glomerular Filtration Rate > 60, BUN/ Creatinine Ratio 11, Glucose Level 73, Calcium Level 8.6, Corrected Calcium 9.2 , Total Bilirubin 0.7, Aspartate Amino Transf (AST/SGOT) 30, Alanine Aminotransferase (ALT/SGPT) 30, Alkaline Phosphatase 86, Total Protein 6.4, Albumin 3.3 Current Funtional Status Continue intensive therapy for 7 more days and will reassess We will need special walker and rental wheelchair at discharge and maintain left arm in sling and left hand and glove Maintain on 1/2 pill of Bactrim double strength every night to prevent UTIs per urology Assessment/Plan Assessment and Plan Assessment Subacute CVA 08/16/18 with left sided weakness Severe carotid stenosis right s/p endarterectomy but no resolution of deficit has appt at [facility] Sunday but rescheduling DM on insulin Chronic UTI but normal cystoscopy 09/06/18 but BPH noted and placed on Flomax from Urology now receiving straight caths if retention on bladder scan and patient agrees for self cath at DC per Urology placed on Bactrim 1/2 tablet at night to prevent UTI due to catheters but now voiding well when up to toilet and no longer needs catheters since no residual HTN HLP Constipation recurrent issue resolved now Hematochezia episode with Heme + stools but gastritis and colon polyps noted on EGD/Colonoscopy on 09/07/[address] Waggoner Chronic nausea improved on Reglan confirming gastroparesis as the source Plan: Maintain ASA and anticoagulation Follow up on polyp pathology Monitor sugar control and adjust insulin prn Maintain urinary management since h/o chronic UTI and maintain on Flomax per Urology in addition to self caths to prevent retention but now voiding well and no caths needed as long as upright to toilet PPI and maintain on Flomax at DC Zofran Constipation treatment maintained Reglan at DC 1/2 Bactrim DS at night at DC to prevent UTI's per Urology (1) Cerebrovascular accident (CVA) with left hemiparesis Status: Acute (2) Diabetes mellitus Qualifiers: Qualified Codes: E11.59 - Type 2 diabetes mellitus with other circulatory complications; Z79.4 - 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 long term care (current) use of insulin Status: Chronic (3) Hypertension Qualifiers: Qualified Codes: I10 - Essential (primary) hypertension Status: Chronic (4) Hyperlipidemia Qualifiers: Qualified Codes: E78.2 - Mixed hyperlipidemia Status: Chronic (5) Chronic UTI Status: Chronic (6) Bright red blood per rectum Status: Resolved (7) Constipation Qualifiers: Qualified Codes: K59.01 - Slow transit constipation Status: Resolved (8) Anticoagulant long-term use Status: Chronic (9) BPH (benign prostatic hyperplasia) Qualifiers: Qualified Codes: N40.1 - Benign prostatic hyperplasia with lower urinary tract symptoms; R35.0 - Frequency of micturition Status: Chronic (10) Abnormal findings on esophagogastroduodenoscopy (EGD) Status: Acute (11) Abnormal colonoscopy Status: Acute (12) Gastritis Qualifiers: Qualified Codes: K29.00 - Acute gastritis without bleeding Status: Acute (13) Colon polyps Qualifiers: Qualified Codes: K63.5 - Polyp of colon Status: Acute (14) Nausea Status: Chronic (15) Urinary retention Status: Resolved (16) Shoulder pain, right Qualifiers: Qualified Codes: M25.511 - Pain in right shoulder Status: Acute (17) Gastroparesis Status: Acute Co-Morbidities that are continuing to impact the rehab process: (include details ) DARELL CIFUENTES DO Sep 18, 2018 08:57
[2018-09-18 09:00] VITALS: BP 149/75
--- NOTE | 2018-09-18 09:00 | NUR ---
CONTINUES TO HAVE RIGHT SHOULDER PAIN. STATES IT IS DUE TO ARTHRITIS AND PULLING SELF UP BED. UNABLE TO FIND PATIENT'S GREEN SHIRT. WE WILL CONTINUE TO LOOK FOR IT AND WITH DOUBLE-CHECK AT HOME.
[2018-09-18] MEDS: HYDROcodone/APAP 5 MG/325 MG (LORTAB) TAB PO PRN (09:13)
[2018-09-18] MEDS: MAGNESIUM OXIDE (MAG-OX)400 MG TAB PO SCH (09:13)
[2018-09-18] MEDS: ZINC SULFATE 220 MG CAPSULE PO SCH (09:13)
[2018-09-18] MEDS: FLUoxetine HCL 20 MG (PROzac) CAP PO SCH (09:14)
[2018-09-18] MEDS: LORATADINE (CLARITIN) 10 MG TAB PO SCH (09:14)
[2018-09-18] MEDS: PYRIDOXINE (VITAMIN B-6) 50 MG TABLET PO SCH (09:14)
[2018-09-18] MEDS: SENNA W/DOCUSATE (SENOKOT S) TABLET PO SCH ×2 (09:15→20:44)
[2018-09-18] MEDS: CARVEDILOL 12.5 MG (COREG) TABLET PO SCH ×2 (09:15→20:43)
[2018-09-18] MEDS: VITAMIN D3 1,000 UNITS (CHOLECALCIFEROL) TABLET PO SCH (09:15)
[2018-09-18] MEDS: amLODIPine 10 MG (NORVASC) TAB PO SCH (09:16)
[2018-09-18] MEDS: BISACODYL 10 MG SUPP (DULCOLAX) PR SCH ×2 (09:16→20:49)
--- NOTE | 2018-09-18 09:22 | Physical Therapy Daily Note ---
PT Daily Note-Current Subjective Patient in bathroom pre tx, agrees to PT, no complaints of pain. Patient states he is very tired because he didn't sleep very well. Assist patient when he is done with transfers and pulling pants up. Appearance Patient in wheelchair at bedside post tx with nurse call, phone, tray, all needs met. in room. Mental Status Patient Orientation: Person, Place, Situation, Normal For Age Transfers Therapy Code Descriptions/Definitions Functional [place] Measure: 0=Not Assessed/NA 4=Minimal Assistance 1=Total Assistance 5=Supervision or Setup 2=Maximal Assistance 6=Modified [place] 3=Moderate Assistance 7=Complete [place] Therapy Quality Codes: 6 Independent with activity with or without an assistive device 5 Patient requires set up or clean up by helper. Patient completes activity by themselves 4 Supervision or touching assist (CGA). [place] provide cues , steadying assist 3 The helper provides less than half the effort to complete the activity 2 The helper provides more than half the effort to complete the activity 1 Dependent. The helper does all the effort to complete an activity 7 Patient refused to complete or attempt activity 9 The patient did not perform the activity before the current illness or injury 88 Not attempted due to Medical conditions or safety concerns Transfers (B, C, W/C) (FIM): 4 Rollin Supine to/from Sit: 4 Sit to/from Stand: 4 Bed to/from Chair: 4 Patient practiced bed mobility and rolling and supine <-> sit. Gait Training Gait (FIM): 2 Distance: 70', 30' Gait Level of Assist: 4 Gait Persons Needed: 1 Gait Assistive Device: Walker Ba Patient got a little dizzy with the second bout of ambulation at the end of therapy so he was placed in his wheelchair and taken to his room. Nurse notified and she was going to check his blood sugar. Patient needs assist with weight shifting and cues for advancement of left leg. Exercises Supine Ex: Ankle pumps, Quad Set, Glut sets, Heel Slides, Straight leg raise, Hip abd/add Supine Reps: 20 LLE stretching in all planes, AAROM performed on right leg. LAQ alternating for 5 min with 2# ankle weight on right leg. Treatments transfers, ambulation, functional strengthening, stretching, bed mobility training Assessment Current Status: Fair Progress improved rolling and supine to sit. PT Short Term Goals Short Term Goals Time Frame: Sep 11, 2018 Transfers (B,C,W/C) (FIM): 3 Gait (FIM): 1 Gait Distance Comment: 20' Gait Level of Assist: 3 Gait Assistive Device: Walker Ba Wheelchair Distance: 100' PT Assisted Goals Assisted Goals PT Assisted Goals Time Frame: Sep 25, 2018 Transfers (B,C,W/C) (FIM): 4 Sit to Lying (QC): 4 Lying-Sitting on Side/Bed(QC): 4 Sit to Stand (QC): 4 Rollin Roll Left to Right (QC): 4 Chair/Vcx-go-Bjodm Xfer(QC): 4 Car Transfer (QC): 4 Gait (FIM): 2 Distance: 50' Walk 10 feet (QC): 3 Walk 10ft-Uneven Surface(QC): 3 Walk 50ft with 2 Turns (QC): 3 Gait Level of Assist: 4 Gait Assistive Device: Cane Large Base Quad Wheelchair (FIM): 5 Distance: 150' Wheelchair Level of Assist: 5 Wheel 50 feet with 2 turns (QC: 4 PT Plan Problem List Problem List: Activity Tolerance, Functional Strength, Safety, Balance, Gait, Transfer, Bed Mobility, ROM Treatment/Plan Treatment Plan: Continue Plan of Care Treatment Plan: Bed Mobility, Concurrent Therapy, Education, Functional Activity Reena, Functional Strength, Group Therapy, Gait, Safety, Therapeutic Exercise, Transfers Treatment Duration: Sep 25, 2018 Frequency: At least 5 of 7 days/Wk (IRF) Estimated Hrs Per Day: 1.5 hours per day Patient and/or Family Agrees t: Yes Safety Risks/Education Patient Education: Gait Training, Transfer Techniques, Correct Positioning, Safety Issues Teaching Recipient: Patient Teaching Methods: Demonstration, Discussion Response to Teaching: Reinforcement Needed Time/GCodes Time In: 0800 Time Out: 0900 Total Billed Treatment Time: 60 Total Billed Treatment 1 visit GT 30' EX 20' FA 10' CASTILLO PHIPPS PT Sep 18, 2018 09:22
--- NOTE | 2018-09-18 11:51 | Speech Therapy Daily Note ---
Speech Daily Progress Note Subjective Date Seen by Provider: Sep 18, 2018 Time Seen by Provider: 00:30 Patient was sitting up in his recliner waiting on his to bring his lunch. Objective Patient completed OME x10 with minimal cues. Assessment Assessment Current Status: Good Progress Treatment Plan Continue Plan of Care Communication Comprehension: 5 Expression: 5 Social Cognition Social Interaction: 5 Problem Solvin Memory: 4 Speech Short Term Goals Short Term Goals Short Term Goals 1) Patient will increase speech intelligibility at the highest functional verbal expression level to 90% or greater. 2) Patient will complete memory tasks with 90% or greater. 3) Patient will complete problem solving tasks with 90% or greater. Speech [facility] Goals Postmaster Goals Patient will improve memory, problem solving and speech skills to better communicate with familiar and unfamiliar listeners. Comprehension: 3 Speech-Plan Patient/Family Goals Patient/Family Goals: Patient plans to return home with his post rehab. Treatment Plan Speech Therapy Treatment Plan: Continue Plan of Care Patient has made good progress as a result of skilled ST services. Treatment Duration: Sep 20, 2018 Frequency: 5 times per week Estimated Hrs Per Day: .5 hour per day Rehab Potential: Fair Barriers to Learning: Patient tires easily. Pt/Family Agrees to Plan: Yes Safety Risks/Education Teaching Recipient: Patient Teaching Methods: Discussion Response to Teaching: Verbalize Understanding Education Topics Provided: Oral motor exercises to continue at home. Time Speech Therapy Time In: 10:45 Speech Therapy Time Out: 11:15 Total Billed Time: 30 Billed Treatment Time 1EILEEN BETH[address] ST Sep 18, 2018 11:51
[2018-09-18] MEDS: RIVAROXABAN 20 MG TABLET (XARELTO) PO SCH (11:53)
--- NOTE | 2018-09-18 12:06 | Occupational Ther Daily Note ---
OT Current Status-Daily Note Subjective Pt stated, " I am going home today. His said he is talking irrelevant today. " Pain Numeric Pain Scale: 4 Location: Left Location Body Site: Shoulder Pain Description: Ache, Chronic Mental Status/Objective Patient Orientation: Person, Place, Time Therapy Code Descriptions/Definitions Functional [place] Measure: 0=Not Assessed/NA 4=Minimal Assistance 1=Total Assistance 5=Supervision or Setup 2=Maximal Assistance 6=Modified [place] 3=Moderate Assistance 7=Complete [place] ADL-Treatment Pt seen today in OT for supine to sit in bed & bedside with min A, func transfers from bed to w/c with min A for safety purpose. Educated pt"s for safety transfers with gait belt . Pt. toilet transfers with min A & using grab bar ..Needs Max A in toilet hyeigine & LB undressing & dressing ( [place] / [place] pajama ). Pt been has sponge-bath in chair wth mod A using warm Ready- Bath wipes. Provided Ba-Sling on Left shoulder to prevent Lf shoulder subluxation . & also provided ISOTONER Gloves to prevent Swelling on Lf hand. Gentle passive ROM , massage & strengthening Ex to Lf arm & 30 reps x 2 sets x 3 lb wts with Rt arm & 30 reps with red theraband.with Rt UE. Therapy Code Descriptions/Definitions Functional [place] Measure: 0=Not Assessed/NA 4=Minimal Assistance 1=Total Assistance 5=Supervision or Setup 2=Maximal Assistance 6=Modified [place] 3=Moderate Assistance 7=Complete [place] Therapy Quality Codes: 6 Independent with activity with or without an assistive device 5 Patient requires set up or clean up by helper. Patient completes activity by themselves 4 Supervision or touching assist (CGA). [place] provide cues , steadying assist 3 The helper provides less than half the effort to complete the activity 2 The helper provides more than half the effort to complete the activity 1 Dependent. The helper does all the effort to complete an activity 7 Patient refused to complete or attempt activity 9 The patient did not perform the activity before the current illness or injury 88 Not attempted due to Medical conditions or safety concerns Eating (FIM): 7 Eating (QC): 6 Grooming (FIM): 5 Oral Hygiene (QC): 5 Shower/Bathe Self (QC): 3 Upper Body (FIM): 3 Upper Body Dressing (QC): 3 Lower Body Dressing (FIM): 2 Lower Body Dressing (QC): 2 Toileting (FIM): 2 Toileting Hygiene (QC): 2 Transfers (B, C, W/C) (FIM): 4 Toilet/Commode Transfer (FIM): 4 Toilet Transfer (QC): 4 Education OT Patient Education: Correct positioning, Instructions to caregiver, Modified ADL techniques, Safety issues, Transfer techniques Teaching Recipient: Patient, Family Teaching Methods: Demonstration, Discussion Response to Teaching: Verbalize Understanding, Return Demonstration OT Short Term Goals Short Term Goals Time Frame: Sep 19, 2018 Eating(FIM): 7 Grooming(FIM): 7 Bathing(FIM): 3 Bathing Location: L Arm, L Lower Leg (including foot), Chest, Abdomen Upper Body Dressing(FIM): 3 Lower Body Dressing(FIM): 2 Toileting(FIM): 3 Transfers (B,C,W/C) (FIM): 3 Toilet/Commode Transfer(FIM): 3 Shower Transfer(FIM): 3 Additional Short Term Goals: 1-Demonstrate ADL Tasks, 2-Verbalize Understanding , 3-ImproveStrength/Reena 1=Demonstrate adherence to instructed precautions during ADL tasks. 2=Patient will verbalize/demonstrate understanding of assistive devices/ modifications for ADL. 3=Patient will improve strength/tolerance for activity to enable patient to perform ADL's. OT Senior Java Developer Goals Senior Java Developer Goals Time Frame: Oct 03, 2018 Eating (FIM): 7 Eating (QC): 7 Groomin Oral Hygiene (QC): 7 Bathing(FIM): 3 Bathing Location: L Arm, R Arm, L Lower Leg (including foot), R Lower Leg ( including foot), Chest, Abdomen Shower/Bathe Self (QC): 3 Upper Body Dressing(FIM): 4 Upper Body Dressing (QC): 4 Lower Body Dressing(FIM): 3 Lower Body Dressing (QC): 3 On/Off Footwear (QC): 3 Toileting(FIM): 3 Toileting Hygiene (QC): 3 Transfers (B,C,W/C) (FIM): 3 Toilet/Commode Transfer(FIM): 3 Toilet/Commode Transfer (QC): 3 Shower Transfer(FIM): 3 Comprehension(FIM): 3 Additional Goals: 1-Demonstrate ADL Tasks, 2-Verbalize Understanding, 3- ImproveStrength/Reena 1=Demonstrate adherence to instructed precautions during ADL tasks. 2=Patient will verbalize/demonstrate understanding of assistive devices/ modifications for ADL. 3=Patient will improve strength/tolerance for activity to enable patient to perform ADL's. OT Education/Plan Problem List/Assessment Assessment: Decreased Activ Tolerance, Decreased Safety Aware, Decreased UE Strength, Dependent Transfers, Impaired Bed Mobility, Impaired Self-Care Skills Discharge Recommendations Plan/Recommendations: Continue POC Therapy D/C Recommendations: Home w/ Family Support, Occupational Therapy Home Care Treatment Plan/Plan of Care Treatment,Training & Education: Yes Patient would benefit from OT for education, treatment and training to promote independence in ADL's, mobility, safety and/or upper extremity function for ADL' s. Plan of Care: ADL Retraining, Caregiver Training, Functional Mobility, Group Exercise/Act as Ind, UE Funct Exercise/Act Treatment Duration: Oct 03, 2018 Frequency: At least 5 of 7 days/Wk (IRF) Estimated Hrs Per Day: 1.5 hours per day Agreement: Yes Rehab Potential: Fair Time/GCodes Start Time: 10:00 Stop Time: 10:45 Total Time Billed (hr/min): 45 Billed Treatment Time 1, ADL 30 min, Ex 15 min .Total 45 min . GUTIERREZ GOLDEN OT Sep 18, 2018 12:06
--- NOTE | 2018-09-18 15:01 | Therapy Group Daily Note ---
Therapy Daily Group Note Patient Education Topic Other List Below Exercises LE Seated Exercise, UE Exercise Other/Notes Pt participated in group therapy with 4 to 1 ratio. Goals of Session: Understanding of modifications to daily items and environment for ease of use (met). Demonstrate ability to complete UE/LE seated exercises (met). [facility]. Group consists of introductions (name, place living, [id number]), socialization, UE/LE seated exercises and education on modifications for items used daily. Pt able to introduce self appropriately and actively listened to peers. Pt able to roll dice with L UE for question to answer. Pt was quiet throughout group due to not feeling well. Pt did acknowledge by nodding head and verbalizing understanding saying yes. Pt completed UE/LE seated exercises using one handed technique due to medical diagnosis. Pt benefited from group by being able to modify items at home for one handed techniques. 5 words were picked out by pt' s to remember next session (2, asteroids, carhop, spring, hopscotch). After group, pt lying in bed with call light/phone in reach. present in room. All needs met in room. Start Time: 13:00 Stop Time: 14:20 Total Billed Treatment Time: 80 Total Billed Treatment 1-SHANNON SMITH Sep 18, 2018 15:01
[2018-09-18] MEDS: TAMSULOSIN 0.4 MG (FLOMAX) CAP PO SCH (17:10)
--- NOTE | 2018-09-18 17:30 | NUR ---
Weekly team conference Reviewed weekly team conference with patient and patient's . Both are agreeable for continued stay (pending insurance authorization) with day pass this weekend.
[2018-09-18 18:00] VITALS: BP 144/75
[2018-09-18] MEDS ORDERED: TRIM/SULFAMETH 160/800 (SEPTRA DS) TAB PO ONE (19:46)
[2018-09-18] MEDS: ATORVASTATIN 40 MG (LIPITOR) TABLET PO SCH (20:43)
[2018-09-18] MEDS: inSUlin DETERMIR 1 UNIT/0.01 ML (LEVEMIR) CHARGE PER UNIT SQ SCH (20:43)
[2018-09-18] MEDS: TRIM/SULFAMETH 160/800 (SEPTRA DS) TAB PO SCH (20:43)
[2018-09-18] MEDS: ALPRAZolam 0.25 MG (XANAX) TAB PO PRN (20:43)
[2018-09-19 05:21] VITALS: BP 118/65
[2018-09-19] MEDS: inSUlin ASPART (NovoLOG) 1 UNIT/0.01 ML (CHARGE PER UNIT) SC SCH ×4 (06:11→20:08)
[2018-09-19] MEDS: METOCLOPRAMIDE 10 MG (REGLAN) TAB PO SCH ×4 (06:14→20:07)
[2018-09-19] MEDS: CYANOCOBALAMIN 1,000 MCG (VITAMIN B-12) TABLET PO SCH (06:14)
[2018-09-19] MEDS: metFORMIN XR 500 MG (GLUCOPHAGE XR) TAB PO SCH ×2 (06:14→16:56)
[2018-09-19 08:00] VITALS: BP 124/78
[2018-09-19] MEDS: CARVEDILOL 12.5 MG (COREG) TABLET PO SCH ×2 (08:00→20:07)
[2018-09-19] MEDS: MAGNESIUM OXIDE (MAG-OX)400 MG TAB PO SCH (08:00)
[2018-09-19] MEDS: VITAMIN D3 1,000 UNITS (CHOLECALCIFEROL) TABLET PO SCH (08:00)
[2018-09-19] MEDS: PYRIDOXINE (VITAMIN B-6) 50 MG TABLET PO SCH (08:00)
[2018-09-19] MEDS: FLUoxetine HCL 20 MG (PROzac) CAP PO SCH (08:00)
[2018-09-19] MEDS: LORATADINE (CLARITIN) 10 MG TAB PO SCH (08:00)
[2018-09-19] MEDS: ZINC SULFATE 220 MG CAPSULE PO SCH (08:00)
[2018-09-19] MEDS: SENNA W/DOCUSATE (SENOKOT S) TABLET PO SCH ×2 (08:00→19:54)
[2018-09-19] MEDS: amLODIPine 10 MG (NORVASC) TAB PO SCH (08:00)
[2018-09-19] MEDS: BISACODYL 10 MG SUPP (DULCOLAX) PR SCH ×2 (08:00→19:34)
--- NOTE | 2018-09-19 08:45 | PM&R Progress Note ---
Subjective HPI/CC On Admission Date Seen by Provider: Sep 19, 2018 Time Seen by Provider: 08:15 Subjective/Events-last exam Will restart aspirin 81 mg daily since that had apparently been on hold since scope revealed gastritis Maintain on Reglan and proton pump inhibitor and doing well so we will restart it Has no complaints Working with physical therapy and receiving great benefits Left arm is in sling and that helps his alignment during walking Bowels are moving Denies any pain Trying to allow to perform most of the ADLs to be sure she can actually do that when he goes home Review of Systems Neurological: Weakness, Incoordination Objective Exam Vital Signs Vital Signs Date Time Temp Pulse Resp B/P (MAP) Pulse Ox O2 Delivery O2 Flow Rate FiO2 09/19/18 20:00 Room Air 09/19/18 17:49 98.3 65 18 138/73 (94) 94 Capillary Refill : General Appearance: No Apparent Distress, WD/WN Respiratory: Chest Non Tender, Lungs Clear, Normal Breath Sounds, No Accessory Muscle Use, No Respiratory Distress Cardiovascular: Regular Rate, Rhythm, No Edema, No Gallop, No JVD, No Murmur, Normal Peripheral Pulses Neurologic/Psychiatric: Alert, Oriented x3, Normal Mood/Affect, Motor Weakness (left sided) Skin: Normal Color, Warm/Dry Results/Procedures Lab Patient resulted labs reviewed. Assessment/Plan Assessment and Plan Assess & Plan/Chief Complaint Assessment Subacute CVA 08/16/18 with left sided weakness Severe carotid stenosis right s/p endarterectomy but no resolution of deficit has appt at [facility] Sunday but rescheduling DM on insulin Chronic UTI but normal cystoscopy 09/06/18 but BPH noted and placed on Flomax from Urology now receiving straight caths if retention on bladder scan and patient agrees for self cath at [place] per Urology placed on Bactrim 1/2 tablet at night to prevent UTI due to catheters but now voiding well when up to toilet and no longer needs catheters since no residual HTN HLP Constipation recurrent issue resolved now Hematochezia episode with Heme + stools but gastritis and colon polyps noted on EGD/Colonoscopy on 09/07/[address] Waggoner Chronic nausea improved on Reglan confirming gastroparesis as the source Plan: Maintain ASA and anticoagulation Follow up on polyp pathology Monitor sugar control and adjust insulin prn Maintain urinary management since h/o chronic UTI and maintain on Flomax per Urology in addition to self caths to prevent retention but now voiding well and no caths needed as long as upright to toilet PPI and maintain on Flomax at DC Zofran Constipation treatment maintained Reglan at CO Diagnosis/Problems Diagnosis/Problems (1) Cerebrovascular accident (CVA) with left hemiparesis Status: Acute (2) Diabetes mellitus Status: Chronic Qualifiers: Diabetes mellitus type: type 2 Diabetes mellitus manager management insulin use: with manager management use Diabetes mellitus complication status: with circulatory complication Diabetes mellitus complication detail: with other circulatory complications Qualified Codes: E11.59 - Type 2 diabetes mellitus with other circulatory complications; Z79.4 - signal mechanic (current) use of insulin (3) Hypertension Status: Chronic Qualifiers: Hypertension type: essential hypertension Qualified Codes: I10 - Essential (primary) hypertension (4) Hyperlipidemia Status: Chronic Qualifiers: Hyperlipidemia type: mixed hyperlipidemia Qualified Codes: E78.2 - Mixed hyperlipidemia (5) Chronic UTI Status: Chronic (6) Bright red blood per rectum Status: Resolved Resolution Date/Time: 09/07/18 @ 15:48 (7) Constipation Status: Resolved Qualifiers: Constipation type: slow transit constipation Qualified Codes: K59.01 - Slow transit constipation Resolution Date/Time: 09/11/18 @ 11:41 (8) Anticoagulant long-term use Status: Chronic (9) BPH (benign prostatic hyperplasia) Status: Chronic Qualifiers: Lower urinary tract symptom presence: symptoms present Lower urinary tract symptom detail: urinary frequency Qualified Codes: N40.1 - Benign prostatic hyperplasia with lower urinary tract symptoms; R35.0 - Frequency of micturition (10) Abnormal findings on esophagogastroduodenoscopy (EGD) Status: Acute (11) Abnormal colonoscopy Status: Acute (12) Gastritis Status: Acute Qualifiers: Gastritis type: unspecified gastritis Chronicity: acute Gastritis bleeding: without bleeding Qualified Codes: K29.00 - Acute gastritis without bleeding (13) Colon polyps Status: Acute Qualifiers: Colon polyp type: unspecified Colon location: unspecified part of colon Qualified Codes: K63.5 - Polyp of colon (14) Nausea Status: Chronic (15) Urinary retention Status: Resolved Resolution Date/Time: 09/12/18 @ 10:40 (16) Shoulder pain, right Status: Acute Qualifiers: Chronicity: acute Qualified Codes: M25.511 - Pain in right shoulder (17) Gastroparesis Status: Acute Clinical Quality Measures Admission Status Admission Dx Assessment Subacute CVA 08/16/18 with left sided weakness Severe carotid stenosis right s/p endarterectomy but no resolution of deficit DM Chronic UTI HTN HLP Plan: Monitor BP Maintain all new meds per [facility] including asa and anticoagulation Therapies as ordered for intensive rehab DVT/VTE Risk/Contraindication: Risk Factor Score Per Nursin RFS Level Per Nursing on Admit: 4+=Very High DARELL CIFUENTES DO Sep 19, 2018 08:45
--- NOTE | 2018-09-19 08:59 | Physical Therapy Daily Note ---
PT Daily Note-Current Subjective Patient in wheelchair pre tx, agrees to PT, no complaints of pain. Patient now has a sling for right arm for comfort. Appearance Patient in wheelchair at bedside post tx with nurse call, phone, tray, all needs met. Mental Status Patient Orientation: Person, Place, Situation, Normal For Age Transfers Therapy Code Descriptions/Definitions Functional [place] Measure: 0=Not Assessed/NA 4=Minimal Assistance 1=Total Assistance 5=Supervision or Setup 2=Maximal Assistance 6=Modified [place] 3=Moderate Assistance 7=Complete [place] Therapy Quality Codes: 6 Independent with activity with or without an assistive device 5 Patient requires set up or clean up by helper. Patient completes activity by themselves 4 Supervision or touching assist (CGA). [place] provide cues , steadying assist 3 The helper provides less than half the effort to complete the activity 2 The helper provides more than half the effort to complete the activity 1 Dependent. The helper does all the effort to complete an activity 7 Patient refused to complete or attempt activity 9 The patient did not perform the activity before the current illness or injury 88 Not attempted due to Medical conditions or safety concerns Transfers (B, C, W/C) (FIM): 4 Sit to/from Stand: 4 Bed to/from Chair: 4 Gait Training Gait (FIM): 2 Distance: 70'x2, 10' Gait Level of Assist: 4 Gait Assistive Device: Walker Ba Patient needs still some assist with weight shifting but is doing better until he fatigues. Cues for advancement of left leg and step length. Exercises LAQ alternating for 5 min with 2# ankle weight on right side NuStep Minutes: 15 NuStep Workload: 4 Treatments transfers, ambulation, functional strengthening Assessment Current Status: Fair Progress states she will be getting him some shoes today so he can start using an AFO on the left side PT Short Term Goals Short Term Goals Time Frame: Sep 11, 2018 Transfers (B,C,W/C) (FIM): 3 Gait (FIM): 1 Gait Distance Comment: 20' Gait Level of Assist: 3 Gait Assistive Device: Walker Ba Wheelchair Distance: 100' PT Jail Goals Jail Goals PT Service Rig Operator Goals Time Frame: Sep 25, 2018 Transfers (B,C,W/C) (FIM): 4 Sit to Lying (QC): 4 Lying-Sitting on Side/Bed(QC): 4 Sit to Stand (QC): 4 Rollin Roll Left to Right (QC): 4 Chair/Gvr-sg-Absrg Xfer(QC): 4 Car Transfer (QC): 4 Gait (FIM): 2 Distance: 50' Walk 10 feet (QC): 3 Walk 10ft-Uneven Surface(QC): 3 Walk 50ft with 2 Turns (QC): 3 Gait Level of Assist: 4 Gait Assistive Device: Cane Large Base Quad Wheelchair (FIM): 5 Distance: 150' Wheelchair Level of Assist: 5 Wheel 50 feet with 2 turns (QC: 4 PT Plan Problem List Problem List: Activity Tolerance, Functional Strength, Safety, Balance, Gait, Transfer, Bed Mobility, ROM Treatment/Plan Treatment Plan: Continue Plan of Care Treatment Plan: Bed Mobility, Concurrent Therapy, Education, Functional Activity Reena, Functional Strength, Group Therapy, Gait, Safety, Therapeutic Exercise, Transfers Treatment Duration: Sep 25, 2018 Frequency: At least 5 of 7 days/Wk (IRF) Estimated Hrs Per Day: 1.5 hours per day Patient and/or Family Agrees t: Yes Safety Risks/Education Patient Education: Gait Training, Transfer Techniques, Correct Positioning, Safety Issues Teaching Recipient: Patient Teaching Methods: Demonstration, Discussion Response to Teaching: Reinforcement Needed Time/GCodes Time In: 0800 Time Out: 0900 Total Billed Treatment Time: 60 Total Billed Treatment 1 visit GT 30' EX 20' FA 10' CASTILLO PHIPPS PT Sep 19, 2018 08:59
--- NOTE | 2018-09-19 09:27 | NUR ---
Insurance has authorized additional 7 days on ARU. Next update due 09/24/18. Patient and patient's spouse notified.
[2018-09-19] MEDS: ASPIRIN E.C. 81 MG (ECOTRIN) TAB PO SCH (09:44)
--- NOTE | 2018-09-19 11:00 | NUR ---
PT EATING WELL, 98% MEALS AND FAMILY BRINGING IN MOST FOOD FROM OUTSIDE (FAST FOOD, ETC). INTAKE MEETING NEEDS AT THIS TIME. CONT SAME.
[2018-09-19] MEDS: RIVAROXABAN 20 MG TABLET (XARELTO) PO SCH (13:15)
--- NOTE | 2018-09-19 14:14 | Speech Therapy Daily Note ---
Speech Daily Progress Note Subjective Date Seen by Provider: Sep 19, 2018 Time Seen by Provider: 00:30 Patient was resting in bed, present when I entered the room. Objective Patient completed OME x10 with only visual cues. Assessment Assessment Current Status: Good Progress Treatment Plan Continue Plan of Care Communication Comprehension: 5 Expression: 5 Social Cognition Social Interaction: 5 Problem Solvin Memory: 4 Speech Short Term Goals Short Term Goals Short Term Goals 1) Patient will increase speech intelligibility at the highest functional verbal expression level to 90% or greater. 2) Patient will complete memory tasks with 90% or greater. 3) Patient will complete problem solving tasks with 90% or greater. Speech Machine Engraver Goals Machine Engraver Goals Patient will improve memory, problem solving and speech skills to better communicate with familiar and unfamiliar listeners. Comprehension: 3 Speech-Plan Patient/Family Goals Patient/Family Goals: Patient plans to return home with his next week. Treatment Plan Speech Therapy Treatment Plan: Continue Plan of Care Patient is making good progress as a result of skilled ST services. Treatment Duration: Sep 24, 2018 Frequency: 5 times per week Estimated Hrs Per Day: .5 hour per day Rehab Potential: Good Barriers to Learning: Patient tires easily. Pt/Family Agrees to Plan: Yes Safety Risks/Education Teaching Recipient: Patient, Significant Other Teaching Methods: Discussion Response to Teaching: Verbalize Understanding Education Topics Provided: Continued oral motor exercises upon his return home. Time Speech Therapy Time In: 09:00 Speech Therapy Time Out: 09:30 Total Billed Time: 30 Billed Treatment Time 1EILEEN BETHANIA ST Sep 19, 2018 14:14
--- NOTE | 2018-09-19 14:20 | Physical Therapy Daily Note ---
PT Daily Note-Current Subjective Pt was in bed and agreed to PT. Pt requested that he would like to work on moving his LLE better. Pain Numeric Pain Scale: 3 Location: Left Location Body Site: Hand Mental Status Patient Orientation: Person, Place, Situation, Normal For Age Transfers Therapy Code Descriptions/Definitions Functional [place] Measure: 0=Not Assessed/NA 4=Minimal Assistance 1=Total Assistance 5=Supervision or Setup 2=Maximal Assistance 6=Modified [place] 3=Moderate Assistance 7=Complete [place] Therapy Quality Codes: 6 Independent with activity with or without an assistive device 5 Patient requires set up or clean up by helper. Patient completes activity by themselves 4 Supervision or touching assist (CGA). [place] provide cues , steadying assist 3 The helper provides less than half the effort to complete the activity 2 The helper provides more than half the effort to complete the activity 1 Dependent. The helper does all the effort to complete an activity 7 Patient refused to complete or attempt activity 9 The patient did not perform the activity before the current illness or injury 88 Not attempted due to Medical conditions or safety concerns Transfers (B, C, W/C) (FIM): 4 Scootin Rollin Roll Left to Right (QC): 5 Supine to/from Sit: 4 Sit to/from Stand: 4 Sit to Lying (QC): 4 Sit to Stand (QC): 4 Weight Bearing Right Lower Extremity: Right Full Weight Bearing Left Lower Extremity: Left Full Weight Bearing Gait Training Does the Patient Walk?: Yes Gait (FIM): 3 Distance (FIM): 3=150 ft Distance: 150' Walk 10 feet (QC): 3 Walk 50 ft with 2 Turns(QC): 3 Walk 150 ft (QC): 3 Gait Level of Assist: 3 Gait Persons Needed: 1 Gait Assistive Device: Walker Ba Pt leans to L and has trouble with wt. shifting bilaterally. Pt struggles with L swing through. Exercises Supine Ex: Bridging, Heel Slides, Resisted flex/ext (PNF pattern with resistance only on ext), Straight leg raise Supine Reps: 10 Assessment Current Status: Fair Progress Pt is able to perform bed mobility with SBA. Pt transfers from sit<>stand are CGA to ba walker. Pt requires mod A due to pt leaning heavy to L side. Pt amb with ba walker for a total of 150'. Pt performed supine ex. Pt returned to room and entered shower for him to begin with OT. Pt has all needs met. PT Short Term Goals Short Term Goals Time Frame: Sep 11, 2018 Transfers (B,C,W/C) (FIM): 3 Gait (FIM): 1 Gait Distance Comment: 20' Gait Level of Assist: 3 Gait Assistive Device: Walker Ba Wheelchair Distance: 100' PT Long-Term Goals Long-Term Goals PT Sprinkler Irrigation Equipment Mechanic Goals Time Frame: Sep 25, 2018 Transfers (B,C,W/C) (FIM): 4 Sit to Lying (QC): 4 Lying-Sitting on Side/Bed(QC): 4 Sit to Stand (QC): 4 Rollin Roll Left to Right (QC): 4 Chair/Ysj-mi-Ujwfr Xfer(QC): 4 Car Transfer (QC): 4 Gait (FIM): 2 Distance: 50' Walk 10 feet (QC): 3 Walk 10ft-Uneven Surface(QC): 3 Walk 50ft with 2 Turns (QC): 3 Gait Level of Assist: 4 Gait Assistive Device: Cane Large Base Quad Wheelchair (FIM): 5 Distance: 150' Wheelchair Level of Assist: 5 Wheel 50 feet with 2 turns (QC: 4 PT Plan Problem List Problem List: Activity Tolerance, Functional Strength, Safety, Balance, Gait, Transfer, Bed Mobility, ROM Treatment/Plan Treatment Plan: Continue Plan of Care Treatment Plan: Bed Mobility, Concurrent Therapy, Education, Functional Activity Reena, Functional Strength, Group Therapy, Gait, Safety, Therapeutic Exercise, Transfers Treatment Duration: Sep 25, 2018 Frequency: At least 5 of 7 days/Wk (IRF) Estimated Hrs Per Day: 1.5 hours per day Patient and/or Family Agrees t: Yes Time/GCodes Time In: 1332 Time Out: 1406 Total Billed Treatment Time: 34 Total Billed Treatment 1 visit EX 15 min GT 19 min ROSA JOHNSON PT Sep 19, 2018 14:19
[2018-09-19] MEDS: HYDROcodone/APAP 5 MG/325 MG (LORTAB) TAB PO PRN ×2 (14:55→20:07)
--- NOTE | 2018-09-19 15:11 | Occupational Ther Daily Note ---
OT Current Status-Daily Note Subjective Pt stated, I am doing good, Where is my . I" Pain Numeric Pain Scale: 5-Moderate Pain Location: Left Location Body Site: Shoulder Pain Description: Ache, Throbbing Mental Status/Objective Patient Orientation: Person, Place, Time Therapy Code Descriptions/Definitions Functional [place] Measure: 0=Not Assessed/NA 4=Minimal Assistance 1=Total Assistance 5=Supervision or Setup 2=Maximal Assistance 6=Modified [place] 3=Moderate Assistance 7=Complete [place] ADL-Treatment Pt seen for Bath/ shower retraining , UB ,LB dressing, func transfer training, func bed mobility, safety awareness, 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 & theraex BUE. Patient needs mod- max A in shower , Mod A in UB dressing , Max A in LB dressing, Min A in func toilet transfers & bed mobility. MS in Rt UE 4/5 & Lf UE -1/5 grossly graded, applied edema compression gloves on left hand. Therapy Code Descriptions/Definitions Functional [place] Measure: 0=Not Assessed/NA 4=Minimal Assistance 1=Total Assistance 5=Supervision or Setup 2=Maximal Assistance 6=Modified [place] 3=Moderate Assistance 7=Complete [place] Therapy Quality Codes: 6 Independent with activity with or without an assistive device 5 Patient requires set up or clean up by helper. Patient completes activity by themselves 4 Supervision or touching assist (CGA). [place] provide cues , steadying assist 3 The helper provides less than half the effort to complete the activity 2 The helper provides more than half the effort to complete the activity 1 Dependent. The helper does all the effort to complete an activity 7 Patient refused to complete or attempt activity 9 The patient did not perform the activity before the current illness or injury 88 Not attempted due to Medical conditions or safety concerns Eating (FIM): 7 Eating (QC): 6 Grooming (FIM): 5 Oral Hygiene (QC): 5 Bathing (FIM): 2 Bathing Location: L Arm, R Arm, L Upper Leg, R Upper Leg, L Lower Leg ( including foot), R Lower Leg (including foot), Chest, Abdomen, Buttocks, Perineal Area Shower/Bathe Self (QC): 2 Upper Body (FIM): 3 Upper Body Dressing (QC): 3 Lower Body Dressing (FIM): 2 Lower Body Dressing (QC): 2 On/Off Footwear (QC): 0 Transfers (B, C, W/C) (FIM): 4 Toilet/Commode Transfer (FIM): 4 Toilet Transfer (QC): 4 Tub Transfer(FIM): 0 Shower Transfer(FIM): 4 Education OT Patient Education: Correct positioning, Instructions to caregiver, Safety issues Teaching Recipient: Patient, Family Teaching Methods: Demonstration, Discussion Response to Teaching: Verbalize Understanding, Return Demonstration OT Short Term Goals Short Term Goals Time Frame: Sep 19, 2018 Eating(FIM): 7 Grooming(FIM): 7 Bathing(FIM): 3 Bathing Location: L Arm, L Lower Leg (including foot), Chest, Abdomen Upper Body Dressing(FIM): 3 Lower Body Dressing(FIM): 2 Toileting(FIM): 3 Transfers (B,C,W/C) (FIM): 3 Toilet/Commode Transfer(FIM): 3 Shower Transfer(FIM): 3 Additional Short Term Goals: 1-Demonstrate ADL Tasks, 2-Verbalize Understanding , 3-ImproveStrength/Reena 1=Demonstrate adherence to instructed precautions during ADL tasks. 2=Patient will verbalize/demonstrate understanding of assistive devices/ modifications for ADL. 3=Patient will improve strength/tolerance for activity to enable patient to perform ADL's. OT Mcc Goals [place] Classifier Goals Time Frame: Oct 03, 2018 Eating (FIM): 7 Eating (QC): 7 Groomin Oral Hygiene (QC): 7 Bathing(FIM): 3 Bathing Location: L Arm, R Arm, L Lower Leg (including foot), R Lower Leg ( including foot), Chest, Abdomen Shower/Bathe Self (QC): 3 Upper Body Dressing(FIM): 4 Upper Body Dressing (QC): 4 Lower Body Dressing(FIM): 3 Lower Body Dressing (QC): 3 On/Off Footwear (QC): 3 Toileting(FIM): 3 Toileting Hygiene (QC): 3 Transfers (B,C,W/C) (FIM): 3 Toilet/Commode Transfer(FIM): 3 Toilet/Commode Transfer (QC): 3 Shower Transfer(FIM): 3 Comprehension(FIM): 3 Additional Goals: 1-Demonstrate ADL Tasks, 2-Verbalize Understanding, 3- ImproveStrength/Reena 1=Demonstrate adherence to instructed precautions during ADL tasks. 2=Patient will verbalize/demonstrate understanding of assistive devices/ modifications for ADL. 3=Patient will improve strength/tolerance for activity to enable patient to perform ADL's. OT Education/Plan Problem List/Assessment Assessment: Decreased Activ Tolerance, Decreased Safety Aware, Decreased UE Strength, Dependent Transfers, Impaired Bed Mobility, Impaired Funct Balance, Impaired Self-Care Skills Discharge Recommendations Plan/Recommendations: Continue POC Therapy D/C Recommendations: Home w/ Family Support Equpiment Recommendations-D/C: Bath Chair, Extended Shower Sprayer, Build And Release Manager Treatment Plan/Plan of Care Treatment,Training & Education: Yes Patient would benefit from OT for education, treatment and training to promote independence in ADL's, mobility, safety and/or upper extremity function for ADL' s. Plan of Care: ADL Retraining, Caregiver Training, Functional Mobility, Group Exercise/Act as Ind, UE Funct Exercise/Act Treatment Duration: Oct 03, 2018 Frequency: At least 5 of 7 days/Wk (IRF) Estimated Hrs Per Day: 1.5 hours per day Agreement: Yes Rehab Potential: Good Time/GCodes Start Time: 14:00 Stop Time: 15:15 Total Time Billed (hr/min): 75 Billed Treatment Time 1, ADLs 60 min, Ex 15 min. Total 75 minutes. GUTIERREZ GOLDEN OT Sep 19, 2018 15:11
[2018-09-19] MEDS: TAMSULOSIN 0.4 MG (FLOMAX) CAP PO SCH (16:56)
[2018-09-19 17:49] VITALS: BP 138/73
[2018-09-19] MEDS ORDERED: TRIM/SULFAMETH 160/800 (SEPTRA DS) TAB PO ONE (20:02)
[2018-09-19] MEDS: TRIM/SULFAMETH 160/800 (SEPTRA DS) TAB PO SCH (20:06)
[2018-09-19] MEDS: ATORVASTATIN 40 MG (LIPITOR) TABLET PO SCH (20:07)
[2018-09-19] MEDS: ALPRAZolam 0.25 MG (XANAX) TAB PO PRN (20:07)
[2018-09-19] MEDS: inSUlin DETERMIR 1 UNIT/0.01 ML (LEVEMIR) CHARGE PER UNIT SQ SCH (20:08)
[2018-09-20 05:04] VITALS: BP 108/64
[2018-09-20] MEDS: metFORMIN XR 500 MG (GLUCOPHAGE XR) TAB PO SCH ×2 (06:32→16:08)
[2018-09-20] MEDS: CYANOCOBALAMIN 1,000 MCG (VITAMIN B-12) TABLET PO SCH (06:32)
[2018-09-20] MEDS: METOCLOPRAMIDE 10 MG (REGLAN) TAB PO SCH ×4 (06:32→20:40)
[2018-09-20] MEDS: inSUlin ASPART (NovoLOG) 1 UNIT/0.01 ML (CHARGE PER UNIT) SC SCH ×4 (06:33→20:43)
[2018-09-20] MEDS: HYDROcodone/APAP 5 MG/325 MG (LORTAB) TAB PO PRN ×2 (06:55→20:40)
[2018-09-20 08:04] VITALS: BP 137/76
[2018-09-20] MEDS: amLODIPine 10 MG (NORVASC) TAB PO SCH (08:06)
[2018-09-20] MEDS: ZINC SULFATE 220 MG CAPSULE PO SCH (08:06)
[2018-09-20] MEDS: VITAMIN D3 1,000 UNITS (CHOLECALCIFEROL) TABLET PO SCH (08:06)
[2018-09-20] MEDS: FLUoxetine HCL 20 MG (PROzac) CAP PO SCH (08:06)
[2018-09-20] MEDS: CARVEDILOL 12.5 MG (COREG) TABLET PO SCH ×2 (08:06→20:40)
[2018-09-20] MEDS: PYRIDOXINE (VITAMIN B-6) 50 MG TABLET PO SCH (08:06)
[2018-09-20] MEDS: MAGNESIUM OXIDE (MAG-OX)400 MG TAB PO SCH (08:06)
[2018-09-20] MEDS: LORATADINE (CLARITIN) 10 MG TAB PO SCH (08:06)
[2018-09-20] MEDS: ASPIRIN E.C. 81 MG (ECOTRIN) TAB PO SCH (08:07)
[2018-09-20] MEDS: SENNA W/DOCUSATE (SENOKOT S) TABLET PO SCH ×2 (09:00→20:40)
[2018-09-20] MEDS: BISACODYL 10 MG SUPP (DULCOLAX) PR SCH ×2 (09:00→19:09)
--- NOTE | 2018-09-20 10:21 | Occupational Ther Daily Note ---
OT Current Status-Daily Note Subjective Pt's says, " he is grouchy today. When I asked Pt how are you Mr Corley ,, Pt replied I am fine ." Pain Numeric Pain Scale: 5-Moderate Pain Location: Right, Left Location Body Site: Shoulder Pain Description: Ache, Sharp Mental Status/Objective Patient Orientation: Person, Place, Time Therapy Code Descriptions/Definitions Functional [place] Measure: 0=Not Assessed/NA 4=Minimal Assistance 1=Total Assistance 5=Supervision or Setup 2=Maximal Assistance 6=Modified [place] 3=Moderate Assistance 7=Complete [place] ADL-Treatment Pt been seen for bed mobility retraining, sit to stand & transfers to w/c , toilet transfers and educating pt's for bed mobility, safe toilet transfers & bed to w/c transfers with safety education., Pt participated in strengthening ex to Lt arm, proper positioning of Left arm in Ba-sling ^ applied Isotoner gloves on his left hand to prevent swelling on left hand & wrist. Therapy Code Descriptions/Definitions Functional [place] Measure: 0=Not Assessed/NA 4=Minimal Assistance 1=Total Assistance 5=Supervision or Setup 2=Maximal Assistance 6=Modified [place] 3=Moderate Assistance 7=Complete [place] Therapy Quality Codes: 6 Independent with activity with or without an assistive device 5 Patient requires set up or clean up by helper. Patient completes activity by themselves 4 Supervision or touching assist (CGA). [place] provide cues , steadying assist 3 The helper provides less than half the effort to complete the activity 2 The helper provides more than half the effort to complete the activity 1 Dependent. The helper does all the effort to complete an activity 7 Patient refused to complete or attempt activity 9 The patient did not perform the activity before the current illness or injury 88 Not attempted due to Medical conditions or safety concerns Eating (FIM): 7 Eating (QC): 6 Grooming (FIM): 5 Oral Hygiene (QC): 5 Bathing (FIM): 2 Bathing Location: L Arm, R Arm, L Upper Leg, R Upper Leg, L Lower Leg ( including foot), R Lower Leg (including foot), Abdomen, Buttocks, Perineal Area Shower/Bathe Self (QC): 2 Upper Body (FIM): 4 Upper Body Dressing (QC): 4 Lower Body Dressing (FIM): 3 Lower Body Dressing (QC): 3 Toileting (FIM): 3 Toileting Hygiene (QC): 3 Transfers (B, C, W/C) (FIM): 4 Toilet/Commode Transfer (FIM): 4 Toilet Transfer (QC): 4 Shower Transfer(FIM): 4 Education OT Patient Education: Correct positioning, Instructions to caregiver, Modified ADL techniques, Safety issues, Transfer techniques Teaching Recipient: Patient, Family Teaching Methods: Demonstration, Discussion Response to Teaching: Verbalize Understanding, Return Demonstration OT Short Term Goals Short Term Goals Time Frame: Sep 19, 2018 Eating(FIM): 7 Grooming(FIM): 7 Bathing(FIM): 3 Bathing Location: L Arm, L Lower Leg (including foot), Chest, Abdomen Upper Body Dressing(FIM): 3 Lower Body Dressing(FIM): 2 Toileting(FIM): 3 Transfers (B,C,W/C) (FIM): 3 Toilet/Commode Transfer(FIM): 3 Shower Transfer(FIM): 3 Additional Short Term Goals: 1-Demonstrate ADL Tasks, 2-Verbalize Understanding , 3-ImproveStrength/Reena 1=Demonstrate adherence to instructed precautions during ADL tasks. 2=Patient will verbalize/demonstrate understanding of assistive devices/ modifications for ADL. 3=Patient will improve strength/tolerance for activity to enable patient to perform ADL's. OT Intermediate Goals Intermediate Goals Time Frame: Oct 03, 2018 Eating (FIM): 7 Eating (QC): 7 Groomin Oral Hygiene (QC): 7 Bathing(FIM): 3 Bathing Location: L Arm, R Arm, L Lower Leg (including foot), R Lower Leg ( including foot), Chest, Abdomen Shower/Bathe Self (QC): 3 Upper Body Dressing(FIM): 4 Upper Body Dressing (QC): 4 Lower Body Dressing(FIM): 3 Lower Body Dressing (QC): 3 On/Off Footwear (QC): 3 Toileting(FIM): 3 Toileting Hygiene (QC): 3 Transfers (B,C,W/C) (FIM): 3 Toilet/Commode Transfer(FIM): 3 Toilet/Commode Transfer (QC): 3 Shower Transfer(FIM): 3 Comprehension(FIM): 3 Additional Goals: 1-Demonstrate ADL Tasks, 2-Verbalize Understanding, 3- ImproveStrength/Reena 1=Demonstrate adherence to instructed precautions during ADL tasks. 2=Patient will verbalize/demonstrate understanding of assistive devices/ modifications for ADL. 3=Patient will improve strength/tolerance for activity to enable patient to perform ADL's. OT Education/Plan Problem List/Assessment Assessment: Decreased Activ Tolerance, Decreased Safety Aware, Decreased UE Strength, Dependent Transfers, Impaired Bed Mobility, Impaired Funct Balance, Impaired Self-Care Skills Discharge Recommendations Plan/Recommendations: Continue POC Therapy D/C Recommendations: Home w/ Family Support, Occupational Therapy Home Care Equpiment Recommendations-D/C: Bath Chair, Extended Shower Sprayer, Individual Pension Consultant Treatment Plan/Plan of Care Treatment,Training & Education: Yes Patient would benefit from OT for education, treatment and training to promote independence in ADL's, mobility, safety and/or upper extremity function for ADL' s. Plan of Care: ADL Retraining, Caregiver Training, Functional Mobility, Group Exercise/Act as Ind, UE Funct Exercise/Act Treatment Duration: Oct 03, 2018 Frequency: At least 5 of 7 days/Wk (IRF) Estimated Hrs Per Day: 1.5 hours per day Agreement: Yes Rehab Potential: Good Time/GCodes Start Time: 09:30 Stop Time: 10:15 Total Time Billed (hr/min): 45 Billed Treatment Time 1, ADL 30 min, Ex 15 min. Total 45 Min . GUTIERREZ GOLDEN OT Sep 20, 2018 10:21
--- NOTE | 2018-09-20 11:00 | Physical Therapy Daily Note ---
PT Daily Note-Current Subjective Patient in bed pre tx, agrees to PT, no complaints of pain. Patient's has brought some shoes so we can use an AFO on the left side. Appearance Patient in wheelchair at bedside post tx with nurse call, phone, tray, in the room. Mental Status Patient Orientation: Person, Place, Situation Transfers Therapy Code Descriptions/Definitions Functional [place] Measure: 0=Not Assessed/NA 4=Minimal Assistance 1=Total Assistance 5=Supervision or Setup 2=Maximal Assistance 6=Modified [place] 3=Moderate Assistance 7=Complete [place] Therapy Quality Codes: 6 Independent with activity with or without an assistive device 5 Patient requires set up or clean up by helper. Patient completes activity by themselves 4 Supervision or touching assist (CGA). [place] provide cues , steadying assist 3 The helper provides less than half the effort to complete the activity 2 The helper provides more than half the effort to complete the activity 1 Dependent. The helper does all the effort to complete an activity 7 Patient refused to complete or attempt activity 9 The patient did not perform the activity before the current illness or injury 88 Not attempted due to Medical conditions or safety concerns Transfers (B, C, W/C) (FIM): 3 Scootin Rollin Supine to/from Sit: 4 Sit to/from Stand: 4 Bed to/from Chair: 3 Patient can perform a stand pivot transfer to the right side with CGA/[place] but with mod assist to the left side. Weight Bearing Right Lower Extremity: Right Full Weight Bearing Left Lower Extremity: Left Full Weight Bearing Gait Training Gait (FIM): 2 Distance: 70'x2 Gait Level of Assist: 4 Gait Persons Needed: 1 Gait Assistive Device: Cane Large Base Quad Assist with weight shifting, cues for left foot advancement. Exercises sit to technician submarine cable equipment parallel bars x10, step-ups with the left leg onto 2" step x5, step-ups on the right side x10 with 4" step. Treatments bed mobility and transfers, ambulation, functional strengthening, patient's shoes modified to accept AFO Assessment Current Status: Fair Progress AFO helped slightly with toe clearance PT Short Term Goals Short Term Goals Time Frame: Sep 11, 2018 Transfers (B,C,W/C) (FIM): 3 Gait (FIM): 1 Gait Distance Comment: 20' Gait Level of Assist: 3 Gait Assistive Device: Walker Ba Wheelchair Distance: 100' PT [facility] Goals Human Services Supervisor Goals PT Human Services Supervisor Goals Time Frame: Sep 25, 2018 Transfers (B,C,W/C) (FIM): 4 Sit to Lying (QC): 4 Lying-Sitting on Side/Bed(QC): 4 Sit to Stand (QC): 4 Rollin Roll Left to Right (QC): 4 Chair/God-vj-Xxpaz Xfer(QC): 4 Car Transfer (QC): 4 Gait (FIM): 2 Distance: 50' Walk 10 feet (QC): 3 Walk 10ft-Uneven Surface(QC): 3 Walk 50ft with 2 Turns (QC): 3 Gait Level of Assist: 4 Gait Assistive Device: Cane Large Base Quad Wheelchair (FIM): 5 Distance: 150' Wheelchair Level of Assist: 5 Wheel 50 feet with 2 turns (QC: 4 PT Plan Problem List Problem List: Activity Tolerance, Functional Strength, Safety, Balance, Gait, Transfer, Bed Mobility, ROM Treatment/Plan Treatment Plan: Continue Plan of Care Treatment Plan: Bed Mobility, Concurrent Therapy, Education, Functional Activity Reena, Functional Strength, Group Therapy, Gait, Safety, Therapeutic Exercise, Transfers Treatment Duration: Sep 25, 2018 Frequency: At least 5 of 7 days/Wk (IRF) Estimated Hrs Per Day: 1.5 hours per day Patient and/or Family Agrees t: Yes Safety Risks/Education Patient Education: Gait Training, Transfer Techniques, Correct Positioning, Safety Issues Teaching Recipient: Patient Teaching Methods: Demonstration, Discussion Response to Teaching: Reinforcement Needed Time/GCodes Time In: 1015 Time Out: 1100 Total Billed Treatment Time: 45 Total Billed Treatment 1 visit EX 15' GT 30' CASTILLO PHIPPS PT Sep 20, 2018 11:00
--- NOTE | 2018-09-20 11:42 | PM&R Progress Note ---
Subjective This was a face to face visit with the patient. Date Seen by Provider: Sep 20, 2018 Time Seen by Provider: 08:45 Subjective/Events-last exam Patient was seen in bed with at bedside. Patient really wants to go home Complains of right shoulder pain which has happened in the past but overuse from the left sided weakness is making it worse and Dr. Mcgarry did evaluate him but he declines any steroid injections since they hurt and he has had one in the past No urinary issues Bowels are moving well Doing well on Reglan no more nausea Will remain on one half of a Bactrim double strength pill every night to prevent UTIs Check meds and labs Reviewed blood sugars Reviewed blood pressure readings On aspirin and anticoagulation Review of Systems Neurological: Weakness, Incoordination Objective Physician Exam Last Set of Vital Signs Vital Signs Date Time Temp Pulse Resp B/P (MAP) Pulse Ox O2 Delivery O2 Flow Rate FiO2 09/20/18 09:00 Room Air 09/20/18 08:04 137/76 (96) 09/20/18 05:04 97.2 54 16 92 Capillary Refill : I&O Intake and Output 09/20/18 00:00 Intake Total 1700 ml Output Total 1350 ml Balance 350 ml Intake Oral 1700 ml Output Urine Total 1350 ml # Voids 2 # Bowel Movements 1 General: Alert, Oriented X3, Cooperative, No Acute Distress HEENT: Atraumatic, PERRLA, EOMI, Mucous Memb Moist/Gate Neck: Supple, No JVD, No Thyromegaly, Other (right CEA jona in place) Lungs: Clear to Auscultation, Normal Air Movement Heart: Regular Rate, Normal S1, Normal S2 Abdomen: Normal Bowel Sounds, Soft, No Tenderness, No Hepatosplenomegaly, No Masses Extremities: No Clubbing, No Cyanosis Skin: No Rashes, No Breakdown Neuro: Normal Speech, Other (left sided HP 1/5 left foot flaccid left arm and hand) Psych/Mental Status: Mental Status NL, Other (depressed) Results Lab Data Laboratory Tests 09/17/18 15:51: Glucometer 122H 09/17/18 20:09: Glucometer 145H 09/18/18 04:43: White Blood Count 6.2, Red Blood Count 4.00L, Hemoglobin 12.4L, Hematocrit 37L, Mean Corpuscular Volume 92, Mean Corpuscular Hemoglobin 31, Mean Corpuscular Hemoglobin Concent 34, Red Cell Distribution Width 12.7, Platelet Count 153, Mean Platelet Volume 10.7H, Neutrophils (%) (Auto) 61, Lymphocytes (%) (Auto) 27 , Monocytes (%) (Auto) 9, Eosinophils (%) (Auto) 3, Basophils (%) (Auto) 1, Neutrophils # (Auto) 3.8, Lymphocytes # (Auto) 1.7, Monocytes # (Auto) 0.5, Eosinophils # (Auto) 0.2, Basophils # (Auto) 0.0, Sodium Level 138, Potassium Level 4.0, Chloride Level 106, Carbon Dioxide Level 24, Anion Gap 8, Blood Urea Nitrogen 10, Creatinine 0.88, Estimat Glomerular Filtration Rate > 60, BUN/ Creatinine Ratio 11, Glucose Level 73, Calcium Level 8.6, Corrected Calcium 9.2 , Total Bilirubin 0.7, Aspartate Amino Transf (AST/SGOT) 30, Alanine Aminotransferase (ALT/SGPT) 30, Alkaline Phosphatase 86, Total Protein 6.4, Albumin 3.3 09/18/18 11:31: Glucometer 150H 09/18/18 16:54: Glucometer 119H 09/18/18 20:41: Glucometer 120H 09/19/18 05:08: Glucometer 90 09/19/18 10:48: Glucometer 130H 09/19/18 16:50: Glucometer 140H 09/19/18 20:06: Glucometer 164H 09/20/18 06:31: Glucometer 118H 09/20/18 10:53: Glucometer 109 Current Funtional Status Continue intensive therapies Use sling when walking to hold left weak arm and hand Maintain Reglan Maintain insulin Anticoagulation and aspirin maintained Assessment/Plan Assessment and Plan (1) Cerebrovascular accident (CVA) with left hemiparesis Status: Acute (2) Diabetes mellitus Qualifiers: Qualified Codes: E11.59 - Type 2 diabetes mellitus with other circulatory complications; Z79.4 - custodial (current) use of insulin Status: Chronic (3) Hypertension Qualifiers: Qualified Codes: I10 - Essential (primary) hypertension Status: Chronic (4) Hyperlipidemia Qualifiers: Qualified Codes: E78.2 - Mixed hyperlipidemia Status: Chronic (5) Chronic UTI Status: Chronic (6) Bright red blood per rectum Status: Resolved (7) Constipation Qualifiers: Qualified Codes: K59.01 - Slow transit constipation Status: Resolved (8) Anticoagulant long-term use Status: Chronic (9) BPH (benign prostatic hyperplasia) Qualifiers: Qualified Codes: N40.1 - Benign prostatic hyperplasia with lower urinary tract symptoms; R35.0 - Frequency of micturition Status: Chronic (10) Abnormal findings on esophagogastroduodenoscopy (EGD) Status: Acute (11) Abnormal colonoscopy Status: Acute (12) Gastritis Qualifiers: Qualified Codes: K29.00 - Acute gastritis without bleeding Status: Acute (13) Colon polyps Qualifiers: Qualified Codes: K63.5 - Polyp of colon Status: Acute (14) Nausea Status: Chronic (15) Urinary retention Status: Resolved (16) Shoulder pain, right Qualifiers: Qualified Codes: M25.511 - Pain in right shoulder Status: Acute (17) Gastroparesis Status: Acute Co-Morbidities that are continuing to impact the rehab process: (include details ) DARELL CIFUENTES DO Sep 20, 2018 11:42
[2018-09-20] MEDS: RIVAROXABAN 20 MG TABLET (XARELTO) PO SCH (11:46)
--- NOTE | 2018-09-20 13:20 | Speech Therapy Daily Note ---
Speech Daily Progress Note Subjective Date Seen by Provider: Sep 20, 2018 Time Seen by Provider: 00:30 Patient resting in bed when I entered his room. present for the entire session. Objective Patient completed OME x12 without cues. Assessment Assessment Current Status: Good Progress Treatment Plan Continue Plan of Care Communication Comprehension: 5 Expression: 5 Social Cognition Social Interaction: 5 Problem Solvin Memory: 4 Speech Short Term Goals Short Term Goals Short Term Goals 1) Patient will increase speech intelligibility at the highest functional verbal expression level to 90% or greater. 2) Patient will complete memory tasks with 90% or greater. 3) Patient will complete problem solving tasks with 90% or greater. Speech Tooth Cutter [place] Goals Nursing Home Goals Patient will improve memory, problem solving and speech skills to better communicate with familiar and unfamiliar listeners. Comprehension: 3 Speech-Plan Patient/Family Goals Patient/Family Goals: Patient plans on returning home next week with his . Treatment Plan Speech Therapy Treatment Plan: Continue Plan of Care Patient is making good progress as a result of skilled ST services. Treatment Duration: Sep 24, 2018 Frequency: 5 times per week Estimated Hrs Per Day: .5 hour per day Rehab Potential: Good Barriers to Learning: Patient tires easily. Pt/Family Agrees to Plan: Yes Safety Risks/Education Teaching Recipient: Patient, Significant Other Teaching Methods: Discussion Response to Teaching: Verbalize Understanding Education Topics Provided: Continuating OME at home. Time Speech Therapy Time In: 11:00 Speech Therapy Time Out: 11:30 Total Billed Time: 30 Billed Treatment Time 1EILEEN BETHANIA ST Sep 20, 2018 13:20
--- NOTE | 2018-09-20 14:32 | Therapy Group Daily Note ---
Therapy Daily Group Note Other/Notes Pt. participated in PT OT group session. Ratio was 3:1. Objective: Demonstrates knowledge of memory strategies to promote safety at home. (met) Understands purpose and objectives of ARU (met) Pt. benefitted from group this date expressing himself well socially. Pt. participated in sharing his own strategies for remembering things at home. Pt. participated in matching images game with others in group again laughing and sharing and having some success at remembering where images are . Pt. was wheeled to from session and post tx placed in bed with nurse call, phone, tray, in room. Start Time: 13:00 Stop Time: 14:15 Total Billed Treatment Time: 75 Total Billed Treatment 1 visit GRP 75' CASTILLO PHIPPS PT Sep 20, 2018 14:32
[2018-09-20] MEDS: TAMSULOSIN 0.4 MG (FLOMAX) CAP PO SCH (16:09)
[2018-09-20 18:23] VITALS: BP 148/73
[2018-09-20] MEDS ORDERED: TRIM/SULFAMETH 160/800 (SEPTRA DS) TAB PO ONE (19:09)
[2018-09-20] MEDS: TRIM/SULFAMETH 160/800 (SEPTRA DS) TAB PO SCH (20:40)
[2018-09-20] MEDS: ATORVASTATIN 40 MG (LIPITOR) TABLET PO SCH (20:41)
[2018-09-20] MEDS: inSUlin DETERMIR 1 UNIT/0.01 ML (LEVEMIR) CHARGE PER UNIT SQ SCH (20:41)
[2018-09-20] MEDS: ALPRAZolam 0.25 MG (XANAX) TAB PO PRN (20:41)
[2018-09-20 20:45] VITALS: BP 124/66
[2018-09-21] MEDS: CYANOCOBALAMIN 1,000 MCG (VITAMIN B-12) TABLET PO SCH (06:16)
[2018-09-21] MEDS: metFORMIN XR 500 MG (GLUCOPHAGE XR) TAB PO SCH ×2 (06:17→18:36)
[2018-09-21 06:21] VITALS: BP 120/69
[2018-09-21] MEDS: METOCLOPRAMIDE 10 MG (REGLAN) TAB PO SCH ×4 (06:22→21:26)
[2018-09-21] MEDS: inSUlin ASPART (NovoLOG) 1 UNIT/0.01 ML (CHARGE PER UNIT) SC SCH ×4 (06:23→21:28)
[2018-09-21] MEDS: HYDROcodone/APAP 5 MG/325 MG (LORTAB) TAB PO PRN ×3 (06:42→21:26)
[2018-09-21] MEDS: PYRIDOXINE (VITAMIN B-6) 50 MG TABLET PO SCH (07:55)
[2018-09-21] MEDS: ZINC SULFATE 220 MG CAPSULE PO SCH (07:55)
[2018-09-21] MEDS: FLUoxetine HCL 20 MG (PROzac) CAP PO SCH (07:55)
[2018-09-21] MEDS: LORATADINE (CLARITIN) 10 MG TAB PO SCH (07:55)
[2018-09-21] MEDS: MAGNESIUM OXIDE (MAG-OX)400 MG TAB PO SCH (07:56)
[2018-09-21] MEDS: VITAMIN D3 1,000 UNITS (CHOLECALCIFEROL) TABLET PO SCH (07:56)
[2018-09-21] MEDS: ASPIRIN E.C. 81 MG (ECOTRIN) TAB PO SCH (07:56)
[2018-09-21] MEDS: CARVEDILOL 12.5 MG (COREG) TABLET PO SCH ×2 (07:58→21:25)
[2018-09-21] MEDS: amLODIPine 10 MG (NORVASC) TAB PO SCH (07:58)
[2018-09-21 08:00] VITALS: BP 137/72
--- NOTE | 2018-09-21 08:00 | NUR ---
AT BEDSIDE. STATES FEELS RIGHT SHOULDER PAIN HAS IMPROVED. ABLE TO LIFT LEFT LEG SOME.
[2018-09-21] MEDS: SENNA W/DOCUSATE (SENOKOT S) TABLET PO SCH ×2 (08:03→21:26)
[2018-09-21] MEDS: BISACODYL 10 MG SUPP (DULCOLAX) PR SCH ×2 (08:03→21:30)
--- NOTE | 2018-09-21 10:20 | Physical Therapy Daily Note ---
PT Daily Note-Current Subjective Patient and spouse agree to PT. Patient to have day pass on this date. Mental Status Patient Orientation: Normal For Age Transfers Therapy Code Descriptions/Definitions Functional [place] Measure: 0=Not Assessed/NA 4=Minimal Assistance 1=Total Assistance 5=Supervision or Setup 2=Maximal Assistance 6=Modified [place] 3=Moderate Assistance 7=Complete [place] Therapy Quality Codes: 6 Independent with activity with or without an assistive device 5 Patient requires set up or clean up by helper. Patient completes activity by themselves 4 Supervision or touching assist (CGA). [place] provide cues , steadying assist 3 The helper provides less than half the effort to complete the activity 2 The helper provides more than half the effort to complete the activity 1 Dependent. The helper does all the effort to complete an activity 7 Patient refused to complete or attempt activity 9 The patient did not perform the activity before the current illness or injury 88 Not attempted due to Medical conditions or safety concerns Transfers (B, C, W/C) (FIM): 4 Scootin Sit to/from Stand: 4 Sit to Stand (QC): 4 Weight Bearing Right Lower Extremity: Right Full Weight Bearing Left Lower Extremity: Left Full Weight Bearing Gait Training Does the Patient Walk?: Yes Gait (FIM): 2 Distance (FIM): 1=641-16 ft Distance: 50' x 2 Walk 10 feet (QC): 3 Walk 50 ft with 2 Turns(QC): 3 Gait Level of Assist: 3 Gait Persons Needed: 1 Gait Assistive Device: Cane Large Base Quad skilled verbal instruction for posture and left LE placement with gait training Assessment Patient fatigues quickly on this date and is anxious to return to home on day pass. PT Short Term Goals Short Term Goals Time Frame: Sep 11, 2018 Transfers (B,C,W/C) (FIM): 3 Gait (FIM): 1 Gait Distance Comment: 20' Gait Level of Assist: 3 Gait Assistive Device: Walker Ba Wheelchair Distance: 100' PT Shelter Goals Medical Science Liaison Goals PT Shelter Goals Time Frame: Sep 25, 2018 Transfers (B,C,W/C) (FIM): 4 Sit to Lying (QC): 4 Lying-Sitting on Side/Bed(QC): 4 Sit to Stand (QC): 4 Rollin Roll Left to Right (QC): 4 Chair/[id number] Xfer(QC): 4 Car Transfer (QC): 4 Gait (FIM): 2 Distance: 50' Walk 10 feet (QC): 3 Walk 10ft-Uneven Surface(QC): 3 Walk 50ft with 2 Turns (QC): 3 Gait Level of Assist: 4 Gait Assistive Device: Cane Large Base Quad Wheelchair (FIM): 5 Distance: 150' Wheelchair Level of Assist: 5 Wheel 50 feet with 2 turns (QC: 4 PT Plan Treatment/Plan Treatment Plan: Continue Plan of Care Treatment Plan: Bed Mobility, Concurrent Therapy, Education, Functional Activity Reena, Functional Strength, Group Therapy, Gait, Safety, Therapeutic Exercise, Transfers Treatment Duration: Sep 25, 2018 Frequency: At least 5 of 7 days/Wk (IRF) Estimated Hrs Per Day: 1.5 hours per day Patient and/or Family Agrees t: Yes Time/GCodes Time In: 956 Time Out: 1011 Total Billed Treatment Time: 15 Total Billed Treatment 1 visit GT 15 min ROSA JOHNSON PT Sep 21, 2018 10:20
[2018-09-21] MEDS: RIVAROXABAN 20 MG TABLET (XARELTO) PO SCH (10:25)
[2018-09-21] MEDS: ALPRAZolam 0.25 MG (XANAX) TAB PO PRN ×2 (10:25→21:26)
--- NOTE | 2018-09-21 10:30 | NUR ---
ASSISTED OUT TO CAR BY NURSE AIDE AND PER WHEELCHAIR. LEAVING FOR DAY PASS. HAS SIGNED RELEASE.
--- NOTE | 2018-09-21 12:31 | PM&R Progress Note ---
Subjective HPI/CC On Admission Date Seen by Provider: Sep 21, 2018 Time Seen by Provider: 10:30 Subjective/Events-last exam Patient doing well Wants to go on a day pass today Feels pretty upbeat and his motivation is good Having no voiding problems or bowel problems or nausea Check meds and labs Review of Systems Neurological: Weakness Objective Exam Vital Signs Vital Signs Date Time Temp Pulse Resp B/P (MAP) Pulse Ox O2 Delivery O2 Flow Rate FiO2 09/21/18 09:00 Room Air 09/21/18 08:00 57 137/72 (93) 09/21/18 06:21 97.7 16 92 Capillary Refill : General Appearance: No Apparent Distress, WD/WN, Chronically ill Respiratory: Chest Non Tender, Lungs Clear, Normal Breath Sounds, No Accessory Muscle Use, No Respiratory Distress Cardiovascular: Regular Rate, Rhythm, No Edema, No Gallop, No JVD, No Murmur, Normal Peripheral Pulses Neurologic/Psychiatric: Alert, Oriented x3, Normal Mood/Affect, Motor Weakness (left arm and leg) Results/Procedures Lab Patient resulted labs reviewed. Assessment/Plan Assessment and Plan Assess & Plan/Chief Complaint Assessment Subacute CVA 08/16/18 with left sided weakness now on anticoagulation and ASA Severe carotid stenosis right s/p endarterectomy but no resolution of deficit has appt at [facility] Sunday but rescheduling DM on insulin Chronic UTI but normal cystoscopy 09/06/18 but BPH noted and placed on Flomax from Urology now receiving straight caths if retention on bladder scan and patient agrees for self cath at [place] per Urology placed on Bactrim 1/2 tablet at night to prevent UTI due to catheters but now voiding well when up to toilet and no longer needs catheters since no residual HTN HLP Constipation recurrent issue resolved now Hematochezia episode with Heme + stools but gastritis and colon polyps noted on EGD/Colonoscopy on 09/07/[address] Waggoner Chronic nausea improved on Reglan confirming gastroparesis as the source Plan: Maintain ASA and anticoagulation Follow up on polyp pathology Monitor sugar control and adjust insulin prn Maintain urinary management since h/o chronic UTI and maintain on Flomax per Urology in addition to self caths to prevent retention but now voiding well and no caths needed as long as upright to toilet PPI and maintain on Flomax at [place] Zofran Constipation treatment maintained Reglan at [place] Day pass today Diagnosis/Problems Diagnosis/Problems (1) Cerebrovascular accident (CVA) with left hemiparesis Status: Acute (2) Diabetes mellitus Status: Chronic Qualifiers: Diabetes mellitus type: type 2 Diabetes mellitus senior living insulin use: with supervisor hand silvering use Diabetes mellitus complication status: with circulatory complication Diabetes mellitus complication detail: with other circulatory complications Qualified Codes: E11.59 - Type 2 diabetes mellitus with other circulatory complications; Z79.4 - dentist (current) use of insulin (3) Hypertension Status: Chronic Qualifiers: Hypertension type: essential hypertension Qualified Codes: I10 - Essential (primary) hypertension (4) Hyperlipidemia Status: Chronic Qualifiers: Hyperlipidemia type: mixed hyperlipidemia Qualified Codes: E78.2 - Mixed hyperlipidemia (5) Chronic UTI Status: Chronic (6) Bright red blood per rectum Status: Resolved Resolution Date/Time: 09/07/18 @ 15:48 (7) Constipation Status: Resolved Qualifiers: Constipation type: slow transit constipation Qualified Codes: K59.01 - Slow transit constipation Resolution Date/Time: 09/11/18 @ 11:41 (8) Anticoagulant long-term use Status: Chronic (9) BPH (benign prostatic hyperplasia) Status: Chronic Qualifiers: Lower urinary tract symptom presence: symptoms present Lower urinary tract symptom detail: urinary frequency Qualified Codes: N40.1 - Benign prostatic hyperplasia with lower urinary tract symptoms; R35.0 - Frequency of micturition (10) Abnormal findings on esophagogastroduodenoscopy (EGD) Status: Acute (11) Abnormal colonoscopy Status: Acute (12) Gastritis Status: Acute Qualifiers: Gastritis type: unspecified gastritis Chronicity: acute Gastritis bleeding: without bleeding Qualified Codes: K29.00 - Acute gastritis without bleeding (13) Colon polyps Status: Acute Qualifiers: Colon polyp type: unspecified Colon location: unspecified part of colon Qualified Codes: K63.5 - Polyp of colon (14) Nausea Status: Chronic (15) Urinary retention Status: Resolved Resolution Date/Time: 09/12/18 @ 10:40 (16) Shoulder pain, right Status: Acute Qualifiers: Chronicity: acute Qualified Codes: M25.511 - Pain in right shoulder (17) Gastroparesis Status: Acute Clinical Quality Measures Admission Status Admission Dx Assessment Subacute CVA 08/16/18 with left sided weakness Severe carotid stenosis right s/p endarterectomy but no resolution of deficit DM Chronic UTI HTN HLP Plan: Monitor BP Maintain all new meds per [facility] including asa and anticoagulation Therapies as ordered for intensive rehab DVT/VTE Risk/Contraindication: Risk Factor Score Per Nursin RFS Level Per Nursing on Admit: 4+=Very High DARELL CIFUENTES DO Sep 21, 2018 12:31
[2018-09-21 18:00] VITALS: BP 143/76
--- NOTE | 2018-09-21 18:30 | NUR ---
RETURNED TO ROOM FROM DAY PASS. STATES ALL WENT WELL. STATES THEY FOUND OUT THEY WILL NEED A STOOL RISER AND A RECLINER THAT IS TALLER. OTHERWISE, IN GOOD SPIRITS AND ANXIOUS TO GO HOME. STATES PAIN STARTED 2 HOURS AGO IN TOOTH AND FEELS HAS AN ABSCESS. DR. CIFUENTES NOTIFIED AND WILL START ON CLINDAMYCIN.
[2018-09-21] MEDS: TAMSULOSIN 0.4 MG (FLOMAX) CAP PO SCH (18:34)
[2018-09-21] MEDS ORDERED: TRIM/SULFAMETH 160/800 (SEPTRA DS) TAB PO ONE (19:38)
[2018-09-21] MEDS: ATORVASTATIN 40 MG (LIPITOR) TABLET PO SCH (21:25)
[2018-09-21] MEDS: CLINDAMYCIN 150 MG (CLEOCIN) CAP PO SCH (21:25)
[2018-09-21] MEDS: TRIM/SULFAMETH 160/800 (SEPTRA DS) TAB PO SCH (21:26)
[2018-09-21] MEDS: inSUlin DETERMIR 1 UNIT/0.01 ML (LEVEMIR) CHARGE PER UNIT SQ SCH (21:28)
[2018-09-22] MEDS: METOCLOPRAMIDE 10 MG (REGLAN) TAB PO SCH ×4 (06:23→20:38)
[2018-09-22] MEDS: CYANOCOBALAMIN 1,000 MCG (VITAMIN B-12) TABLET PO SCH (06:23)
[2018-09-22] MEDS: metFORMIN XR 500 MG (GLUCOPHAGE XR) TAB PO SCH ×2 (06:23→17:25)
[2018-09-22] MEDS: inSUlin ASPART (NovoLOG) 1 UNIT/0.01 ML (CHARGE PER UNIT) SC SCH ×4 (06:26→20:39)
[2018-09-22 06:27] VITALS: BP 165/83
--- NOTE | 2018-09-22 08:00 | NUR ---
STATES RIGHT UPPER TOOTHACHE BETTER TODAY, BUT RIGHT SHOULDER HURTING MORE THAN YESTERDAY. GETS GOOD RELIEF FROM [facility]. LEFT ARM 1+ EDEMA AND ISOTONER GLOVE ON.
[2018-09-22] MEDS: CLINDAMYCIN 150 MG (CLEOCIN) CAP PO SCH ×3 (08:14→20:38)
[2018-09-22] MEDS: SENNA W/DOCUSATE (SENOKOT S) TABLET PO SCH ×2 (08:14→20:38)
[2018-09-22] MEDS: ASPIRIN E.C. 81 MG (ECOTRIN) TAB PO SCH (08:14)
[2018-09-22] MEDS: PYRIDOXINE (VITAMIN B-6) 50 MG TABLET PO SCH (08:14)
[2018-09-22] MEDS: VITAMIN D3 1,000 UNITS (CHOLECALCIFEROL) TABLET PO SCH (08:14)
[2018-09-22] MEDS: ZINC SULFATE 220 MG CAPSULE PO SCH (08:14)
[2018-09-22] MEDS: MAGNESIUM OXIDE (MAG-OX)400 MG TAB PO SCH (08:14)
[2018-09-22 08:15] VITALS: BP 137/70
[2018-09-22] MEDS: HYDROcodone/APAP 5 MG/325 MG (LORTAB) TAB PO PRN ×3 (08:15→20:37)
[2018-09-22] MEDS: LORATADINE (CLARITIN) 10 MG TAB PO SCH (08:15)
[2018-09-22] MEDS: FLUoxetine HCL 20 MG (PROzac) CAP PO SCH (08:15)
[2018-09-22] MEDS: amLODIPine 10 MG (NORVASC) TAB PO SCH (08:21)
[2018-09-22] MEDS: CARVEDILOL 12.5 MG (COREG) TABLET PO SCH ×2 (08:22→20:38)
[2018-09-22] MEDS: BISACODYL 10 MG SUPP (DULCOLAX) PR SCH ×2 (09:00→19:18)
--- NOTE | 2018-09-22 11:00 | NUR ---
3 DAYS SINCE LAST BM. TAKING SENNA Q DAY. REFUSES SUPPOSITORY, BUT AGREED TO TAKE COLACE AT THIS TIME.
[2018-09-22] MEDS: RIVAROXABAN 20 MG TABLET (XARELTO) PO SCH (12:12)
--- NOTE | 2018-09-22 13:16 | PM&R Progress Note ---
Subjective HPI/CC On Admission Date Seen by Provider: Sep 22, 2018 Time Seen by Provider: 12:15 Subjective/Events-last exam Patient went home on the day pass and that went really well Complained of right upper tooth abscess of which she's had before and has not been to a dentist for many years Started clindamycin and hydrocodone for the tooth abscess that it is much better today Denies any other significant issues Review of Systems HEENT: Other (Tooth pain right upper molar) Neurological: Weakness, Incoordination Objective Exam Vital Signs Vital Signs Date Time Temp Pulse Resp B/P (MAP) Pulse Ox O2 Delivery O2 Flow Rate FiO2 09/22/18 09:00 Room Air 09/22/18 08:15 52 137/70 (92) 09/22/18 06:27 99.0 20 95 Capillary Refill : General Appearance: No Apparent Distress, WD/WN Respiratory: Chest Non Tender, Lungs Clear, Normal Breath Sounds, No Accessory Muscle Use, No Respiratory Distress Cardiovascular: Regular Rate, Rhythm, No Edema, No Gallop, No JVD, No Murmur, Normal Peripheral Pulses Neurologic/Psychiatric: Alert, Oriented x3, Normal Mood/Affect, Motor Weakness (Left sided weakness) Results/Procedures Lab Patient resulted labs reviewed. Assessment/Plan Assessment and Plan Assess & Plan/Chief Complaint Assessment Subacute CVA 08/16/18 with left sided weakness now on anticoagulation and ASA Severe carotid stenosis right s/p endarterectomy but no resolution of deficit has appt at [facility] Sunday but rescheduling DM on insulin Chronic UTI but normal cystoscopy 09/06/18 but BPH noted and placed on Flomax from Urology now receiving straight caths if retention on bladder scan and patient agrees for self cath at [place] per Urology placed on Bactrim 1/2 tablet at night to prevent UTI due to catheters but now voiding well when up to toilet and no longer needs catheters since no residual HTN HLP Constipation recurrent issue resolved now Hematochezia episode with Heme + stools but gastritis and colon polyps noted on EGD/Colonoscopy on 09/07/[address] Waggoner Chronic nausea improved on Reglan confirming gastroparesis as the source Tooth abscess placed on clindamycin and hydrocodone Plan: Maintain ASA and anticoagulation Follow up on polyp pathology Monitor sugar control and adjust insulin prn Maintain urinary management since h/o chronic UTI and maintain on Flomax per Urology in addition to self caths to prevent retention but now voiding well and no caths needed as long as upright to toilet PPI and maintain on Flomax at [place] Zofran Constipation treatment maintained Reglan at [place] Tooth abscess treatment needs dentist as an outpatient Diagnosis/Problems Diagnosis/Problems (1) Cerebrovascular accident (CVA) with left hemiparesis Status: Acute (2) Diabetes mellitus Status: Chronic Qualifiers: Diabetes mellitus type: type 2 Diabetes mellitus longterm insulin use: with oysterman use Diabetes mellitus complication status: with circulatory complication Diabetes mellitus complication detail: with other circulatory complications Qualified Codes: E11.59 - Type 2 diabetes mellitus with other circulatory complications; Z79.4 - assisted (current) use of insulin (3) Hypertension Status: Chronic Qualifiers: Hypertension type: essential hypertension Qualified Codes: I10 - Essential (primary) hypertension (4) Hyperlipidemia Status: Chronic Qualifiers: Hyperlipidemia type: mixed hyperlipidemia Qualified Codes: E78.2 - Mixed hyperlipidemia (5) Chronic UTI Status: Chronic (6) Bright red blood per rectum Status: Resolved Resolution Date/Time: 09/07/18 @ 15:48 (7) Constipation Status: Resolved Qualifiers: Constipation type: slow transit constipation Qualified Codes: K59.01 - Slow transit constipation Resolution Date/Time: 09/11/18 @ 11:41 (8) Anticoagulant long-term use Status: Chronic (9) BPH (benign prostatic hyperplasia) Status: Chronic Qualifiers: Lower urinary tract symptom presence: symptoms present Lower urinary tract symptom detail: urinary frequency Qualified Codes: N40.1 - Benign prostatic hyperplasia with lower urinary tract symptoms; R35.0 - Frequency of micturition (10) Abnormal findings on esophagogastroduodenoscopy (EGD) Status: Acute (11) Abnormal colonoscopy Status: Acute (12) Gastritis Status: Acute Qualifiers: Gastritis type: unspecified gastritis Chronicity: acute Gastritis bleeding: without bleeding Qualified Codes: K29.00 - Acute gastritis without bleeding (13) Colon polyps Status: Acute Qualifiers: Colon polyp type: unspecified Colon location: unspecified part of colon Qualified Codes: K63.5 - Polyp of colon (14) Nausea Status: Chronic (15) Urinary retention Status: Resolved Resolution Date/Time: 09/12/18 @ 10:40 (16) Shoulder pain, right Status: Acute Qualifiers: Chronicity: acute Qualified Codes: M25.511 - Pain in right shoulder (17) Gastroparesis Status: Acute (18) Tooth abscess Clinical Quality Measures Admission Status Admission Dx Assessment Subacute CVA 08/16/18 with left sided weakness Severe carotid stenosis right s/p endarterectomy but no resolution of deficit DM Chronic UTI HTN HLP Plan: Monitor BP Maintain all new meds per [facility] including asa and anticoagulation Therapies as ordered for intensive rehab DVT/VTE Risk/Contraindication: Risk Factor Score Per Nursin RFS Level Per Nursing on Admit: 4+=Very High DARELL CIFUENTES DO Sep 22, 2018 13:16
--- NOTE | 2018-09-22 15:42 | Cardiology Progress Note ---
Cardiology SOAP Progress Note Subjective: No cardiac complaints. Objective: I&O/Vital Signs 09/22/18 09/22/18 09/22/18 06:27 08:15 09:00 Temp 99.0 Pulse 58 52 Resp 20 B/P (MAP) 165/83 (110) 137/70 (92) Pulse Ox 95 O2 Delivery Room Air Room Air 09/22/18 00:00 Intake Total 800 ml Output Total 250 ml Balance 550 ml Weight (Pounds): 218 Weight (Ounces): 9.6 Weight (Calculated Kilograms): [id number] Constitutional: No appears stated age; AAO x 3; No apparent distress, No PERRL ; well-developed, well-nourished; No other Respiratory: No accessory muscle use, No respiratory distress, No chest tender ; chest expansion is symmetric, chest is bilaterally symmetric; No lungs clear to percussion; lungs clear to auscultation; No crackles, No rhonchi, No rales, No stridor, No wheezing, No pleural rub, No other Cardiovascular: regular rate-rhythm; No irregularly irregular, No extra beats, No parasternal heave is noted, No JVD, No edema, No bradycardia, No tachycardia , No point of maximal impulse, No cardiac thrills are palpable; S1 and S2; No gallop/S3, No gallop/S4, No diastolic murmur, No systolic murmur, No friction rub, No click, No other Gastrointestional: No tender; soft, round; No distended, No pulsatile mass, No organomegaly, No guarding, No rebound, No tenderness, No hernia, No mass, No audible bowel sounds, No abnormal bowel sounds, No abdominal bruits, No spleenomegaly, No other Extremities: No normal range of motion, No non-tender, No normal inspection, No pedal edema, No calf tenderness, No normal capillary refill, No pelvis stable , No calf tenderness, No inflammation, No pedal edema, No slow capillary refill , No swelling, No other, No abrasion, No clubbing, No cyanosis, No ecchymosis, No laceration; no lower extremity edema bilateral; No significant edema, No tenderness, No wound Neurologic/Psychiatric: alert, normal mood/affect, oriented x 3, other (left side facial droop, left side hemiparesis) Skin: No rash, No ulcerations Results/Procedures: Labs Laboratory Tests 09/21/18 18:33: Glucometer 91 09/21/18 21:20: Glucometer 159H 09/22/18 06:22: Glucometer 90 09/22/18 10:52: Glucometer 138H A/P: Assessment/Dx: Assessment: Sinus bradycardia - asymptomatic H/O ischemic CVA - R MCA stroke with left sided hemiparesis - tx at [facility] S/P mechanical thrombectomy for acute stroke right M1 with penumbra aspiration and solitaire thrombus retriever x [address] Valente at [facility] ( 7 days after initial CVA) OAC with Xarelto Echocardiogram of 08-17-18 at [facility] showed LVEF 65%. No significant valvular abnormalities. PASP approx 30 mmHg HTN DM HLD S/P R CEA on 08-23-18 at [facility] by Dr. Arriola CTA of the neck at [facility] showed on 08-20-18 showed severe stenosis of the right internal carotid (subsequent R CEA on 08-23-18) approx 60% stenosis of the prox left internal carotid artery with superimposed penetrating ulcer. Mod stenosis at the left vertebral artery origin. GI bleed - Gastritis with gastric ulcers; small hiatal hernia; colon polyps; Int hemorrhoids per EGD/colo on 09-07-[address] Waggoner (ASA dc'd) BPH with urinary retention - management per Dr. Conway Plan: Continue current regimen Management of stroke is with the Med Svce Thank you for your consultation. Please call me if you have any questions. Ancelmo Peck MD, FACP, FACC, FSCAI, FHRS, CCDS Interventional Cardiology Cardiac Electrophysiology Vascular Medicine and Endovascular Interventions Donita PECK MD Sep 22, 2018 3:42 pm
--- NOTE | 2018-09-22 17:00 | NUR ---
NO BM YET TODAY AND MEDICATED WITH LACTULOSE.
[2018-09-22] MEDS: TAMSULOSIN 0.4 MG (FLOMAX) CAP PO SCH (17:25)
[2018-09-22] MEDS: LACTULOSE SYRUP 10GM/15ML (ENULOSE) 30ML UDC PO PRN (17:31)
[2018-09-22 17:45] VITALS: BP 145/77
[2018-09-22] MEDS ORDERED: TRIM/SULFAMETH 160/800 (SEPTRA DS) TAB PO ONE (19:11)
[2018-09-22] MEDS: TRIM/SULFAMETH 160/800 (SEPTRA DS) TAB PO SCH (20:37)
[2018-09-22] MEDS: ALPRAZolam 0.25 MG (XANAX) TAB PO PRN (20:37)
[2018-09-22] MEDS: ATORVASTATIN 40 MG (LIPITOR) TABLET PO SCH (20:38)
[2018-09-22] MEDS: inSUlin DETERMIR 1 UNIT/0.01 ML (LEVEMIR) CHARGE PER UNIT SQ SCH (20:39)
[2018-09-23] MEDS: HYDROcodone/APAP 5 MG/325 MG (LORTAB) TAB PO PRN ×2 (05:15→20:12)
[2018-09-23 05:27] VITALS: BP 119/63
[2018-09-23] MEDS: inSUlin ASPART (NovoLOG) 1 UNIT/0.01 ML (CHARGE PER UNIT) SC SCH ×4 (05:49→20:21)
[2018-09-23] MEDS: metFORMIN XR 500 MG (GLUCOPHAGE XR) TAB PO SCH ×2 (06:39→17:00)
[2018-09-23] MEDS: METOCLOPRAMIDE 10 MG (REGLAN) TAB PO SCH ×4 (06:39→20:12)
[2018-09-23] MEDS: CYANOCOBALAMIN 1,000 MCG (VITAMIN B-12) TABLET PO SCH (06:39)
[2018-09-23 08:03] VITALS: BP 149/73
[2018-09-23] MEDS: SENNA W/DOCUSATE (SENOKOT S) TABLET PO SCH ×2 (08:05→20:20)
[2018-09-23] MEDS: CLINDAMYCIN 150 MG (CLEOCIN) CAP PO SCH ×3 (08:05→20:12)
[2018-09-23] MEDS: CARVEDILOL 12.5 MG (COREG) TABLET PO SCH ×2 (08:05→20:12)
[2018-09-23] MEDS: PYRIDOXINE (VITAMIN B-6) 50 MG TABLET PO SCH (08:05)
[2018-09-23] MEDS: MAGNESIUM OXIDE (MAG-OX)400 MG TAB PO SCH (08:05)
[2018-09-23] MEDS: LORATADINE (CLARITIN) 10 MG TAB PO SCH (08:06)
[2018-09-23] MEDS: ZINC SULFATE 220 MG CAPSULE PO SCH (08:06)
[2018-09-23] MEDS: FLUoxetine HCL 20 MG (PROzac) CAP PO SCH (08:06)
[2018-09-23] MEDS: amLODIPine 10 MG (NORVASC) TAB PO SCH (08:06)
[2018-09-23] MEDS: VITAMIN D3 1,000 UNITS (CHOLECALCIFEROL) TABLET PO SCH (08:06)
[2018-09-23] MEDS: ASPIRIN E.C. 81 MG (ECOTRIN) TAB PO SCH (08:06)
--- NOTE | 2018-09-23 08:33 | PM&R Progress Note ---
Subjective HPI/CC On Admission Date Seen by Provider: Sep 23, 2018 Time Seen by Provider: 08:00 Subjective/Events-last exam Patient doing well Tooth abscess still throbbing and I recommended a dental follow-up Checked meds and labs No bleeding reported On anticoagulation and aspirin Participating in therapy aggressively Wants to go home soon Shoulder right is about the same but declines injection Review of Systems General: Fatigue HEENT: Other (Tooth pain right upper molar) Neurological: Weakness, Incoordination Objective Exam Vital Signs Vital Signs Date Time Temp Pulse Resp B/P (MAP) Pulse Ox O2 Delivery O2 Flow Rate FiO2 09/23/18 09:00 Room Air 09/23/18 08:03 98.6 58 18 149/73 (98) 09/23/18 05:27 94 Capillary Refill : General Appearance: No Apparent Distress, WD/WN, Chronically ill Neck: Full Range of Motion, Normal Inspection, Non Tender, Supple, Carotid Bruit Respiratory: Chest Non Tender, Lungs Clear, Normal Breath Sounds, No Accessory Muscle Use, No Respiratory Distress Cardiovascular: Regular Rate, Rhythm, No Edema, No Gallop, No JVD, No Murmur, Normal Peripheral Pulses Gastrointestinal: Normal Bowel Sounds, No Organomegaly, No Pulsatile Mass, Non Tender, Soft Neurologic/Psychiatric: Alert, Oriented x3, Normal Mood/Affect, Motor Weakness (Left upper and lower extremity weak) Skin: Normal Color, Warm/Dry Results/Procedures Lab Patient resulted labs reviewed. Assessment/Plan Assessment and Plan Assess & Plan/Chief Complaint Assessment Subacute CVA 08/16/18 with left sided weakness now on anticoagulation and ASA Severe carotid stenosis right s/p endarterectomy but no resolution of deficit had an appt at [facility] last Sunday but rescheduled DM on insulin Chronic UTI but normal cystoscopy 09/06/18 but BPH noted and placed on Flomax from Urology now receiving straight caths if retention on bladder scan and patient agrees for self cath at [place] per Urology placed on Bactrim 1/2 tablet at night to prevent UTI due to catheters but now voiding well when up to toilet and no longer needs catheters since no residual HTN HLP Constipation recurrent issue resolved now Hematochezia episode with Heme + stools but gastritis and colon polyps noted on EGD/Colonoscopy on 09/07/[address] Waggoner Chronic nausea improved on Reglan confirming gastroparesis as the source Tooth abscess placed on clindamycin and hydrocodone Plan: Maintain ASA and anticoagulation Follow up on polyp pathology Monitor sugar control and adjust insulin prn Maintain urinary management since h/o chronic UTI and maintain on Flomax per Urology in addition to self caths to prevent retention but now voiding well and no caths needed as long as upright to toilet PPI and maintain on Flomax at [place] Zofran Constipation treatment maintained Reglan at [place] Tooth abscess treatment needs dentist as an outpatient Diagnosis/Problems Diagnosis/Problems (1) Cerebrovascular accident (CVA) with left hemiparesis Status: Acute (2) Diabetes mellitus Status: Chronic Qualifiers: Diabetes mellitus type: type 2 Diabetes mellitus emt 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 insulin use: with emt 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 use Diabetes mellitus complication status: with circulatory complication Diabetes mellitus complication detail: with other circulatory complications Qualified Codes: E11.59 - Type 2 diabetes mellitus with other circulatory complications; 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.4 - 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 insulin (3) Hypertension Status: Chronic Qualifiers: Hypertension type: essential hypertension Qualified Codes: I10 - Essential (primary) hypertension (4) Hyperlipidemia Status: Chronic Qualifiers: Hyperlipidemia type: mixed hyperlipidemia Qualified Codes: E78.2 - Mixed hyperlipidemia (5) Chronic UTI Status: Chronic (6) Bright red blood per rectum Status: Resolved Resolution Date/Time: 09/07/18 @ 15:48 (7) Constipation Status: Resolved Qualifiers: Constipation type: slow transit constipation Qualified Codes: K59.01 - Slow transit constipation Resolution Date/Time: 09/11/18 @ 11:41 (8) Anticoagulant long-term use Status: Chronic (9) BPH (benign prostatic hyperplasia) Status: Chronic Qualifiers: Lower urinary tract symptom presence: symptoms present Lower urinary tract symptom detail: urinary frequency Qualified Codes: N40.1 - Benign prostatic hyperplasia with lower urinary tract symptoms; R35.0 - Frequency of micturition (10) Abnormal findings on esophagogastroduodenoscopy (EGD) Status: Acute (11) Abnormal colonoscopy Status: Acute (12) Gastritis Status: Acute Qualifiers: Gastritis type: unspecified gastritis Chronicity: acute Gastritis bleeding: without bleeding Qualified Codes: K29.00 - Acute gastritis without bleeding (13) Colon polyps Status: Acute Qualifiers: Colon polyp type: unspecified Colon location: unspecified part of colon Qualified Codes: K63.5 - Polyp of colon (14) Nausea Status: Chronic (15) Urinary retention Status: Resolved Resolution Date/Time: 09/12/18 @ 10:40 (16) Shoulder pain, right Status: Acute Qualifiers: Chronicity: acute Qualified Codes: M25.511 - Pain in right shoulder (17) Gastroparesis Status: Acute (18) Tooth abscess Status: Acute Clinical Quality Measures Admission Status Admission Dx Assessment Subacute CVA 08/16/18 with left sided weakness Severe carotid stenosis right s/p endarterectomy but no resolution of deficit DM Chronic UTI HTN HLP Plan: Monitor BP Maintain all new meds per [facility] including asa and anticoagulation Therapies as ordered for intensive rehab DVT/VTE Risk/Contraindication: Risk Factor Score Per Nursin RFS Level Per Nursing on Admit: 4+=Very High DARELL CIFUENTES DO Sep 23, 2018 08:33
--- NOTE | 2018-09-23 08:41 | Physical Therapy Daily Note ---
PT Daily Note-Current Subjective Patient in bed pre tx, agrees to PT, has unrated pain in right shoulder. Patient states he has not had a BM in 3-4 days. He also states that he is very tired today. Appearance Patient on toilet post tx to try to have a BM. with patient. Mental Status Patient Orientation: Person, Place, Situation Transfers Therapy Code Descriptions/Definitions Functional [place] Measure: 0=Not Assessed/NA 4=Minimal Assistance 1=Total Assistance 5=Supervision or Setup 2=Maximal Assistance 6=Modified [place] 3=Moderate Assistance 7=Complete [place] Therapy Quality Codes: 6 Independent with activity with or without an assistive device 5 Patient requires set up or clean up by helper. Patient completes activity by themselves 4 Supervision or touching assist (CGA). [place] provide cues , steadying assist 3 The helper provides less than half the effort to complete the activity 2 The helper provides more than half the effort to complete the activity 1 Dependent. The helper does all the effort to complete an activity 7 Patient refused to complete or attempt activity 9 The patient did not perform the activity before the current illness or injury 88 Not attempted due to Medical conditions or safety concerns Transfers (B, C, W/C) (FIM): 3 Scootin Rollin Supine to/from Sit: 4 Sit to/from Stand: 4 Bed to/from Chair: 4 Patient is having a hard time with supine to sit due to right shoulder pain. Patient is very tired and needs extra time for transfers and mobility in general. Slow to start. Worked on bed mobility, rolling, needs cues for proper positioning and to grab his left arm to bring it over. Weight Bearing Right Lower Extremity: Right Full Weight Bearing Left Lower Extremity: Left Full Weight Bearing Gait Training Gait (FIM): 2 Distance: 70'x2 Gait Level of Assist: 3 Gait Persons Needed: 1 Gait Assistive Device: Cane Large Base Quad Patient ambulates with left AFO, worse balance today, leans harder to the left, needs more assist with weight shifting and resists shifting to the right side. Exercises NuStep Minutes: 15 NuStep Workload: 5 Treatments bed mobility and transfers, ambulation, functional strengthening Assessment Current Status: Poor Progress worse ambulation today, patient states he is very tired PT Short Term Goals Short Term Goals Time Frame: Sep 11, 2018 Transfers (B,C,W/C) (FIM): 3 Gait (FIM): 1 Gait Distance Comment: 20' Gait Level of Assist: 3 Gait Assistive Device: Walker Ba Wheelchair Distance: 100' PT Prison Goals Library Technical Assistant Goals PT Prison Goals Time Frame: Sep 25, 2018 Transfers (B,C,W/C) (FIM): 4 Sit to Lying (QC): 4 Lying-Sitting on Side/Bed(QC): 4 Sit to Stand (QC): 4 Rollin Roll Left to Right (QC): 4 Chair/Fma-cj-Qigti Xfer(QC): 4 Car Transfer (QC): 4 Gait (FIM): 2 Distance: 50' Walk 10 feet (QC): 3 Walk 10ft-Uneven Surface(QC): 3 Walk 50ft with 2 Turns (QC): 3 Gait Level of Assist: 4 Gait Assistive Device: Cane Large Base Quad Wheelchair (FIM): 5 Distance: 150' Wheelchair Level of Assist: 5 Wheel 50 feet with 2 turns (QC: 4 PT Plan Problem List Problem List: Activity Tolerance, Functional Strength, Safety, Balance, Gait, Transfer, Bed Mobility, ROM Treatment/Plan Treatment Plan: Continue Plan of Care Treatment Plan: Bed Mobility, Concurrent Therapy, Education, Functional Activity Reena, Functional Strength, Group Therapy, Gait, Safety, Therapeutic Exercise, Transfers Treatment Duration: Sep 25, 2018 Frequency: At least 5 of 7 days/Wk (IRF) Estimated Hrs Per Day: 1.5 hours per day Patient and/or Family Agrees t: Yes Safety Risks/Education Patient Education: Gait Training, Transfer Techniques, Correct Positioning, Safety Issues Teaching Recipient: Patient Teaching Methods: Demonstration, Discussion Response to Teaching: Reinforcement Needed Time/GCodes Time In: 0800 Time Out: 0845 Total Billed Treatment Time: 45 Total Billed Treatment 1 visit EX 15' GT 30' CASTILLO PHIPPS PT Sep 23, 2018 08:41
[2018-09-23] MEDS: BISACODYL 10 MG SUPP (DULCOLAX) PR SCH ×2 (09:00→10:40)
--- NOTE | 2018-09-23 11:45 | Speech Therapy Daily Note ---
Speech Daily Progress Note Subjective Date Seen by Provider: Sep 23, 2018 Time Seen by Provider: 00:30 Patient was upright in his wheelchair resting when I entered the room. Objective Patient was able to complete OME x15 with minimal cues. Assessment Assessment Current Status: Good Progress Treatment Plan Continue Plan of Care Communication Comprehension: 5 Expression: 5 Social Cognition Social Interaction: 5 Problem Solvin Memory: 4 Speech Short Term Goals Short Term Goals Short Term Goals 1) Patient will increase speech intelligibility at the highest functional verbal expression level to 90% or greater. 2) Patient will complete memory tasks with 90% or greater. 3) Patient will complete problem solving tasks with 90% or greater. Speech Senior Living Goals Senior Living Goals Patient will improve memory, problem solving and speech skills to better communicate with familiar and unfamiliar listeners. Comprehension: 3 Speech-Plan Patient/Family Goals Patient/Family Goals: Patient plans to return home with his post rehab. Treatment Plan Speech Therapy Treatment Plan: Continue Plan of Care Patient is making good progress as a result of skilled ST services. Treatment Duration: Sep 26, 2018 Frequency: 5 times per week Estimated Hrs Per Day: .5 hour per day Rehab Potential: Good Barriers to Learning: Patient has left sided weakness. Pt/Family Agrees to Plan: Yes Safety Risks/Education Teaching Recipient: Patient, Significant Other Teaching Methods: Discussion Response to Teaching: Verbalize Understanding Education Topics Provided: Safety Time Speech Therapy Time In: 10:00 Speech Therapy Time Out: 10:30 Total Billed Time: 30 Billed Treatment Time 1EILEEN BETHANIA ST Sep 23, 2018 11:44
[2018-09-23] MEDS: RIVAROXABAN 20 MG TABLET (XARELTO) PO SCH (12:00)
--- NOTE | 2018-09-23 13:37 | Occupational Ther Daily Note ---
OT Current Status-Daily Note Subjective Pt alert, lying in bed. present in room. Pt agrees to therapy. present for training during shower. No c/o pain at this time. Mental Status/Objective Patient Orientation: Person, Place, Time, Situation Therapy Code Descriptions/Definitions Functional [place] Measure: 0=Not Assessed/NA 4=Minimal Assistance 1=Total Assistance 5=Supervision or Setup 2=Maximal Assistance 6=Modified [place] 3=Moderate Assistance 7=Complete [place] ADL-Treatment completed bed transfer and SPT to w/c, min A. Transported via w/c to bathroom. Min A with SPT from w/c to shower seat using grabbars, verbal cues for safe transfer. Pt positioned with L side to wall and a hand hold on R side pt able to sit safely with supervision. Pt allowed to complete bathing, BAXTER recommended that pt use R hand to assist with bathing. Pt was able to complete face and L side, chest, upper legs and natalie area. Assist to stand then pt attempted to cleanse buttocks though unable to reach area, assisted by cleansing and stabilizing standing (BAXTER close SBA). completed rinsing and drying. then completed all dressing. Pt able to sit at sink to complete oral care after set up. brushed hair. After therapy, pt sitting in w/c with call light/phone in reach. present in room. All needs met in room. Therapy Code Descriptions/Definitions Functional [place] Measure: 0=Not Assessed/NA 4=Minimal Assistance 1=Total Assistance 5=Supervision or Setup 2=Maximal Assistance 6=Modified [place] 3=Moderate Assistance 7=Complete [place] Therapy Quality Codes: 6 Independent with activity with or without an assistive device 5 Patient requires set up or clean up by helper. Patient completes activity by themselves 4 Supervision or touching assist (CGA). [place] provide cues , steadying assist 3 The helper provides less than half the effort to complete the activity 2 The helper provides more than half the effort to complete the activity 1 Dependent. The helper does all the effort to complete an activity 7 Patient refused to complete or attempt activity 9 The patient did not perform the activity before the current illness or injury 88 Not attempted due to Medical conditions or safety concerns Grooming (FIM): 5 Oral Hygiene (QC): 5 Bathing (FIM): 3 Bathing Location: L Arm, L Upper Leg, R Upper Leg, Chest, Abdomen, Perineal Area Shower/Bathe Self (QC): 3 Upper Body (FIM): 2 Upper Body Dressing (QC): 2 Lower Body Dressing (FIM): 2 Lower Body Dressing (QC): 2 On/Off Footwear (QC): 2 Shower Transfer(FIM): 4 Other Treatment Stretch, massage and retrograde massage to L UE to increase ROM and decrease edema. OT Short Term Goals Short Term Goals Time Frame: Sep 19, 2018 Eating(FIM): 7 Grooming(FIM): 7 Bathing(FIM): 3 Bathing Location: L Arm, L Lower Leg (including foot), Chest, Abdomen Upper Body Dressing(FIM): 3 Lower Body Dressing(FIM): 2 Toileting(FIM): 3 Transfers (B,C,W/C) (FIM): 3 Toilet/Commode Transfer(FIM): 3 Shower Transfer(FIM): 3 Additional Short Term Goals: 1-Demonstrate ADL Tasks, 2-Verbalize Understanding , 3-ImproveStrength/Reena 1=Demonstrate adherence to instructed precautions during ADL tasks. 2=Patient will verbalize/demonstrate understanding of assistive devices/ modifications for ADL. 3=Patient will improve strength/tolerance for activity to enable patient to perform ADL's. OT [facility] Goals [facility] Goals Time Frame: Oct 03, 2018 Eating (FIM): 7 Eating (QC): 7 Groomin Oral Hygiene (QC): 7 Bathing(FIM): 3 Bathing Location: L Arm, R Arm, L Lower Leg (including foot), R Lower Leg ( including foot), Chest, Abdomen Shower/Bathe Self (QC): 3 Upper Body Dressing(FIM): 4 Upper Body Dressing (QC): 4 Lower Body Dressing(FIM): 3 Lower Body Dressing (QC): 3 On/Off Footwear (QC): 3 Toileting(FIM): 3 Toileting Hygiene (QC): 3 Transfers (B,C,W/C) (FIM): 3 Toilet/Commode Transfer(FIM): 3 Toilet/Commode Transfer (QC): 3 Shower Transfer(FIM): 3 Comprehension(FIM): 3 Additional Goals: 1-Demonstrate ADL Tasks, 2-Verbalize Understanding, 3- ImproveStrength/Reena 1=Demonstrate adherence to instructed precautions during ADL tasks. 2=Patient will verbalize/demonstrate understanding of assistive devices/ modifications for ADL. 3=Patient will improve strength/tolerance for activity to enable patient to perform ADL's. OT Education/Plan Discharge Recommendations Plan/Recommendations: Continue POC Treatment Plan/Plan of Care Patient would benefit from OT for education, treatment and training to promote independence in ADL's, mobility, safety and/or upper extremity function for ADL' s. Plan of Care: ADL Retraining, Caregiver Training, Functional Mobility, Group Exercise/Act as Ind, UE Funct Exercise/Act Treatment Duration: Oct 03, 2018 Frequency: At least 5 of 7 days/Wk (IRF) Estimated Hrs Per Day: 1.5 hours per day Agreement: Yes Rehab Potential: Good Time/GCodes Start Time: 09:00 Stop Time: 10:00 Total Time Billed (hr/min): 60 Billed Treatment Time 1 visit-ADL 3 (50 min) EX 1 (10 min) SHANNON DOTSON Sep 23, 2018 13:37
--- NOTE | 2018-09-23 13:45 | Occupational Ther Daily Note ---
OT Current Status-Daily Note Subjective Pt alert, lying in bed. Pt states that he may need to use the rest room. Mental Status/Objective Patient Orientation: Person, Place, Time, Situation Therapy Code Descriptions/Definitions Functional [place] Measure: 0=Not Assessed/NA 4=Minimal Assistance 1=Total Assistance 5=Supervision or Setup 2=Maximal Assistance 6=Modified [place] 3=Moderate Assistance 7=Complete [place] ADL-Treatment Therapy Code Descriptions/Definitions Functional [place] Measure: 0=Not Assessed/NA 4=Minimal Assistance 1=Total Assistance 5=Supervision or Setup 2=Maximal Assistance 6=Modified [place] 3=Moderate Assistance 7=Complete [place] Therapy Quality Codes: 6 Independent with activity with or without an assistive device 5 Patient requires set up or clean up by helper. Patient completes activity by themselves 4 Supervision or touching assist (CGA). [place] provide cues , steadying assist 3 The helper provides less than half the effort to complete the activity 2 The helper provides more than half the effort to complete the activity 1 Dependent. The helper does all the effort to complete an activity 7 Patient refused to complete or attempt activity 9 The patient did not perform the activity before the current illness or injury 88 Not attempted due to Medical conditions or safety concerns Other Treatment Stretch and massage to L UE to decrease tightness and increase mobility. Pt demonstrated ability to lift L UE to place on L LE. then was able to transfer pt to w/c and toilet. After therapy, pt sitting on toilet with call light/phone in reach. All need met in room. OT Short Term Goals Short Term Goals Time Frame: Sep 19, 2018 Eating(FIM): 7 Grooming(FIM): 7 Bathing(FIM): 3 Bathing Location: L Arm, L Lower Leg (including foot), Chest, Abdomen Upper Body Dressing(FIM): 3 Lower Body Dressing(FIM): 2 Toileting(FIM): 3 Transfers (B,C,W/C) (FIM): 3 Toilet/Commode Transfer(FIM): 3 Shower Transfer(FIM): 3 Additional Short Term Goals: 1-Demonstrate ADL Tasks, 2-Verbalize Understanding , 3-ImproveStrength/Reena 1=Demonstrate adherence to instructed precautions during ADL tasks. 2=Patient will verbalize/demonstrate understanding of assistive devices/ modifications for ADL. 3=Patient will improve strength/tolerance for activity to enable patient to perform ADL's. OT [facility] Goals [facility] Goals Time Frame: Oct 03, 2018 Eating (FIM): 7 Eating (QC): 7 Groomin Oral Hygiene (QC): 7 Bathing(FIM): 3 Bathing Location: L Arm, R Arm, L Lower Leg (including foot), R Lower Leg ( including foot), Chest, Abdomen Shower/Bathe Self (QC): 3 Upper Body Dressing(FIM): 4 Upper Body Dressing (QC): 4 Lower Body Dressing(FIM): 3 Lower Body Dressing (QC): 3 On/Off Footwear (QC): 3 Toileting(FIM): 3 Toileting Hygiene (QC): 3 Transfers (B,C,W/C) (FIM): 3 Toilet/Commode Transfer(FIM): 3 Toilet/Commode Transfer (QC): 3 Shower Transfer(FIM): 3 Comprehension(FIM): 3 Additional Goals: 1-Demonstrate ADL Tasks, 2-Verbalize Understanding, 3- ImproveStrength/Reena 1=Demonstrate adherence to instructed precautions during ADL tasks. 2=Patient will verbalize/demonstrate understanding of assistive devices/ modifications for ADL. 3=Patient will improve strength/tolerance for activity to enable patient to perform ADL's. OT Education/Plan Discharge Recommendations Plan/Recommendations: Continue POC Treatment Plan/Plan of Care Patient would benefit from OT for education, treatment and training to promote independence in ADL's, mobility, safety and/or upper extremity function for ADL' s. Plan of Care: ADL Retraining, Caregiver Training, Functional Mobility, Group Exercise/Act as Ind, UE Funct Exercise/Act Treatment Duration: Oct 03, 2018 Frequency: At least 5 of 7 days/Wk (IRF) Estimated Hrs Per Day: 1.5 hours per day Agreement: Yes Rehab Potential: Good Time/GCodes Start Time: 11:30 Stop Time: 12:00 Total Time Billed (hr/min): 30 Billed Treatment Time 1 visit-NM 2 (30 min) SHANNON DOTSON Sep 23, 2018 13:45
--- NOTE | 2018-09-23 14:35 | Physical Therapy Daily Note ---
PT Daily Note-Current Subjective Pt and spouse report he practiced getting in/out of bed at home when he went on a day pass and reported it went fairly well. Anxious to return home. Mental Status Patient Orientation: Person, Place, Time, Situation Transfers Therapy Code Descriptions/Definitions Functional [place] Measure: 0=Not Assessed/NA 4=Minimal Assistance 1=Total Assistance 5=Supervision or Setup 2=Maximal Assistance 6=Modified [place] 3=Moderate Assistance 7=Complete [place] Therapy Quality Codes: 6 Independent with activity with or without an assistive device 5 Patient requires set up or clean up by helper. Patient completes activity by themselves 4 Supervision or touching assist (CGA). [place] provide cues , steadying assist 3 The helper provides less than half the effort to complete the activity 2 The helper provides more than half the effort to complete the activity 1 Dependent. The helper does all the effort to complete an activity 7 Patient refused to complete or attempt activity 9 The patient did not perform the activity before the current illness or injury 88 Not attempted due to Medical conditions or safety concerns Worked on rolling and supine to / from sit EOB for 15 minutes with pt self initiating use of his left side as well as assisting with use; encouraged pt to use his left UE and leg to mobilize. Pt able to roll left mod indep; roll right with min assist and verbal cues; transfer sit to supine with CGA and sup to sit with min assist. Pt uses right side to assist the left as needed. Pt able to initiate movement in left U/LE. Pt performed SPT wc to from bed x 2 with CGA. Pt able to move in bed without bedrail , but educated pt and spouse on a bed cane and how it works. Weight Bearing Right Lower Extremity: Right Full Weight Bearing Left Lower Extremity: Left Full Weight Bearing Gait Training Pt walked 30 ft and 15 ft with hemiwalker with close min assist with skilled cues for foot placement. Narrow ZENAIDA with scissoring at times and difficulty pulling left foot through at times. Treatments Pt in bed post treatment with needs met. Assessment Current Status: Good Progress progressing well with good carryover of instruction. Pt and spouse feel they are making good progress and feeling more confident in returning home. PT Short Term Goals Short Term Goals Time Frame: Sep 11, 2018 Transfers (B,C,W/C) (FIM): 3 (met) Gait (FIM): 1 (met) Gait Distance Comment: 20' Gait Level of Assist: 3 Gait Assistive Device: Walker Ba Wheelchair Distance: 100' PT Alf Goals Alf Goals PT Technical Operator Goals Time Frame: Sep 25, 2018 Transfers (B,C,W/C) (FIM): 4 Sit to Lying (QC): 4 Lying-Sitting on Side/Bed(QC): 4 Sit to Stand (QC): 4 Rollin Roll Left to Right (QC): 4 Chair/Drf-ae-Nhnfr Xfer(QC): 4 Car Transfer (QC): 4 Gait (FIM): 2 Distance: 50' Walk 10 feet (QC): 3 Walk 10ft-Uneven Surface(QC): 3 Walk 50ft with 2 Turns (QC): 3 Gait Level of Assist: 4 Gait Assistive Device: Cane Large Base Quad Wheelchair (FIM): 5 Distance: 150' Wheelchair Level of Assist: 5 Wheel 50 feet with 2 turns (QC: 4 PT Plan Problem List Problem List: Activity Tolerance, Functional Strength, Safety, Balance, Gait, Transfer, Bed Mobility Treatment/Plan Treatment Plan: Continue Plan of Care Treatment Plan: Bed Mobility, Concurrent Therapy, Education, Functional Activity Reena, Functional Strength, Group Therapy, Gait, Safety, Therapeutic Exercise, Transfers Treatment Duration: Sep 25, 2018 Frequency: At least 5 of 7 days/Wk (IRF) Estimated Hrs Per Day: 1.5 hours per day Patient and/or Family Agrees t: Yes Safety Risks/Education Patient Education: Transfer Techniques, Safety Issues Teaching Recipient: Patient, Significant Other Teaching Methods: Demonstration, Discussion Response to Teaching: Return Demonstration, Reinforcement Needed Discharge Recommendations Therapy D/C Recommendations: Physical Therapy Home Care Time/GCodes Time In: 1230 Time Out: 1300 Total Billed Treatment Time: 30 Total Billed Treatment visit FA 15 GT 15 SHANNON ANTUNEZ PT Sep 23, 2018 14:35
--- NOTE | 2018-09-23 14:38 | Cardiology Progress Note ---
Cardiology SOAP Progress Note Subjective: No cardiac complaints. Objective: I&O/Vital Signs 09/23/18 09/23/18 09/23/18 05:27 08:03 09:00 Temp 97.3 98.6 Pulse 54 58 Resp 18 18 B/P (MAP) 119/63 (81) 149/73 (98) Pulse Ox 94 O2 Delivery Room Air Room Air 09/23/18 00:00 Intake Total 1000 ml Output Total 250 ml Balance 750 ml Weight (Pounds): 218 Weight (Ounces): 9.6 Weight (Calculated Kilograms): 99.399901 Constitutional: No appears stated age; AAO x 3; No apparent distress, No PERRL ; well-developed, well-nourished; No other Respiratory: No accessory muscle use, No respiratory distress, No chest tender ; chest expansion is symmetric, chest is bilaterally symmetric; No lungs clear to percussion; lungs clear to auscultation; No crackles, No rhonchi, No rales, No stridor, No wheezing, No pleural rub, No other Cardiovascular: regular rate-rhythm; No irregularly irregular, No extra beats, No parasternal heave is noted, No JVD, No edema, No bradycardia, No tachycardia , No point of maximal impulse, No cardiac thrills are palpable; S1 and S2; No gallop/S3, No gallop/S4, No diastolic murmur, No systolic murmur, No friction rub, No click, No other Gastrointestional: No tender; soft, round; No distended, No pulsatile mass, No organomegaly, No guarding, No rebound, No tenderness, No hernia, No mass, No audible bowel sounds, No abnormal bowel sounds, No abdominal bruits, No spleenomegaly, No other Extremities: No normal range of motion, No non-tender, No normal inspection, No pedal edema, No calf tenderness, No normal capillary refill, No pelvis stable , No calf tenderness, No inflammation, No pedal edema, No slow capillary refill , No swelling, No other, No abrasion, No clubbing, No cyanosis, No ecchymosis, No laceration; no lower extremity edema bilateral; No significant edema, No tenderness, No wound Neurologic/Psychiatric: alert, normal mood/affect, oriented x 3, other (left side facial droop, left side hemiparesis) Skin: No rash, No ulcerations Results/Procedures: Labs Laboratory Tests 09/22/18 15:36: Glucometer 93 09/22/18 20:32: Glucometer 251H 09/23/18 05:05: Glucometer 67L 09/23/18 05:48: Glucometer 80 09/23/18 11:10: Glucometer 87 A/P: Assessment/Dx: Assessment: Sinus bradycardia - asymptomatic H/O ischemic CVA - R MCA stroke with left sided hemiparesis - tx at [facility] S/P mechanical thrombectomy for acute stroke right M1 with penumbra aspiration and solitaire thrombus retriever x [address] Valente at [facility] ( 7 days after initial CVA) OAC with Xarelto Echocardiogram of 08-17-18 at [facility] showed LVEF 65%. No significant valvular abnormalities. PASP approx 30 mmHg HTN DM HLD S/P R CEA on 08-23-18 at [facility] by Dr. Arriola CTA of the neck at [facility] showed on 08-20-18 showed severe stenosis of the right internal carotid (subsequent R CEA on 08-23-18) approx 60% stenosis of the prox left internal carotid artery with superimposed penetrating ulcer. Mod stenosis at the left vertebral artery origin. GI bleed - Gastritis with gastric ulcers; small hiatal hernia; colon polyps; Int hemorrhoids per EGD/colo on 09-07-[address] Waggoner (ASA dc'd) BPH with urinary retention - management per Dr. Conway Plan: Continue current regimen Management of stroke is with the Med Svce Thank you for your consultation. Please call me if you have any questions. Ancelmo Peck MD, FACP, FACC, FSCAI, FHRS, CCDS Interventional Cardiology Cardiac Electrophysiology Vascular Medicine and Endovascular Interventions Donita PECK MD Sep 23, 2018 2:38 pm
[2018-09-23] MEDS: TAMSULOSIN 0.4 MG (FLOMAX) CAP PO SCH (17:00)
[2018-09-23 17:10] VITALS: BP 152/75
[2018-09-23] MEDS ORDERED: TRIM/SULFAMETH 160/800 (SEPTRA DS) TAB PO ONE (19:34)
[2018-09-23] MEDS: ALPRAZolam 0.25 MG (XANAX) TAB PO PRN (20:11)
[2018-09-23] MEDS: inSUlin DETERMIR 1 UNIT/0.01 ML (LEVEMIR) CHARGE PER UNIT SQ SCH (20:11)
[2018-09-23] MEDS: TRIM/SULFAMETH 160/800 (SEPTRA DS) TAB PO SCH (20:12)
[2018-09-23] MEDS: ATORVASTATIN 40 MG (LIPITOR) TABLET PO SCH (20:12)
[2018-09-24] MEDS: HYDROcodone/APAP 5 MG/325 MG (LORTAB) TAB PO PRN ×3 (01:01→20:55)
[2018-09-24 05:10] VITALS: BP 122/63
[2018-09-24] MEDS: METOCLOPRAMIDE 10 MG (REGLAN) TAB PO SCH ×4 (06:34→20:55)
[2018-09-24] MEDS: CYANOCOBALAMIN 1,000 MCG (VITAMIN B-12) TABLET PO SCH (06:34)
[2018-09-24] MEDS: metFORMIN XR 500 MG (GLUCOPHAGE XR) TAB PO SCH ×2 (06:35→17:05)
[2018-09-24] MEDS: inSUlin ASPART (NovoLOG) 1 UNIT/0.01 ML (CHARGE PER UNIT) SC SCH ×4 (06:38→21:03)
--- NOTE | 2018-09-24 07:13 | Occupational Ther Daily Note ---
OT Current Status-Daily Note Subjective Pt alert, lying in bed. Pt agrees to therapy. present in room. Mental Status/Objective Patient Orientation: Person, Place, Time Therapy Code Descriptions/Definitions Functional [place] Measure: 0=Not Assessed/NA 4=Minimal Assistance 1=Total Assistance 5=Supervision or Setup 2=Maximal Assistance 6=Modified [place] 3=Moderate Assistance 7=Complete [place] ADL-Treatment Pt eating breakfast, set up. Pt able to use regular utensils to eat. Min A for supine to EOB with HOB raised and verbal cues to move L UE/LE. Sitting balance good at EOB. Pt able to doff shirt over head and R UE assist with L UE. Pt completed sponge bath sitting EOB for upper body, assist to lift L UE to bath under and apply deodorant. Educated pt on one-handed dressing technique for upper body, assist to thread L UE able to complete rest. Pt then transferred to w/c with min A. Positioned pt in front of bed with w/c to complete lower body bathing and dressing. Pt able to assist with hiking pants over hips and cleanse natalie area/buttocks. Inefficient with cleansing buttocks, assist to cleanse thoroughly. Assist to don clothing over feet, pt pulled up LE then pt assist to hike pants over R hip then stabilized self with bed while assist to hike over hips. Pt then was transported into bathroom to complete hygiene by self. Therapy Code Descriptions/Definitions Functional [place] Measure: 0=Not Assessed/NA 4=Minimal Assistance 1=Total Assistance 5=Supervision or Setup 2=Maximal Assistance 6=Modified [place] 3=Moderate Assistance 7=Complete [place] Therapy Quality Codes: 6 Independent with activity with or without an assistive device 5 Patient requires set up or clean up by helper. Patient completes activity by themselves 4 Supervision or touching assist (CGA). [place] provide cues , steadying assist 3 The helper provides less than half the effort to complete the activity 2 The helper provides more than half the effort to complete the activity 1 Dependent. The helper does all the effort to complete an activity 7 Patient refused to complete or attempt activity 9 The patient did not perform the activity before the current illness or injury 88 Not attempted due to Medical conditions or safety concerns Eating (FIM): 5 Eating (QC): 5 Grooming (FIM): 6 Oral Hygiene (QC): 6 Bathing (FIM): 3 Bathing Location: L Arm, R Arm, L Upper Leg, R Upper Leg, Chest, Abdomen, Perineal Area Shower/Bathe Self (QC): 3 Upper Body (FIM): 4 Upper Body Dressing (QC): 3 Lower Body Dressing (FIM): 2 Lower Body Dressing (QC): 2 On/Off Footwear (QC): 2 Other Treatment Transported pt via w/c to therapy gym. Pt transferred to therapy mat to complete wt bearing with L UE. Assist needed to stabilize elbow and position hand. No LOB noted. Pt is demonstrating increased AROM with L shldr. Pt stated that he needed to use toilet. Mod A for transfer to toilet. present in bathroom with pt. All needs met in room. OT Short Term Goals Short Term Goals Time Frame: Sep 19, 2018 Eating(FIM): 7 Grooming(FIM): 7 Bathing(FIM): 3 Bathing Location: L Arm, L Lower Leg (including foot), Chest, Abdomen Upper Body Dressing(FIM): 3 Lower Body Dressing(FIM): 2 Toileting(FIM): 3 Transfers (B,C,W/C) (FIM): 3 (met) Toilet/Commode Transfer(FIM): 3 Shower Transfer(FIM): 3 Additional Short Term Goals: 1-Demonstrate ADL Tasks, 2-Verbalize Understanding , 3-ImproveStrength/Reena 1=Demonstrate adherence to instructed precautions during ADL tasks. 2=Patient will verbalize/demonstrate understanding of assistive devices/ modifications for ADL. 3=Patient will improve strength/tolerance for activity to enable patient to perform ADL's. OT Chcf Goals Fiscal Accounting Clerk Goals Time Frame: Oct 03, 2018 Eating (FIM): 7 Eating (QC): 7 Groomin Oral Hygiene (QC): 7 Bathing(FIM): 3 Bathing Location: L Arm, R Arm, L Lower Leg (including foot), R Lower Leg ( including foot), Chest, Abdomen Shower/Bathe Self (QC): 3 Upper Body Dressing(FIM): 4 Upper Body Dressing (QC): 4 Lower Body Dressing(FIM): 3 Lower Body Dressing (QC): 3 On/Off Footwear (QC): 3 Toileting(FIM): 3 Toileting Hygiene (QC): 3 Transfers (B,C,W/C) (FIM): 3 Toilet/Commode Transfer(FIM): 3 Toilet/Commode Transfer (QC): 3 Shower Transfer(FIM): 3 Comprehension(FIM): 3 Additional Goals: 1-Demonstrate ADL Tasks, 2-Verbalize Understanding, 3- ImproveStrength/Reena 1=Demonstrate adherence to instructed precautions during ADL tasks. 2=Patient will verbalize/demonstrate understanding of assistive devices/ modifications for ADL. 3=Patient will improve strength/tolerance for activity to enable patient to perform ADL's. OT Education/Plan Discharge Recommendations Plan/Recommendations: Continue POC Treatment Plan/Plan of Care Patient would benefit from OT for education, treatment and training to promote independence in ADL's, mobility, safety and/or upper extremity function for ADL' s. Plan of Care: ADL Retraining, Caregiver Training, Functional Mobility, Group Exercise/Act as Ind, UE Funct Exercise/Act Treatment Duration: Oct 03, 2018 Frequency: At least 5 of 7 days/Wk (IRF) Estimated Hrs Per Day: 1.5 hours per day Agreement: Yes Rehab Potential: Good Time/GCodes Start Time: 07:00 Stop Time: 08:00 Total Time Billed (hr/min): 60 Billed Treatment Time 1 visit-ADL 3 (50 min) NM 1 (10 min) SHANNON DOTSON Sep 24, 2018 07:13
--- NOTE | 2018-09-24 08:25 | PM&R Progress Note ---
Subjective HPI/CC On Admission Date Seen by Provider: Sep 24, 2018 Time Seen by Provider: 08:15 Subjective/Events-last exam Pt doing well today Left facial droop, more pronounced today Had a large bowel movement so bowels are moving well Discharge date likely on Sunday Tooth abscess improved on Clindamycin and rare use of Hydrocodone Review of Systems General: Fatigue Objective Exam Vital Signs Vital Signs Date Time Temp Pulse Resp B/P (MAP) Pulse Ox O2 Delivery O2 Flow Rate FiO2 09/24/18 17:28 97.4 51 18 154/70 (98) 95 Room Air Capillary Refill : General Appearance: No Apparent Distress, WD/WN Respiratory: Chest Non Tender, Lungs Clear, Normal Breath Sounds, No Accessory Muscle Use, No Respiratory Distress Cardiovascular: Regular Rate, Rhythm, No Edema, No Gallop, No JVD, No Murmur, Normal Peripheral Pulses Neurologic/Psychiatric: Alert, Oriented x3, Normal Mood/Affect, Motor Weakness (left sided with facial droop) Skin: Normal Color, Warm/Dry Results/Procedures Lab Patient resulted labs reviewed. Assessment/Plan Assessment and Plan Assess & Plan/Chief Complaint Assessment Subacute CVA 08/16/18 with left sided weakness and left facial droop now on anticoagulation and ASA Severe carotid stenosis right s/p endarterectomy but no resolution of deficit had an appt at [facility] last Sunday but rescheduled DM on insulin Chronic UTI but normal cystoscopy 09/06/18 but BPH noted and placed on Flomax from Urology now receiving straight caths if retention on bladder scan and patient agrees for self cath at DC per Urology placed on Bactrim 1/2 tablet at night to prevent UTI due to catheters but now voiding well when up to toilet and no longer needs catheters since no residual HTN HLP Constipation recurrent issue resolved now Hematochezia episode with Heme + stools but gastritis and colon polyps noted on EGD/Colonoscopy on 09/07/[address] Waggoner Chronic nausea improved on Reglan confirming gastroparesis as the source Tooth abscess placed on clindamycin and hydrocodone Plan: Maintain ASA and anticoagulation Colon polyp pathology reveals tubular adenoma Monitor sugar control and adjust insulin prn Maintain urinary management since h/o chronic UTI and maintain on Flomax per Urology in addition to self caths to prevent retention but now voiding well and no caths needed as long as upright to toilet PPI and maintain on Flomax at [place] Zofran Constipation treatment maintained Reglan at [place] Tooth abscess treatment needs dentist as an outpatient DC Sunday? Diagnosis/Problems Diagnosis/Problems (1) Cerebrovascular accident (CVA) with left hemiparesis Status: Acute (2) Diabetes mellitus Status: Chronic Qualifiers: Diabetes mellitus type: type 2 Diabetes mellitus long term care pharmacist insulin use: with mcc use Diabetes mellitus complication status: with circulatory complication Diabetes mellitus complication detail: with other circulatory complications Qualified Codes: E11.59 - Type 2 diabetes mellitus with other circulatory complications; Z79.4 - MCC (current) use of insulin (3) Hypertension Status: Chronic Qualifiers: Hypertension type: essential hypertension Qualified Codes: I10 - Essential (primary) hypertension (4) Hyperlipidemia Status: Chronic Qualifiers: Hyperlipidemia type: mixed hyperlipidemia Qualified Codes: E78.2 - Mixed hyperlipidemia (5) Chronic UTI Status: Chronic (6) Bright red blood per rectum Status: Resolved Resolution Date/Time: 09/07/18 @ 15:48 (7) Constipation Status: Resolved Qualifiers: Constipation type: slow transit constipation Qualified Codes: K59.01 - Slow transit constipation Resolution Date/Time: 09/11/18 @ 11:41 (8) Anticoagulant long-term use Status: Chronic (9) BPH (benign prostatic hyperplasia) Status: Chronic Qualifiers: Lower urinary tract symptom presence: symptoms present Lower urinary tract symptom detail: urinary frequency Qualified Codes: N40.1 - Benign prostatic hyperplasia with lower urinary tract symptoms; R35.0 - Frequency of micturition (10) Abnormal findings on esophagogastroduodenoscopy (EGD) Status: Acute (11) Abnormal colonoscopy Status: Acute (12) Gastritis Status: Acute Qualifiers: Gastritis type: unspecified gastritis Chronicity: acute Gastritis bleeding: without bleeding Qualified Codes: K29.00 - Acute gastritis without bleeding (13) Colon polyps Status: Acute Qualifiers: Colon polyp type: unspecified Colon location: unspecified part of colon Qualified Codes: K63.5 - Polyp of colon (14) Nausea Status: Chronic (15) Urinary retention Status: Resolved Resolution Date/Time: 09/12/18 @ 10:40 (16) Shoulder pain, right Status: Acute Qualifiers: Chronicity: acute Qualified Codes: M25.511 - Pain in right shoulder (17) Gastroparesis Status: Acute (18) Tooth abscess Status: Acute Clinical Quality Measures Admission Status Admission Dx Assessment Subacute CVA 08/16/18 with left sided weakness Severe carotid stenosis right s/p endarterectomy but no resolution of deficit DM Chronic UTI HTN HLP Plan: Monitor BP Maintain all new meds per [facility] including asa and anticoagulation Therapies as ordered for intensive rehab DVT/VTE Risk/Contraindication: Risk Factor Score Per Nursin RFS Level Per Nursing on Admit: 4+=Very High DARELL CIFUENTES DO Sep 24, 2018 08:25
--- NOTE | 2018-09-24 08:57 | Physical Therapy Daily Note ---
PT Daily Note-Current Subjective Patient in wheelchair at bedside pre tx, agrees to PT, has pain of 8/10 in right shoulder (he says nurse is aware of his pain). Appearance Patient in wheelchair at bedside post tx with nurse call, phone, tray, in room. Mental Status Patient Orientation: Person, Place, Situation, Normal For Age Transfers Therapy Code Descriptions/Definitions Functional [place] Measure: 0=Not Assessed/NA 4=Minimal Assistance 1=Total Assistance 5=Supervision or Setup 2=Maximal Assistance 6=Modified [place] 3=Moderate Assistance 7=Complete [place] Therapy Quality Codes: 6 Independent with activity with or without an assistive device 5 Patient requires set up or clean up by helper. Patient completes activity by themselves 4 Supervision or touching assist (CGA). [place] provide cues , steadying assist 3 The helper provides less than half the effort to complete the activity 2 The helper provides more than half the effort to complete the activity 1 Dependent. The helper does all the effort to complete an activity 7 Patient refused to complete or attempt activity 9 The patient did not perform the activity before the current illness or injury 88 Not attempted due to Medical conditions or safety concerns Transfers (B, C, W/C) (FIM): 3 Scootin Rollin Supine to/from Sit: 4 Sit to/from Stand: 4 Bed to/from Chair: 3 Practiced bed mobility, supine to sit, rolling, and transfers. Patient performs supine <-> sit with SBA to his right side and with min assist to his left side, transfers with CGA to the right and min/mod assist to the left side. He is able to roll to each side with SBA and cues for positioning. Weight Bearing Right Lower Extremity: Right Full Weight Bearing Left Lower Extremity: Left Full Weight Bearing Gait Training Gait (FIM): 2 Distance: 70' Gait Level of Assist: 4 Gait Persons Needed: 1 Gait Assistive Device: Cane Large Base Quad Min assist to help with balance and weight shifting. Patient was not able to walk back to his room due to fatigue. Exercises sit to stand 3 sets of 10, LAQ alternating for 5 min with 2# ankle weight on the right side, sidestepping in parallel bars 10'x3, step ups on 6" step with left leg support x10 Treatments bed mobility and transfers, ambulation, functional strengthening, Assessment Current Status: Fair Progress Patient very fatigued after treatment, poor endurance PT Short Term Goals Short Term Goals Time Frame: Sep 11, 2018 Transfers (B,C,W/C) (FIM): 3 (met) Gait (FIM): 1 (met) Gait Distance Comment: 20' Gait Level of Assist: 3 Gait Assistive Device: Walker Ba Wheelchair Distance: 100' PT Equipment Installation Professional Goals Equipment Installation Professional Goals PT Retirement Goals Time Frame: Sep 25, 2018 Transfers (B,C,W/C) (FIM): 4 Sit to Lying (QC): 4 Lying-Sitting on Side/Bed(QC): 4 Sit to Stand (QC): 4 Rollin Roll Left to Right (QC): 4 Chair/[id number] Xfer(QC): 4 Car Transfer (QC): 4 Gait (FIM): 2 Distance: 50' Walk 10 feet (QC): 3 Walk 10ft-Uneven Surface(QC): 3 Walk 50ft with 2 Turns (QC): 3 Gait Level of Assist: 4 Gait Assistive Device: Cane Large Base Quad Wheelchair (FIM): 5 Distance: 150' Wheelchair Level of Assist: 5 Wheel 50 feet with 2 turns (QC: 4 PT Plan Problem List Problem List: Activity Tolerance, Functional Strength, Safety, Balance, Gait, Transfer, Bed Mobility, ROM Treatment/Plan Treatment Plan: Continue Plan of Care Treatment Plan: Bed Mobility, Concurrent Therapy, Education, Functional Activity Reena, Functional Strength, Group Therapy, Gait, Safety, Therapeutic Exercise, Transfers Treatment Duration: Sep 25, 2018 Frequency: At least 5 of 7 days/Wk (IRF) Estimated Hrs Per Day: 1.5 hours per day Patient and/or Family Agrees t: Yes Safety Risks/Education Patient Education: Gait Training, Transfer Techniques, Correct Positioning, Safety Issues Teaching Recipient: Patient Teaching Methods: Demonstration, Discussion Response to Teaching: Reinforcement Needed Time/GCodes Time In: 0800 Time Out: 0900 Total Billed Treatment Time: 60 Total Billed Treatment 1 visit GT 10' FA 20' EX 30' CASTILLO PHIPPS PT Sep 24, 2018 08:56
[2018-09-24 09:10] VITALS: BP 130/67
[2018-09-24] MEDS: CARVEDILOL 12.5 MG (COREG) TABLET PO SCH ×2 (09:12→20:55)
[2018-09-24] MEDS: FLUoxetine HCL 20 MG (PROzac) CAP PO SCH (09:12)
[2018-09-24] MEDS: amLODIPine 10 MG (NORVASC) TAB PO SCH (09:12)
[2018-09-24] MEDS: PYRIDOXINE (VITAMIN B-6) 50 MG TABLET PO SCH (09:12)
[2018-09-24] MEDS: VITAMIN D3 1,000 UNITS (CHOLECALCIFEROL) TABLET PO SCH (09:13)
[2018-09-24] MEDS: LORATADINE (CLARITIN) 10 MG TAB PO SCH (09:13)
[2018-09-24] MEDS: CLINDAMYCIN 150 MG (CLEOCIN) CAP PO SCH ×3 (09:13→20:55)
[2018-09-24] MEDS: ASPIRIN E.C. 81 MG (ECOTRIN) TAB PO SCH (09:13)
[2018-09-24] MEDS: SENNA W/DOCUSATE (SENOKOT S) TABLET PO SCH ×2 (09:13→20:57)
[2018-09-24] MEDS: MAGNESIUM OXIDE (MAG-OX)400 MG TAB PO SCH (09:13)
[2018-09-24] MEDS: ZINC SULFATE 220 MG CAPSULE PO SCH (09:13)
[2018-09-24] MEDS: BISACODYL 10 MG SUPP (DULCOLAX) PR SCH ×2 (09:18→21:03)
--- NOTE | 2018-09-24 10:17 | Speech Therapy Daily Note ---
Speech Daily Progress Note Subjective Date Seen by Provider: Sep 24, 2018 Time Seen by Provider: 00:30 Patient was resting in his bed due to being tired from OT and PT. Objective Patient completed OME x15 with minimal cues. Assessment Assessment Current Status: Good Progress Treatment Plan Continue Plan of Care Communication Comprehension: 5 Expression: 5 Social Cognition Social Interaction: 5 Problem Solvin Memory: 4 Speech Short Term Goals Short Term Goals Short Term Goals 1) Patient will increase speech intelligibility at the highest functional verbal expression level to 90% or greater. 2) Patient will complete memory tasks with 90% or greater. 3) Patient will complete problem solving tasks with 90% or greater. Speech Loading Unit Operator Crimping Goals Correction Goals Patient will improve memory, problem solving and speech skills to better communicate with familiar and unfamiliar listeners. Comprehension: 3 Speech-Plan Patient/Family Goals Patient/Family Goals: Patient plans to return home with his post rehab. Treatment Plan Speech Therapy Treatment Plan: Continue Plan of Care Patient is making good progress as a result of skilled ST services. Treatment Duration: Sep 26, 2018 Frequency: 5 times per week Estimated Hrs Per Day: .5 hour per day Rehab Potential: Good Barriers to Learning: Patient tires easily. Pt/Family Agrees to Plan: Yes Safety Risks/Education Teaching Recipient: Patient, Significant Other Teaching Methods: Discussion Response to Teaching: Verbalize Understanding Education Topics Provided: Oral motor exercises to continue at home. Time Speech Therapy Time In: 09:00 Speech Therapy Time Out: 09:30 Total Billed Time: 30 Billed Treatment Time 1EILEEN BETHANIA ST Sep 24, 2018 10:17
--- NOTE | 2018-09-24 11:31 | Occupational Ther Daily Note ---
OT Current Status-Daily Note Subjective Pt alert, lying in bed. Pt agrees to therapy. No c/o pain at this time. Mental Status/Objective Patient Orientation: Person, Place, Time, Situation Therapy Code Descriptions/Definitions Functional [place] Measure: 0=Not Assessed/NA 4=Minimal Assistance 1=Total Assistance 5=Supervision or Setup 2=Maximal Assistance 6=Modified [place] 3=Moderate Assistance 7=Complete [place] ADL-Treatment Therapy Code Descriptions/Definitions Functional [place] Measure: 0=Not Assessed/NA 4=Minimal Assistance 1=Total Assistance 5=Supervision or Setup 2=Maximal Assistance 6=Modified [place] 3=Moderate Assistance 7=Complete [place] Therapy Quality Codes: 6 Independent with activity with or without an assistive device 5 Patient requires set up or clean up by helper. Patient completes activity by themselves 4 Supervision or touching assist (CGA). [place] provide cues , steadying assist 3 The helper provides less than half the effort to complete the activity 2 The helper provides more than half the effort to complete the activity 1 Dependent. The helper does all the effort to complete an activity 7 Patient refused to complete or attempt activity 9 The patient did not perform the activity before the current illness or injury 88 Not attempted due to Medical conditions or safety concerns Other Treatment Min A with HOB raised for supine to EOB. Min A with SPT from bed to w/c. Transported pt to tub to work on tub transfer. Pt ambulated into bathroom approx 10 feet using quadcane to transfer onto tub transfer bench. Assist only to lift L LE into/out of tub, mod A for transfer. After therapy, pt sitting in w/c with present in room. Call light/phone in reach. All needs met in room. Education OT Patient Education: Transfer techniques, Use of adapted equipment Teaching Recipient: Patient, Family Teaching Methods: Demonstration, Discussion Response to Teaching: Verbalize Understanding, Return Demonstration, Reinforcement Needed OT Short Term Goals Short Term Goals Time Frame: Sep 19, 2018 Eating(FIM): 7 Grooming(FIM): 7 Bathing(FIM): 3 Bathing Location: L Arm, L Lower Leg (including foot), Chest, Abdomen Upper Body Dressing(FIM): 3 Lower Body Dressing(FIM): 2 Toileting(FIM): 3 Transfers (B,C,W/C) (FIM): 3 (met) Toilet/Commode Transfer(FIM): 3 Shower Transfer(FIM): 3 Additional Short Term Goals: 1-Demonstrate ADL Tasks, 2-Verbalize Understanding , 3-ImproveStrength/Reena 1=Demonstrate adherence to instructed precautions during ADL tasks. 2=Patient will verbalize/demonstrate understanding of assistive devices/ modifications for ADL. 3=Patient will improve strength/tolerance for activity to enable patient to perform ADL's. OT Mill Tender Washing Goals Usp Goals Time Frame: Oct 03, 2018 Eating (FIM): 7 Eating (QC): 7 Groomin Oral Hygiene (QC): 7 Bathing(FIM): 3 Bathing Location: L Arm, R Arm, L Lower Leg (including foot), R Lower Leg ( including foot), Chest, Abdomen Shower/Bathe Self (QC): 3 Upper Body Dressing(FIM): 4 Upper Body Dressing (QC): 4 Lower Body Dressing(FIM): 3 Lower Body Dressing (QC): 3 On/Off Footwear (QC): 3 Toileting(FIM): 3 Toileting Hygiene (QC): 3 Transfers (B,C,W/C) (FIM): 3 Toilet/Commode Transfer(FIM): 3 Toilet/Commode Transfer (QC): 3 Shower Transfer(FIM): 3 Comprehension(FIM): 3 Additional Goals: 1-Demonstrate ADL Tasks, 2-Verbalize Understanding, 3- ImproveStrength/Reena 1=Demonstrate adherence to instructed precautions during ADL tasks. 2=Patient will verbalize/demonstrate understanding of assistive devices/ modifications for ADL. 3=Patient will improve strength/tolerance for activity to enable patient to perform ADL's. OT Education/Plan Discharge Recommendations Plan/Recommendations: Continue POC Treatment Plan/Plan of Care Patient would benefit from OT for education, treatment and training to promote independence in ADL's, mobility, safety and/or upper extremity function for ADL' s. Plan of Care: ADL Retraining, Caregiver Training, Functional Mobility, Group Exercise/Act as Ind, UE Funct Exercise/Act Treatment Duration: Oct 03, 2018 Frequency: At least 5 of 7 days/Wk (IRF) Estimated Hrs Per Day: 1.5 hours per day Agreement: Yes Rehab Potential: Good Time/GCodes Start Time: 11:00 Stop Time: 11:30 Total Time Billed (hr/min): 30 Billed Treatment Time 1 visit-FA 2 (30 min) SHANNON DOTSON 29, 2019 11:31
--- NOTE | 2018-09-24 11:32 | Progress Note-Cardiology ---
Cardiology SOAP Progress Note Subjective: In bed. Flat affect. Spouse at the bedside. He feels his left side is getting stronger. No c/o CP, palpitations, syncope or near syncope. Objective: I&O/Vital Signs 09/24/18 09/24/18 09/24/18 05:10 09:00 09:10 Temp 97.8 Pulse 54 50 Resp 20 B/P (MAP) 122/63 (82) 130/67 (88) Pulse Ox 93 O2 Delivery Room Air Room Air 09/24/18 00:00 Intake Total 1000 ml Balance 1000 ml Weight (Pounds): 218 Weight (Ounces): 9.6 Weight (Calculated Kilograms): 99.644987 Constitutional: AAO x 3, well-developed, well-nourished Respiratory: chest expansion is symmetric, chest is bilaterally symmetric, lungs clear to auscultation Cardiovascular: regular rate-rhythm, S1 and S2 Gastrointestional: soft, round, audible bowel sounds Extremities: no lower extremity edema bilateral Neurologic/Psychiatric: alert, normal mood/affect, oriented x 3, other (left side facial droop, left side hemiparesis) Skin: No rash, No ulcerations Results/Procedures: Labs Laboratory Tests 09/23/18 16:20: Glucometer 155H 09/23/18 20:10: Glucometer 107 09/24/18 06:17: Glucometer 76 09/24/18 11:26: Glucometer 100 A/P: Assessment: Sinus bradycardia - asymptomatic H/O ischemic CVA - R MCA stroke with left sided hemiparesis - tx at [facility] S/P mechanical thrombectomy for acute stroke right M1 with penumbra aspiration and solitaire stent retriever x [address] Valente at [facility] ( 7 days after initial CVA) OAC with Xarelto Echocardiogram of 08-17-18 at [facility] showed LVEF 65%. No significant valvular abnormalities. PASP approx 30 mmHg HTN DM HLD S/P R CEA on 08-23-18 at [facility] by Dr. Arriola CTA of the neck at [facility] showed on 08-20-18 showed severe stenosis of the right internal carotid (subsequent R CEA on 08-23-18) approx 60% stenosis of the prox left internal carotid artery with superimposed penetrating ulcer. Mod stenosis at the left vertebral artery origin. GI bleed - Gastritis with gastric ulcers; small hiatal hernia; colon polyps; Int hemorrhoids per EGD/colo on 09-07-[address] Waggoner (ASA dc'd) BPH with urinary retention - management per Dr. Conway Plan: Continue current regimen Management of stroke is with the Med Svce Physician Assessment Physician Assessment No cp or palp or shortness of breath or syncope Lungs: good bilat air entry Cor: reg Ext: no c/c/e A&R * As documented in our note above that I updated (italics) and as noted below * Continue current regimen * I spoke with him and his and answered CV-related questions TESS FREITAS MICROBIOLOGY LABORATORY MANAGER Sep 24, 2018 11:32 ABDOUL CHAMORRO MD FACP FAC CCDS Sep 24, 2018 12:40
[2018-09-24] MEDS: RIVAROXABAN 20 MG TABLET (XARELTO) PO SCH (11:46)
--- NOTE | 2018-09-24 13:20 | Physical Therapy Daily Note ---
PT Daily Note-Current Subjective Patient in bed pre tx, agrees to PT, has no complaints of pain. Appearance Patient in bed post tx with nurse call, phone, tray, all needs met. in room. Mental Status Patient Orientation: Person, Place, Situation Transfers Therapy Code Descriptions/Definitions Functional [place] Measure: 0=Not Assessed/NA 4=Minimal Assistance 1=Total Assistance 5=Supervision or Setup 2=Maximal Assistance 6=Modified [place] 3=Moderate Assistance 7=Complete [place] Therapy Quality Codes: 6 Independent with activity with or without an assistive device 5 Patient requires set up or clean up by helper. Patient completes activity by themselves 4 Supervision or touching assist (CGA). [place] provide cues , steadying assist 3 The helper provides less than half the effort to complete the activity 2 The helper provides more than half the effort to complete the activity 1 Dependent. The helper does all the effort to complete an activity 7 Patient refused to complete or attempt activity 9 The patient did not perform the activity before the current illness or injury 88 Not attempted due to Medical conditions or safety concerns Weight Bearing Right Lower Extremity: Right Full Weight Bearing Left Lower Extremity: Left Full Weight Bearing Exercises Supine Ex: Ankle pumps, Quad Set, Glut sets, Heel Slides, Short Arc Quads, Straight leg raise, Hip abd/add Supine Reps: 20 (AAROM on the left) LLE stretching in all planes Treatments functional strengthening, stretching Assessment Current Status: Fair Progress increased muscle tone LLE PT Short Term Goals Short Term Goals Time Frame: Sep 11, 2018 Transfers (B,C,W/C) (FIM): 3 (met) Gait (FIM): 1 (met) Gait Distance Comment: 20' Gait Level of Assist: 3 Gait Assistive Device: Walker Ba Wheelchair Distance: 100' PT Alf Goals Medical Administrative Goals PT Medical Administrative Goals Time Frame: Sep 25, 2018 Transfers (B,C,W/C) (FIM): 4 Sit to Lying (QC): 4 Lying-Sitting on Side/Bed(QC): 4 Sit to Stand (QC): 4 Rollin Roll Left to Right (QC): 4 Chair/Oaf-jz-Xmxoo Xfer(QC): 4 Car Transfer (QC): 4 Gait (FIM): 2 Distance: 50' Walk 10 feet (QC): 3 Walk 10ft-Uneven Surface(QC): 3 Walk 50ft with 2 Turns (QC): 3 Gait Level of Assist: 4 Gait Assistive Device: Cane Large Base Quad Wheelchair (FIM): 5 Distance: 150' Wheelchair Level of Assist: 5 Wheel 50 feet with 2 turns (QC: 4 PT Plan Problem List Problem List: Activity Tolerance, Functional Strength, Safety, Balance, Gait, Transfer, Bed Mobility, ROM Treatment/Plan Treatment Plan: Continue Plan of Care Treatment Plan: Bed Mobility, Concurrent Therapy, Education, Functional Activity Reena, Functional Strength, Group Therapy, Gait, Safety, Therapeutic Exercise, Transfers Treatment Duration: Sep 25, 2018 Frequency: At least 5 of 7 days/Wk (IRF) Estimated Hrs Per Day: 1.5 hours per day Patient and/or Family Agrees t: Yes Safety Risks/Education Patient Education: Correct Positioning, Safety Issues Teaching Recipient: Patient Teaching Methods: Demonstration, Discussion Response to Teaching: Reinforcement Needed Time/GCodes Time In: 1300 Time Out: 1315 Total Billed Treatment Time: 15 Total Billed Treatment 1 visit EX 15' CASTILLO PHIPPS PT Sep 24, 2018 13:20
--- NOTE | 2018-09-24 15:57 | NUR ---
Updated medical records faxed to [facility] insurance. Tentative discharge set for 09/27/18.
[2018-09-24] MEDS: TAMSULOSIN 0.4 MG (FLOMAX) CAP PO SCH (17:05)
[2018-09-24] MEDS: ALPRAZolam 0.25 MG (XANAX) TAB PO PRN (17:05)
[2018-09-24 17:28] VITALS: BP 154/70
[2018-09-24] MEDS ORDERED: TRIM/SULFAMETH 160/800 (SEPTRA DS) TAB PO ONE (19:31)
[2018-09-24] MEDS: ATORVASTATIN 40 MG (LIPITOR) TABLET PO SCH (20:55)
[2018-09-24] MEDS: TRIM/SULFAMETH 160/800 (SEPTRA DS) TAB PO SCH (20:55)
[2018-09-24] MEDS: inSUlin DETERMIR 1 UNIT/0.01 ML (LEVEMIR) CHARGE PER UNIT SQ SCH (20:55)
[2018-09-25] MEDS: METOCLOPRAMIDE 10 MG (REGLAN) TAB PO SCH ×4 (06:12→20:54)
[2018-09-25] MEDS: inSUlin ASPART (NovoLOG) 1 UNIT/0.01 ML (CHARGE PER UNIT) SC SCH ×4 (06:12→21:10)
[2018-09-25] MEDS: metFORMIN XR 500 MG (GLUCOPHAGE XR) TAB PO SCH ×2 (06:12→16:14)
[2018-09-25] MEDS: CYANOCOBALAMIN 1,000 MCG (VITAMIN B-12) TABLET PO SCH (06:12)
[2018-09-25 06:27] VITALS: BP 126/67
[2018-09-25] MEDS: ZINC SULFATE 220 MG CAPSULE PO SCH (08:40)
[2018-09-25] MEDS: FLUoxetine HCL 20 MG (PROzac) CAP PO SCH (08:40)
[2018-09-25] MEDS: PYRIDOXINE (VITAMIN B-6) 50 MG TABLET PO SCH (08:40)
[2018-09-25] MEDS: ASPIRIN E.C. 81 MG (ECOTRIN) TAB PO SCH (08:40)
[2018-09-25] MEDS: VITAMIN D3 1,000 UNITS (CHOLECALCIFEROL) TABLET PO SCH (08:40)
[2018-09-25] MEDS: LORATADINE (CLARITIN) 10 MG TAB PO SCH (08:40)
[2018-09-25] MEDS: CLINDAMYCIN 150 MG (CLEOCIN) CAP PO SCH ×3 (08:40→20:54)
[2018-09-25] MEDS: MAGNESIUM OXIDE (MAG-OX)400 MG TAB PO SCH (08:41)
[2018-09-25] MEDS: SENNA W/DOCUSATE (SENOKOT S) TABLET PO SCH ×2 (08:45→21:10)
--- NOTE | 2018-09-25 08:50 | NUR ---
LAST BM WAS 2 DAYS AGO. FEELS NEEDS MEDICATION TO HELP HAVE BM. MEDICATED WITH LACTULOSE.
[2018-09-25] MEDS: amLODIPine 10 MG (NORVASC) TAB PO SCH (08:51)
[2018-09-25] MEDS: LACTULOSE SYRUP 10GM/15ML (ENULOSE) 30ML UDC PO PRN (08:51)
[2018-09-25 08:53] VITALS: BP 143/77
--- NOTE | 2018-09-25 09:10 | PM&R Progress Note ---
Subjective HPI/CC On Admission Date Seen by Provider: Sep 25, 2018 Time Seen by Provider: 08:30 Subjective/Events-last exam Patient doing well Denies any pain Talked about dentist appointment with his Discharge plan for later this week Constipation noted so we'll aggressively treat that Participating in therapies Reviewed all blood sugars No urinary issues Review of Systems Gastrointestinal: Constipation Objective Exam Vital Signs Vital Signs Date Time Temp Pulse Resp B/P (MAP) Pulse Ox O2 Delivery O2 Flow Rate FiO2 09/25/18 08:53 46 143/77 (99) 09/25/18 06:27 98.1 20 92 Room Air Capillary Refill : General Appearance: No Apparent Distress, WD/WN, Chronically ill Respiratory: Chest Non Tender, Lungs Clear, Normal Breath Sounds, No Accessory Muscle Use, No Respiratory Distress Cardiovascular: Regular Rate, Rhythm, No Edema, No Gallop, No JVD, No Murmur, Normal Peripheral Pulses Gastrointestinal: Normal Bowel Sounds, No Organomegaly, No Pulsatile Mass, Non Tender, Soft Neurologic/Psychiatric: Alert, Oriented x3, Normal Mood/Affect, Motor Weakness (left sided weakness with left facial droop) Results/Procedures Lab Patient resulted labs reviewed. Assessment/Plan Assessment and Plan Assess & Plan/Chief Complaint Assessment Subacute CVA 08/16/18 with left sided weakness and left facial droop now on anticoagulation and ASA Severe carotid stenosis right s/p endarterectomy but no resolution of deficit had an appt at [facility] last Sunday but rescheduled DM on insulin Chronic UTI but normal cystoscopy 09/06/18 but BPH noted and placed on Flomax from Urology now receiving straight caths if retention on bladder scan and patient agrees for self cath at [place] per Urology placed on Bactrim 1/2 tablet at night to prevent UTI due to catheters but now voiding well when up to toilet and no longer needs catheters since no residual HTN HLP Constipation recurrent issue will give more meds today Hematochezia episode with Heme + stools but gastritis and colon polyps noted on EGD/Colonoscopy on 09/07/[address] Waggoner Chronic nausea improved on Reglan confirming gastroparesis as the source Tooth abscess placed on clindamycin and hydrocodone Plan: Maintain ASA and anticoagulation Colon polyp pathology reveals tubular adenoma Monitor sugar control and adjust insulin prn Maintain urinary management since h/o chronic UTI and maintain on Flomax per Urology in addition to self caths to prevent retention but now voiding well and no caths needed as long as upright to toilet PPI and maintain on Flomax at [place] Zofran Constipation treatment maintained Reglan at [place] Tooth abscess treatment needs dentist as an outpatient [place] Sunday? 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 (3) Hypertension Status: Chronic Qualifiers: Hypertension type: essential hypertension Qualified Codes: I10 - Essential (primary) hypertension (4) Hyperlipidemia Status: Chronic Qualifiers: Hyperlipidemia type: mixed hyperlipidemia Qualified Codes: E78.2 - Mixed hyperlipidemia (5) Chronic UTI Status: Chronic (6) Bright red blood per rectum Status: Resolved Resolution Date/Time: 09/07/18 @ 15:48 (7) Constipation Status: Acute Qualifiers: Constipation type: slow transit constipation Qualified Codes: K59.01 - Slow transit constipation (8) Anticoagulant long-term use Status: Chronic (9) BPH (benign prostatic hyperplasia) Status: Chronic Qualifiers: Lower urinary tract symptom presence: symptoms present Lower urinary tract symptom detail: urinary frequency Qualified Codes: N40.1 - Benign prostatic hyperplasia with lower urinary tract symptoms; R35.0 - Frequency of micturition (10) Abnormal findings on esophagogastroduodenoscopy (EGD) Status: Acute (11) Abnormal colonoscopy Status: Acute (12) Gastritis Status: Acute Qualifiers: Gastritis type: unspecified gastritis Chronicity: acute Gastritis bleeding: without bleeding Qualified Codes: K29.00 - Acute gastritis without bleeding (13) Colon polyps Status: Acute Qualifiers: Colon polyp type: unspecified Colon location: unspecified part of colon Qualified Codes: K63.5 - Polyp of colon (14) Nausea Status: Chronic (15) Urinary retention Status: Resolved Resolution Date/Time: 09/12/18 @ 10:40 (16) Shoulder pain, right Status: Acute Qualifiers: Chronicity: acute Qualified Codes: M25.511 - Pain in right shoulder (17) Gastroparesis Status: Acute (18) Tooth abscess Status: Acute Clinical Quality Measures Admission Status Admission Dx Assessment Subacute CVA 08/16/18 with left sided weakness Severe carotid stenosis right s/p endarterectomy but no resolution of deficit DM Chronic UTI HTN HLP Plan: Monitor BP Maintain all new meds per [facility] including asa and anticoagulation Therapies as ordered for intensive rehab DVT/VTE Risk/Contraindication: Risk Factor Score Per Nursin RFS Level Per Nursing on Admit: 4+=Very High DARELL CIFUENTES DO Sep 25, 2018 09:10
--- NOTE | 2018-09-25 09:54 | Physical Therapy Daily Note ---
PT Daily Note-Current Subjective Patient in wheelchair at bedside pre tx, agrees to PT, no complaints of pain at rest. Appearance Patient in wheelchair at bedside post tx with nurse call, phone, tray, in room. Mental Status Patient Orientation: Person, Place, Situation, Normal For Age Transfers Therapy Code Descriptions/Definitions Functional [place] Measure: 0=Not Assessed/NA 4=Minimal Assistance 1=Total Assistance 5=Supervision or Setup 2=Maximal Assistance 6=Modified [place] 3=Moderate Assistance 7=Complete [place] Therapy Quality Codes: 6 Independent with activity with or without an assistive device 5 Patient requires set up or clean up by helper. Patient completes activity by themselves 4 Supervision or touching assist (CGA). [place] provide cues , steadying assist 3 The helper provides less than half the effort to complete the activity 2 The helper provides more than half the effort to complete the activity 1 Dependent. The helper does all the effort to complete an activity 7 Patient refused to complete or attempt activity 9 The patient did not perform the activity before the current illness or injury 88 Not attempted due to Medical conditions or safety concerns Transfers (B, C, W/C) (FIM): 4 Scootin Rollin Supine to/from Sit: 3 Sit to/from Stand: 4 Bed to/from Chair: 4 Patient needs mod assist for supine to sit coming up from left side, CGA for stand pivot to the right side and min assist for stand pivot to the left side. Patient practiced rolling and supine <-> sit to both sides and perform stand pivot transfers x4 to each side. Patient needs careful cues for positioning and guarding of left leg when performing stand pivot to the left side. Weight Bearing Right Lower Extremity: Right Full Weight Bearing Left Lower Extremity: Left Full Weight Bearing Gait Training Does the Patient Walk?: Yes Gait (FIM): 2 Distance: 70'x2 Gait Level of Assist: 4 Gait Persons Needed: 1 Gait Assistive Device: Cane Large Base Quad Patient ambulated 70' with a quad cane with min assist. Patient needs assist with weight shifting and occasionally to help advance his left leg. Cues to keep quad cane at the right distance from his body, patient tends to crowd himself. Exercises Seated Therapy Exercises: Ankle pumps, Long arc quads, Hip flexion, Hip abd/add Seated Reps: 20 LLE stretching in all planes, patient seems to have increased tone in LLE today. Treatments bed mobility and transfers, ambulation, functional strengthening, patient was also toileted once for a BM but only had gas Assessment Current Status: Fair Progress improved transfers PT Short Term Goals Short Term Goals Time Frame: Sep 11, 2018 Transfers (B,C,W/C) (FIM): 3 (met) Gait (FIM): 1 (met) Gait Distance Comment: 20' Gait Level of Assist: 3 Gait Assistive Device: Walker Ba Wheelchair Distance: 100' PT Prison Goals Mail Room Clerk Goals PT Prison Goals Time Frame: Sep 25, 2018 Transfers (B,C,W/C) (FIM): 4 Sit to Lying (QC): 4 Lying-Sitting on Side/Bed(QC): 4 Sit to Stand (QC): 4 Rollin Roll Left to Right (QC): 4 Chair/Geg-zl-Idymx Xfer(QC): 4 Car Transfer (QC): 4 Gait (FIM): 2 Distance: 50' Walk 10 feet (QC): 3 Walk 10ft-Uneven Surface(QC): 3 Walk 50ft with 2 Turns (QC): 3 Gait Level of Assist: 4 Gait Assistive Device: Cane Large Base Quad Wheelchair (FIM): 5 Distance: 150' Wheelchair Level of Assist: 5 Wheel 50 feet with 2 turns (QC: 4 PT Plan Problem List Problem List: Activity Tolerance, Functional Strength, Safety, Balance, Gait, Transfer, Bed Mobility, ROM Treatment/Plan Treatment Plan: Continue Plan of Care Treatment Plan: Bed Mobility, Concurrent Therapy, Education, Functional Activity Reena, Functional Strength, Group Therapy, Gait, Safety, Therapeutic Exercise, Transfers Treatment Duration: Sep 25, 2018 Frequency: At least 5 of 7 days/Wk (IRF) Estimated Hrs Per Day: 1.5 hours per day Patient and/or Family Agrees t: Yes Safety Risks/Education Patient Education: Gait Training, Transfer Techniques, Correct Positioning, Safety Issues Teaching Recipient: Patient Teaching Methods: Demonstration, Discussion Response to Teaching: Reinforcement Needed Time/GCodes Time In: 0900 Time Out: 1000 Total Billed Treatment Time: 60 Total Billed Treatment 1 visit GT 15' EX 15' FA 30' CASTILLO PHIPPS PT Sep 25, 2018 09:54
[2018-09-25 10:00] VITALS: BP 145/74
[2018-09-25] MEDS: CARVEDILOL 12.5 MG (COREG) TABLET PO SCH ×2 (10:07→20:54)
--- NOTE | 2018-09-25 10:56 | Speech Therapy Daily Note ---
Speech Daily Progress Note Subjective Date Seen by Provider: Sep 25, 2018 Time Seen by Provider: 00:30 Patient is excited to be discharging on Sunday. Objective Patient completed OME x15 with minimal cues. Assessment Assessment Current Status: Good Progress Treatment Plan Continue Plan of Care Communication Comprehension: 5 Expression: 5 Social Cognition Social Interaction: 5 Problem Solvin Memory: 4 Speech Short Term Goals Short Term Goals Short Term Goals 1) Patient will increase speech intelligibility at the highest functional verbal expression level to 90% or greater. 2) Patient will complete memory tasks with 90% or greater. 3) Patient will complete problem solving tasks with 90% or greater. Speech [facility] Goals Jail Goals Patient will improve memory, problem solving and speech skills to better communicate with familiar and unfamiliar listeners. Comprehension: 3 Speech-Plan Patient/Family Goals Patient/Family Goals: Patient will be discharged to his home with his on Sunday. Treatment Plan Speech Therapy Treatment Plan: Continue Plan of Care Patient has made good progress as a result of skilled ST services. Treatment Duration: Sep 27, 2018 Frequency: 5 times per week Estimated Hrs Per Day: .5 hour per day Rehab Potential: Good Barriers to Learning: Patient continues to have left side weakness. Pt/Family Agrees to Plan: Yes Safety Risks/Education Teaching Recipient: Patient Teaching Methods: Discussion Response to Teaching: Verbalize Understanding Education Topics Provided: OME to continue at home. Time Speech Therapy Time In: 10:00 Speech Therapy Time Out: 10:30 Total Billed Time: 30 Billed Treatment Time 1EILEEN BETHANIA ST Sep 25, 2018 10:56
[2018-09-25] MEDS: RIVAROXABAN 20 MG TABLET (XARELTO) PO SCH (12:05)
[2018-09-25] MEDS: BISACODYL 10 MG SUPP (DULCOLAX) PR SCH ×2 (12:49→21:10)
--- NOTE | 2018-09-25 13:00 | NUR ---
2 BM'S THIS AM. ANXIOUS FOR DISCHARGE ON SUNDAY. IS GETTING HIM UP AND DOWN ON HER OWN.
--- NOTE | 2018-09-25 13:13 | Physical Therapy Daily Note ---
PT Daily Note-Current Subjective Pt. and in room. Pt. agrees to bed exercises. Pain Location: No Pain Reported Mental Status Patient Orientation: Normal For Age Transfers Therapy Code Descriptions/Definitions Functional [place] Measure: 0=Not Assessed/NA 4=Minimal Assistance 1=Total Assistance 5=Supervision or Setup 2=Maximal Assistance 6=Modified [place] 3=Moderate Assistance 7=Complete [place] Therapy Quality Codes: 6 Independent with activity with or without an assistive device 5 Patient requires set up or clean up by helper. Patient completes activity by themselves 4 Supervision or touching assist (CGA). [place] provide cues , steadying assist 3 The helper provides less than half the effort to complete the activity 2 The helper provides more than half the effort to complete the activity 1 Dependent. The helper does all the effort to complete an activity 7 Patient refused to complete or attempt activity 9 The patient did not perform the activity before the current illness or injury 88 Not attempted due to Medical conditions or safety concerns Weight Bearing Right Lower Extremity: Right Full Weight Bearing Left Lower Extremity: Left Full Weight Bearing Exercises Supine Ex: Bridging, Ankle pumps, Rolling, Glut sets, Heel Slides, Short Arc Quads, Straight leg raise, Hip abd/add Supine Reps: 15 (assist LLE) Assessment Current Status: Good Progress PT Short Term Goals Short Term Goals Time Frame: Sep 11, 2018 Transfers (B,C,W/C) (FIM): 3 (met) Gait (FIM): 1 (met) Gait Distance Comment: 20' Gait Level of Assist: 3 Gait Assistive Device: Walker Ba Wheelchair Distance: 100' PT Supervisor Keymod[employer] Assembly Goals Fpc Goals PT Supervisor Ke[employer] Assembly Goals Time Frame: Sep 25, 2018 Transfers (B,C,W/C) (FIM): 4 Sit to Lying (QC): 4 Lying-Sitting on Side/Bed(QC): 4 Sit to Stand (QC): 4 Rollin Roll Left to Right (QC): 4 Chair/Umc-hi-Oqgri Xfer(QC): 4 Car Transfer (QC): 4 Gait (FIM): 2 Distance: 50' Walk 10 feet (QC): 3 Walk 10ft-Uneven Surface(QC): 3 Walk 50ft with 2 Turns (QC): 3 Gait Level of Assist: 4 Gait Assistive Device: Cane Large Base Quad Wheelchair (FIM): 5 Distance: 150' Wheelchair Level of Assist: 5 Wheel 50 feet with 2 turns (QC: 4 PT Plan Treatment/Plan Treatment Plan: Continue Plan of Care Treatment Plan: Bed Mobility, Concurrent Therapy, Education, Functional Activity Reena, Functional Strength, Group Therapy, Gait, Safety, Therapeutic Exercise, Transfers Treatment Duration: Sep 25, 2018 Frequency: At least 5 of 7 days/Wk (IRF) Estimated Hrs Per Day: 1.5 hours per day Patient and/or Family Agrees t: Yes Time/GCodes Time In: 1255 Time Out: 1310 Total Billed Treatment Time: 15 Total Billed Treatment 1,EX15m G Codes Necessary: JERMAINE Hawk WORKFORCE SPECIALIST Sep 25, 2018 13:13
--- NOTE | 2018-09-25 14:07 | Occupational Ther Daily Note ---
OT Current Status-Daily Note Subjective Pt alert, sitting up in chair. Pt agrees to therapy. No c/o pain. Mental Status/Objective Patient Orientation: Person, Place, Time, Situation Therapy Code Descriptions/Definitions Functional [place] Measure: 0=Not Assessed/NA 4=Minimal Assistance 1=Total Assistance 5=Supervision or Setup 2=Maximal Assistance 6=Modified [place] 3=Moderate Assistance 7=Complete [place] ADL-Treatment Therapy Code Descriptions/Definitions Functional [place] Measure: 0=Not Assessed/NA 4=Minimal Assistance 1=Total Assistance 5=Supervision or Setup 2=Maximal Assistance 6=Modified [place] 3=Moderate Assistance 7=Complete [place] Therapy Quality Codes: 6 Independent with activity with or without an assistive device 5 Patient requires set up or clean up by helper. Patient completes activity by themselves 4 Supervision or touching assist (CGA). [place] provide cues , steadying assist 3 The helper provides less than half the effort to complete the activity 2 The helper provides more than half the effort to complete the activity 1 Dependent. The helper does all the effort to complete an activity 7 Patient refused to complete or attempt activity 9 The patient did not perform the activity before the current illness or injury 88 Not attempted due to Medical conditions or safety concerns Other Treatment Pt declined shower or change of clothing today. Min A for supine to EOB using HOB raised. Min A for transfer from bed to w/c. Transported pt via w/c to therapy gym and transferred to mat table. Pt in supine to complete PROM, massage and stretch to L UE. Decreased scapular mobility due to tightness. Pt c/o pain with L shldr at 90* flexion, attempted to stretch and massage to decrease tightness only increased by approx 5*. Pt able to lift L UE slightly , no active movement noted in forearm, wrist or fingers. Edema continues to be present in R hand. Pt taken back to room and MHP placed on L shldr to decrease tightness and increase mobility. Edema massage to L hand to decrease swelling. Pt's wrist decreased ROM due to edema and tightness. After therapy, PT took over care of pt. All needs met in room. OT Short Term Goals Short Term Goals Time Frame: Sep 19, 2018 Eating(FIM): 7 Grooming(FIM): 7 Bathing(FIM): 3 Bathing Location: L Arm, L Lower Leg (including foot), Chest, Abdomen Upper Body Dressing(FIM): 3 Lower Body Dressing(FIM): 2 Toileting(FIM): 3 Transfers (B,C,W/C) (FIM): 3 (met) Toilet/Commode Transfer(FIM): 3 Shower Transfer(FIM): 3 Additional Short Term Goals: 1-Demonstrate ADL Tasks, 2-Verbalize Understanding , 3-ImproveStrength/Reena 1=Demonstrate adherence to instructed precautions during ADL tasks. 2=Patient will verbalize/demonstrate understanding of assistive devices/ modifications for ADL. 3=Patient will improve strength/tolerance for activity to enable patient to perform ADL's. OT Snf Goals Snf Goals Time Frame: Oct 03, 2018 Eating (FIM): 7 Eating (QC): 7 Groomin Oral Hygiene (QC): 7 Bathing(FIM): 3 Bathing Location: L Arm, R Arm, L Lower Leg (including foot), R Lower Leg ( including foot), Chest, Abdomen Shower/Bathe Self (QC): 3 Upper Body Dressing(FIM): 4 Upper Body Dressing (QC): 4 Lower Body Dressing(FIM): 3 Lower Body Dressing (QC): 3 On/Off Footwear (QC): 3 Toileting(FIM): 3 Toileting Hygiene (QC): 3 Transfers (B,C,W/C) (FIM): 3 Toilet/Commode Transfer(FIM): 3 Toilet/Commode Transfer (QC): 3 Shower Transfer(FIM): 3 Comprehension(FIM): 3 Additional Goals: 1-Demonstrate ADL Tasks, 2-Verbalize Understanding, 3- ImproveStrength/Reena 1=Demonstrate adherence to instructed precautions during ADL tasks. 2=Patient will verbalize/demonstrate understanding of assistive devices/ modifications for ADL. 3=Patient will improve strength/tolerance for activity to enable patient to perform ADL's. OT Education/Plan Discharge Recommendations Plan/Recommendations: Continue POC Treatment Plan/Plan of Care Patient would benefit from OT for education, treatment and training to promote independence in ADL's, mobility, safety and/or upper extremity function for ADL' s. Plan of Care: ADL Retraining, Caregiver Training, Functional Mobility, Group Exercise/Act as Ind, UE Funct Exercise/Act Treatment Duration: Oct 03, 2018 Frequency: At least 5 of 7 days/Wk (IRF) Estimated Hrs Per Day: 1.5 hours per day Agreement: Yes Rehab Potential: Good Time/GCodes Start Time: 08:15 Stop Time: 09:00 Total Time Billed (hr/min): 45 Billed Treatment Time 1 visit-NM3 (45 min) SHANNON DOTSON Sep 25, 2018 14:07
--- NOTE | 2018-09-25 14:17 | Occupational Ther Daily Note ---
OT Current Status-Daily Note Subjective Pt alert, lying in bed. Pt agrees to therapy. No c/o pain. Mental Status/Objective Patient Orientation: Person, Place, Time, Situation Therapy Code Descriptions/Definitions Functional [place] Measure: 0=Not Assessed/NA 4=Minimal Assistance 1=Total Assistance 5=Supervision or Setup 2=Maximal Assistance 6=Modified [place] 3=Moderate Assistance 7=Complete [place] ADL-Treatment Therapy Code Descriptions/Definitions Functional [place] Measure: 0=Not Assessed/NA 4=Minimal Assistance 1=Total Assistance 5=Supervision or Setup 2=Maximal Assistance 6=Modified [place] 3=Moderate Assistance 7=Complete [place] Therapy Quality Codes: 6 Independent with activity with or without an assistive device 5 Patient requires set up or clean up by helper. Patient completes activity by themselves 4 Supervision or touching assist (CGA). [place] provide cues , steadying assist 3 The helper provides less than half the effort to complete the activity 2 The helper provides more than half the effort to complete the activity 1 Dependent. The helper does all the effort to complete an activity 7 Patient refused to complete or attempt activity 9 The patient did not perform the activity before the current illness or injury 88 Not attempted due to Medical conditions or safety concerns Other Treatment Electrical stimulation to wrist and finger extension completed. Only first digit extension noted with electrical stimulation. Pt self limiting with PROM due to decreased pain tolerance. Pt requested to use toilet. completed toilet transfer and toileting with pt. able to complete tasks with pt safely. After therapy, pt lying in bed with call light/phone in reach. present in room. All needs met in room. OT Short Term Goals Short Term Goals Time Frame: Sep 19, 2018 Eating(FIM): 7 Grooming(FIM): 7 Bathing(FIM): 3 Bathing Location: L Arm, L Lower Leg (including foot), Chest, Abdomen Upper Body Dressing(FIM): 3 Lower Body Dressing(FIM): 2 Toileting(FIM): 3 Transfers (B,C,W/C) (FIM): 3 (met) Toilet/Commode Transfer(FIM): 3 Shower Transfer(FIM): 3 Additional Short Term Goals: 1-Demonstrate ADL Tasks, 2-Verbalize Understanding , 3-ImproveStrength/Reena 1=Demonstrate adherence to instructed precautions during ADL tasks. 2=Patient will verbalize/demonstrate understanding of assistive devices/ modifications for ADL. 3=Patient will improve strength/tolerance for activity to enable patient to perform ADL's. OT Laser/Electro Optics Technician Goals Correction Goals Time Frame: Oct 03, 2018 Eating (FIM): 7 Eating (QC): 7 Groomin Oral Hygiene (QC): 7 Bathing(FIM): 3 Bathing Location: L Arm, R Arm, L Lower Leg (including foot), R Lower Leg ( including foot), Chest, Abdomen Shower/Bathe Self (QC): 3 Upper Body Dressing(FIM): 4 Upper Body Dressing (QC): 4 Lower Body Dressing(FIM): 3 Lower Body Dressing (QC): 3 On/Off Footwear (QC): 3 Toileting(FIM): 3 Toileting Hygiene (QC): 3 Transfers (B,C,W/C) (FIM): 3 Toilet/Commode Transfer(FIM): 3 Toilet/Commode Transfer (QC): 3 Shower Transfer(FIM): 3 Comprehension(FIM): 3 Additional Goals: 1-Demonstrate ADL Tasks, 2-Verbalize Understanding, 3- ImproveStrength/Reena 1=Demonstrate adherence to instructed precautions during ADL tasks. 2=Patient will verbalize/demonstrate understanding of assistive devices/ modifications for ADL. 3=Patient will improve strength/tolerance for activity to enable patient to perform ADL's. OT Education/Plan Discharge Recommendations Plan/Recommendations: Continue POC Treatment Plan/Plan of Care Patient would benefit from OT for education, treatment and training to promote independence in ADL's, mobility, safety and/or upper extremity function for ADL' s. Plan of Care: ADL Retraining, Caregiver Training, Functional Mobility, Group Exercise/Act as Ind, UE Funct Exercise/Act Treatment Duration: Oct 03, 2018 Frequency: At least 5 of 7 days/Wk (IRF) Estimated Hrs Per Day: 1.5 hours per day Agreement: Yes Rehab Potential: Good Time/GCodes Start Time: 11:20 Stop Time: 11:50 Total Time Billed (hr/min): 30 Billed Treatment Time 1 visit-NM 2 (30 min) SHANNON DOTSON Sep 25, 2018 14:17
--- NOTE | 2018-09-25 15:43 | NUR ---
Weekly team conference Discussed weekly team conference with patient and his . Both are agreeable to discharge on 09/27/18. Patient will need a toilet riser, wheelchair, tub transfer bench and quad cane. They will discuss HHC versus outpatient PT and OT and make a decision tomorrow.
[2018-09-25] MEDS: TAMSULOSIN 0.4 MG (FLOMAX) CAP PO SCH (17:59)
[2018-09-25 18:12] VITALS: BP 142/75
[2018-09-25] MEDS ORDERED: TRIM/SULFAMETH 160/800 (SEPTRA DS) TAB PO ONE (20:49)
[2018-09-25] MEDS: ALPRAZolam 0.25 MG (XANAX) TAB PO PRN (20:54)
[2018-09-25] MEDS: ATORVASTATIN 40 MG (LIPITOR) TABLET PO SCH (20:54)
[2018-09-25] MEDS: TRIM/SULFAMETH 160/800 (SEPTRA DS) TAB PO SCH (20:54)
[2018-09-25] MEDS: HYDROcodone/APAP 5 MG/325 MG (LORTAB) TAB PO PRN (20:54)
[2018-09-25] MEDS: inSUlin DETERMIR 1 UNIT/0.01 ML (LEVEMIR) CHARGE PER UNIT SQ SCH (21:02)
[2018-09-26] MEDS: inSUlin ASPART (NovoLOG) 1 UNIT/0.01 ML (CHARGE PER UNIT) SC SCH ×4 (06:04→20:34)
[2018-09-26] MEDS: metFORMIN XR 500 MG (GLUCOPHAGE XR) TAB PO SCH ×2 (06:07→17:45)
[2018-09-26] MEDS: METOCLOPRAMIDE 10 MG (REGLAN) TAB PO SCH ×4 (06:07→20:28)
[2018-09-26] MEDS: CYANOCOBALAMIN 1,000 MCG (VITAMIN B-12) TABLET PO SCH (06:08)
[2018-09-26 06:12] VITALS: BP 117/67
[2018-09-26 08:24] VITALS: BP 126/77
[2018-09-26] MEDS: ZINC SULFATE 220 MG CAPSULE PO SCH (08:25)
[2018-09-26] MEDS: FLUoxetine HCL 20 MG (PROzac) CAP PO SCH (08:25)
[2018-09-26] MEDS: MAGNESIUM OXIDE (MAG-OX)400 MG TAB PO SCH (08:25)
[2018-09-26] MEDS: CARVEDILOL 12.5 MG (COREG) TABLET PO SCH ×2 (08:26→20:28)
[2018-09-26] MEDS: PYRIDOXINE (VITAMIN B-6) 50 MG TABLET PO SCH (08:26)
[2018-09-26] MEDS: ASPIRIN E.C. 81 MG (ECOTRIN) TAB PO SCH (08:26)
[2018-09-26] MEDS: VITAMIN D3 1,000 UNITS (CHOLECALCIFEROL) TABLET PO SCH (08:26)
[2018-09-26] MEDS: amLODIPine 10 MG (NORVASC) TAB PO SCH (08:26)
[2018-09-26] MEDS: CLINDAMYCIN 150 MG (CLEOCIN) CAP PO SCH ×3 (08:26→20:28)
[2018-09-26] MEDS: ALPRAZolam 0.25 MG (XANAX) TAB PO PRN ×2 (08:27→20:28)
[2018-09-26] MEDS: LORATADINE (CLARITIN) 10 MG TAB PO SCH (08:32)
--- NOTE | 2018-09-26 08:37 | Progress Note-Hospitalist ---
Subjective HPI/CC On Admission Date Seen by Provider: Sep 26, 2018 Time Seen by Provider: 08:45 Objective Exam Vital Signs Vital Signs Date Time Temp Pulse Resp B/P (MAP) Pulse Ox O2 Delivery O2 Flow Rate FiO2 09/26/18 08:24 53 126/77 (93) 09/26/18 06:12 98.8 16 97 Room Air Capillary Refill : Results/Procedures Lab Patient resulted labs reviewed. Assessment/Plan Assessment and Plan Assess & Plan/Chief Complaint Assessment Subacute CVA 08/16/18 with left sided weakness and left facial droop now on anticoagulation and ASA Severe carotid stenosis right s/p endarterectomy but no resolution of deficit had an appt at [facility] last Sunday but rescheduled DM on insulin Chronic UTI but normal cystoscopy 09/06/18 but BPH noted and placed on Flomax from Urology now receiving straight caths if retention on bladder scan and patient agrees for self cath at [place] per Urology placed on Bactrim 1/2 tablet at night to prevent UTI due to catheters but now voiding well when up to toilet and no longer needs catheters since no residual HTN HLP Constipation recurrent issue will give more meds today Hematochezia episode with Heme + stools but gastritis and colon polyps noted on EGD/Colonoscopy on 09/07/[address] Waggoner Chronic nausea improved on Reglan confirming gastroparesis as the source Tooth abscess placed on clindamycin and hydrocodone Plan: Maintain ASA and anticoagulation Colon polyp pathology reveals tubular adenoma Monitor sugar control and adjust insulin prn Maintain urinary management since h/o chronic UTI and maintain on Flomax per Urology in addition to self caths to prevent retention but now voiding well and no caths needed as long as upright to toilet PPI and maintain on Flomax at [place] Zofran Constipation treatment maintained Reglan at [place] Tooth abscess treatment needs dentist as an outpatient [place] Sunday? Clinical Quality Measures Admission Status Admission Dx Assessment Subacute CVA 08/16/18 with left sided weakness Severe carotid stenosis right s/p endarterectomy but no resolution of deficit DM Chronic UTI HTN HLP Plan: Monitor BP Maintain all new meds per [facility] including asa and anticoagulation Therapies as ordered for intensive rehab DVT/VTE Risk/Contraindication: Risk Factor Score Per Nursin RFS Level Per Nursing on Admit: 4+=Very High DARELL CIFUENTES DO Sep 26, 2018 08:37
[2018-09-26] MEDS: BISACODYL 10 MG SUPP (DULCOLAX) PR SCH ×2 (09:00→19:44)
[2018-09-26] MEDS: SENNA W/DOCUSATE (SENOKOT S) TABLET PO SCH ×2 (09:00→20:29)
--- NOTE | 2018-09-26 09:14 | PM&R Progress Note ---
Subjective HPI/CC On Admission Date Seen by Provider: Sep 26, 2018 Time Seen by Provider: 09:00 Subjective/Events-last exam Patient doing well Checked meds and labs Discharge plan for tomorrow Review of Systems General: Fatigue Neurological: Weakness Objective Exam Vital Signs Vital Signs Date Time Temp Pulse Resp B/P (MAP) Pulse Ox O2 Delivery O2 Flow Rate FiO2 09/26/18 08:24 53 126/77 (93) 09/26/18 06:12 98.8 16 97 Room Air Capillary Refill : General Appearance: No Apparent Distress, WD/WN, Chronically ill HEENT: PERRL/EOMI, Pharynx Normal Neck: Full Range of Motion, Normal Inspection, Non Tender, Supple, Carotid Bruit Respiratory: Chest Non Tender, Lungs Clear, Normal Breath Sounds, No Accessory Muscle Use, No Respiratory Distress Cardiovascular: Regular Rate, Rhythm, No Edema, No Gallop, No JVD, No Murmur, Normal Peripheral Pulses Gastrointestinal: Normal Bowel Sounds, No Organomegaly, No Pulsatile Mass, Non Tender, Soft Back: Normal Inspection, No CVA Tenderness, No Vertebral Tenderness Extremity: Normal Capillary Refill, Normal Inspection, Non Tender, No Calf Tenderness, No Pedal Edema Neurologic/Psychiatric: Alert, Oriented x3, Normal Mood/Affect, Motor Weakness (left sided weakness with left facial droop) Skin: Normal Color, Warm/Dry Results/Procedures Lab Patient resulted labs reviewed. Assessment/Plan Assessment and Plan Assess & Plan/Chief Complaint Assessment Subacute CVA 08/16/18 with left sided weakness and left facial droop now on anticoagulation and ASA Severe carotid stenosis right s/p endarterectomy but no resolution of deficit had an appt at [facility] last Sunday but rescheduled DM on insulin Chronic UTI but normal cystoscopy 09/06/18 but BPH noted and placed on Flomax from Urology now receiving straight caths if retention on bladder scan and patient agrees for self cath at [place] per Urology placed on Bactrim 1/2 tablet at night to prevent UTI due to catheters but now voiding well when up to toilet and no longer needs catheters since no residual HTN HLP Constipation recurrent issue will give more meds prn Hematochezia episode with Heme + stools but gastritis and colon polyps noted on EGD/Colonoscopy on 09/07/[address] Waggoner Chronic nausea improved on Reglan confirming gastroparesis as the source Tooth abscess placed on clindamycin and hydrocodone Plan: Maintain ASA and anticoagulation Colon polyp pathology reveals tubular adenoma Monitor sugar control and adjust insulin prn Maintain urinary management since h/o chronic UTI and maintain on Flomax per Urology in addition to self caths to prevent retention but now voiding well and no caths needed as long as upright to toilet PPI and maintain [place] Fl[place]ax at [place] Zofran Constipation treatment maintained Reglan at [place] Tooth abscess treatment needs dentist as an outpatient [place] Sunday and I will reviewed all meds from [facility] and new ones from [facility] IRF stay (1) Cerebrovascular accident (CVA) with left hemiparesis (2) Diabetes mellitus (3) Hypertension (4) Hyperlipidemia (5) Chronic UTI (6) Bright red blood per rectum Resolution Date/Time: 09/07/18 @ 15:48 (7) Constipation (8) Anticoagulant long-term use (9) BPH (benign prostatic hyperplasia) (10) Abnormal findings on esophagogastroduodenoscopy (EGD) (11) Abnormal colonoscopy (12) Gastritis (13) Colon polyps (14) Nausea (15) Urinary retention Resolution Date/Time: 09/12/18 @ 10:40 (16) Shoulder pain, right (17) Gastroparesis (18) Tooth abscess Clinical Quality Measures Admission Status Admission Dx Assessment Subacute CVA 08/16/18 with left sided weakness Severe carotid stenosis right s/p endarterectomy but no resolution of deficit DM Chronic UTI HTN HLP Plan: Monitor BP Maintain all new meds per [facility] including asa and anticoagulation Therapies as ordered for intensive rehab DVT/VTE Risk/Contraindication: Risk Factor Score Per Nursin RFS Level Per Nursing on Admit: 4+=Very High DARELL CIFUENTES DO Sep 26, 2018 09:14
--- NOTE | 2018-09-26 09:50 | Occupational Ther Daily Note ---
OT Current Status-Daily Note Subjective Pt alert, sitting on toilet. present. Pt agrees to therapy. No c/o pain. Mental Status/Objective Patient Orientation: Person, Place, Time, Situation Therapy Code Descriptions/Definitions Functional [place] Measure: 0=Not Assessed/NA 4=Minimal Assistance 1=Total Assistance 5=Supervision or Setup 2=Maximal Assistance 6=Modified [place] 3=Moderate Assistance 7=Complete [place] ADL-Treatment assists pt complete transfers (toilet/shower) and ADLs. Pt is demonstrating increased movement with L shldr (elevation, protraction) and L elbow (flex/ext) to move arm up to L upper leg and off of leg. Increased tightness throughout L shldr girdle noted which hinders PROM/AAROM. Will continue to work on increasing mobility and give pt's HEP for shldr mobility. Pt is self limiting with PROM due to decreased pain tolerance. Pt allows to complete most of ADLs, will make pt assist when BAXTER is present. Sling used with ambulation to decrease stress on L shldr and edema glove to decrease edema of L hand. After therapy, pt sitting in w/c with present in room. Call light/phone in reach. All needs met in room. Therapy Code Descriptions/Definitions Functional [place] Measure: 0=Not Assessed/NA 4=Minimal Assistance 1=Total Assistance 5=Supervision or Setup 2=Maximal Assistance 6=Modified [place] 3=Moderate Assistance 7=Complete [place] Therapy Quality Codes: 6 Independent with activity with or without an assistive device 5 Patient requires set up or clean up by helper. Patient completes activity by themselves 4 Supervision or touching assist (CGA). [place] provide cues , steadying assist 3 The helper provides less than half the effort to complete the activity 2 The helper provides more than half the effort to complete the activity 1 Dependent. The helper does all the effort to complete an activity 7 Patient refused to complete or attempt activity 9 The patient did not perform the activity before the current illness or injury 88 Not attempted due to Medical conditions or safety concerns Eating (FIM): 5 (After set up, pt able to complete using regular utensils.) Eating (QC): 5 Grooming (FIM): 6 (Sitting in w/c, pt able to complete by self.) Oral Hygiene (QC): 6 Bathing (FIM): 3 (Pt able to sit on shower chair with L side toward wall for stability. No LOB noted during sitting. Pt able to bath some areas then bathed rest. Pt stood with 's assistance as cleansed pt's buttocks. Pt reached across body, LOB due to L LE scissoring. had positioned self for safety and was able to limit scissoring and LOB appropriately.) Bathing Location: L Arm, L Upper Leg, R Upper Leg, Chest, Abdomen, Perineal Area Shower/Bathe Self (QC): 3 Upper Body (FIM): 2 (Pt has demonstrated ability to complete dressing with min A though will not initiate dressing and allows to complete.) Upper Body Dressing (QC): 2 Lower Body Dressing (FIM): 2 (Pt has demonstrated ability to complete dressing with mod A though will not initiate dressing and allows to complete. Pt is able to pull to stand and has good static standing balance to allow to hike pants over hips safely.) Lower Body Dressing (QC): 2 On/Off Footwear (QC): 2 Toileting (FIM): 2 (Pt has demonstrated ability to complete dressing with mod A though will not initiate own toileting and allows to complete. Pt will pull to stand with grabbars.) Toileting Hygiene (QC): 2 Transfers (B, C, W/C) (FIM): 4 (CGA to min A for transfers for SPTs.) Toilet/Commode Transfer (FIM): 4 (Using w/c and grabbar pt able to complete with min A for SPT.) Toilet Transfer (QC): 3 Shower Transfer(FIM): 3 (Pt ambulated into shower using quadcane and shower bench. ambulated with pt and required verbal cues for transfer and to shift weight onto cane.) OT Short Term Goals Short Term Goals Time Frame: Sep 19, 2018 Eating(FIM): 7 Grooming(FIM): 7 Bathing(FIM): 3 Bathing Location: L Arm, L Lower Leg (including foot), Chest, Abdomen Upper Body Dressing(FIM): 3 Lower Body Dressing(FIM): 2 Toileting(FIM): 3 Transfers (B,C,W/C) (FIM): 3 (met) Toilet/Commode Transfer(FIM): 3 Shower Transfer(FIM): 3 Additional Short Term Goals: 1-Demonstrate ADL Tasks, 2-Verbalize Understanding , 3-ImproveStrength/Reena 1=Demonstrate adherence to instructed precautions during ADL tasks. 2=Patient will verbalize/demonstrate understanding of assistive devices/ modifications for ADL. 3=Patient will improve strength/tolerance for activity to enable patient to perform ADL's. OT Senior Living Goals Search Engine Optimization Specialist Goals Time Frame: Oct 03, 2018 Eating (FIM): 7 (not met) Eating (QC): 7 (not met) Groomin (not met) Oral Hygiene (QC): 7 (not met) Bathing(FIM): 3 (met) Shower/Bathe Self (QC): 3 (met) Upper Body Dressing(FIM): 4 (not met) Upper Body Dressing (QC): 4 (not met) Lower Body Dressing(FIM): 3 (not met) Lower Body Dressing (QC): 3 (not met) On/Off Footwear (QC): 3 (not met) Toileting(FIM): 3 (not met) Toileting Hygiene (QC): 3 (not met) Transfers (B,C,W/C) (FIM): 3 (met) Toilet/Commode Transfer(FIM): 3 (met) Toilet/Commode Transfer (QC): 3 (met) Shower Transfer(FIM): 3 (met) Comprehension(FIM): 3 Additional Goals: 1-Demonstrate ADL Tasks, 2-Verbalize Understanding, 3- ImproveStrength/Reena 1=Demonstrate adherence to instructed precautions during ADL tasks. 2=Patient will verbalize/demonstrate understanding of assistive devices/ modifications for ADL. 3=Patient will improve strength/tolerance for activity to enable patient to perform ADL's. OT Education/Plan Discharge Recommendations Plan/Recommendations: Continue POC Therapy D/C Recommendations: Home w/ Family Support, Occupational Therapy Home Care Equpiment Recommendations-D/C: Extended Bath Bench, Rails on Tub/Shower, Toilet Riser with Rails, Extended Shower Sprayer Treatment Plan/Plan of Care Patient would benefit from OT for education, treatment and training to promote independence in ADL's, mobility, safety and/or upper extremity function for ADL' s. Plan of Care: ADL Retraining, Caregiver Training, Functional Mobility, Group Exercise/Act as Ind, UE Funct Exercise/Act Treatment Duration: Oct 03, 2018 Frequency: At least 5 of 7 days/Wk (IRF) Estimated Hrs Per Day: 1.5 hours per day Agreement: Yes Rehab Potential: Good Time/GCodes Start Time: 07:00 Stop Time: 08:15 Total Time Billed (hr/min): 75 Billed Treatment Time 1 visit-ADL 4 (60 min) EX 1 (15 min) SHANNON DOTSON Sep 26, 2018 09:50
--- NOTE | 2018-09-26 09:54 | Physical Therapy Daily Note ---
PT Daily Note-Current Subjective Patient in bed pre tx, agrees to PT, no complaints of pain at rest. Appearance Patient in wheelchair at bedside post tx with nurse call, phone, tray, in room. Mental Status Patient Orientation: Person, Place, Situation, Normal For Age Transfers Therapy Code Descriptions/Definitions Functional [place] Measure: 0=Not Assessed/NA 4=Minimal Assistance 1=Total Assistance 5=Supervision or Setup 2=Maximal Assistance 6=Modified [place] 3=Moderate Assistance 7=Complete [place] Therapy Quality Codes: 6 Independent with activity with or without an assistive device 5 Patient requires set up or clean up by helper. Patient completes activity by themselves 4 Supervision or touching assist (CGA). [place] provide cues , steadying assist 3 The helper provides less than half the effort to complete the activity 2 The helper provides more than half the effort to complete the activity 1 Dependent. The helper does all the effort to complete an activity 7 Patient refused to complete or attempt activity 9 The patient did not perform the activity before the current illness or injury 88 Not attempted due to Medical conditions or safety concerns Transfers (B, C, W/C) (FIM): 4 Scootin Rollin Roll Left to Right (QC): 4 Supine to/from Sit: 4 Sit to/from Stand: 4 Sit to Lying (QC): 3 Sit to Stand (QC): 4 Chair/Svr-oe-Dxllj Xfer(QC): 3 Bed to/from Chair: 4 Car Transfer (QC): 3 Patient performs bed mobility with SBA, supine <-> sit to the right side with SBA, supine <-> sit to the left side with min assist, sit <-> stand CGA, transfers to the left with min assist, transfers to the right with CGA, car transfer min assist. Weight Bearing Right Lower Extremity: Right Full Weight Bearing Left Lower Extremity: Left Full Weight Bearing Gait Training Gait (FIM): 2 Distance: 70'x2 Walk 10 feet (QC): 3 Walk 50 ft with 2 Turns(QC): 3 Walking 10ft/uneven surface-QC: 3 Gait Level of Assist: 4 Gait Persons Needed: 1 Gait Assistive Device: Cane Large Base Quad Patient can ambulate 70' with a quad cane with min assist (including 50' with at least 2 turns of 90 degrees and 10' over an uneven surface). Patient needs cues for safety. Assist with balance and weight shifting. Wheelchair Training Does the Pt Use a Wheelchair?: Yes Wheelchair (FIM): 6 Distance: 150' Type of Wheelchair: Manual Stair Training Stair Training: Handrails/: uses cane Stairs (FIM): 1 #of Steps: 1 1 Step (curb) (QC): 4 Stairs: Pattern: Step to Level of Assist: 4 Patient can go up and down 1 step using a quad cane with min assist. Needs cues for step placement. Exercises sit to stand at side of parallel bars 3 sets of 10, LAQ alternating for 5 min Treatments bed mobility and transfers, ambulation, stairs, functional strengthening Assessment Current Status: Fair Progress Patient had a harder time rolling in bed today due to fatigue and right shoulder pain but was able to do it without assist but with cues for positioning PT Short Term Goals Short Term Goals Time Frame: Sep 11, 2018 Transfers (B,C,W/C) (FIM): 3 (met) Gait (FIM): 1 (met) Gait Distance Comment: 20' Gait Level of Assist: 3 Gait Assistive Device: Walker Ba Wheelchair Distance: 100' PT Enforcement Officer Goals Enforcement Officer Goals PT Enforcement Officer Goals Time Frame: Sep 25, 2018 Transfers (B,C,W/C) (FIM): 4 Sit to Lying (QC): 4 Lying-Sitting on Side/Bed(QC): 4 Sit to Stand (QC): 4 Rollin Roll Left to Right (QC): 4 Chair/Qnu-po-Rwfqx Xfer(QC): 4 Car Transfer (QC): 4 Gait (FIM): 2 Distance: 50' Walk 10 feet (QC): 3 Walk 10ft-Uneven Surface(QC): 3 Walk 50ft with 2 Turns (QC): 3 Gait Level of Assist: 4 Gait Assistive Device: Cane Large Base Quad Wheelchair (FIM): 5 Distance: 150' Wheelchair Level of Assist: 5 Wheel 50 feet with 2 turns (QC: 4 PT Plan Problem List Problem List: Activity Tolerance, Functional Strength, Safety, Balance, Gait, Transfer, Bed Mobility, ROM Treatment/Plan Treatment Plan: Continue Plan of Care Treatment Plan: Bed Mobility, Concurrent Therapy, Education, Functional Activity Reena, Functional Strength, Group Therapy, Gait, Safety, Therapeutic Exercise, Transfers Treatment Duration: Sep 25, 2018 Frequency: At least 5 of 7 days/Wk (IRF) Estimated Hrs Per Day: 1.5 hours per day Patient and/or Family Agrees t: Yes Safety Risks/Education Patient Education: Gait Training, Transfer Techniques, Steps, Correct Positioning, Safety Issues Teaching Recipient: Patient Teaching Methods: Demonstration, Discussion Response to Teaching: Reinforcement Needed Time/GCodes Time In: 0900 Time Out: 1000 Total Billed Treatment Time: 60 Total Billed Treatment 1 visit GT30' FA 15' EX 15' CASTILLO PHIPPS PT Sep 26, 2018 09:54
--- NOTE | 2018-09-26 09:54 | NUR ---
PT EATING WELL, 83% MEALS. WEIGHT HAS INCREASED SINCE ADMISSION. INTAKE MEETING NEEDS AT THIS TIME. CONT SAME.
--- NOTE | 2018-09-26 10:28 | Speech Therapy Daily Note ---
Speech Daily Progress Note Subjective Date Seen by Provider: Sep 26, 2018 Time Seen by Provider: 00:30 Patient said he was counting down to go home tomorrow. Objective Patient completed OME x15 without cues. Treatment Plan Discontinue ST, Goals Met Communication Comprehension: 7 Expression: 7 Social Cognition Social Interaction: 7 Problem Solvin Memory: 7 Speech Short Term Goals Short Term Goals Short Term Goals 1) Patient will increase speech intelligibility at the highest functional verbal expression level to 90% or greater. Met 2) Patient will complete memory tasks with 90% or greater. Met 3) Patient will complete problem solving tasks with 90% or greater. Met Speech Assisted Goals Rugby League Footballer Goals Patient will improve memory, problem solving and speech skills to better communicate with familiar and unfamiliar listeners.Met Comprehension: 3 Speech-Plan Patient/Family Goals Patient/Family Goals: Patient is discharging home on 09/27/2018 with his . Treatment Plan Speech Therapy Treatment Plan: Discontinue ST, Goals Met Patient has made good progress as a result of skilled ST services. Treatment Duration: Sep 27, 2018 Frequency: 5 times per week Estimated Hrs Per Day: .5 hour per day Rehab Potential: Good Barriers to Learning: Patient has residual effects from the CVA on 08/16/2018. Pt/Family Agrees to Plan: Yes Safety Risks/Education Teaching Recipient: Patient, Significant Other Teaching Methods: Discussion Response to Teaching: Verbalize Understanding Time Speech Therapy Time In: 08:30 Speech Therapy Time Out: 09:00 Total Billed Time: 30 Billed Treatment Time 1, LEIF Wong Sep 26, 2018 10:28
[2018-09-26] MEDS: RIVAROXABAN 20 MG TABLET (XARELTO) PO SCH (12:42)
--- NOTE | 2018-09-26 12:52 | NUR ---
Discharge planning [facility] PT and OT have accepted patient. [place] [employer] in [place], [place] will supply patient with a manual wheelchair and quad cane, equipment to be delivered tomorrow morning. Patient's will crab picker a toilet riser from the [employer] [employer] today at 1500. Patient's is checking pricing on a tub transfer bench.
--- NOTE | 2018-09-26 13:54 | Occupational Ther Daily Note ---
OT Current Status-Daily Note Subjective Pt sitting in recliner, alert. Pt agrees to therapy. No c/o pain. Mental Status/Objective Patient Orientation: Person, Place, Time, Situation Therapy Code Descriptions/Definitions Functional [place] Measure: 0=Not Assessed/NA 4=Minimal Assistance 1=Total Assistance 5=Supervision or Setup 2=Maximal Assistance 6=Modified [place] 3=Moderate Assistance 7=Complete [place] ADL-Treatment Therapy Code Descriptions/Definitions Functional [place] Measure: 0=Not Assessed/NA 4=Minimal Assistance 1=Total Assistance 5=Supervision or Setup 2=Maximal Assistance 6=Modified [place] 3=Moderate Assistance 7=Complete [place] Therapy Quality Codes: 6 Independent with activity with or without an assistive device 5 Patient requires set up or clean up by helper. Patient completes activity by themselves 4 Supervision or touching assist (CGA). [place] provide cues , steadying assist 3 The helper provides less than half the effort to complete the activity 2 The helper provides more than half the effort to complete the activity 1 Dependent. The helper does all the effort to complete an activity 7 Patient refused to complete or attempt activity 9 The patient did not perform the activity before the current illness or injury 88 Not attempted due to Medical conditions or safety concerns Other Treatment HEP for L UE PROM, stretching and massage to increase mobility and decrease tightness. Pt's demonstrated and verbalized understanding of techniques. After therapy, pt sitting in recliner with call light/phone in reach. All needs met in room. OT Short Term Goals Short Term Goals Time Frame: Sep 19, 2018 Eating(FIM): 7 Grooming(FIM): 7 Bathing(FIM): 3 Bathing Location: L Arm, L Lower Leg (including foot), Chest, Abdomen Upper Body Dressing(FIM): 3 Lower Body Dressing(FIM): 2 Toileting(FIM): 3 Transfers (B,C,W/C) (FIM): 3 (met) Toilet/Commode Transfer(FIM): 3 Shower Transfer(FIM): 3 Additional Short Term Goals: 1-Demonstrate ADL Tasks, 2-Verbalize Understanding , 3-ImproveStrength/Reena 1=Demonstrate adherence to instructed precautions during ADL tasks. 2=Patient will verbalize/demonstrate understanding of assistive devices/ modifications for ADL. 3=Patient will improve strength/tolerance for activity to enable patient to perform ADL's. OT Fpc Goals Fpc Goals Time Frame: Oct 03, 2018 Eating (FIM): 7 (not met) Eating (QC): 7 (not met) Groomin (not met) Oral Hygiene (QC): 7 (not met) Bathing(FIM): 3 (met) Shower/Bathe Self (QC): 3 (met) Upper Body Dressing(FIM): 4 (not met) Upper Body Dressing (QC): 4 (not met) Lower Body Dressing(FIM): 3 (not met) Lower Body Dressing (QC): 3 (not met) On/Off Footwear (QC): 3 (not met) Toileting(FIM): 3 (not met) Toileting Hygiene (QC): 3 (not met) Transfers (B,C,W/C) (FIM): 3 (met) Toilet/Commode Transfer(FIM): 3 (met) Toilet/Commode Transfer (QC): 3 (met) Shower Transfer(FIM): 3 (met) Comprehension(FIM): 3 Additional Goals: 1-Demonstrate ADL Tasks, 2-Verbalize Understanding, 3- ImproveStrength/Reena 1=Demonstrate adherence to instructed precautions during ADL tasks. 2=Patient will verbalize/demonstrate understanding of assistive devices/ modifications for ADL. 3=Patient will improve strength/tolerance for activity to enable patient to perform ADL's. OT Education/Plan Discharge Recommendations Plan/Recommendations: Continue POC Treatment Plan/Plan of Care Patient would benefit from OT for education, treatment and training to promote independence in ADL's, mobility, safety and/or upper extremity function for ADL' s. Plan of Care: ADL Retraining, Caregiver Training, Functional Mobility, Group Exercise/Act as Ind, UE Funct Exercise/Act Treatment Duration: Oct 03, 2018 Frequency: At least 5 of 7 days/Wk (IRF) Estimated Hrs Per Day: 1.5 hours per day Agreement: Yes Rehab Potential: Good Time/GCodes Start Time: 13:30 Stop Time: 13:50 Total Time Billed (hr/min): 20 Billed Treatment Time 1 visit-FA 1 (20 min) SHANNON DOTSON Sep 26, 2018 13:54
--- NOTE | 2018-09-26 14:20 | Physical Therapy Daily Note ---
PT Daily Note-Current Subjective Happy to be going home tomorrow. Reports he feels ready. Transfers Therapy Code Descriptions/Definitions Functional [place] Measure: 0=Not Assessed/NA 4=Minimal Assistance 1=Total Assistance 5=Supervision or Setup 2=Maximal Assistance 6=Modified [place] 3=Moderate Assistance 7=Complete [place] Therapy Quality Codes: 6 Independent with activity with or without an assistive device 5 Patient requires set up or clean up by helper. Patient completes activity by themselves 4 Supervision or touching assist (CGA). [place] provide cues , steadying assist 3 The helper provides less than half the effort to complete the activity 2 The helper provides more than half the effort to complete the activity 1 Dependent. The helper does all the effort to complete an activity 7 Patient refused to complete or attempt activity 9 The patient did not perform the activity before the current illness or injury 88 Not attempted due to Medical conditions or safety concerns Weight Bearing Right Lower Extremity: Right Full Weight Bearing Left Lower Extremity: Left Full Weight Bearing Treatments Pt was able to transfer out of bed with light assist from his and perform SPT x 5 reps with QC with CGA. Pt performed Nu Step x 15 minutes on level 6 for LE strength and functional movement. Pt then toileted with assist from his . Pt up in chair post treatment with needs met. Assessment Current Status: Good Progress Pt and manage well together. Appear ready and safe to discharge tomorrow; Recommend [facility] PT to follow for home assessment and set up. PT Short Term Goals Short Term Goals Time Frame: Sep 11, 2018 Transfers (B,C,W/C) (FIM): 3 (met) Gait (FIM): 1 (met) Gait Distance Comment: 20' Gait Level of Assist: 3 Gait Assistive Device: Walker Ba Wheelchair Distance: 150' PT Nursing Home Goals Electromedical Service Engineer Goals PT Electromedical Service Engineer Goals Time Frame: Sep 25, 2018 Transfers (B,C,W/C) (FIM): 4 Sit to Lying (QC): 4 Lying-Sitting on Side/Bed(QC): 4 Sit to Stand (QC): 4 Rollin Roll Left to Right (QC): 4 Chair/Aqb-wv-Wltio Xfer(QC): 4 Car Transfer (QC): 4 Gait (FIM): 2 Distance: 50' Walk 10 feet (QC): 3 Walk 10ft-Uneven Surface(QC): 3 Walk 50ft with 2 Turns (QC): 3 Gait Level of Assist: 4 Gait Assistive Device: Cane Large Base Quad Wheelchair (FIM): 5 Distance: 150' Wheelchair Level of Assist: 5 Wheel 50 feet with 2 turns (QC: 4 PT Plan Problem List Problem List: Activity Tolerance, Functional Strength, Safety Treatment/Plan Treatment Plan: Continue Plan of Care (will plan dc tomorrow.) Treatment Plan: Bed Mobility, Concurrent Therapy, Education, Functional Activity Reena, Functional Strength, Group Therapy, Gait, Safety, Therapeutic Exercise, Transfers Treatment Duration: Sep 25, 2018 Frequency: At least 5 of 7 days/Wk (IRF) Estimated Hrs Per Day: 1.5 hours per day Patient and/or Family Agrees t: Yes Safety Risks/Education Patient Education: Transfer Techniques, Safety Issues Teaching Recipient: Patient, Significant Other Teaching Methods: Discussion Response to Teaching: Return Demonstration Discharge Recommendations Therapy D/C Recommendations: Physical Therapy Home Care Time/GCodes Time In: 1245 Time Out: 1315 Total Billed Treatment Time: 30 Total Billed Treatment visit EX 15 FA 15 SHANNON ANTUNEZ PT Sep 26, 2018 14:20
[2018-09-26 17:22] VITALS: BP 154/83
[2018-09-26] MEDS: TAMSULOSIN 0.4 MG (FLOMAX) CAP PO SCH (17:45)
[2018-09-26] MEDS ORDERED: TRIM/SULFAMETH 160/800 (SEPTRA DS) TAB PO ONE (20:22)
[2018-09-26] MEDS: ATORVASTATIN 40 MG (LIPITOR) TABLET PO SCH (20:28)
[2018-09-26] MEDS: TRIM/SULFAMETH 160/800 (SEPTRA DS) TAB PO SCH (20:28)
[2018-09-26] MEDS: HYDROcodone/APAP 5 MG/325 MG (LORTAB) TAB PO PRN (20:28)
[2018-09-26] MEDS: inSUlin DETERMIR 1 UNIT/0.01 ML (LEVEMIR) CHARGE PER UNIT SQ SCH (20:30)
[2018-09-27] MEDS: CYANOCOBALAMIN 1,000 MCG (VITAMIN B-12) TABLET PO SCH (06:09)
[2018-09-27] MEDS: metFORMIN XR 500 MG (GLUCOPHAGE XR) TAB PO SCH (06:09)
[2018-09-27] MEDS: inSUlin ASPART (NovoLOG) 1 UNIT/0.01 ML (CHARGE PER UNIT) SC SCH (06:10)
[2018-09-27] MEDS: METOCLOPRAMIDE 10 MG (REGLAN) TAB PO SCH (06:22)
[2018-09-27 06:23] VITALS: BP 121/70
--- NOTE | 2018-09-27 08:26 | Therapy Team Discharge Summary ---
Therapy Discharge Summary Discharge Recommendations Date of Discharge Therapy D/C Recommendations: Physical Therapy Home Care Occupational Therapy Decreased Activ Tolerance, Decreased Safety Aware, Decreased UE Strength, Dependent Transfers, Impaired Bed Mobility, Impaired Funct Balance, Impaired Self-Care Skills Speech-Language Pathology The patient was admitted to the ARU on 09/04/2018 for skilled therapy s/p CVA. Patient presented with mild aphasia and left side facial weakness initially. The aphasia resolved as a result of skilled ST and his speech intelligibility is within normal function this date. Facial weakness is slight, however there is no interference with his speech or oral intake. Patient is being discharged to his home with his today. He is being discharged from skilled ST at this time. PT Nursing Home Goals Social Services Analyst Goals PT Social Services Analyst Goals Time Frame: Sep 25, 2018 Transfers (B,C,W/C) (FIM): 4 Roll Left to Right (QC): 4 Sit to Lying (QC): 4 Lying-Sitting on Side/Bed(QC): 4 Sit to Stand (QC): 4 Chair/[id number]-Bpxsd Xfer(QC): 4 Car Transfer (QC): 4 Gait (FIM): 2 Distance: 50' Walk 10 feet (QC): 3 Walk 10ft-Uneven Surface(QC): 3 Walk 50ft with 2 Turns (QC): 3 Gait Level of Assist: 4 Gait Assistive Device: Cane Large Base Quad Wheelchair (FIM): 5 Distance: 150' Wheelchair Level of Assist: 5 Wheel 50 feet with 2 turns (QC: 4 OT Nursing Home Goals Nursing Home Goals Time Frame: Oct 03, 2018 Eating (FIM): 7 (not met) Eating (QC): 7 (not met) Oral Hygiene (QC): 7 (not met) Grooming(FIM): 7 (not met) Bathing(FIM): 3 (met) Shower/Bathe Self (QC): 3 (met) Upper Body Dressing(FIM): 4 (not met) Upper Body Dressing (QC): 4 (not met) Lower Body Dressing(FIM): 3 (not met) Lower Body Dressing (QC): 3 (not met) On/Off Footwear (QC): 3 (not met) Toileting(FIM): 3 (not met) Toileting Hygiene (QC): 3 (not met) Transfers (B,C,W/C) (FIM): 3 (met) Toilet/Commode Transfer(FIM): 3 (met) Toilet/Commode Transfer (QC): 3 (met) Shower Transfer(FIM): 3 (met) Comprehension(FIM): 3 Additional Goals: 1-Demonstrate ADL Tasks, 2-Verbalize Understanding, 3- ImproveStrength/Reena 1=Demonstrate adherence to instructed precautions during ADL tasks. 2=Patient will verbalize/demonstrate understanding of assistive devices/ modifications for ADL. 3=Patient will improve strength/tolerance for activity to enable patient to perform ADL's. Speech Social Services Analyst Goals Nursing Home Goals Patient will improve memory, problem solving and speech skills to better communicate with familiar and unfamiliar listeners.Met Comprehension: 3 LEIF GOFF Sep 27, 2018 08:26
[2018-09-27] MEDS: ASPIRIN E.C. 81 MG (ECOTRIN) TAB PO SCH (08:28)
[2018-09-27] MEDS: PYRIDOXINE (VITAMIN B-6) 50 MG TABLET PO SCH (08:28)
[2018-09-27] MEDS: ZINC SULFATE 220 MG CAPSULE PO SCH (08:29)
[2018-09-27] MEDS: SENNA W/DOCUSATE (SENOKOT S) TABLET PO SCH (08:29)
[2018-09-27] MEDS: VITAMIN D3 1,000 UNITS (CHOLECALCIFEROL) TABLET PO SCH (08:29)
[2018-09-27] MEDS: CARVEDILOL 12.5 MG (COREG) TABLET PO SCH (08:29)
[2018-09-27] MEDS: amLODIPine 10 MG (NORVASC) TAB PO SCH (08:29)
[2018-09-27] MEDS: LORATADINE (CLARITIN) 10 MG TAB PO SCH (08:29)
[2018-09-27] MEDS: FLUoxetine HCL 20 MG (PROzac) CAP PO SCH (08:29)
[2018-09-27] MEDS: CLINDAMYCIN 150 MG (CLEOCIN) CAP PO SCH (08:29)
[2018-09-27] MEDS: MAGNESIUM OXIDE (MAG-OX)400 MG TAB PO SCH (08:29)
[2018-09-27] MEDS ORDERED: ASPI325T32 PO (08:34)
[2018-09-27] MEDS ORDERED: SULF1TAB34 PO (08:34)
[2018-09-27] MEDS ORDERED: CARV12.53 PO (08:34)
[2018-09-27] MEDS ORDERED: ATOR40TA PO (08:34)
[2018-09-27] MEDS ORDERED: METO10TA3 PO (08:34)
[2018-09-27] MEDS ORDERED: CLIN150C17 PO (08:34)
[2018-09-27] MEDS ORDERED: RIVA20TA PO (08:34)
[2018-09-27] MEDS ORDERED: SENN-20 PO (08:34)
[2018-09-27] MEDS ORDERED: ACHD5005 PO (08:34)
[2018-09-27] MEDS ORDERED: TAMS0.4C98 PO (08:34)
[2018-09-27] MEDS ORDERED: FLUO20CA25 PO (08:34)
[2018-09-27] MEDS ORDERED: ONDA4TAB11 PO (08:34)
[2018-09-27] MEDS: BISACODYL 10 MG SUPP (DULCOLAX) PR SCH (08:35)
[2018-09-27] MEDS: ALPRAZolam 0.25 MG (XANAX) TAB PO PRN (08:35)
--- NOTE | 2018-09-27 08:36 | D/C HH Face to Face Order ---
D/C Face to Face Orders Instructions for Patient Via [facility], Patient Instructions/FollowUp: Dr Sheets in 1 week Physician to follow Patient: Dr Sheets Discharge Diet for Home: ADA Diet, Cardiac Diet Patient Problems: CVA w/left sided weakness DM Gastritis Chronic UTI Goals for Patient: Return to independent living Patient Data-Allergies,Ht & Wt Patient Allergies: Coded Allergies: No Known Drug Allergies (Unverified , 09/04/18) Height (Feet): 5 Height (Inches): 10.00 Weight (Pounds): 218 Weight (Ounces): 9.6 Home Health Need/Face to Face Date of Face to Face: Sep 27, 2018 Clinical Findings: Generalized weakness and fatigue, Muscle weakness, Unsteady gait I have seen Pt [id number]: Yes Discharged To: Home Diagnosis/Conditions: CVA w/left sided weakness DM Gastritis Chronic UTI Patient is Homebound due to: [place] fall risk due to instabilty, Muscle weakness Homebound Status Due to the above stated illness, injury or surgical procedure (medical condition or diagnosis) and associated clinical findings, the patient is homebound because of his/her inability to leave home except with aid of a supportive device and/or person AND leaving the home requires a considerable and taxing effort or is medically contraindicated. Pt req the following assistanc: Walker Certify Stmt I certify that this patient is under my care and that I, a nurse practitioner or a physician; a assistant track and field coach working with me, had a face to face encounter that - meets the physician face to face encounter requirements with this patient as dated. DARELL CIFUENTES DO Sep 27, 2018 08:36
--- NOTE | 2018-09-27 08:37 | Discharge Summary ---
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/16/18 with left sided weakness and left facial droop now on anticoagulation and ASA Severe carotid stenosis right s/p endarterectomy but no resolution of deficit had an appt at [facility] last Sunday but rescheduled DM on insulin Chronic UTI but normal cystoscopy 09/06/18 but BPH noted and placed on Flomax from Urology now receiving straight caths if retention on bladder scan and patient agrees for self cath at [place] per Urology placed on Bactrim 1/2 tablet at night to prevent UTI due to catheters but now voiding well when up to toilet and no longer needs catheters since no residual HTN HLP Constipation recurrent issue will give more meds prn Hematochezia episode with Heme + stools but gastritis and colon polyps noted on EGD/Colonoscopy on 09/07/[address] Waggoner Chronic nausea improved on Reglan confirming gastroparesis as the source Tooth abscess placed on clindamycin and hydrocodone Plan: Maintain ASA and anticoagulation Colon polyp pathology reveals tubular adenoma Monitor sugar control and adjust insulin prn Maintain urinary management since h/o chronic UTI and maintain on Flomax per Urology in addition to self caths to prevent retention but now voiding well and no caths needed as long as upright to toilet PPI and maintain on Flomax at NC Zofran Constipation treatment maintained Reglan at NC Tooth abscess treatment needs dentist as an outpatient [place] Sunday and I will reviewed all meds from [facility] and new ones from [facility] IR[facility] stay Reason Hospital Visit CC: CVA with left sided weakness HPI: This is a 63-year-old white male who presents to the inpatient rehab unit due to severe deficit on the left side following a stroke on 08/16/18. He presented to [facility] with facial droop was found to have evidence of thrombus in the right MCA region so he was sent to [facility] for interventional radiology thrombectomy but patient refused at that time so he was monitored in the neurosurgery ICU with close monitoring. Patient underwent right endarterectomy due to carotid ultrasound showing severe critical stenosis and he did undergo that procedure but that did not result in any improvement in the left-sided weakness. He has a history of chronic UTI of which he does not have any symptoms of but having severe constipation of which we will start an aggressive regimen to resolve that issue. He intends to return home with his and he is agreeable for intensive rehab sessions in order to improve upon deficit on the left arm and left leg in order to return home. Discharge Summary Discharge Physical Examination Allergies: Coded Allergies: No Known Drug Allergies (Unverified , 09/04/18) Vitals & I&Os Vital Signs Date Time Temp Pulse Resp B/P (MAP) Pulse Ox O2 Delivery O2 Flow Rate FiO2 09/27/18 12:13 52 20 138/76 96 Room Air 09/27/18 06:23 98.4 Hospital Course Was the Problem List Reviewed?: Yes Hospital course: Patient had a lengthy hospital course and inpatient rehab for 23 days total. He participated in all aspects of therapy requirements with dramatic improvement in his left-sided weakness and stroke residual. Cognition improved along with left facial droop and dysphasia resolved with rapid return to a regular diet carb controlled. He was maintained on his home insulin dose along with his aspirin and anticoagulation and monitor closely. He did have Hemoccult positive stools and a drop in hemoglobin giving rise to EGD and colonoscopy performed by Dr. Waggoner. Those scopes revealed gastritis and a colon polyp that was tubular adenoma. Patient was placed on Reglan and the chronic nausea he had even before the stroke resolved with maintenance of Reglan before meals and at bedtime. Periodic constipation was managed with aggressive bowel regimen. Chronic UTI was evaluated by urology and performed cystoscopy showing BPH patient was placed on Flomax and a half of the Bactrim tab at night and that had dramatic and improved results of the chronic urinary issue he had had before the stroke. He did have a tooth abscess and he will follow-up with a dentist and will maintain on clindamycin and small dose of hydrocodone in the meantime. I reviewed all of his home medications, medications from , and the additional ones that we started while in the inpatient rehab unit and they were all sent to [facility] in [facility]. He will have close follow-up with his primary care provider along with home health. Labs (last 24 hrs) Laboratory Tests 09/04/18 16:44: Glucometer 207H 09/04/18 20:26: Glucometer 227H 09/05/18 05:23: Glucometer 101 09/05/18 05:24: White Blood Count 8.2, Red Blood Count 4.05L, Hemoglobin 12.7L, Hematocrit 38L, Mean Corpuscular Volume 94, Mean Corpuscular Hemoglobin 31, Mean Corpuscular Hemoglobin Concent 33, Red Cell Distribution Width 13.2, Platelet Count 240, Mean Platelet Volume 10.5H, Neutrophils (%) (Auto) 65, Lymphocytes (%) (Auto) 24 , Monocytes (%) (Auto) 8, Eosinophils (%) (Auto) 3, Basophils (%) (Auto) 0, Neutrophils # (Auto) 5.3, Lymphocytes # (Auto) 2.0, Monocytes # (Auto) 0.7, Eosinophils # (Auto) 0.2, Basophils # (Auto) 0.0, Sodium Level 142, Potassium Level 4.0, Chloride Level 106, Carbon Dioxide Level 25, Anion Gap 11, Blood Urea Nitrogen 21H, Creatinine 1.00, Estimat Glomerular Filtration Rate > 60, BUN /Creatinine Ratio 21, Glucose Level 98, Calcium Level 9.0, Corrected Calcium 9.5 , Total Bilirubin 0.6, Aspartate Amino Transf (AST/SGOT) 39H, Alanine Aminotransferase (ALT/SGPT) 79H, Alkaline Phosphatase 95, Total Protein 6.4, Albumin 3.4 09/05/18 11:09: Glucometer 135H 09/05/18 16:58: Glucometer 90 09/05/18 21:00: Stool Occult Blood Immunoassay POSITIVEH 09/05/18 21:03: Glucometer 137H 09/06/18 04:47: Glucometer 94 09/06/18 08:50: Urine Color YELLOW, Urine Clarity CLEAR, Urine pH 5, Urine Specific [place] 1.025H, Urine Protein 3+H, Urine Glucose (UA) NEGATIVE, Urine Ketones NEGATIVE, Urine Nitrite NEGATIVE, Urine Bilirubin NEGATIVE, Urine Urobilinogen NORMAL, Urine Leukocyte Esterase 1+H, Urine RBC (Auto) NEGATIVE, Urine RBC NONE, Urine WBC 0-2, Urine Squamous Epithelial Cells 0-2, Urine Crystals NONE, Urine Bacteria NEGATIVE, Urine Casts PRESENT, Urine Hyaline Casts 0-2H, Urine Mucus MODERATEH, Urine Culture Indicated NO 09/06/18 11:46: Glucometer 102 09/06/18 16:07: Glucometer 143H 09/06/18 20:37: Glucometer 119H 09/07/18 04:39: Glucometer 138H 09/07/18 12:04: Glucometer 117H 09/07/18 16:06: Glucometer 139H 09/07/18 20:13: Glucometer 127H 09/08/18 04:24: Glucometer 118H 09/08/18 11:33: Glucometer 142H 09/08/18 15:47: Glucometer 115H 09/08/18 21:06: Glucometer 139H 09/09/18 05:45: Glucometer 133H 09/09/18 10:53: Glucometer 126H 09/09/18 15:35: Glucometer 140H 09/09/18 20:08: Glucometer 156H 09/10/18 05:18: Glucometer 122H 09/10/18 10:49: Glucometer 142H 09/10/18 15:39: Glucometer 123H 09/10/18 20:18: Glucometer 142H 09/11/18 05:05: White Blood Count 6.9, Red Blood Count 4.00L, Hemoglobin 12.6L, Hematocrit 36L, Mean Corpuscular Volume 91, Mean Corpuscular Hemoglobin 32, Mean Corpuscular Hemoglobin Concent 35, Red Cell Distribution Width 12.7, Platelet Count 189, Mean Platelet Volume 10.7H, Neutrophils (%) (Auto) 63, Lymphocytes (%) (Auto) 24 , Monocytes (%) (Auto) 11, Eosinophils (%) (Auto) 3, Basophils (%) (Auto) 0, Neutrophils # (Auto) 4.3, Lymphocytes # (Auto) 1.7, Monocytes # (Auto) 0.7, Eosinophils # (Auto) 0.2, Basophils # (Auto) 0.0, Sodium Level 138, Potassium Level 3.9, Chloride Level 105, Carbon Dioxide Level 23, Anion Gap 10, Blood Urea Nitrogen 16, Creatinine 0.85, Estimat Glomerular Filtration Rate > 60, BUN/ Creatinine Ratio 19, Glucose Level 93, Calcium Level 8.6, Corrected Calcium 9.2 , Total Bilirubin 0.7, Aspartate Amino Transf (AST/SGOT) 26, Alanine Aminotransferase (ALT/SGPT) 34, Alkaline Phosphatase 100, Total Protein 6.5, Albumin 3.3 09/11/18 06:17: Glucometer 104 09/11/18 11:31: Glucometer 153H 09/11/18 16:24: Glucometer 94 09/11/18 20:19: Glucometer 137H 09/12/18 04:32: Glucometer 87 09/12/18 10:36: Glucometer 115H 09/12/18 15:28: Glucometer 137H 09/12/18 20:05: Glucometer 174H 09/13/18 06:43: Glucometer 113H 09/13/18 10:59: Glucometer 171H 09/13/18 15:38: Glucometer 105 09/13/18 20:20: Glucometer 110 09/14/18 06:28: Glucometer 93 09/14/18 19:58: Glucometer 150H 09/15/18 06:04: Glucometer 140H 09/15/18 11:40: Glucometer 158H 09/15/18 17:42: Glucometer 153H 09/15/18 20:21: Glucometer 120H 09/16/18 06:32: Glucometer 98 09/16/18 10:45: Glucometer 127H 09/16/18 16:06: Glucometer 110 09/16/18 20:23: Glucometer 110 09/17/18 05:34: Glucometer 106 09/17/18 10:48: Glucometer 159H 09/17/18 15:51: Glucometer 122H 09/17/18 20:09: Glucometer 145H 09/18/18 04:43: White Blood Count 6.2, Red Blood Count 4.00L, Hemoglobin 12.4L, Hematocrit 37L, Mean Corpuscular Volume 92, Mean Corpuscular Hemoglobin 31, Mean Corpuscular Hemoglobin Concent 34, Red Cell Distribution Width 12.7, Platelet Count 153, Mean Platelet Volume 10.7H, Neutrophils (%) (Auto) 61, Lymphocytes (%) (Auto) 27 , Monocytes (%) (Auto) 9, Eosinophils (%) (Auto) 3, Basophils (%) (Auto) 1, Neutrophils # (Auto) 3.8, Lymphocytes # (Auto) 1.7, Monocytes # (Auto) 0.5, Eosinophils # (Auto) 0.2, Basophils # (Auto) 0.0, Sodium Level 138, Potassium Level 4.0, Chloride Level 106, Carbon Dioxide Level 24, Anion Gap 8, Blood Urea Nitrogen 10, Creatinine 0.88, Estimat Glomerular Filtration Rate > 60, BUN/ Creatinine Ratio 11, Glucose Level 73, Calcium Level 8.6, Corrected Calcium 9.2 , Total Bilirubin 0.7, Aspartate Amino Transf (AST/SGOT) 30, Alanine Aminotransferase (ALT/SGPT) 30, Alkaline Phosphatase 86, Total Protein 6.4, Albumin 3.3 09/18/18 11:31: Glucometer 150H 09/18/18 16:54: Glucometer 119H 09/18/18 20:41: Glucometer 120H 09/19/18 05:08: Glucometer 90 09/19/18 10:48: Glucometer 130H 09/19/18 16:50: Glucometer 140H 09/19/18 20:06: Glucometer 164H 09/20/18 06:31: Glucometer 118H 09/20/18 10:53: Glucometer 109 09/20/18 16:04: Glucometer 185H 09/20/18 20:39: Glucometer 108 09/21/18 06:15: Glucometer 93 09/21/18 18:33: Glucometer 91 09/21/18 21:20: Glucometer 159H 09/22/18 06:22: Glucometer 90 09/22/18 10:52: Glucometer 138H 09/22/18 15:36: Glucometer 93 09/22/18 20:32: Glucometer 251H 09/23/18 05:05: Glucometer 67L 09/23/18 05:48: Glucometer 80 09/23/18 11:10: Glucometer 87 09/23/18 16:20: Glucometer 155H 09/23/18 20:10: Glucometer 107 09/24/18 06:17: Glucometer 76 09/24/18 11:26: Glucometer 100 09/24/18 17:03: Glucometer 77 09/24/18 20:53: Glucometer 100 09/25/18 06:09: Glucometer 163H 09/25/18 10:57: Glucometer 116H 09/25/18 16:00: Glucometer 212H 09/25/18 20:56: Glucometer 82 09/26/18 06:04: Glucometer 88 09/26/18 10:54: Glucometer 121H 09/26/18 16:15: Glucometer 101 09/26/18 20:27: Glucometer 203H 09/27/18 06:07: Glucometer 80 Pending Labs Laboratory Tests 09/04/18 16:44: Glucometer 207 09/04/18 20:26: Glucometer 227 09/05/18 05:23: Glucometer 101 09/05/18 05:24: White Blood Count 8.2, Red Blood Count 4.05, Hemoglobin 12.7, Hematocrit 38, Mean Corpuscular Volume 94, Mean Corpuscular Hemoglobin 31, Mean Corpuscular Hemoglobin Concent 33, Red Cell Distribution Width 13.2, Platelet Count 240, Mean Platelet Volume 10.5, Neutrophils (%) (Auto) 65, Lymphocytes (%) (Auto) 24 , Monocytes (%) (Auto) 8, Eosinophils (%) (Auto) 3, Basophils (%) (Auto) 0, Neutrophils # (Auto) 5.3, Lymphocytes # (Auto) 2.0, Monocytes # (Auto) 0.7, Eosinophils # (Auto) 0.2, Basophils # (Auto) 0.0, Sodium Level 142, Potassium Level 4.0, Chloride Level 106, Carbon Dioxide Level 25, Anion Gap 11, Blood Urea Nitrogen 21, Creatinine 1.00, Estimat Glomerular Filtration Rate > 60, BUN/ Creatinine Ratio 21, Glucose Level 98, Calcium Level 9.0, Corrected Calcium 9.5 , Total Bilirubin 0.6, Aspartate Amino Transf (AST/SGOT) 39, Alanine Aminotransferase (ALT/SGPT) 79, Alkaline Phosphatase 95, Total Protein 6.4, Albumin 3.4 09/05/18 11:09: Glucometer 135 09/05/18 16:58: Glucometer 90 09/05/18 21:00: Stool Occult Blood Immunoassay POSITIVE 09/05/18 21:03: Glucometer 137 09/06/18 04:47: Glucometer 94 09/06/18 08:50: Urine Color YELLOW, Urine Clarity CLEAR, Urine pH 5, Urine Specific [place] 1.025, Urine Protein 3+, Urine Glucose (UA) NEGATIVE, Urine Ketones NEGATIVE, Urine Nitrite NEGATIVE, Urine Bilirubin NEGATIVE, Urine Urobilinogen NORMAL, Urine Leukocyte Esterase 1+, Urine RBC (Auto) NEGATIVE, Urine RBC NONE, Urine WBC 0-2, Urine Squamous Epithelial Cells 0-2, Urine Crystals NONE, Urine Bacteria NEGATIVE, Urine Casts PRESENT, Urine Hyaline Casts 0-2, Urine Mucus MODERATE, Urine Culture Indicated NO 09/06/18 11:46: Glucometer 102 09/06/18 16:07: Glucometer 143 09/06/18 20:37: Glucometer 119 09/07/18 04:39: Glucometer 138 09/07/18 12:04: Glucometer 117 09/07/18 16:06: Glucometer 139 09/07/18 20:13: Glucometer 127 09/08/18 04:24: Glucometer 118 09/08/18 11:33: Glucometer 142 09/08/18 15:47: Glucometer 115 09/08/18 21:06: Glucometer 139 09/09/18 05:45: Glucometer 133 09/09/18 10:53: Glucometer 126 09/09/18 15:35: Glucometer 140 09/09/18 20:08: Glucometer 156 09/10/18 05:18: Glucometer 122 09/10/18 10:49: Glucometer 142 09/10/18 15:39: Glucometer 123 09/10/18 20:18: Glucometer 142 09/11/18 05:05: White Blood Count 6.9, Red Blood Count 4.00, Hemoglobin 12.6, Hematocrit 36, Mean Corpuscular Volume 91, Mean Corpuscular Hemoglobin 32, Mean Corpuscular Hemoglobin Concent 35, Red Cell Distribution Width 12.7, Platelet Count 189, Mean Platelet Volume 10.7, Neutrophils (%) (Auto) 63, Lymphocytes (%) (Auto) 24 , Monocytes (%) (Auto) 11, Eosinophils (%) (Auto) 3, Basophils (%) (Auto) 0, Neutrophils # (Auto) 4.3, Lymphocytes # (Auto) 1.7, Monocytes # (Auto) 0.7, Eosinophils # (Auto) 0.2, Basophils # (Auto) 0.0, Sodium Level 138, Potassium Level 3.9, Chloride Level 105, Carbon Dioxide Level 23, Anion Gap 10, Blood Urea Nitrogen 16, Creatinine 0.85, Estimat Glomerular Filtration Rate > 60, BUN/ Creatinine Ratio 19, Glucose Level 93, Calcium Level 8.6, Corrected Calcium 9.2 , Total Bilirubin 0.7, Aspartate Amino Transf (AST/SGOT) 26, Alanine Aminotransferase (ALT/SGPT) 34, Alkaline Phosphatase 100, Total Protein 6.5, Albumin 3.3 09/11/18 06:17: Glucometer 104 09/11/18 11:31: Glucometer 153 09/11/18 16:24: Glucometer 94 09/11/18 20:19: Glucometer 137 09/12/18 04:32: Glucometer 87 09/12/18 10:36: Glucometer 115 09/12/18 15:28: Glucometer 137 09/12/18 20:05: Glucometer 174 09/13/18 06:43: Glucometer 113 09/13/18 10:59: Glucometer 171 09/13/18 15:38: Glucometer 105 09/13/18 20:20: Glucometer 110 09/14/18 06:28: Glucometer 93 09/14/18 19:58: Glucometer 150 09/15/18 06:04: Glucometer 140 09/15/18 11:40: Glucometer 158 09/15/18 17:42: Glucometer 153 09/15/18 20:21: Glucometer 120 09/16/18 06:32: Glucometer 98 09/16/18 10:45: Glucometer 127 09/16/18 16:06: Glucometer 110 09/16/18 20:23: Glucometer 110 09/17/18 05:34: Glucometer 106 09/17/18 10:48: Glucometer 159 09/17/18 15:51: Glucometer 122 09/17/18 20:09: Glucometer 145 09/18/18 04:43: White Blood Count 6.2, Red Blood Count 4.00, Hemoglobin 12.4, Hematocrit 37, Mean Corpuscular Volume 92, Mean Corpuscular Hemoglobin 31, Mean Corpuscular Hemoglobin Concent 34, Red Cell Distribution Width 12.7, Platelet Count 153, Mean Platelet Volume 10.7, Neutrophils (%) (Auto) 61, Lymphocytes (%) (Auto) 27 , Monocytes (%) (Auto) 9, Eosinophils (%) (Auto) 3, Basophils (%) (Auto) 1, Neutrophils # (Auto) 3.8, Lymphocytes # (Auto) 1.7, Monocytes # (Auto) 0.5, Eosinophils # (Auto) 0.2, Basophils # (Auto) 0.0, Sodium Level 138, Potassium Level 4.0, Chloride Level 106, Carbon Dioxide Level 24, Anion Gap 8, Blood Urea Nitrogen 10, Creatinine 0.88, Estimat Glomerular Filtration Rate > 60, BUN/ Creatinine Ratio 11, Glucose Level 73, Calcium Level 8.6, Corrected Calcium 9.2 , Total Bilirubin 0.7, Aspartate Amino Transf (AST/SGOT) 30, Alanine Aminotransferase (ALT/SGPT) 30, Alkaline Phosphatase 86, Total Protein 6.4, Albumin 3.3 09/18/18 11:31: Glucometer 150 09/18/18 16:54: Glucometer 119 09/18/18 20:41: Glucometer 120 09/19/18 05:08: Glucometer 90 09/19/18 10:48: Glucometer 130 09/19/18 16:50: Glucometer 140 09/19/18 20:06: Glucometer 164 09/20/18 06:31: Glucometer 118 09/20/18 10:53: Glucometer 109 09/20/18 16:04: Glucometer 185 09/20/18 20:39: Glucometer 108 09/21/18 06:15: Glucometer 93 09/21/18 18:33: Glucometer 91 09/21/18 21:20: Glucometer 159 09/22/18 06:22: Glucometer 90 09/22/18 10:52: Glucometer 138 09/22/18 15:36: Glucometer 93 09/22/18 20:32: Glucometer 251 09/23/18 05:05: Glucometer 67 09/23/18 05:48: Glucometer 80 09/23/18 11:10: Glucometer 87 09/23/18 16:20: Glucometer 155 09/23/18 20:10: Glucometer 107 09/24/18 06:17: Glucometer 76 09/24/18 11:26: Glucometer 100 09/24/18 17:03: Glucometer 77 09/24/18 20:53: Glucometer 100 09/25/18 06:09: Glucometer 163 09/25/18 10:57: Glucometer 116 09/25/18 16:00: Glucometer 212 09/25/18 20:56: Glucometer 82 09/26/18 06:04: Glucometer 88 09/26/18 10:54: Glucometer 121 09/26/18 16:15: Glucometer 101 09/26/18 20:27: Glucometer 203 09/27/18 06:07: Glucometer 80 Discharge Home Medications: Active Scripts Active Bactrim 400-80 mg Tablet (Sulfamethoxazole/Trimethoprim) 1 Each Tablet 0.5 Each PO HS Senna-Time S Tablet (Sennosides/Docusate Sodium) 1 Each Tablet 2 Ea PO BID Aspirin EC (Aspirin) 325 Mg Tablet.dr 325 Mg PO DAILY Metoclopramide HCl 10 Mg Tablet 10 Mg PO ACHS Ondansetron Odt (Ondansetron) 4 Mg Tab.rapdis 4 Mg PO Q6H PRN Fluoxetine HCl 20 Mg Capsule 20 Mg PO DAILY Hydrocodone/Acetaminophen 5/325mg Tablet (Acetaminophen/Hydrocodone Bitart) 1 Tab Tab 1 Tab PO Q4H PRN Carvedilol 12.5 Mg Tablet 12.5 Mg PO BID Lipitor (Atorvastatin Calcium) 40 Mg Tablet 40 Mg PO HS Xarelto (Rivaroxaban) 20 Mg Tablet 20 Mg PO DAILY@1200 Flomax (Tamsulosin HCl) 0.4 Mg Cap 0.4 Mg PO DAILY@1800 Clindamycin HCl 150 Mg Capsule 150 Mg PO TID Reported [place] 500 Mg Capsule 500 Mg PO DAILY Toujeo Solostar (Insulin Glargine,Hum.rec.anlog) 300 Unit/1 Ml Insuln.pen 42 Unit SQ HS Metformin HCl ER (Metformin HCl) 500 Mg Tab.er.24h 1,000 Mg PO BID Vitamin B-6 (Pyridoxine HCl) 50 Mg Tablet 50 Mg PO DAILY Alyssa Allergy (Fexofenadine HCl) 180 Mg Tablet 180 Mg PO DAILY Vitamin B-12 (Cyanocobalamin (Vitamin B-12)) 500 Mcg Tablet 500 Mcg PO DAILY Vitamin D3 (Cholecalciferol (Vitamin D3)) 1,000 Unit Capsule 1,000 Unit PO DAILY Amlodipine Besylate 10 Mg Tablet 10 Mg PO DAILY Instructions to patient/family Please see electronic discharge instructions given to patient. Diagnosis/Problems Diagnosis/Problems (1) Cerebrovascular accident (CVA) with left hemiparesis Status: Acute (2) Diabetes mellitus Status: Chronic Qualifiers: Qualified Codes: E11.59 - Type 2 diabetes mellitus with other circulatory complications; Z79.4 - manager long term care (current) use of insulin (3) Hypertension Status: Chronic Qualifiers: Qualified Codes: I10 - Essential (primary) hypertension (4) Hyperlipidemia Status: Chronic Qualifiers: Qualified Codes: E78.2 - Mixed hyperlipidemia (5) Chronic UTI Status: Chronic (6) Bright red blood per rectum Status: Resolved Resolution Date/Time: 09/07/18 @ 15:48 (7) Constipation Status: Acute Qualifiers: Qualified Codes: K59.01 - Slow transit constipation (8) Anticoagulant long-term use Status: Chronic (9) BPH (benign prostatic hyperplasia) Status: Chronic Qualifiers: Qualified Codes: N40.1 - Benign prostatic hyperplasia with lower urinary tract symptoms; R35.0 - Frequency of micturition (10) Abnormal findings on esophagogastroduodenoscopy (EGD) Status: Acute (11) Abnormal colonoscopy Status: Acute (12) Gastritis Status: Acute Qualifiers: Qualified Codes: K29.00 - Acute gastritis without bleeding (13) Colon polyps Status: Acute Qualifiers: Qualified Codes: K63.5 - Polyp of colon (14) Nausea Status: Chronic (15) Urinary retention Status: Resolved Resolution Date/Time: 09/12/18 @ 10:40 (16) Shoulder pain, right Status: Acute Qualifiers: Qualified Codes: M25.511 - Pain in right shoulder (17) Gastroparesis Status: Acute (18) Tooth abscess Status: Acute Clinical Quality Measures DVT/VTE Risk/Contraindication: Risk Factor Score Per Nursin RFS Level Per Nursing on Admit: 4+=Very High DARELL CIFUENTES DO Sep 27, 2018 08:37
--- NOTE | 2018-09-27 09:08 | Therapy Team Discharge Summary ---
Therapy Discharge Summary Discharge Recommendations Date of Discharge Therapy D/C Recommendations: Physical Therapy Home Care Physical Therapy Patient came to rehab following a CVA. Upon evaluation patient performed bed mobility with min assist, supine to sit with mod assist, sit to supine with min assist, sit to stand with mod assist, stand pivot transfer with mod assist, car transfer with max assist, ambulated 8' in the parallel bars with max assist, and could can propel a manual wheelchair 25' with min assist. Patient has been performing bed mobility and transfer training, balance and endurance training, functional strengthening, stair training, gait training, and education. Patient has made fair progress and has met all of his 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 goals except for supine <-> sit and car transfer. Now, patient performs bed mobility with SBA, supine <-> sit to the right side with SBA, supine <-> sit to the left side with min assist, sit <-> stand CGA, transfers to the left with min assist, transfers to the right with CGA, car transfer min assist, ambulates 70' with a quad cane with min assist (including 50' with at least 2 turns of 90 degrees and 10' over an uneven surface), mod I with wheelchair mobility 150', and can go up and down 1 step using a quad cane with min assist. Patient is discharging from this facility today and will be discharged from PT at this time. Occupational Therapy Decreased Activ Tolerance, Decreased Safety Aware, Decreased UE Strength, Dependent Transfers, Impaired Bed Mobility, Impaired Funct Balance, Impaired Self-Care Skills PT Nursing Home Goals Nursing Home Goals PT Nursing Home Goals Time Frame: Sep 25, 2018 Transfers (B,C,W/C) (FIM): 4 Roll Left to Right (QC): 4 Sit to Lying (QC): 4 Lying-Sitting on Side/Bed(QC): 4 Sit to Stand (QC): 4 Chair/Csi-pa-Dtrtp Xfer(QC): 4 Car Transfer (QC): 4 Gait (FIM): 2 Distance: 50' Walk 10 feet (QC): 3 Walk 10ft-Uneven Surface(QC): 3 Walk 50ft with 2 Turns (QC): 3 Gait Level of Assist: 4 Gait Assistive Device: Cane Large Base Quad Wheelchair (FIM): 5 Distance: 150' Wheelchair Level of Assist: 5 Wheel 50 feet with 2 turns (QC: 4 OT Nursing Home Goals Word Processor Technician Goals Time Frame: Oct 03, 2018 Eating (FIM): 7 (not met) Eating (QC): 7 (not met) Oral Hygiene (QC): 7 (not met) Grooming(FIM): 7 (not met) Bathing(FIM): 3 (met) Shower/Bathe Self (QC): 3 (met) Upper Body Dressing(FIM): 4 (not met) Upper Body Dressing (QC): 4 (not met) Lower Body Dressing(FIM): 3 (not met) Lower Body Dressing (QC): 3 (not met) On/Off Footwear (QC): 3 (not met) Toileting(FIM): 3 (not met) Toileting Hygiene (QC): 3 (not met) Transfers (B,C,W/C) (FIM): 3 (met) Toilet/Commode Transfer(FIM): 3 (met) Toilet/Commode Transfer (QC): 3 (met) Shower Transfer(FIM): 3 (met) Comprehension(FIM): 3 Additional Goals: 1-Demonstrate ADL Tasks, 2-Verbalize Understanding, 3- ImproveStrength/Reena 1=Demonstrate adherence to instructed precautions during ADL tasks. 2=Patient will verbalize/demonstrate understanding of assistive devices/ modifications for ADL. 3=Patient will improve strength/tolerance for activity to enable patient to perform ADL's. Speech Nursing Home Goals Word Processor Technician Goals Patient will improve memory, problem solving and speech skills to better communicate with familiar and unfamiliar listeners.Met Comprehension: 3 CASTILLO PHIPPS PT Sep 27, 2018 09:08
--- NOTE | 2018-09-27 09:41 | Therapy Team Discharge Summary ---
Therapy Discharge Summary Discharge Recommendations Date of Discharge Therapy D/C Recommendations: Home w/ Family Support, Occupational Therapy Home Care, Physical Therapy Home Care Occupational Therapy Decreased Activ Tolerance, Decreased Safety Aware, Decreased UE Strength, Dependent Transfers, Impaired Bed Mobility, Impaired Funct Balance, Impaired Self-Care Skills PT Jail Goals Jail Goals PT Jail Goals Time Frame: Sep 25, 2018 Transfers (B,C,W/C) (FIM): 4 Roll Left to Right (QC): 4 Sit to Lying (QC): 4 Lying-Sitting on Side/Bed(QC): 4 Sit to Stand (QC): 4 Chair/Cji-yg-Ctxyu Xfer(QC): 4 Car Transfer (QC): 4 Gait (FIM): 2 Distance: 50' Walk 10 feet (QC): 3 Walk 10ft-Uneven Surface(QC): 3 Walk 50ft with 2 Turns (QC): 3 Gait Level of Assist: 4 Gait Assistive Device: Cane Large Base Quad Wheelchair (FIM): 5 Distance: 150' Wheelchair Level of Assist: 5 Wheel 50 feet with 2 turns (QC: 4 OT Ceo & Founder Goals Ceo & Founder Goals Time Frame: Oct 03, 2018 Eating (FIM): 7 (mod I) Eating (QC): 6 (mod I) Oral Hygiene (QC): 6 (mod I) Grooming(FIM): 7 (mod I) Bathing(FIM): 3 (met) Bathing Location: L Arm, L Upper Leg, L Lower Leg (including foot), Chest, Abdomen Shower/Bathe Self (QC): 3 (met) Upper Body Dressing(FIM): 4 (not met) Upper Body Dressing (QC): 4 (not met) Lower Body Dressing(FIM): 3 (not met) Lower Body Dressing (QC): 3 (not met) On/Off Footwear (QC): 3 (not met) Toileting(FIM): 3 (not met) Toileting Hygiene (QC): 3 (not met) Transfers (B,C,W/C) (FIM): 3 (met) Toilet/Commode Transfer(FIM): 3 (met) Toilet/Commode Transfer (QC): 3 (met) Tub Transfer(FIM): 0 (0) Shower Transfer(FIM): 3 (met) Comprehension(FIM): 3 Patient reached Max rehab potential & thus d/c from skilled OT services to home with his with HH recommendation. Additional Goals: 1-Demonstrate ADL Tasks, 2-Verbalize Understanding, 3- ImproveStrength/Reena 1=Demonstrate adherence to instructed precautions during ADL tasks. 2=Patient will verbalize/demonstrate understanding of assistive devices/ modifications for ADL. 3=Patient will improve strength/tolerance for activity to enable patient to perform ADL's. Speech Jail Goals Ceo & Founder Goals Patient will improve memory, problem solving and speech skills to better communicate with familiar and unfamiliar listeners.Met Comprehension: 3 GUTIERREZ GOLDEN OT Sep 27, 2018 09:41
[2018-09-27 12:13] VITALS: BP 138/76
[2018-09-28] MEDS ORDERED: ALPR0.25 PO (10:15)
[2018-09-28] MEDS ORDERED: APIX5TAB PO (10:17)
== END 2018-09-27 10:25 | disposition home health service (06) | DRG 56 ==
PROVIDERS: ADMIT Internal Medicine; ATTEND Internal Medicine
PROC: 0TJB8ZZ Inspection of Bladder, Via Natural or Artificial Opening Endoscopic (ICD-10-PCS; principal; 2018-09-06 12:10)
PROC: 0DBL8ZX Excision of Transverse Colon, Via Natural or Artificial Opening Endoscopic, Diagnostic (ICD-10-PCS; 2018-09-07)
PROC: 0DBM8ZX Excision of Descending Colon, Via Natural or Artificial Opening Endoscopic, Diagnostic (ICD-10-PCS; 2018-09-07)
PROC: 0DBN8ZX Excision of Sigmoid Colon, Via Natural or Artificial Opening Endoscopic, Diagnostic (ICD-10-PCS; 2018-09-07)
PROC: 0DB78ZX Excision of Stomach, Pylorus, Via Natural or Artificial Opening Endoscopic, Diagnostic (ICD-10-PCS; 2018-09-07 09:45)
DX: I69.354 Hemiplegia and hemiparesis following cerebral infarction affecting left non-dominant side (principal); I69.392 Facial weakness following cerebral infarction; N40.1 Benign prostatic hyperplasia with lower urinary tract symptoms; R35.0 Frequency of micturition; R33.9 Retention of urine, unspecified; E11.59 Type 2 diabetes mellitus with other circulatory complications; N39.0 Urinary tract infection, site not specified; K29.71 Gastritis, unspecified, with bleeding; K25.4 Chronic or unspecified gastric ulcer with hemorrhage; K21.9 Gastro-esophageal reflux disease without esophagitis; D12.3 Benign neoplasm of transverse colon; D12.4 Benign neoplasm of descending colon; D12.5 Benign neoplasm of sigmoid colon; E11.43 Type 2 diabetes mellitus with diabetic autonomic (poly)neuropathy; K59.00 Constipation, unspecified; E78.2 Mixed hyperlipidemia; I10 Essential (primary) hypertension; R00.1 Bradycardia, unspecified; M19.011 Primary osteoarthritis, right shoulder; M79.7 Fibromyalgia; M10.9 Gout, unspecified; K64.8 Other hemorrhoids; K44.9 Diaphragmatic hernia without obstruction or gangrene; F32.9 Major depressive disorder, single episode, unspecified; K04.7 Periapical abscess without sinus; Z79.4 Long term (current) use of insulin; Z79.01 Long term (current) use of anticoagulants; Z87.891 Personal history of nicotine dependence
CPT/HCPCS: 36415; 73030; 80053; 81000; 82274; 82962; 85025

== ENCOUNTER → 2018-09-07 | Day surgery (SDC) | payer BC ==
[~2018-09-07] MED LIST: AMLO10TA6 PO; CARV25TA PO; CHOL10007 PO; CYAN500T2 PO; FEXO180T84 PO; INSU300I SQ; MAGN400T39 PO; METF500T8 PO; PYRI50TA10 PO; SAW500CA10 PO; SELE100T PO; ZINC220T PO
--- NOTE | 2018-09-07 14:56 | OPERATIVE REPORT ---
DATE OF SERVICE: 09/07/2018 PREOPERATIVE DIAGNOSIS: Gastrointestinal bleed. POSTOPERATIVE DIAGNOSES: 1. Gastric ulcers with gastritis. 2. Small hiatal hernia. 3. Colon polyps in the transverse, descending and sigmoid colon. 4. Internal hemorrhoids. PROCEDURES: 1. EGD with biopsy. 2. Colonoscopy with snare polypectomy. SURGEON: Farhad Waggoner DO DIGITAL COORDINATOR: None. ANESTHESIA: IV sedation by the ENGINEERING SURVEYOR. SPECIMENS: 1. Biopsies from the antrum. 2. Colon polyps, snared one from the transverse colon, one from the descending colon and one from the sigmoid colon. BLOOD LOSS: Scant. FLUIDS: Per anesthesia. POSTOPERATIVE CONDITION: Stable. INDICATION FOR PROCEDURE: The patient is a 63-year-old male, who recently had a stroke and attempted carotid retrieval, is on blood thinners and having witnessed blood in the stool and Hemoccult positive, needed a workup because he is going to need to be on the longer term blood thinners. FINDINGS: The patient had some gastric ulcers. He also had gastric polyps and gastritis. Picture was taken. In the colon, he had 3 polyps and some internal hemorrhoids. No other obvious pathology. PROCEDURE NOTE: After informed consent was obtained, the patient was brought to the endoscopy suite and placed in the bed in left lateral decubitus position and administered IV sedation by the ENGINEERING SURVEYOR, who then monitored his vitals the entire time, heart rate, blood pressure, and pulse ox and the scope was inserted down the mouth through the esophagus and into the stomach. Upon entering the stomach in the antrum, noted some ulcers, took a picture of this and picture of the the duodenum. Duodenum looked like it might have a little bit of duodenitis, but looked okay. No ulcer seen, pulled back into the antrum and did a biopsy of the ulcer and then retroflexed, saw small hiatal hernia as well as more gastritis in the fundus and then while pulling out, saw polyps in the stomach, took a a picture of this, pulled the scope into the esophagus, took a picture of the GE junction, looked okay and pulled up the esophagus and out the mouth. The patient tolerated this portion. Switched scopes, switched gloves and went below, started the colonoscopy. Pushed the scope in, all the way about 150 cm, able to get all the way to cecum, took a picture of the appendiceal orifice, noted the ileocecal valve and able to get into the terminal ileum, took a picture of the terminal ileum and then slowly withdrew the scope insufflating to look circumferentially at the tenorio looking at the cecum, up the ascending colon to the hepatic flexure, then down the transverse colon and into the transverse colon, saw a small flat polyp, elected to do a snare polypectomy with cautery, removed this and then continued down the transverse colon, the splenic flexure, into the descending colon. In the descending colon, saw another small flat polyp, did another snare polypectomy, able to suction this up, then continued down and in the sigmoid, saw another larger polyp, did another snare polypectomy, took a picture pre and post, good removal of polyp, no bleeding, and I then continued down the sigmoid colon and the rectum, retroflexed the rectal vault, saw some minimal internal hemorrhoids, took a picture of this and then removed the scope. The patient tolerated the procedure well and he was recovered in endoscopy suite. Job ID: [id number] DocumentID: [id number] Dictated Date: 09/07/2018 11:37:03 Office Receptionist Date: 09/07/2018 14:55:56 Dictated By: FARHAD WAGGONER DO
--- NOTE | 2018-09-10 19:13 | CONSULTATION REPORT ---
DATE OF SERVICE: 09/10/2018 ORTHOPEDIC CONSULTATION CONSULTING PHYSICIAN: Meron Meier DO. IMPRESSION: 1. Right shoulder pain. 2. Primary osteoarthritis, acromioclavicular joint, right shoulder. 3. Status post cerebrovascular accident. RECOMMENDATIONS: 1. Progressive for strengthening exercises, right shoulder, right upper extremity. 2. Subacromial steroid injection if pain continues. HISTORY OF PRESENT ILLNESS: The patient is a 63-year-old right hand dominant male who was admitted to [facility] after sustaining CVA with left-sided weakness. The patient was admitted on 09/04/2018. The patient has been receiving occupational therapy on his left upper extremity. He has been progressing. He began having increased pain in his right shoulder and a consultation was obtained. On exam, the patient's right shoulder demonstrates full range of motion. There is no evidence of erythema. There is no evidence of swelling. He has palpable tenderness over the acromioclavicular joint. X-rays of the right shoulder were reviewed revealing moderate to severe degenerative changes of the acromioclavicular joint of the right shoulder with no evidence of subacromial or subclavicular spur formation. Mild sclerosis of the greater tuberosity is noted. No degenerative changes of the glenohumeral joint are noted. There is no abnormal subluxation of the humeral head in reference to the glenoid. The patient has been using his right upper extremity including his right shoulder a great deal since his left-sided stroke with left-sided weakness. I had asked that the patient has been receiving physical therapy on his right shoulder. He indicated he has not. I have recommended the patient received this physical therapy on his right shoulder, right upper extremity for strengthening exercises. If his symptoms persist, then I would recommend a subacromial steroid injection in his right shoulder if this is allowed by Dr. Meier. He was admitted with rectal bleeding. He has had surgery since this admission. Thank you for allowing me to participate in this patient's care. Job ID: [id number] DocumentID: [id number] Dictated Date: 09/10/2018 12:40:33 Art Conservator Date: 09/10/2018 19:12:42 Dictated By: PATO ABDI DO
== END | disposition home or self-care (01) ==
LOC: ENDO 10:17
PROVIDERS: ATTEND Surgery
DX: K92.1 Melena (principal); D12.3 Benign neoplasm of transverse colon; D12.5 Benign neoplasm of sigmoid colon; K29.70 Gastritis, unspecified, without bleeding; K25.9 Gastric ulcer, unspecified as acute or chronic, without hemorrhage or perforation; K64.8 Other hemorrhoids; K44.9 Diaphragmatic hernia without obstruction or gangrene; K31.7 Polyp of stomach and duodenum; I10 Essential (primary) hypertension; E78.2 Mixed hyperlipidemia; E11.9 Type 2 diabetes mellitus without complications; I69.354 Hemiplegia and hemiparesis following cerebral infarction affecting left non-dominant side; Z79.4 Long term (current) use of insulin; Z79.899 Other long term (current) drug therapy